=== PATIENT | male | born 1940 | race Caucasian/White ===

== ENCOUNTER 2017-06-16 12:21 | Inpatient (IN) | payer MEDICARE, SELFPAY ==
[2017-06-16] VITALS (16 sets, daily range): BP systolic 84–165; BP diastolic 39–88; PULSE 51–145; RESP 13–22; TEMP 36.4–36.9; O2SAT 93–96; BMI 38.8; BMI 35.1
--- NOTE | 2017-06-16 12:45 | XR_ITS ---
XR chest portable Ordering Physician: Rene Umanzor MD Patient Age: 76 years: Male HISTORY: ITS.REASON: SOAatrial fibrillation TECHNIQUE: AP portable upright chest COMPARISON :05/27/2012 CXR & right shoulder from November 2016 which includes right lung FINDINGS There is accentuation exaggeration of lung markings and interstitial lung markings toward the bases bilaterally. This is in part due to the higher contrast digital technique and I am suspect of a subtle superimposed interstitial infiltrate particularly towards right infrahilar region and right lung base. Clinical correlation required. At the left chest the left heart border is partially obscured due to what appears to be a subtle focal. Including lingula The heart is normal to upper normal size. The upper lobe vessels are mildly pronounced which could reflect element of mild CHF contribute to this picture versus mild interstitial pneumonia... Amanda and mediastinal structures appear stable. No pleural effusion evident. IMPRESSION Mild accentuation lung markings & interstitial markings most evident towards both lung bases. Suspect subtle interstitial infiltrate towards lung bases bilaterally..-Mild CHF changes versus mild interstitial infiltrate Heart upper normal size. No pleural effusions
[2017-06-16 13:14] LABS: Basophils # 0.1 K/mm3 (0-0.2); Basophils % 1.3 % (0.1-2.0); Eosinophils # 0.2 K/mm3 (0.0-0.4); Eosinophils % 2.3 % (0.1-12.0); Hematocrit 42.6 % (42.0-52.0); Hemoglobin 13.9 g/dL (14.1-18.0); Lymphocytes # 1.8 K/mm3 (0.7-4.5); Lymphocytes % 24.4 K/mm3 (10-50); Mean Corpuscular HGB Conc 32.6 g/dL (31.8-35.4); Mean Corpuscular Hemoglobin 30.2 pg (27.0-31.2); Mean Corpuscular Volume 92.5 fl (80-94); Mean Platelet Volume 7.2 fl (7.4-10.4); Monocytes # 0.4 K/mm3 (0.1-1.0); Monocytes % 5.7 % (1.7-9.3); Neutrophils # 4.8 K/mm3 (1.8-7.8); Neutrophils % 66.4 % (37.0-80.0); Platelet Count 262 K/mm3 (142-424); Red Cell Distribution Width 14.1 % (11.5-17.5); White Blood Count 7.3 K/mm3 (4.8-10.8)
[2017-06-16 13:29] LABS: Lactic Acid 1.7 mmol/L (0.4-2.0)
[2017-06-16 13:38] LABS: Alanine Aminotransferase 31 U/L (12-78); Albumin Level 4.1 gm/dL (3.4-5.0); Albumin/Globulin Ratio 1.2 (1.1-1.8); Alkaline Phosphatase 67 U/L (46-116); Anion Gap 14.1 mEq/L (5-15); Aspartate Amino Transferase 14 U/L (15-37); Bilirubin,Total 0.5 mg/dL (0.2-1.0); Blood Urea Nitrogen 21 mg/dL (7-18); CKMB Relative Index 3.7 U/L (0-4.0); Carbon Dioxide 26 mmol/L (21.0-32.0); Chloride 103 mmol/L (98-107); Creatine Kinase 195 U/L (39-308); Creatine Kinase MB 7.2 mg/ml (0.0-3.6); Creatinine Clearance Estimated 81 mL/min (0-300); Creatinine,Serum 1.04 mg/dL (0.70-1.30); Estimated Glomerular Filt Rate 69 ml/min (>60); GFR (African American) 84 ML/MIN (>60); Globulin 3.5 gm/dl (1.3-3.2); Glucose 102 mg/dL (74-106); Potassium 4.1 mmoL/L (3.5-5.1); Sodium 139 mmol/L (136-145); Total Protein,Serum 7.6 gm/dL (6.4-8.2); Troponin I < 0.02 ng/ml (0.00-0.06)
--- NOTE | 2017-06-16 14:13 | HMH.EDSOB ---
ED Disposition Clinical Impression: Atrial flutter with rapid ventricular response Congestive heart failure Qualifiers: Congestive heart failure type: unspecified Congestive heart failure chronicity: unspecified Qualified Code(s): I50.9 - Heart failure, unspecified Disposition: Admitted As Inpatient Condition on Discharge: Good - Critical Care Critical Care Time: Yes Attestation: On 06/16/17, the high probability of a clinically significant, sudden or life threatening deterioration of the following system(s) required my full and direct attention, intervention and personal management. The time I documented below is in addition to time spent performing reported procedures but includes the following listed in this critical care notation. Total Critical Care Time: 60 Vital system(s) involved:: Circulatory Failure My critical care processes included: Assessment & monitoring of V/S, Initial and Re-exams, Coordinating Care, Medication Orders and management, Documentation Medical Decision Making - Medical Records Medical records reviewed: Yes: I reviewed the patient's medical records. Vital Signs: 06/16/17 12:48 06/16/17 14:18 Temperature 98.4 F Temperature Source Oral Pulse Rate [Right Radial] 145 H 141 H Respiratory Rate 18 Blood Pressure [Right Arm] 126/76 111/83 Blood Pressure Mean [Right Arm] 92 92 Blood Pressure Source [Right Arm] Automatic Cuff Automatic Cuff Blood Pressure Position [Right Arm] Sitting 02 Sat by Pulse Oximetry 93 L 95 Oxygen Delivery Method Room Air - Lab Data Lab results reviewed: Yes: I reviewed the patient's lab results. Lab Results 06/16/17 12:55: WBC 7.3, RBC 4.60, Hgb 13.9 L, Hct 42.6, MCV 92.5, MCH 30.2, MCHC 32.6, RDW 14.1, Plt Count 262, MPV 7.2 L, Neut % (Auto) 66.4, Lymph % (Auto) 24.4, [place] % (Auto) 5.7, Eos % (Auto) 2.3, Baso % (Auto) 1.3, Neut # (Auto) 4.8, Lymph # (Auto) 1.8, [place] # (Auto) 0.4, Eos # (Auto) 0.2, Baso # (Auto) 0.1 06/16/17 12:55: Sodium 139, Potassium 4.1, Chloride 103, Carbon Dioxide 26, Anion Gap 14.1, BUN 21 H, Creatinine 1.04, Estimated Creat Clear 81, Estimated GFR 69, Est GFR ( Amer) 84, Glucose 102, Calcium 9.0, Total Bilirubin 0.5, AST 14 L, ALT 31, Alkaline Phosphatase 67, Total Creatine Kinase 195, CK-MB (CK-2) 7.2 H, CK-MB (CK-2) Rel Index 3.7, Troponin I < 0.02, Total Protein 7.6, Albumin 4.1, Globulin 3.5 H, Albumin/Globulin Ratio 1.2 06/16/17 12:55: Lactic Acid 1.7 06/16/17 12:55: B-Natriuretic Peptide 226 H 06/16/17 12:55: TSH 3.51, Free T4 1.03 Result diagrams: 06/16/17 12:55 06/16/17 12:55 Orders (Tests/Meds): ED MEDICATIONS Generic Name Dose Route Start Last Admin Trade Name Freq PRN Reason Stop Dose Admin Diltiazem HCl 100 mg/ Sodium 100 mls @ 10 mls/hr 06/16/17 13:00 06/16/17 12:55 Chloride IV 07/16/17 12:59 10 mls/hr .Q10H ERIC Administration 10 MG/HR Phenylephrine HCl 10 mg/ 500 mls @ 30 mls/hr 06/16/17 14:30 Sodium Chloride IV 07/16/17 14:29 .[id number] ERIC 10 MCG/MIN Discontinued Medications Generic Name Dose Route Start Last Admin Trade Name Freq PRN Reason Stop Dose Admin Diltiazem HCl 20 mg 06/16/17 12:46 06/16/17 12:50 Cardizem 25mg/5ml Vial IV 06/16/17 12:47 20 mg ONCE ONE Administration Metoprolol Tartrate 25 mg 06/16/17 13:15 06/16/17 13:16 Lopressor 50mg Tablet PO 06/16/17 13:16 25 mg ONCE ONE Administration ORDERS Category Date Time Status Chest XR -- portable [XR chest portable] Stat Exams 06/16/17 12:45 Taken Blood Culture Stat Micro 06/16/17 12:55 Received ECG Request by /Madeline Stat Y 06/16/17 12:48 Ordered - Radiology Data #1 Image(s): Chest Image Reviewed: Yes I reviewed the patient's radiology image Preliminary Findings: Abnormal (chf) - ECG Data Tracing #1 I reviewed this ECG and interpreted as documented below: Arrhythmias present: aflutter Ischemic changes: non-specific ST-T wave changes - Phys
--- NOTE | 2017-06-16 14:15 | PC.NURSE ---
DR MAIN TALKING TO DR MURILLO AT THIS TIME
--- NOTE | 2017-06-16 14:26 | ED_ITS ---
ED Disposition Clinical Impression: Atrial flutter with rapid ventricular response Congestive heart failure Qualifiers: Congestive heart failure type: unspecified Congestive heart failure chronicity : unspecified Qualified Code(s): I50.9 - Heart failure, unspecified Disposition: Admitted As Inpatient Condition on Discharge: Good - Critical Care Critical Care Time: Yes Attestation: On 06/16/17, the high probability of a clinically significant, sudden or life threatening deterioration of the following system(s) required my full and direct attention, intervention and personal management. The time I documented below is in addition to time spent performing reported procedures but includes the following listed in this critical care notation. Total Critical Care Time: 60 Vital system(s) involved:: Circulatory Failure My critical care processes included: Assessment & monitoring of V/S, Initial and Re-exams, Coordinating Care, Medication Orders and management, Documentation Medical Decision Making - Medical Records Medical records reviewed: Yes: I reviewed the patient's medical records. Vital Signs: 06/16/17 12:48 06/16/17 14:18 Temperature 98.4 F Temperature Source Oral Pulse Rate [Right Radial] 145 H 141 H Respiratory Rate 18 Blood Pressure [Right Arm] 126/76 111/83 Blood Pressure Mean [Right Arm] 92 92 Blood Pressure Source [Right Arm] Automatic Cuff Automatic Cuff Blood Pressure Position [Right Arm] Sitting 02 Sat by Pulse Oximetry 93 L 95 Oxygen Delivery Method Room Air - Lab Data Lab results reviewed: Yes: I reviewed the patient's lab results. Lab Results 06/16/17 12:55: WBC 7.3, RBC 4.60, Hgb 13.9 L, Hct 42.6, MCV 92.5, MCH 30.2, MCHC 32.6, RDW 14.1, Plt Count 262, MPV 7.2 L, Neut % (Auto) 66.4, Lymph % (Auto ) 24.4, [place] % (Auto) 5.7, Eos % (Auto) 2.3, Baso % (Auto) 1.3, Neut # (Auto) 4.8, Lymph # (Auto) 1.8, [place] # (Auto) 0.4, Eos # (Auto) 0.2, Baso # (Auto) 0.1 06/16/17 12:55: Sodium 139, Potassium 4.1, Chloride 103, Carbon Dioxide 26, Anion Gap 14.1, BUN 21 H, Creatinine 1.04, Estimated Creat Clear 81, Estimated GFR 69, Est GFR ( Amer) 84, Glucose 102, Calcium 9.0, Total Bilirubin 0.5 , AST 14 L, ALT 31, Alkaline Phosphatase 67, Total Creatine Kinase 195, CK-MB ( CK-2) 7.2 H, CK-MB (CK-2) Rel Index 3.7, Troponin I < 0.02, Total Protein 7.6, Albumin 4.1, Globulin 3.5 H, Albumin/Globulin Ratio 1.2 06/16/17 12:55: Lactic Acid 1.7 06/16/17 12:55: B-Natriuretic Peptide 226 H 06/16/17 12:55: TSH 3.51, Free T4 1.03 Result diagrams: 06/16/17 12:55 06/16/17 12:55 Orders (Tests/Meds): ED MEDICATIONS Generic Name Dose Route Start Last Admin Trade Name Freq PRN Reason Stop Dose Admin Diltiazem HCl 100 mg/ Sodium 100 mls @ 10 mls/hr 06/16/17 13:00 06/16/17 12: 55 Chloride IV 07/16/17 12:59 10 mls/hr .Q10H ERIC Administration 10 MG/HR Phenylephrine HCl 10 mg/ 500 mls @ 30 mls/hr 06/16/17 14:30 Sodium Chloride IV 07/16/17 14:29 .[id number] ERIC 10 MCG/MIN Discontinued Medications Generic Name Dose Route Start Last Admin Trade Name Freq PRN Reason Stop Dose Admin Diltiazem HCl 20 mg 06/16/17 12:46 06/16/17 12:50 Cardizem 25mg/5ml Vial IV 06/16/17 12:47 20 mg ONCE ONE Administration Metoprolol Tartrate 25 mg 06/16/17 13:15 06/16/17 13:16 Lopressor 5
[2017-06-16 14:38] LABS: Free T4 (Free Thyroxine) 1.03 ng/dl (0.76-1.46); Thyroid Stimulating Hormone 3.51 uIU/ml (0.358-3.740)
[2017-06-16 17:17] LABS: Troponin I < 0.02 ng/ml (0.00-0.06)
--- NOTE | 2017-06-16 21:13 | PC.NURSE ---
dr cortes returned call at this time. was notified that at approx 1800 pt heart rate decreased from 140 afib/aflutter to 45-75 afib. pt cardizem drip has been weaned down to 5ml/hr. pt remains in afib which was confirmed with ekg at 0. per dr cortes order start cardizem er 120mg po daily and dc cardizem drip [address] cortes stated that ok to leave pt on phenylephrine drip as needed for hypotension. parameters per pharmacy were for systolic bp to be above 100. new orders will be given to night rn S Call RN
[2017-06-16 22:07] LABS: Troponin I < 0.02 ng/ml (0.00-0.06)
[2017-06-17] VITALS (15 sets, daily range): BP systolic 112–153; BP diastolic 61–113; PULSE 68–136; RESP 17–23; TEMP 36.3–36.9; O2SAT 90–95
--- NOTE | 2017-06-17 03:32 | PC.NURSE ---
PT IS A&OX3. 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 HE HAS REMAINED IN CONTROLLED AFIB THIS SHIFT. FAMILY IS AT THE BEDSIDE. HE CONTINUES ON PHENYLEPHRINE GTT. VSS. HE RECEIVED PRN TYLENOL FOR REPORTS OF A HEADACHE. HE IS VOIDING PER THE URINAL. URINE IS YELLOW, CLEAR.
--- NOTE | 2017-06-17 06:24 | HMH.HP ---
*Admission Date: 06/16/17 *Chief complaint: Shortness of breath *History of present illness: 76-year-old male presented to the emergency department yesterday with near 48 hours of shortness of breath with exertion. He endorsed presyncope but no chest pain or palpitations. On presentation to the emergency department he was fairly in atrial flutter. Troponin was negative. Patient was admitted to the stepdown unit on a Cardizem drip along with Levophed to keep blood pressure greater than 100. While in the stepdown unit patient transition to atrial fibrillation. His rate gradually came down until it was ranging between 45 and 75. At that time he was transitioned to oral Cardizem and overnight he has been weaned from the Levophed. This morning patient is in bed and while at rest does not feel short of breath. 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 No: Pacemaker Amputation: No Fractures: Yes - *Social History Educational Level: Completed High School Smoking Status: Former smoker Tobacco Type: cigarettes #Yrs smoked (if former smoker): 21 Smoking End Date: 1996 Alcohol Intake: never Occupational Status: retired - Psychiatric History Expresses thoughts of harming self/others: None Suicide Plan Description: No Plan Review of Systems - Review of Systems Review of systems:: pertinent systems reviewed and negative unless documented below see HPI - *Neurologic Denies seizure-like activity Meds Allergies Allergy/AdvReac Type Severity Reaction Status Date / Time Penicillins Allergy Unknown Verified 06/16/17 13:04 Exam Vital signs and Labs for Last 24 Hours: Temp Pulse Resp BP Pulse Ox 97.9 F 75 19 112/85 93 L 06/17/17 04:00 06/17/17 06:08 06/17/17 06:08 06/17/17 06:08 06/17/17 06:08 Laboratory Results - last 24 hr 06/16/17 16:37: Troponin I < 0.02 06/16/17 21:45: Troponin I < 0.02 Laboratory Results - last 24 hr 06/16/17 12:55: WBC 7.3, RBC 4.60, Hgb 13.9 L, Hct 42.6, MCV 92.5, MCH 30.2, MCHC 32.6, RDW 14.1, Plt Count 262, MPV 7.2 L, Neut % (Auto) 66.4, Lymph % (Auto) 24.4, [place] % (Auto) 5.7, Eos % (Auto) 2.3, Baso % (Auto) 1.3, Neut # (Auto) 4.8, Lymph # (Auto) 1.8, [place] # (Auto) 0.4, Eos # (Auto) 0.2, Baso # (Auto) 0.1 06/16/17 12:55: Sodium 139, Potassium 4.1, Chloride 103, Carbon Dioxide 26, Anion Gap 14.1, BUN 21 H, Creatinine 1.04, Estimated Creat Clear 81, Estimated GFR 69, Est GFR ( Amer) 84, Glucose 102, Calcium 9.0, Total Bilirubin 0.5, AST 14 L, ALT 31, Alkaline Phosphatase 67, Total Creatine Kinase 195, CK-MB (CK-2) 7.2 H, CK-MB (CK-2) Rel Index 3.7, Troponin I < 0.02, Total Protein 7.6, Albumin 4.1, Globulin 3.5 H, Albumin/Globulin Ratio 1.2 06/16/17 12:55: Lactic Acid 1.7 06/16/17 12:55: B-Natriuretic Peptide 226 H 06/16/17 12:55: TSH 3.51, Free T4 1.03 06/16/17 16:37: Troponin I < 0.02 06/16/17 21:45: Troponin I < 0.02 I & O for Last 24 hours: Intake & Output 06/14/17 06/15/17 06/16/17 06/17/17 11:59 11:59 11:59 11:59 Intake Total 951 / 951 Output Total 1180 / 2055 Balance -229 / -1104 Weight 217 lb 1 oz H&P: Result - Labs Labs: Cardiac Enzymes 06/16/17 06/16/17 Range/Units 16:37 21:45 Troponin I < 0.02 < 0.02 (0.00-0.06) ng/ml Assessment and Plan (1) Atrial fibrillation Current visit: Yes Status: Acute Category: Medical Code(s): I48.91 - Unspecified atrial fibrillation (2) Atrial flutter with rapid ventricular response Current visit: Yes Status: Acute Category: Medical Code(s): I48.92 - Unspecified atrial flutter - Assessment and plan all Dx Assessment and Plan for all problems:: Patient remains in A. fib this morning. Transition to oral Cardizem. I will start 180 mg p.o. this morning. Check echocardiogram. Patient has h
[2017-06-17 06:27] LABS: Basophils # 0.1 K/mm3 (0-0.2); Eosinophils # 0.2 K/mm3 (0.0-0.4); Monocytes # 0.4 K/mm3 (0.1-1.0); Red Cell Distribution Width 14.3 % (11.5-17.5)
--- NOTE | 2017-06-17 06:27 | P.HP_ITS ---
*Admission Date: 06/16/17 *Chief complaint: Shortness of breath *History of present illness: 76-year-old male presented to the emergency department yesterday with near 48 hours of shortness of breath with exertion. He endorsed presyncope but no chest pain or palpitations. On presentation to the emergency department he was fairly in atrial flutter. Troponin was negative. Patient was admitted to the stepdown unit on a Cardizem drip along with Levophed to keep blood pressure greater than 100. While in the stepdown unit patient transition to atrial fibrillation. His rate gradually came down until it was ranging between 45 and 75. At that time he was transitioned to oral Cardizem and overnight he has been weaned from the Levophed. This morning patient is in bed and while at rest does not feel short of breath. 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 No: Pacemaker Amputation: No Fractures: Yes - *Social History Educational Level: Completed High School Smoking Status: Former smoker Tobacco Type: cigarettes #Yrs smoked (if former smoker): 21 Smoking End Date: 1996 Alcohol Intake: never Occupational Status: retired - Psychiatric History Expresses thoughts of harming self/others: None Suicide Plan Description: No Plan Review of Systems - Review of Systems Review of systems:: pertinent systems reviewed and negative unless documented below see HPI - *Neurologic Denies seizure-like activity Meds Allergies Allergy/AdvReac Type Severity Reaction Status Date / Time Penicillins Allergy Unknown Verified 06/16/17 13:04 Exam Vital signs and Labs for Last 24 Hours: Temp Pulse Resp BP Pulse Ox 97.9 F 75 19 112/85 93 L 06/17/17 04:00 06/17/17 06:08 06/17/17 06:08 06/17/17 06:08 06/17/17 06:08 Laboratory Results - last 24 hr 06/16/17 16:37: Troponin I < 0.02 06/16/17 21:45: Troponin I < 0.02 Laboratory Results - last 24 hr 06/16/17 12:55: WBC 7.3, RBC 4.60, Hgb 13.9 L, Hct 42.6, MCV 92.5, MCH 30.2, MCHC 32.6, RDW 14.1, Plt Count 262, MPV 7.2 L, Neut % (Auto) 66.4, Lymph % (Auto ) 24.4, [place] % (Auto) 5.7, Eos % (Auto) 2.3, Baso % (Auto) 1.3, Neut # (Auto) 4.8, Lymph # (Auto) 1.8, [place] # (Auto) 0.4, Eos # (Auto) 0.2, Baso # (Auto) 0.1 06/16/17 12:55: Sodium 139, Potassium 4.1, Chloride 103, Carbon Dioxide 26, Anion Gap 14.1, BUN 21 H, Creatinine 1.04, Estimated Creat Clear 81, Estimated GFR 69, Est GFR ( Amer) 84, Glucose 102, Calcium 9.0, Total Bilirubin 0.5 , AST 14 L, ALT 31, Alkaline Phosphatase 67, Total Creatine Kinase 195, CK-MB ( CK-2) 7.2 H, CK-MB (CK-2) Rel Index 3.7, Troponin I < 0.02, Total Protein 7.6, Albumin 4.1, Globulin 3.5 H, Albumin/Globulin Ratio 1.2 06/16/17 12:55: Lactic Acid 1.7 06/16/17 12:55: B-Natriuretic Peptide 226 H 06/16/17 12:55: TSH 3.51, Free T4 1.03 06/16/17 16:37: Troponin I < 0.02 06/16/17 21:45: Troponin I < 0.02 I & O for Last 24 hours: Intake & Output 06/14/17 06/15/17 06/16/17 06/17/17 11:59 11:59 11:59 11:59 Intake Total 951 / 951 Output Total 1180 / 2055 Balance -229 / -1104 Weight 217 lb 1 oz H&P: Result - Labs Labs: Cardiac Enzymes 06/16/17 06/16/17 Range/Units 16:37 21:45 Troponin I < 0.02 < 0.02 (0.00
[2017-06-17 06:30] LABS: Basophils % 0.9 % (0.1-2.0); Eosinophils % 2.6 % (0.1-12.0); Hematocrit 36.8 % (42.0-52.0); Hemoglobin 12.1 g/dL (14.1-18.0); Lymphocytes # 1.9 K/mm3 (0.7-4.5); Lymphocytes % 29.5 K/mm3 (10-50); Mean Corpuscular Hemoglobin 30.3 pg (27.0-31.2); Mean Platelet Volume 7.3 fl (7.4-10.4); Monocytes % 5.5 % (1.7-9.3); Neutrophils # 3.9 K/mm3 (1.8-7.8); Neutrophils % 61.4 % (37.0-80.0); Platelet Count 234 K/mm3 (142-424); White Blood Count 6.4 K/mm3 (4.8-10.8)
[2017-06-17 06:33] LABS: Anion Gap 10.4 mEq/L (5-15); Blood Urea Nitrogen 19 mg/dL (7-18); Carbon Dioxide 26 mmol/L (21.0-32.0); Chloride 108 mmol/L (98-107); Chol/HDL Ratio 4.9 (1-3.5); Cholesterol 175 mg/dL (140-200); Creatinine Clearance Estimated 86 mL/min (0-300); Creatinine,Serum 0.95 mg/dL (0.70-1.30); Estimated Glomerular Filt Rate 77 ml/min (>60); GFR (African American) 93 ML/MIN (>60); Glucose 94 mg/dL (74-106); HDL Cholesterol 36 mg/dL (27-67); LDL Cholesterol 114 mg/dL (0-130); Potassium 3.4 mmoL/L (3.5-5.1); Sodium 141 mmol/L (136-145); Triglycerides 124 mg/dL (30-200); VLDL Cholesterol 25 mg/dL (0-40)
--- NOTE | 2017-06-17 07:16 | CA_ITS ---
PROCEDURE: 2-D M-mode and color Doppler study INDICATIONS FOR THE TEST: Chest pain COPD Heart MurmurX Tobacco Smoking Palpitations Fatigue Syncope Edema Hypertension Diabetes Mellitus Rheumatic Fever SOB SANDS ObesityXHyperlipidemia Family History HD Additional History AF PATIENT INFORMATION HEIGHT: 68 WEIGHT:212 GENDER: Male B/P:112/85 2-D/M-MODE INTERPRETATION: 2-D MEASUREMENTS OBSERVED VALUES IN CMS Right Ventricular Dimension (RVDd) 3.3 Interventricular Septum (Thickness)(IVsd) 1.0 Left Ventricular Internal Dimensions(LVIDd) 5.7 Left Ventricular Posterior Wall (Thickness)(LVPWd) .9 Aortic Root 4.0 Aortic Cusp Separation 2.1 Left Atrial Dimensions (LAD) 3.4 2D 1. Left atrium is mildly enlarged, left ventricle is normal size, visually estimated ejection fraction 55% with no obvious regional wall motion abnormality. There is mild qualitative concentric left ventricular hypertrophy present. 2. The right atrium and right ventricle are mildly enlarged with normal contractility. 3. The aortic valve is minimally thickened and fibrosed. 4. The mitral and tricuspid valvular grossly normal. 5. The pulmonic valve is poorly visualized. 6. No significant pericardial effusion noted. DOPPLER INTERROGATION: Doppler interrogation of the aortic, mitral and tricuspid valvular presence of mild mitral and tricuspid regurgitation, calculated right ventricular systolic pressure is 56 mmHg consistent with moderate pulmonary hypertension, inferior vena cava is dilated without significant inspiratory collapse. CONCLUSION: 1. Mild biatrial enlargement, normal left ventricular size, mild concentric left ventricular hypertrophy, visually estimated ejection fraction 55% with no obvious regional wall motion abnormality 2. Mildly enlarged right atrium and right ventricle, contractility of the right ventricle is normal. 3. Mild mitral and tricuspid regurgitation, calculated right ventricular systolic pressure is 56 mmHg consistent with moderate pulmonary hypertension, inferior vena cava is dilated without significant inspiratory collapse. 4. No significant pericardial effusion noted.
--- NOTE | 2017-06-17 07:35 | HMH.PHAVTE ---
[facility] Pharmacy VTE Monitoring - Patient Demographics Admission date: 06/16/17 Report Date: 06/17/17 Time: 07:36 Allergies/Adverse Reactions: Patient Allergies Penicillins Allergy (Unknown, Verified 06/16/17 13:04) Height: 1.68 m Weight: 96.4 kg Patient Problems: Current Active Problems Atrial flutter with rapid ventricular response (Acute) Congestive heart failure (Acute) Atrial fibrillation (Acute) - VTE Risk Labs: VTE Related Lab Results Hgb 12.1 g/dL (14.1-18.0) L D 06/17/17 06:10 Hct 36.8 % (42.0-52.0) L 06/17/17 06:10 Plt Count 234 K/mm3 (142-424) 06/17/17 06:10 BUN 19 mg/dL (7-18) H 06/17/17 06:10 Creatinine 0.95 mg/dL (0.70-1.30) 06/17/17 06:10 Estimated Creat Clear 86 mL/min (0-300) 06/17/17 06:10 Was VTE Risk Assessment Performed: Yes VTE Score: 2 VTE Risk Level: Very Low Risk - Prophylaxis VTE Prophylaxis Ordered?: Yes Types of VTE Prophylaxis: TEDS Knee High, Pharmacological Location of Applied Device: Bilateral Lower Extremeties Pharmacologic Type: Other (XARLETO) - VTE Diagnosis Confirmed Treatment or plan recommended: Continue Current Treatment
--- NOTE | 2017-06-17 07:50 | PC.NURSE ---
RADIOLOGY NOW AT THE BEDSIDE TO PERFORM PATIENT'S ECHO.
--- NOTE | 2017-06-17 08:07 | CI_ITS ---
Cerebrovascular Exam IMPRESSIONS 1. The bilateral vertebral arteries are patent with normal antegrade flow. 2. Study suggests 20-49% stenosis involving the right internal carotid artery. No change from the study of 22-Jan-2014. 3. Study suggests less than 20% stenosis involving the left internal carotid artery. No change from the study of 22-Jan-2014. History: Risk factors: Former smoker - years since quittinyr. Hypertension. Hyperlipidemia. Carotid duplex study. Complete study and Doppler flow study including spectral analysis, color and padron scale imaging. Height: Height: 167.6cm. Height: 66in. Weight: Weight: 96.2kg. Weight: 211.6lb. Body mass index: BMI: 34.2kg/m^2. Body surface area: BSA: 2.15m^2. Location: Vascular laboratory. Patient status: Outpatient. Tables: Arterial flow: + +--------+--------+ Location V sys V ed + +--------+--------+ Right CCA - proximal 103cm/s 22.1cm/s + +--------+--------+ Right CCA - distal 43.7cm/s 13.1cm/s + +--------+--------+ Right ECA 91.2cm/s -------- + +--------+--------+ Right ICA - proximal 41.9cm/s 9.2cm/s + +--------+--------+ Right ICA - mid 42.8cm/s 14.4cm/s + +--------+--------+ Right ICA - distal 54.1cm/s 20.1cm/s + +--------+--------+ Right vertebral 45cm/s -------- + +--------+--------+ Left CCA - proximal 52.8cm/s 11.8cm/s + +--------+--------+ Left CCA - distal 59.8cm/s 12.2cm/s + +--------+--------+ Left ECA 62.4cm/s -------- + +--------+--------+ Left ICA - proximal 41.5cm/s 14.4cm/s + +--------+--------+ Left ICA - mid 69.8cm/s 29.7cm/s + +--------+--------+ Left ICA - distal 68.5cm/s 27.9cm/s + +--------+--------+ Left vertebral 29.7cm/s -------- + +--------+--------+ Velocity ratios: + + + + + + Right, V sys Right, V ed Left, V sys Left, V ed + + + + + + Max ICA/dist CCA 1.24 1.53 1.17 2.43 + + + + + + (Report amended ) Electronically signed by: King Roche [id number]
--- NOTE | 2017-06-17 08:23 | PC.NURSE ---
RADIOLOGY AT THE BEDSIDE NOW TO DO PATIENT'S CAROTID DOPPLER ON THE PATIENT PER ORDERS.
--- NOTE | 2017-06-17 11:19 | PC.NURSE ---
DR. MURILLO WAS NOTIFIED THAT AROUND 11:10 THE PATIENT'S HEART RATE WENT TO 130'S AND IS SUSTAINING IN 115-119 BPM. HE HAS NOW ORDERED FOR HIM TO GET DILTIAZEM HCL 60MG PO QID/PRN FOR HEART RATE > 110 BPM.
--- NOTE | 2017-06-17 11:30 | PC.NURSE ---
DR. YOUSSEF INTO SPEAK WITH THE PATIENT, HE PLANS TO PERFORM A HEART CATH TOMORROW GOING THROUGH [facility] IF POSSIBLE.
--- NOTE | 2017-06-17 11:34 | PC.NURSE ---
FIRST PRN DOSE OF DILTIAZEM 60MG PO GIVEN AND VERIFIED WITH SANDOVAL GARCIA
--- NOTE | 2017-06-17 12:24 | HMH.CARDCON2 ---
History of Present Illness Consult date: 06/16/17 Requesting physician: Rene Umanzor Consult reason: atrial fibrillation Chief complaint: SOA History of present illness: 76 yo WM with several days history of elevated heart rate and SOA that culminated in seeking help. Pt relates checks his pulse at home and it has been in the 140's recently. He gets so SOA with just walking to the mailbox (less than 50 ft) that he has to stop twice to rest. In ER, he was found to be in A. fib with RVR and was admitted for further treatment. Rapid response called last evening due to low BP on the cardizem gtt with phone consultation with Dr. Grover. Treated successfully with transient Neosynephrine gtt. Currently off both cardizem and tereza gtt's with rates in the 120-140's on PO cardizem. Pt denies any chest pain, pressure or tightness. Denies any history of DM, TIA, CVA or cancer. Remote tobacco and ETOH use. Cardiology consulted for further evaluation and treatment. 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 Other Surgeries: Yes: Other (nasal sx, ankle sx, aaa repair). No: Pacemaker Amputation: No Fractures: Yes - *Social History Educational Level: Completed High School Smoking Status: Former smoker Tobacco Type: cigarettes #Yrs smoked (if former smoker): 21 Smoking End Date: 1996 Alcohol Intake: never Occupational Status: retired - Psychiatric History Expresses thoughts of harming self/others: None Suicide Plan Description: No Plan Meds Home Medications Medication Instructions Recorded Confirmed Type Amlodipine Besylate [Amlodipine 10 mg PO DAILY 06/17/17 06/17/17 History 10mg Tab] Ascorbic Acid [Vitamin C] 1,000 mg PO DAILY 06/17/17 06/17/17 History Aspirin [Aspirin 325mg Tab] 325 mg PO DAILY 06/17/17 06/17/17 History Atropine Sulfate [Atropine 1 drop EYE-BOTH DAILY 06/17/17 06/17/17 History 1mg/10mL Syringe] Cholecalciferol (Vitamin D3) 1,000 unit PO DAILY 06/17/17 06/17/17 History [Vitamin D3 1,000 Unit Cap] Esomeprazole Magnesium 40 mg PO DAILY 06/17/17 06/17/17 History Levothyroxine Sodium 125 mcg PO DAILY 06/17/17 06/17/17 History [Levothyroxine 125mcg (0.125mg) Tab] Linaclotide [Linzess] 145 mcg PO DAILY 06/17/17 06/17/17 History Losartan Potassium 100 mg PO DAILY 06/17/17 06/17/17 History Vit C/E/Zn/Coppr/Lutein/Zeaxan 1 each PO DAILY 06/17/17 06/17/17 History [Preservision Areds 2 Softgel] prednisoLONE acetate [Prednisolone 5 ml OP DAILY 06/17/17 06/17/17 History Acetate] Allergies Allergy/AdvReac Type Severity Reaction Status Date / Time Penicillins Allergy Unknown Verified 06/16/17 13:04 Exam Vital signs and Labs for Last 24 Hours: Temp Pulse Resp BP Pulse Ox 97.5 F L 136 H 23 153/113 94 L 06/17/17 11:55 06/17/17 11:55 06/17/17 11:55 06/17/17 11:55 06/17/17 11:55 Laboratory Results - last 24 hr 06/16/17 16:37: Troponin I < 0.02 06/16/17 21:45: Troponin I < 0.02 06/17/17 06:10: WBC 6.4, RBC 4.00 L, Hgb 12.1 L D, Hct 36.8 L, MCV 92.0, MCH 30.3, MCHC 33.0, RDW 14.3, Plt Count 234, MPV 7.3 L, Neut % (Auto) 61.4, Lymph % (Auto) 29.5, [place] % (Auto) 5.5, Eos % (Auto) 2.6, Baso % (Auto) 0.9, Neut # (Auto) 3.9, Lymph # (Auto) 1.9, [place] # (Auto) 0.4, Eos # (Auto) 0.2, Baso # (Auto) 0.1 06/17/17 06:10: Sodium 141, Potassium 3.4 L, Chloride 108 H, Carbon Dioxide 26, Anion Gap 10.4, BUN 19 H, Creatinine 0.95, Estimated Creat Clear 86, Estimated GFR 77, Est GFR ( Amer) 93, Glucose 94, Triglycerides 124, Cholester
--- NOTE | 2017-06-17 12:27 | P.CONS_ITS ---
History of Present Illness Consult date: 06/16/17 Requesting physician: Rene Umanzor Consult reason: atrial fibrillation Chief complaint: SOA History of present illness: 76 yo WM with several days history of elevated heart rate and SOA that culminated in seeking help. Pt relates checks his pulse at home and it has been in the 140's recently. He gets so SOA with just walking to the mailbox ( less than 50 ft) that he has to stop twice to rest. In ER, he was found to be in A. fib with RVR and was admitted for further treatment. Rapid response called last evening due to low BP on the cardizem gtt with phone consultation with Dr. Grover. Treated successfully with transient Neosynephrine gtt. Currently off both cardizem and tereza gtt's with rates in the 120-140's on PO cardizem. Pt denies any chest pain, pressure or tightness. Denies any history of DM, TIA, CVA or cancer. Remote tobacco and ETOH use. Cardiology consulted for further evaluation and treatment. 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 Other Surgeries: Yes: Other (nasal sx, ankle sx, aaa repair). No: Pacemaker Amputation: No Fractures: Yes - *Social History Educational Level: Completed High School Smoking Status: Former smoker Tobacco Type: cigarettes #Yrs smoked (if former smoker): 21 Smoking End Date: 1996 Alcohol Intake: never Occupational Status: retired - Psychiatric History Expresses thoughts of harming self/others: None Suicide Plan Description: No Plan Meds Home Medications Medication Instructions Recorded Confirmed Type Amlodipine Besylate [Amlodipine 10 mg PO DAILY 06/17/17 06/17/17 History 10mg Tab] Ascorbic Acid [Vitamin C] 1,000 mg PO DAILY 06/17/17 06/17/17 History Aspirin [Aspirin 325mg Tab] 325 mg PO DAILY 06/17/17 06/17/17 History Atropine Sulfate [Atropine 1 drop EYE-BOTH DAILY 06/17/17 06/17/17 History 1mg/10mL Syringe] Cholecalciferol (Vitamin D3) 1,000 unit PO DAILY 06/17/17 06/17/17 History [Vitamin D3 1,000 Unit Cap] Esomeprazole Magnesium 40 mg PO DAILY 06/17/17 06/17/17 History Levothyroxine Sodium 125 mcg PO DAILY 06/17/17 06/17/17 History [Levothyroxine 125mcg (0.125mg) Tab] Linaclotide [Linzess] 145 mcg PO DAILY 06/17/17 06/17/17 History Losartan Potassium 100 mg PO DAILY 06/17/17 06/17/17 History Vit C/E/Zn/Coppr/Lutein/Zeaxan 1 each PO DAILY 06/17/17 06/17/17 History [Preservision Areds 2 Softgel] prednisoLONE acetate [Prednisolone 5 ml OP DAILY 06/17/17 06/17/17 History Acetate] Allergies Allergy/AdvReac Type Severity Reaction Status Date / Time Penicillins Allergy Unknown Verified 06/16/17 13:04 Exam Vital signs and Labs for Last 24 Hours: Temp Pulse Resp BP Pulse Ox 97.5 F L 136 H 23 153/113 94 L 06/17/17 11:55 06/17/17 11:55 06/17/17 11:55 06/17/17 11:55 06/17/17 11:55 Laboratory Results - last 24 hr 06/16/17 16:37: Troponin I < 0.02 06/16/17 21
--- NOTE | 2017-06-17 15:55 | PC.NURSE ---
DR. MURILLO REVIEWING PATIENT'S EKG STRIP AND AT THE BEDSIDE SPEAKING TO THE PATIENT
--- NOTE | 2017-06-17 16:02 | PC.NURSE ---
AFTER REVIEWING PATIENTS EKG STRIP, Heydi MURILLO STATES THAT AFTER HIS TRIP TO THE BATHROOM AND HAVING A BM HE VALSALVA MANEUVER AND CONVERTED BACK INTO NSR.
--- NOTE | 2017-06-17 19:25 | PC.NURSE ---
PATIENT HAND OFF GIVEN TO SANDOVAL MARTIN AT THIS TIME.
--- NOTE | 2017-06-17 22:53 | PC.NURSE ---
litigation counsel for Dr. Noé vargas, Dr. Hastings. Awaiting call back
--- NOTE | 2017-06-17 23:18 | PC.NURSE ---
pts breathing improved with 2L of o2 via nc and nurse guided relaxation. VSS
--- NOTE | 2017-06-17 23:37 | PC.NURSE ---
report given to Violette Fox RN
[2017-06-18] VITALS (16 sets, daily range): BP systolic 102–167; BP diastolic 58–81; PULSE 58–81; RESP 16–22; TEMP 36.3–36.6; O2SAT 86–98
--- NOTE | 2017-06-18 06:58 | HMH.ACPN2 ---
Internal Medicine - PN: Subj *Date: 06/18/17 *Time: 06:58 Interval history: Patient converted to sinus rhythm yesterday afternoon around 4 PM after having a bowel movement. He has continued to complain of dyspnea on exertion. No chest pain. Exam Vital signs and Labs for Last 24 Hours: Temp Pulse Resp BP Pulse Ox 98.4 F 77 18 126/67 98 06/17/17 15:56 06/18/17 04:00 06/18/17 04:00 06/18/17 04:00 06/18/17 04:00 I & O for Last 24 hours: Intake & Output 06/15/17 06/16/17 06/17/17 06/18/17 11:59 11:59 11:59 11:59 Intake Total 1551 / 1551 240 / 240 Output Total 1880 / 2755 600 / 600 Balance -329 / -1204 -360 / -360 Weight 212 lb 8.41 oz 213 lb 8 oz Radiology Reports for the Last 24 Hours: Carotid Dopplers yesterday are unchanged from previous exam in 2013 showed nonobstructive carotid disease. Echocardiogram was significant for normal EF of 55% with biatrial enlargement and evidence of pulmonary hypertension with increased right ventricular pressures Narrative: On examination patient is using oxygen. Nose is very congested. Oropharynx is moist. Lungs are clear with some central airway congested sounds. Heart rate is regular Assessment and Plan (1) Atrial fibrillation Current visit: Yes Status: Acute Category: Medical Code(s): I48.91 - Unspecified atrial fibrillation (2) Atrial flutter with rapid ventricular response Current visit: Yes Status: Acute Category: Medical Code(s): I48.92 - Unspecified atrial flutter (3) Hypertension Current visit: Yes Status: Acute Category: Medical Code(s): I10 - Essential (primary) hypertension (4) Abnormal EKG Current visit: Yes Status: Acute Category: Medical Code(s): R94.31 - Abnormal electrocardiogram [ECG] [EKG] (5) Congestive heart failure Current visit: Yes Status: Acute Qualifiers: Congestive heart failure type: unspecified Congestive heart failure chronicity: unspecified Qualified Code(s): I50.9 - Heart failure, unspecified Category: Medical Code(s): I50.9 - Heart failure, unspecified - Assessment and plan all Dx Assessment and Plan for all problems:: Cardiac catheterization today. Disposition afterwards. Patient will need a sleep study in the near future. Continue Xarelto for atrial fibrillation
--- NOTE | 2017-06-18 07:08 | IR_ITS ---
CARDIAC CATHETERIZATION DATE OF CATHETERIZATION:06/18/2017 10:46 AM PROCEDURES: 1. Left heart catheterization 2. Left ventriculogram 3. Selective coronary angiogram INDICATION FOR TEST: 1. Atrial fibrillation 2. Congestive heart failure 3. Risk factors for coronary artery disease Informed consent was obtained prior to the procedure. COMPLICATIONS: None ESTIMATED BLOOD LOSS: Less than 10 ml. TECHNIQUE: One percent lidocaine used to anesthetize the right anterior aspect of the wrist. The right radial artery was accessed via the Seldinger technique. A 6 [place] sheath was placed in the right radial artery. 2.5 mg of verapamil, 800 mcg of nitroglycerin and 5000 U Heparin were given through the arterial sheath. The trap catheter was also used to perform left heart catheterization and left ventriculography. At the end of the procedure the patient was transferred to the post-op holding area in stable condition for arterial sheath removal. ANGIOGRAPHIC RESULTS: 1. The left main artery normal 2. The left anterior descending artery has proximal tandem 30% stenoses with mid vessel 30% nonflow limiting stenoses 3. The circumflex artery is a large dominant vessel and has proximal 30% stenosis with mid vessel 40% stenoses 4. The right coronary artery is a small nondominant vessel and has proximal 80% followed by 70% stenosis 5. The BRIONES ventriculogram reveals small hyperdynamic ventricle estimated at 75% 6. The left ventricular end-diastolic pressure moderate to severely elevated at 30 to 35 mmHg IMPRESSION: 1. Severe coronary disease involving a small nondominant right coronary artery which does not supply the left ventricle therefore there would be no clinical advantage to revascularizing this vessel 2. Nonflow limiting disease in the LAD and circumflex artery 3. Small hyperdynamic ventricle 4. Elevated LVEDP consistent with diastolic dysfunction PLAN: 1. Anticoagulation for atrial fibrillation 2. Patient would benefit from verapamil extended release 3. Diuretics to decrease LVEDP 4. Aggressive control of hypertension 5. LDL less than 55
--- NOTE | 2017-06-18 08:38 | HMH.CARDPN2 ---
Subjective PN (PG) Date: 06/18/17 Time: 08:00 Principal diagnosis: A. fib Interval history: WM in chair in NAD. Anxious about cardiac cath. Feeling better overall. PN Exam ([facility]) Vital signs: Temp Pulse Resp BP Pulse Ox 98.4 F 77 18 126/67 98 06/17/17 15:56 06/18/17 04:00 06/18/17 04:00 06/18/17 04:00 06/18/17 04:00 A/P Progress Note ([facility]) (1) Atrial fibrillation Status: Acute Assessment and plan: Rate controlled on current meds. CHADS-VASc score at least 4. Xarelto has been started. Current Visit: Yes (2) Atrial flutter with rapid ventricular response Status: Acute Current Visit: Yes (3) Hypertension Status: Acute Current Visit: Yes (4) Abnormal EKG Status: Acute Current Visit: Yes (5) Congestive heart failure Status: Acute Current Visit: Yes
--- NOTE | 2017-06-18 08:41 | P.PN_ITS ---
Subjective PN (PG) Date: 06/18/17 Time: 08:00 Principal diagnosis: A. fib Interval history: WM in chair in NAD. Anxious about cardiac cath. Feeling better overall. PN Exam ([facility]) Vital signs: Temp Pulse Resp BP Pulse Ox 98.4 F 77 18 126/67 98 06/17/17 15:56 06/18/17 04:00 06/18/17 04:00 06/18/17 04:00 06/18/17 04:00 A/P Progress Note ([facility]) (1) Atrial fibrillation Status: Acute Assessment and plan: Rate controlled on current meds. CHADS-VASc score at least 4. Xarelto has been started. Current Visit: Yes (2) Atrial flutter with rapid ventricular response Status: Acute Current Visit: Yes (3) Hypertension Status: Acute Current Visit: Yes (4) Abnormal EKG Status: Acute Current Visit: Yes (5) Congestive heart failure Status: Acute Current Visit: Yes
--- NOTE | 2017-06-18 10:07 | PC.NURSE ---
pt off floor at this time
--- NOTE | 2017-06-18 10:09 | SUR.PREOP ---
pt arrived to slab off mill tender in stable condition w/ nursing staff per wheelchair
[2017-06-19] VITALS: BP 106/66; PULSE 50; PULSE 64; TEMP 36.8; O2SAT 92
[2017-06-19 04:00] VITALS: BP 124/62; PULSE 50; PULSE 67; RESP 20; TEMP 36.8; O2SAT 96
--- NOTE | 2017-06-19 06:27 | PC.NURSE ---
WEANED 3LNC TO 1LNC, TOLERATED WELL. ON RA O2SAT NOTED AT 88%. NSR, SINUS FEDERICO AND FIRST DEGREE HEART BLOCK NOTED PER IMPLANT COORDINATOR. DRESSING NOTED ON R RADIAL AREA, CDI. VSS. WILL CONTINUE TO MONITOR.
--- NOTE | 2017-06-19 06:41 | P.PN_ITS ---
Internal Medicine - PN: Subj *Date: 06/19/17 *Time: 06:38 Interval history: Patient has no complaints this morning. He states he feels like he is breathing a little bit easier. Nursing reports bradycardia overnight with a pulse rate in the 50s and room air sat was 88%. Patient does normally wear oxygen at night at home. He has not been out of bed very much. Exam Vital signs and Labs for Last 24 Hours: Temp Pulse Resp BP Pulse Ox 98.3 F 67 20 124/62 96 06/19/17 04:00 06/19/17 04:00 06/19/17 04:00 06/19/17 04:00 06/19/17 04:00 Vital Signs - 8 hr 06/19/17 00:00 06/19/17 04:00 Temperature 98.3 F 98.3 F Pulse Rate 50 L 50 L Pulse Rate [Right Radial] 64 67 Respiratory Rate 20 Blood Pressure [Left Arm] 106/66 124/62 02 Sat by Pulse Oximetry 92 L 96 I & O for Last 24 hours: Intake & Output 06/16/17 06/17/17 06/18/17 06/19/17 11:59 11:59 11:59 11:59 Intake Total 1551 / 1551 240 / 240 10 / 10 Output Total 1880 / 2755 600 / 600 1500 / 1500 Balance -329 / -1204 -360 / -360 -1490 / -1490 Weight 212 lb 8.41 oz 213 lb 8 oz 202 lb 9.6 oz Narrative: Patient appears comfortable. Lungs remain distant but no focal rales or rhonchi or wheezes. Heart has a regular rate and rhythm. Assessment and Plan (1) Atrial fibrillation Current visit: Yes Status: Acute Category: Medical Code(s): I48.91 - Unspecified atrial fibrillation (2) Atrial flutter with rapid ventricular response Current visit: Yes Status: Acute Category: Medical Code(s): I48.92 - Unspecified atrial flutter (3) Hypertension Current visit: Yes Status: Acute Category: Medical Code(s): I10 - Essential (primary) hypertension (4) Abnormal EKG Current visit: Yes Status: Acute Category: Medical Code(s): R94.31 - Abnormal electrocardiogram [ECG] [EKG] (5) Congestive heart failure Current visit: Yes Status: Acute Qualifiers: Congestive heart failure type: unspecified Congestive heart failure chronicity: unspecified Qualified Code(s): I50.9 - Heart failure, unspecified Category: Medical Code(s): I50.9 - Heart failure, unspecified - Assessment and plan all Dx Assessment and Plan for all problems:: I have encouraged the patient to ambulate today. I am going to order him a one- time Xopenex treatment to see if that aids with any dyspnea. Continue Cardizem , Xarelto, carvedilol, lisinopril. I will discuss with cardiology service need for both Cardizem and carvedilol due to his nocturnal bradycardia. Cardiac catheterization revealed nonobstructive disease with increased left ventricular end-diastolic pressure consistent with diastolic dysfunction. Ejection fraction is 55% on echocardiogram. I will add oral Lasix
--- NOTE | 2017-06-19 07:06 | HMH.DCSUM ---
General - General Admission date: 06/16/17 Discharge date: 06/19/17 HPI HPI: 76-year-old male presented to the emergency department yesterday with near 48 hours of shortness of breath with exertion. He endorsed presyncope but no chest pain or palpitations. On presentation to the emergency department he was fairly in atrial flutter. Troponin was negative. Patient was admitted to the stepdown unit on a Cardizem drip along with Levophed to keep blood pressure greater than 100. While in the stepdown unit patient transition to atrial fibrillation. His rate gradually came down until it was ranging between 45 and 75. At that time he was transitioned to oral Cardizem and overnight he has been weaned from the Levophed. This morning patient is in bed and while at rest does not feel short of breath. Objective Vital signs: Temp Pulse Resp BP Pulse Ox 98.3 F 67 20 124/62 96 06/19/17 04:00 06/19/17 04:00 06/19/17 04:00 06/19/17 04:00 06/19/17 04:00 Hospital Course Hospital Course: Patient was admitted for atrial letter/fibrillation on Cardizem drip for rate control and Levophed for pressure support. Within 12 hours patient converted to sinus rhythm. Patient was transitioned to oral Cardizem at a dose of 180 mg. He was initially given Lovenox as an anticoagulant and was transitioned to Xarelto 20 mg daily. Cardiology was consulted. Patient had an echocardiogram which showed an ejection fraction of 55% but evidence of diastolic dysfunction. Patient was taken to the [facility] where he was found to have nonobstructive disease and increased left ventricular end-diastolic pressures consistent with diastolic dysfunction. He was given intravenous Lasix due to dyspnea at rest and with exertion. On Jun.18 Patient did note some improvement in his level of dyspnea with this treatment. Carvedilol and lisinopril was added to his regimen while hospitalized.. Patient did develop some nocturnal bradycardia so I will discontinue carvedilol at discharge and he will continue oral cardizem. Breath sounds were distant and he had audible central airway wheezes. This was treated with Xopenex. Patient will follow up in my office in 2 days DS: Diagnosis - Discharge Diagnosis (1) Atrial fibrillation Status: Acute (2) Atrial flutter with rapid ventricular response Status: Acute (3) Hypertension Status: Acute (4) Abnormal EKG Status: Acute (5) Congestive heart failure Status: Acute Meds Home Medications Medication Instructions Recorded Confirmed Type Amlodipine Besylate [Amlodipine 10 mg PO DAILY 06/17/17 06/17/17 History 10mg Tab] Ascorbic Acid [Vitamin C] 1,000 mg PO DAILY 06/17/17 06/17/17 History Aspirin [Aspirin 325mg Tab] 325 mg PO DAILY 06/17/17 06/17/17 History Atropine Sulfate [Atropine 1 drop EYE-BOTH DAILY 06/17/17 06/17/17 History 1mg/10mL Syringe] Cholecalciferol (Vitamin D3) 1,000 unit PO DAILY 06/17/17 06/17/17 History [Vitamin D3 1,000 Unit Cap] Esomeprazole Magnesium 40 mg PO DAILY 06/17/17 06/17/17 History Levothyroxine Sodium 125 mcg PO DAILY 06/17/17 06/17/17 History [Levothyroxine 125mcg (0.125mg) Tab] Linaclotide [Linzess] 145 mcg PO DAILY 06/17/17 06/17/17 History Losartan Potassium 100 mg PO DAILY 06/17/17 06/17/17 History Vit C/E/Zn/Coppr/Lutein/Zeaxan 1 each PO DAILY 06/17/17 06/17/17 History [Preservision Areds 2 Softgel] prednisoLONE acetate [Prednisolone 5 ml OP DAILY 06/17/17 06/17/17 History Acetate] Allergies Allergy/AdvReac Type Severity Reaction Status Date / Time Penicillins Allergy Unknown Verified 06/16/17 13:04 Discharge Plan - Patient Discharge Instructions ACTIVITY: Continue current activity DIET: continue same diet - Follow up Plan Follow up with: Neville Grover MD [Staff Physician] - Rene Umanzor MD [Primary Care Provider] - 06/21/17 Disposition: Home, Self-Skilled Nursing Medications: Home Medicati
--- NOTE | 2017-06-19 07:09 | P.DS_ITS ---
General - General Admission date: 06/16/17 Discharge date: 06/19/17 HPI HPI: 76-year-old male presented to the emergency department yesterday with near 48 hours of shortness of breath with exertion. He endorsed presyncope but no chest pain or palpitations. On presentation to the emergency department he was fairly in atrial flutter. Troponin was negative. Patient was admitted to the stepdown unit on a Cardizem drip along with Levophed to keep blood pressure greater than 100. While in the stepdown unit patient transition to atrial fibrillation. His rate gradually came down until it was ranging between 45 and 75. At that time he was transitioned to oral Cardizem and overnight he has been weaned from the Levophed. This morning patient is in bed and while at rest does not feel short of breath. Objective Vital signs: Temp Pulse Resp BP Pulse Ox 98.3 F 67 20 124/62 96 06/19/17 04:00 06/19/17 04:00 06/19/17 04:00 06/19/17 04:00 06/19/17 04:00 Hospital Course Hospital Course: Patient was admitted for atrial letter/fibrillation on Cardizem drip for rate control and Levophed for pressure support. Within 12 hours patient converted to sinus rhythm. Patient was transitioned to oral Cardizem at a dose of 180 mg. He was initially given Lovenox as an anticoagulant and was transitioned to Xarelto 20 mg daily. Cardiology was consulted. Patient had an echocardiogram which showed an ejection fraction of 55% but evidence of diastolic dysfunction. Patient was taken to the [facility] where he was found to have nonobstructive disease and increased left ventricular end-diastolic pressures consistent with diastolic dysfunction. He was given intravenous Lasix due to dyspnea at rest and with exertion. On Jun.18 Patient did note some improvement in his level of dyspnea with this treatment. Carvedilol and lisinopril was added to his regimen while hospitalized.. Patient did develop some nocturnal bradycardia so I will discontinue carvedilol at discharge and he will continue oral cardizem. Breath sounds were distant and he had audible central airway wheezes. This was treated with Xopenex. Patient will follow up in my office in 2 days DS: Diagnosis - Discharge Diagnosis (1) Atrial fibrillation Status: Acute (2) Atrial flutter with rapid ventricular response Status: Acute (3) Hypertension Status: Acute (4) Abnormal EKG Status: Acute (5) Congestive heart failure Status: Acute Meds Home Medications Medication Instructions Recorded Confirmed Type Amlodipine Besylate [Amlodipine 10 mg PO DAILY 06/17/17 06/17/17 History 10mg Tab] Ascorbic Acid [Vitamin C] 1,000 mg PO DAILY 06/17/17 06/17/17 History Aspirin [Aspirin 325mg Tab] 325 mg PO DAILY 06/17/17 06/17/17 History Atropine Sulfate [Atropine 1 drop EYE-BOTH DAILY 06/17/17 06/17/17 History 1mg/10mL Syringe] Cholecalciferol (Vitamin D3) 1,000 unit PO DAILY 06/17/17 06/17/17 History [Vitamin D3 1,000 Unit Cap] Esomeprazole Magnesium 40 mg PO DAILY 06/17/17 06/17/17 History Levothyroxine Sodium 125 mcg PO DAILY 06/17/17 06/17/17 History [Levothyroxine 125mcg (0.125mg) Tab] Linaclotide [Linzess] 145 mcg PO DAILY 06/17/17 06/17/17 History Losartan Potassium 100 mg PO DAILY 06/17/17 06/17/17 History Vit C/E/Zn/Coppr/Lutein/Zeaxan 1 each PO DAILY 06/17/17 06/17/17 History [Preservision Areds 2 Softgel] prednisoLONE acetate [Pr
--- NOTE | 2017-06-19 07:40 | PC.NURSE ---
Received report from S Call RN
[2017-06-19 08:00] VITALS: BP 113/74; PULSE 60; PULSE 75; RESP 18; O2SAT 93
[2017-06-19 10:01] VITALS: PULSE 60; PULSE 63; O2SAT 96
[2017-06-19 11:34] VITALS: BP 132/79; PULSE 62; RESP 18; O2SAT 94
--- NOTE | 2017-06-19 11:43 | PC.NURSE ---
Pt off monitor and ambulating hallway with family. Pt denies any c/o at this time. Gait steady.
[2017-06-19 12:00] VITALS: PULSE 60
== END 2017-06-19 14:13 | disposition home or self-care (01) | DRG 286 ==
LOC: ER 12:27 → ICU 15:12
PROVIDERS: Internal Medicine; Admitting Provider Family Medicine; Emergency Provider Emergency Medicine; Family Provider Family Medicine; PCP Family Medicine; Visit Provider Family Medicine
PROC: 4A023N7 Measurement of Cardiac Sampling and Pressure, Left Heart, Percutaneous Approach (ICD-10-PCS; principal; 2017-06-18 09:30)
DX: I48.92 Unspecified atrial flutter; I50.31 Acute diastolic (congestive) heart failure; I48.91 Unspecified atrial fibrillation; I10 Essential (primary) hypertension
CPT/HCPCS: 36415; 71045; 80048; 80053; 80061; 82550; 82553; 83605; 83880; 84439; 84443; 84484; 85025; 87040; 93005; 93041; 93306; 93458; 93880; 94640; 94761; 96365; 96367; 96375; 99152; 99283; C1725; C1760; C1769; J1644

== ENCOUNTER → 2017-09-03 11:47 | Outpatient (CLI) | payer MEDICARE, SELFPAY ==
[2017-09-03 12:28] LABS: Basophils # 0.1 K/mm3 (0-0.2); Basophils % 1.6 % (0.1-2.0); Eosinophils # 0.3 K/mm3 (0.0-0.4); Hematocrit 45.8 % (42.0-52.0); Hemoglobin 15.1 g/dL (14.1-18.0); Lymphocytes # 1.6 K/mm3 (0.7-4.5); Lymphocytes % 20.1 K/mm3 (10-50); Mean Corpuscular HGB Conc 32.9 g/dL (31.8-35.4); Mean Corpuscular Hemoglobin 30.9 pg (27.0-31.2); Mean Corpuscular Volume 93.8 fl (80-94); Mean Platelet Volume 7.3 fl (7.4-10.4); Monocytes # 0.5 K/mm3 (0.1-1.0); Monocytes % 6.7 % (1.7-9.3); Neutrophils # 5.3 K/mm3 (1.8-7.8); Neutrophils % 67.6 % (37.0-80.0); Platelet Count 252 K/mm3 (142-424); Red Blood Count 4.88 M/mm3 (4.60-6.20); Red Cell Distribution Width 13.6 % (11.5-17.5); White Blood Count 7.8 K/mm3 (4.8-10.8)
[2017-09-03 13:53] LABS: Alanine Aminotransferase 21 U/L (12-78); Albumin Level 4.3 gm/dL (3.4-5.0); Albumin/Globulin Ratio 1.3 (1.1-1.8); Alkaline Phosphatase 79 U/L (46-116); Anion Gap 15.4 mEq/L (5-15); Aspartate Amino Transferase 17 U/L (15-37); Bilirubin,Total 0.3 mg/dL (0.2-1.0); Blood Urea Nitrogen 12 mg/dL (7-18); Calcium 9.7 mg/dL (8.5-10.1); Carbon Dioxide 28 mmol/L (21.0-32.0); Chloride 105 mmol/L (98-107); Creatinine,Serum 0.86 mg/dL (0.70-1.30); Estimated Glomerular Filt Rate 86 ml/min (>60); GFR (African American) 104 ML/MIN (>60); Globulin 3.2 gm/dl (1.3-3.2); Glucose 83 mg/dL (74-106); Potassium 4.4 mmoL/L (3.5-5.1); Sodium 144 mmol/L (136-145); Total Protein,Serum 7.5 gm/dL (6.4-8.2)
== END ==
PROVIDERS: Visit Provider Internal Medicine Cardiovascular Disease
DX: I48.92 Unspecified atrial flutter (principal); I48.91 Unspecified atrial fibrillation; I50.9 Heart failure, unspecified
CPT/HCPCS: 36415; 80053; 83880; 85025

== ENCOUNTER → 2017-10-28 07:31 | Outpatient (CLI) | payer MEDICARE, SELFPAY ==
--- NOTE | 2017-10-28 08:00 | US_ITS ---
US aorta HISTORY: ITS.REASON: AAA COMPARISON 09/26/2016 FINDINGS: Abdominal aortic aneurysm is present measuring up to 4.5 cm in AP dimension with mild amount of intramural thrombus. The aorta tapers to 2.6 cm at the bifurcation. Proximal left common iliac is 2 cm with the proximal right common iliac at 1.6 cm. IMPRESSION: Infrarenal abdominal aortic aneurysm measuring up to 4.5 cm. This previously measured [address] scan of 09/26/2016. While this could be related to ultrasound technique, true enlargement is also considered. Consider CT angiogram for more thorough evaluation.
== END ==
PROVIDERS: Family Provider Family Medicine; PCP Family Medicine; Visit Provider Thoracic Surgery (Cardiothoracic Vascular Surgery)
DX: I71.4 Abdominal aortic aneurysm, without rupture (principal)
CPT/HCPCS: 76770

== ENCOUNTER → 2017-12-26 09:51 | Outpatient (CLI) | payer MEDICARE, SELFPAY ==
--- NOTE | 2017-12-26 09:54 | NM_ITS ---
NM gastric emptying study CLINICAL INDICATION: ITS.REASON: POSTPRANDIAL ABD BLOATING ORDERING PHYSICIAN: Rene Umanzor MD PATIENT AGE: 77 years Comparison: None DOSE: 506 uCi sulfur colloid in radio labeled meal FINDINGS: The one half emptying time is 106 minutes which is slightly prolonged with normal being 60+/-30 minutes. Approximately 23% of the contents had emptied after 86 minutes. There was some initial delay in emptying beginning at 20 minutes. No gastroesophageal reflux evident on the images. IMPRESSION: Delayed gastric emptying
--- NOTE | 2017-12-26 10:37 | HMH.ITSHM ---
CARDIZEM LOSARTAN LINACLOTIDE LEVOTHYROXINE ASA
== END ==
PROVIDERS: Family Provider Family Medicine; PCP Family Medicine; Visit Provider Family Medicine
DX: R14.0 Abdominal distension (gaseous) (principal)
CPT/HCPCS: 78264; A9541

== ENCOUNTER → 2018-03-04 12:48 | Outpatient (CLI) | payer MEDICARE, SELFPAY ==
--- NOTE | 2018-03-04 12:53 | XR_ITS ---
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 There is normal alignment. No fracture or dislocation. Small sclerotic focus is present in the L1 vertebral body a 1 cm consistent with a bone island. There is mild multilevel degenerative disc disease with minimal endplate hypertrophic changes. No fracture or dislocation. No lytic or blastic change. Incidental note is made of atherosclerotic calcification and abdominal aortic aneurysm measuring up to 4.9 cm on the lateral view. Flexion and extension views show no evidence of abnormal subluxation. IMPRESSION: Mild degenerative changes of the lumbar spine with no abnormal subluxation in flexion or extension Abdominal aortic aneurysm
== END ==
PROVIDERS: PCP Family Medicine; Visit Provider Family Medicine
DX: M48.062 Spinal stenosis, lumbar region with neurogenic claudication (principal)
CPT/HCPCS: 72114

== ENCOUNTER → 2018-03-11 12:38 | Outpatient (CLI) | payer MEDICARE, SELFPAY ==
[2018-03-11 16:05] LABS: Prostate Specific Ag Screen 2.4 ng/mL (0.0-4.0)
== END ==
PROVIDERS: PCP Family Medicine; Visit Provider Urology
DX: Z12.5 Encounter for screening for malignant neoplasm of prostate (principal); N40.0 Benign prostatic hyperplasia without lower urinary tract symptoms
CPT/HCPCS: 36415; G0103

== ENCOUNTER → 2018-07-26 07:53 | Outpatient (CLI) | payer MEDICARE, SELFPAY ==
[2018-07-26 08:41] LABS: Blood Urea Nitrogen 16 mg/dL (7-18); Creatinine,Serum 0.95 mg/dL (0.70-1.30); Estimated Glomerular Filt Rate 77 ml/min (>60); GFR (African American) 93 ML/MIN (>60)
== END ==
PROVIDERS: Visit Provider Thoracic Surgery (Cardiothoracic Vascular Surgery)
DX: I74.4 Embolism and thrombosis of arteries of extremities, unspecified (principal)
CPT/HCPCS: 36415; 82565; 84520

== ENCOUNTER → 2018-07-28 08:51 | Outpatient (CLI) | payer MEDICARE, SELFPAY ==
--- NOTE | 2018-07-28 09:05 | CT_ITS ---
CT abdomen pelvis wo con INDICATION: Vascular disease follow-up and evaluation. ITS.REASON: AAA, stent ORDERING PHYSICIAN: Jose A Monroe MD PATIENT AGE: 77 years COMPARISON: CTA chest abdomen from September 2016 and subsequent performed today. . TECHNIQUE: No oral or IV contrast utilized for this initial study Axial images obtained with sagittal and coronal reformats. All CT scans at the facility use one or more dose reduction, viz: automated exposure control, ma/kV adjustment per patient size (including targeted exams where dose is matched to indication, i.e. head), or iterative reconstruction technique. FINDINGS: Lower thorax. Lung bases with no active disease. Borderline cardiomegaly. Dilatation of the lower thoracic aorta measuring up to 4 cm transverse diameter. Liver. There are scattered low-density areas in the left lobe again seen is been previously noted. No significant change. Most evident measuring up to 7 mm at the superior left lobe. Gallbladder. No calcified gallstones no biliary ductal dilatation. Noncontrast images of the pancreas, spleen, adrenals, and kidneys unremarkable . Ureters appear satisfactory. Minimal vascular calcification central left kidney doubt this calcification within collecting system. Ureters unremarkable. Pelvis. Upper normal wall thickness at the urinary bladder. Warrants correlation with urinalysis particularly of dysuria. The prostate appears upper normal size. Up to 5 cm transverse... GI tract. Moderate to generous solid stool throughout the colon. Moderate gas. No bowel dilatation or obstruction. Stomach, duodenum, small bowel unremarkable. Appendix visualized and normal. No wall thickening or lesions evident . Infrarenal abdominal aortic aneurysm is discussed in detail on the CTA report the aneurysm begins at end just below the level the renal arteries. It it measures up to 4.8 cm x 3.5 cm on axial image 39 which which I believe is 1 mm incrementally larger diameter overall than on previous study 2017. Measures 3.7 cm diameter on the sagittal images.. Minimal calcification origin of both renal arteries which appears to yield only only mild stenosis at origin of renal arteries. The intravascular stent at the distal abdominal aorta extends approximately 5 cm in length and appears similar to previous studies. diffuse atherosclerotic calcification becomes most pronounced throughout the iliac arteries [employer]IST The aneurysm dilatation of the left common iliac artery again noted up to 2.5 cm diameter. Osseous. No focal lesions of significance. Benign bone island at appearance at L1, stable Bulging disc and facet hypertrophy at the lower L-spine mild spinal stenosis L4/5, IMPRESSION 1. The CT abdomen/pelvis without contrast shows no acute intra-abdominal findings. ... Question minimal bladder wall thickening. With mildly prominent prostate ... Moderately/generous stool seen throughout colon on today's study. ... Appendix normal. ...... No adenopathy nor additional mass lesion abdomen/pelvis 2. Infrarenal abdominal aortic aneurysm is again noted. ... Similar outer diameter vs 2017..-Only Perhaps 1 mm larger diameter. Please see subsequent CTA report for other details regarding the infrarenal abdominal aneurysm, and other vascular observations.
--- NOTE | 2018-07-28 10:21 | CT_ITS ---
CT angio abdomen pelvis CLINICAL INDICATION: Follow-up aneurysm and vascular disease ITS.REASON: AAA ORDERING PHYSICIAN: Jose A Monroe MD PATIENT AGE: 77 years COMPARISON: . CTA September 26, [address]. Also CT without contrast from prior to this study TECHNIQUE: Bolus administration of 100 cc Isovue, Optiray 354 x 40 mL normal saline. CTA images obtained Axial images obtained with sagittal and coronal reformats. All CT scans at the facility use one or more dose reduction, viz: automated exposure control, ma/kV adjustment per patient size (including targeted exams where dose is matched to indication, i.e. head), or iterative reconstruction technique. FINDINGS------ . AORTA: There is a nearly 5 cm stent evident at the inferior most abdominal aorta leading towards the bifurcation... This is nicely seen on the precontrast CT abdomen. Aorta is tortuous Just superior to this stent, there is an infrarenal aortic aneurysm, which measures up to 4.4 cm transverse on the coronal images, and 5 cm length. 3.7. Cm AP (On axial image of the aneurysm, at measures up to nearly 4.8 cm maximum width of reflecting slight oblique transverse measurement due to tortuosity, x . The outer diameter may be 1 mm larger than 2017 but there is little change in the outer diameter. I would note contrast-filled lumen is larger with less crescentic thrombus at the left anterior margin of this aneurysm. Calcifications are seen at the origin of both renal arteries which yields mild stenosis here similar to previous study... Good enhancement both kidneys Continuing distally, again see diffuse atherosclerotic calcification of the common iliac arteries. Again note Aneurysmal dilatation Left Common Iliac Artery-. It measures up to 2.4 cm transverse on coronal image 43 x 2.2 cm AP (. Versus 2017 study on which it measured 23 mm transverse diameter) . The right common iliac artery measures 16 mm diameter maximally. On also note the distal thoracic aorta is generous in caliber. Fairly Stable measuring up to 3.8 cm diameter maximally.. It may be 1 mm larger than on 2017 study. . Diffuse atherosclerotic calcification is seen throughout the external iliac arteries as well as TECHN[employer] SUPPORT ANALYST and proximalmost SFA. These yield areas of mild stenosis most evident at the TECHNOLOGY SUPPORT ANALYST bilaterally.. No critical nor high-grade stenosis identified. . Celiac artery with minimal plaque at its origin moderate stenosis less than 20%. Only minimal plaque at origin of SMA. Both these vessels appear to be widely patent. Branch vessels satisfactory. Tiny TERE visualized unremarkable. . The early arterial phase postcontrast images pancreas unremarkable. Limited early enhancing images spleen, unremarkable. Liver appears stable. 2 Small stable less than 6 mm likely cyst at the inferior left lobe. Also stable 7.5 mm likely cystic area at the superior left lobe. These other areas with no significant change since 2017. Gallbladder unremarkable. Generous stool volume throughout colon. Adrenals gallbladder satisfactory. . At the pelvis upper normal bladder wall thickening. Moderate size prostate minimal central calcification. IMPRESSION 1. Infrarenal abdominal aortic aneurysm is again noted. Similar outer diameter 2017..-Only Perhaps 1 mm larger diameter. It measures up to 3.7 cm AP x 4.8 cm transverse measured on axial images. .*I would note that there is clearly decreased crescentic thrombus is anterior aspect of the aneurysm, with now larger contrast-filled patent lumen measuring up to to 3.6 cm.. This is noted as it additionally could change hemodynamic's at the aneurysm (. Mary Grace law). And thus may require closer follow-up. 2. Other vascular observations: ... Approximately 5 cm stent at distal most aorta, distal to the aneurysm & leading t
== END ==
PROVIDERS: PCP Family Medicine; Visit Provider Thoracic Surgery (Cardiothoracic Vascular Surgery)
DX: I71.4 Abdominal aortic aneurysm, without rupture (principal)
CPT/HCPCS: 74174; 74176; Q9967

== ENCOUNTER → 2018-09-02 14:47 | Outpatient (POV) | payer MEDICARE, SELFPAY | PROVIDERS: Visit Provider Dermatology | DX: Z00.00 Encounter for general adult medical examination without abnormal findings (principal) ==

== ENCOUNTER 2019-07-10 10:19 | Observation (INO) ==
--- NOTE | 2019-07-10 11:31 | Pharmacy Consult Notes ---
[facility] Pharmacy VTE Monitoring - Patient Demographics Admission date: 07/10/19 Report Date: 07/10/19 Time: 11:30 Allergies/Adverse Reactions: Patient Allergies Penicillins Allergy (Unknown, Verified 04/08/18 12:33) Height: 1.7 m Weight: 87.317 kg - Prophylaxis VTE Prophylaxis Ordered?: Yes Types of VTE Prophylaxis: TEDS Knee High Location of Applied Device: Bilateral Lower Extremeties
[2019-07-10 11:36] LABS: INR 1.92 (0.9-1.1); Prothrombin Time 19.4 seconds (9.4-11.8)
[2019-07-10 11:37] LABS: Albumin Level 4.1 g/dl (3.5-5.0); Albumin/Globulin Ratio 1.5 (1.1-1.8); Anion Gap 15.3 mEq/L (5-15); Bilirubin,Total 0.9 mg/dl (0.2-1.3); Calcium 9.6 mg/dl (8.4-10.2); Globulin 2.8 g/dL (1.3-3.2); Total Protein,Serum 6.9 g/dl (6.3-8.2)
--- NOTE | 2019-07-10 18:33 | History & Physical Report ---
*Admission Date: 07/10/19 *Chief complaint: Palpitations *History of present illness: 78-year-old male with known history of atrial fibrillation was initially seen in my office yesterday after his detected an elevated heart rate during a home blood pressure assessment. Pulse rate was in the 130s to 150s. She contacted the office and the patient was advised to come in. He was seen in the office and denied chest pain but admitted to some dyspnea when he exerted himself only. He had not had any problems sleeping or he had he had orthopnea or paroxysmal nocturnal dyspnea and had no pedal edema. In the office an EKG revealed atrial fibrillation with rapid ventricular response. Patient takes metoprolol extended release 50 mg daily. During hospitalization in 2018 for initial diagnosis of atrial fibrillation he had also been placed on Cardizem. However patient had significant GI side effects and pedal edema from Cardizem and that it was discontinued later in 2018. In the office patient was treated with metoprolol tartrate 50 mg every 6 hours and followed up in the office this morning. When patient returned to the office this morning he had persistent dyspnea on exertion and his pulse rate remained in the 130s and was irregular. Decision was made to admit the patient to the hospital on IV Cardizem drip to get his heart rate under control. Patient continued to deny chest pain today as well as palpitations Since admission to the floor and being placed on the Cardizem drip patient's rate has slowed but remains irregular EKG on admission has shown atrial flutter [facility] [place] History I have reviewed the patient's past medical history: Yes Medical History: Reports:: Aneurysm, Arrhythmia, Congestive Heart Failure, Coronary Artery Disease, Hyperlipidemia, Hypertension Denies:: Cancer, Diabetes Mellitus Type 1, Diabetes Mellitus Type 2, Internal Pacemaker, MRSA *Have you ever received a pneumonia vaccine?: Yes *Have you received a flu vaccine this season?: Yes Other Medical History: Reports: Arthritis, Thyroid Disease Laterality Cases: Right: Other Other Surgeries: Yes: Cardiac Catheterization, Colonoscopy, Other ([facility]- no stents). No: Pacemaker Amputation: No Fractures: Yes - *Social History Smoking Status: Unknown if ever smoked Tobacco Type: cigarettes #Yrs smoked (if former smoker): 21 Alcohol Intake: never Alcohol Intake Frequency:: other *Occupational Status:: retired Household Members: spouse *Travel in the last 8 weeks: None Family Hx:: Cancer, Coronary Artery Disease, Diabetes, Heart Attack, Hyperlipidemia, Hypertension, Stroke Review of Systems - Review of Systems Review of systems:: pertinent systems reviewed and negative unless documented below - Constitutional Denies body ache(s), Denies chills, Denies headache(s), Denies weakness, Denies weight gain - *Cardiovascular Reports shortness of breath with activity, Denies chest pain, Denies chest pain at rest, Denies chest pain with activity, Denies shortness of breath - *Gastrointestinal Denies abdominal pain, Denies belching Meds Home Medications Medication Instructions Recorded Confirmed Type Aspirin [Aspirin 325mg Tab] 325 mg PO DAILY 06/17/17 07/10/19 History Atropine Sulfate [Atropine 1 drp OP DAILY 06/17/17 07/10/19 History 1mg/10mL Syringe] Esomeprazole Magnesium 40 mg PO DAILY 06/17/17 07/10/19 History Levothyroxine Sodium 125 mcg PO DAILY 06/17/17 07/10/19 History [Levothyroxine 125mcg (0.125mg) Tab] ezetimibe 10 mg tablet 10 mg PO DAILY 03/11/18 07/10/19 History Doxycycline Hyclate [Doxycycline 20 mg PO BID 07/10/19 07/10/19 History 20mg Tablet] Ergocalciferol (Vitamin D2) 2,000 unit PO DAILY 07/10/19 07/10/19 History [Vitamin D2] Hydralazine HCl [Hydralazine HCl 25 mg PO TID 07/10/19 07/10/19 History 25mg Tablet] Losartan Potassium 100 mg PO DAILY 07/10/19 07/10/19 History Metoprolol Succinate 50 mg PO DAILY 07/10/19 07/10/19 History Vit C/E/Zn/Coppr/Lutein/Zeaxan 1 each PO DAILY 07/10/19 07/10/19 History [Preservision Areds 2 Softgel] Warfarin Sodium 5 mg PO DAILY 07/10/19 07/10/19 History hydroCHLOROthiazide [HCTZ 25mg 25 mg PO DAILY 07/10/19 07/10/19 History tab] prednisoLONE acetate [Prednisolone 1 drp OP BID 07/10/19 07/10/19 History Acetate] Allergies Allergy/AdvReac Type Severity Reaction Status Date / Time Penicillins Allergy Unknown Verified 04/08/18 12:33 Exam Vital signs and Labs for Last 24 Hours: Temp Pulse Resp BP Pulse Ox 97.7 F 85 19 99/62 L 93 L 07/10/19 16:00 07/10/19 18:00 07/10/19 18:00 07/10/19 18:00 07/10/19 18:00 Laboratory Results - last 24 hr 07/10/19 11:16: Sodium 140, Potassium 4.3, Chloride 105, Carbon Dioxide 24, Anion Gap 15.3 H, BUN 16, Creatinine 1.00, Estimated Creat Clear 74, Estimated GFR 72, Est GFR ( Amer) 87, Glucose 114 H, Calcium 9.6, Total Bilirubin 0.9, AST 27, ALT 23, Alkaline Phosphatase 61, Total Protein 6.9, Albumin 4.1, Globulin 2.8, Albumin/Globulin Ratio 1.5 07/10/19 11:16: Troponin I < 0.01 07/10/19 11:16: PT 19.4 H, INR 1.92 H I & O for Last 24 hours: Intake & Output 07/08/19 07/09/19 07/10/19 07/11/19 11:59 11:59 11:59 11:59 Intake Total 504 / 504 Output Total Balance 494 / 494 Weight 192 lb 8 oz Narrative: Patient appears comfortable. Oropharynx is moist. Neck has no jugular venous distention. Lungs are clear to auscultation with good aeration. Heart has an irregularly irregular rapid rate and rhythm. Abdomen is soft and nontender. Extremities have no edema. Neurologically there is no deficits. Assessment and Plan (1) Atrial flutter with rapid ventricular response Current visit: No Status: Acute Category: Medical Code(s): I48.92 - Unspecified atrial flutter - Assessment and plan all Dx Assessment and Plan for all problems:: 1. Continue Cardizem drip for this evening. Patient will be given IV digoxin as well as increasing dose of beta-emily with metoprolol succinate ER 50 mg twice daily. Because of patient's intolerance of Cardizem I will try to avoid this long-term as an oral medication. Patient has recently transitioned from Eliquis to warfarin due to cost. INR will be checked daily
[2019-07-11 06:02] LABS: INR 2.1 (0.9-1.1); Prothrombin Time 21.1 seconds (9.4-11.8)
[2019-07-11 06:06] LABS: Anion Gap 9.9 mEq/L (5-15); Calcium 8.9 mg/dl (8.4-10.2)
[2019-07-11 06:37] LABS: Thyroid Stimulating Hormone 1.87 uIU/mL (0.465-4.68)
--- NOTE | 2019-07-11 07:22 | Progress Note ---
Internal Medicine - PN: Subj *Date: 07/11/19 *Time: 07:20 Interval history: Patient reports feeling well this morning. Nursing staff reports his heart rate has ranged from 70s to 110 but there has been no sustained tachycardia. Patient's ex- reports he is "still wheezing". Patient reports some improvement in his dyspnea. Exam Vital signs and Labs for Last 24 Hours: Temp Pulse Resp BP Pulse Ox 97.9 F 72 18 128/56 L 90 L 07/10/19 20:00 07/11/19 06:15 07/10/19 20:00 07/11/19 06:14 07/11/19 06:14 Laboratory Results - last 24 hr 07/10/19 11:16: Sodium 140, Potassium 4.3, Chloride 105, Carbon Dioxide 24, Anion Gap 15.3 H, BUN 16, Creatinine 1.00, Estimated Creat Clear 74, Estimated GFR 72, Est GFR ( Amer) 87, Glucose 114 H, Calcium 9.6, Total Bilirubin 0.9, AST 27, ALT 23, Alkaline Phosphatase 61, Total Protein 6.9, Albumin 4.1, Globulin 2.8, Albumin/Globulin Ratio 1.5 07/10/19 11:16: Troponin I < 0.01 07/10/19 11:16: PT 19.4 H, INR 1.92 H 07/11/19 05:35: PT 21.1 H, INR 2.10 H 07/11/19 05:35: Sodium 140, Potassium 3.9, Chloride 107, Carbon Dioxide 27, Anion Gap 9.9, BUN 16, Creatinine 1.00, Estimated Creat Clear 70, Estimated GFR 72, Est GFR ( Amer) 87, Glucose 89 D, Calcium 8.9, TSH 1.87 I & O for Last 24 hours: Intake & Output 07/08/19 07/09/19 07/10/19 07/11/19 11:59 11:59 11:59 11:59 Intake Total 551 / 551 Output Total Balance 541 / 541 Weight 192 lb 8 oz 181 lb 7.647 oz Narrative: Patient appears comfortable this morning. He does not appear to be in any distress. Lungs are clear. While the patient is breathing a audible wheeze can be heard coming from his throat. With cough and pursed lip breathing this sound disappears. Heart has an irregular rate and rhythm. Assessment and Plan (1) Atrial flutter with rapid ventricular response Current visit: No Status: Acute Category: Medical Code(s): I48.92 - Unspecified atrial flutter - Assessment and plan all Dx Assessment and Plan for all problems:: Continue metoprolol extended release 100 mg twice daily along with digoxin 0.125 mg daily. Patient will be taken out of stepdown unit but maintained on telemetry. He has been encouraged to ambulate this morning to assess his response to physical activity. If patient is able to ambulate safely without sustained elevation in his heart rate he will be discharged home this afternoon and follow-up as an outpatient early in the week.
--- NOTE | 2019-07-11 07:25 | Discharge Summary ---
General - General Admission date:: 07/10/19 Discharge date: 07/12/19 HPI HPI: 78-year-old male with known history of atrial fibrillation was initially seen in my office yesterday after his detected an elevated heart rate during a home blood pressure assessment. Pulse rate was in the 130s to 150s. She contacted the office and the patient was advised to come in. He was seen in the office and denied chest pain but admitted to some dyspnea when he exerted himself only. He had not had any problems sleeping or he had he had orthopnea or paroxysmal nocturnal dyspnea and had no pedal edema. In the office an EKG revealed atrial fibrillation with rapid ventricular response. Patient takes metoprolol extended release 50 mg daily. During hospitalization in 2018 for initial diagnosis of atrial fibrillation he had also been placed on Cardizem. However patient had significant GI side effects and pedal edema from Cardizem and that it was discontinued later in 2018. In the office patient was treated with metoprolol tartrate 50 mg every 6 hours and followed up in the office this morning. When patient returned to the office this morning he had persistent dyspnea on exertion and his pulse rate remained in the 130s and was irregular. Decision was made to admit the patient to the hospital on IV Cardizem drip to get his heart rate under control. Patient continued to deny chest pain today as well as palpitations Since admission to the floor and being placed on the Cardizem drip patient's rate has slowed but remains irregular EKG on admission has shown atrial flutter Hospital Course Hospital Course: Patient was admitted and placed on Cardizem drip which brought his rate down into the 90's. Repeat EKG showed atrial flutter. Patient was transitioned to increased dose of his metoprolol er at 100mg bid. Patient previously took oral cardizem but experienced severe constipation and edema. When transitioning to an oral regimen digoxin was added as well. During the day of patient's pulse gradually kyle. Patient was started on oral Verapamil which he tolerated. On 07/11 his heart rate decreased and remained below 100 including with ambulation. He was discharged to home and will follow up with me in 2 days. Objective Vital signs: Temp Pulse Resp BP Pulse Ox 97.9 F 72 18 128/56 L 90 L 07/10/19 20:00 07/11/19 06:15 07/10/19 20:00 07/11/19 06:14 07/11/19 06:14 Results Labs on day of discharge: Labs from last 24 hours 07/11/19 07/11/19 07/10/19 05:35 05:35 11:16 PT 21.1 H 19.4 H INR 2.10 H 1.92 H Sodium 140 Potassium 3.9 Chloride 107 Carbon Dioxide 27 Anion Gap 9.9 BUN 16 Creatinine 1.00 Estimated Creat Clear 70 Estimated GFR 72 Est GFR ( Amer) 87 Glucose 89 D Calcium 8.9 Total Bilirubin AST ALT Alkaline Phosphatase Troponin I Total Protein Albumin Globulin Albumin/Globulin Ratio TSH 1.87 07/10/19 07/10/19 11:16 11:16 PT INR Sodium 140 Potassium 4.3 Chloride 105 Carbon Dioxide 24 Anion Gap 15.3 H BUN 16 Creatinine 1.00 Estimated Creat Clear 74 Estimated GFR 72 Est GFR ( Amer) 87 Glucose 114 H Calcium 9.6 Total Bilirubin 0.9 AST 27 ALT 23 Alkaline Phosphatase 61 Troponin I < 0.01 Total Protein 6.9 Albumin 4.1 Globulin 2.8 Albumin/Globulin Ratio 1.5 TSH DS: Diagnosis - Discharge Diagnosis (1) Atrial flutter with rapid ventricular response Status: Acute Discharge Plan - Patient Discharge Instructions ACTIVITY: Continue current activity DIET: continue same diet Patient Instructions: Heart Failure, Essential Hypertension, Atrial Flutter, DI for Heart Failure, DI for Atrial Flutter - Follow up Plan Follow up with: Rene Umanzor MD [Primary Care Provider] - 2 days Disposition: Home, Self-Residential Medications: Home Medications Medication Instructions Recorded Confirmed Type Aspirin [Aspirin 325mg Tab] 325 mg PO DAILY 06/17/17 07/10/19 History Atropine Sulfate [Atropine 1 drp OP DAILY 06/17/17 07/10/19 History 1mg/10mL Syringe] Esomeprazole Magnesium 40 mg PO DAILY 06/17/17 07/10/19 History Levothyroxine Sodium 125 mcg PO DAILY 06/17/17 07/10/19 History [Levothyroxine 125mcg (0.125mg) Tab] ezetimibe 10 mg tablet 10 mg PO DAILY 03/11/18 07/10/19 History Doxycycline Hyclate [Doxycycline 20 mg PO BID 02/28/20 02/28/20 History 20mg Tablet] Ergocalciferol (Vitamin D2) 2,000 unit PO DAILY 07/10/19 07/10/19 History [Vitamin D2] Hydralazine HCl [Hydralazine HCl 25 mg PO TID 07/10/19 07/10/19 History 25mg Tablet] Losartan Potassium 100 mg PO DAILY 07/10/19 07/10/19 History Vit C/E/Zn/Coppr/Lutein/Zeaxan 1 each PO DAILY 07/10/19 07/10/19 History [Preservision Areds 2 Softgel] Warfarin Sodium 5 mg PO DAILY 07/10/19 07/10/19 History hydroCHLOROthiazide [HCTZ 25mg 25 mg PO DAILY 07/10/19 07/10/19 History tab] prednisoLONE acetate [Prednisolone 1 drp OP BID 07/10/19 07/10/19 History Acetate] Metoprolol Succinate [Toprol XL 100 mg PO BID #60 tab.er.24h 07/11/19 Rx 100mg tablet] Verapamil HCl [Calan IR 80mg 80 mg PO TID #90 tab 07/12/19 Rx tablet] Prescriptions/Medication Reconciliation: New Metoprolol Succinate [Toprol XL 100mg tablet] 100 mg PO BID #60 tab.er.24h Verapamil HCl [Calan IR 80mg tablet] 80 mg PO TID #90 tab Continued ezetimibe 10 mg tablet 10 mg PO DAILY Atropine Sulfate [Atropine 1mg/10mL Syringe] 1 drp OP DAILY Esomeprazole Magnesium 40 mg PO DAILY Levothyroxine Sodium [Levothyroxine 125mcg (0.125mg) Tab] 125 mcg PO DAILY Aspirin [Aspirin 325mg Tab] 325 mg PO DAILY Doxycycline Hyclate [Doxycycline 20mg Tablet] 20 mg PO BID Vit C/E/Zn/Coppr/Lutein/Zeaxan [Preservision Areds 2 Softgel] 1 each PO DAILY Ergocalciferol (Vitamin D2) [Vitamin D2] 2,000 unit PO DAILY Losartan Potassium 100 mg PO DAILY prednisoLONE acetate [Prednisolone Acetate] 1 drp OP BID hydroCHLOROthiazide [HCTZ 25mg tab] 25 mg PO DAILY Warfarin Sodium 5 mg PO DAILY Hydralazine HCl [Hydralazine HCl 25mg Tablet] 25 mg PO TID Discontinued Metoprolol Succinate 50 mg PO DAILY - Problem Reconciliation Problems Reviewed?: Yes
[2019-07-12 06:07] LABS: INR 1.87 (0.9-1.1); Prothrombin Time 18.9 seconds (9.4-11.8)
[2019-07-12 06:11] LABS: Anion Gap 9.7 mEq/L (5-15); Calcium 9.1 mg/dl (8.4-10.2)
--- NOTE | 2019-07-12 08:33 | Progress Note ---
Internal Medicine - PN: Subj *Date: 07/12/19 *Time: 08:31 Interval history: Patient's heart rate kyle through the midday and evening yesterday. He was started on oral verapamil 40 mg every 8 hours. Overnight patient did well and this morning his heart rate ranges from 70-110 when I am in the room. He remains in atrial flutter on the campus monitor. He denies chest pain. His shortness of breath seemingly improved with diuresis yesterday. He has not been out of bed this morning. Exam Vital signs and Labs for Last 24 Hours: Temp Pulse Resp BP Pulse Ox 98.3 F 73 16 123/72 90 L 07/12/19 04:00 07/12/19 05:15 07/12/19 04:00 07/12/19 04:00 07/12/19 04:27 Laboratory Results - last 24 hr 07/12/19 04:55: Sodium 141, Potassium 4.7 D, Chloride 106, Carbon Dioxide 30, A nion Gap 9.7, BUN 17, Creatinine 1.00, Estimated Creat Clear 75, Estimated GFR 72, Est GFR ( Amer) 87, Glucose 86, Calcium 9.1, Magnesium 2.2 07/12/19 04:55: PT 18.9 H, INR 1.87 H I & O for Last 24 hours: Intake & Output 07/09/19 07/10/19 07/11/19 07/12/19 11:59 11:59 11:59 11:59 Intake Total 791 / 791 610 / 610 Output Total Balance 781 / 781 610 / 610 Weight 192 lb 8 oz 181 lb 7.647 oz 195 lb 1 oz Narrative: Patient is awake and alert. Lungs remain clear. Heart rate is irregularly irregular. Lower extremities have no edema Assessment and Plan (1) Atrial flutter with rapid ventricular response Current visit: No Status: Acute Category: Medical Code(s): I48.92 - Unspecified atrial flutter DC digoxin and increase verapamil to 80 mg 3 times daily. Continue metoprolol ER 100 mg twice daily. If patient is able to maintain his current heart rate over the morning and afternoon he will be discharged home later this afternoon
--- NOTE | 2019-07-13 08:03 | Electrocardiograph Report ---
APPROVED REPORT Exam: Resting ECG HR:135 bpm ECG Measurements Heart Rate 135 AXES MI P 254 QRSd 72 QRS -19 QT 266 T-3 QTc 399 <Conclusion> Atrial flutter with variable AV block RSR' or QR pattern in V1 suggests right ventricular conduction delay Marked ST abnormality, possible inferior subendocardial injury Abnormal ECG Electronically signed by : Rene Soares, 07/13/2019 08:02:27
== END 2019-07-12 13:23 | disposition home or self-care (01) ==
LOC: 2ND
PROVIDERS: ADMIT Family Medicine; ATTEND Family Medicine
CPT/HCPCS: 36415; 80048; 80053; 83735; 84443; 84484; 85610; 93005; G0378

== ENCOUNTER → 2019-11-24 08:12 | Outpatient (CLI) | payer MEDICARE, SELFPAY ==
--- NOTE | 2019-11-24 08:19 | CT_ITS ---
PROCEDURE: CT CHEST WO/W CON CLINCAL INDICATION: THORACIC AORTA ANEURYSM COMPARISON: CTAAP CTA ABD/PELVIS from 09/08/[address] angio abdomen pelvis from 07/28/2018 TECHNIQUE: IV Contrast: 75ml Optiray 350 Axial images obtained with sagittal and coronal reformats. All CT scans at the facility use one or more dose reduction, viz: automated exposure control, ma/kV adjustment per patient size (including targeted exams where dose is matched to indication, i.e. head), or iterative reconstruction technique. FINDINGS: HEART AND MEDIASTINAL STRUCTURES: There are significant coronary artery calcifications noted. Heart size is normal. The ascending thoracic aorta has an unremarkable appearance measuring up to 3.6 cm in maximum transverse dimension and 3.8 cm in AP dimension. No evidence of dissection. Atheromatous changes involve the descending thoracic aorta with soft and calcific plaque which is eccentric. Ulcerating plaque is present along the posterior left lateral aspect of the descending thoracic aorta. There is mild fusiform dilatation the descending thoracic aorta measuring up to 4.2 cm in the proximal to mid descending thoracic aorta. There is no evidence of aortic dissection. Images of the upper abdomen demonstrates fusiform dilatation of the infrarenal abdominal aorta measuring up to 4.3 cm transverse. This aneurysm is not completely imaged. There is mural thrombus anteriorly. Calcific plaque is present at the ostium of the renal arteries. The SMA has an unremarkable appearance proximally. There is mild narrowing of the proximal aspect of the celiac artery of approximately 40 percent. No mediastinal or hilar mass or adenopathy. LUNGS AND PLEURAL SPACES: The the the COPD changes with centrilobular emphysema. There is scattered areas of scarring.. In the left apex there is a 5 and a 8 mm noncalcified nodule medially along with an 8 mm irregular opacity with some surrounding fibrosis. BONY STRUCTURES: There are degenerative changes in the thoracic spine. A sclerotic focus is present in the L1 vertebral body not significantly changed and may be due to a bone island. UPPER ABDOMEN: Fusiform infrarenal abdominal aortic aneurysm could incompletely image measuring at least 4.3 cm transverse. Central hypodensity is present in the left hepatic lobe at 9 mm and may represent a hepatic cyst with at least 2 other smaller hypodensities in the left hepatic lobe. ADDITIONAL FINDINGS: No other significant abnormalities. IMPRESSION: The 1. Aneurysmal dilatation of the descending thoracic aorta as described above measuring up to 4.2 cm with mild amount of mural thrombus and some mild ulcerating plaque. No evidence of dissection. 2. Incompletely imaged abdominal aortic aneurysm 3. COPD with 3 left upper lobe nodules at 8 mm or less. Recommend 3 month follow-up to confirm short term stability. Dictated by: King Roche MD 11/24/2019 09:58 Electronically signed by King Roche MD in [facility] 11/24/2019 09:58
--- NOTE | 2019-11-24 08:20 | US_ITS ---
PROCEDURE: US ABD. AORTA SCREENING CLINICAL INDICATION: THORACIC AORTA ANEURYSM Abdominal aortic aneurysm COMPARISON: AGABDPEL CT angio abdomen pelvis from 07/28/2018 FINDINGS: There is fusiform aneurysmal dilatation the mid abdominal aorta which measures up to 4 cm AP and 4 cm transverse. The aorta measures 2.4 cm at the bifurcation. Proximal common iliacs measure approximately 1.4 cm on the left and 1 cm on the right. IMPRESSION: 4 cm fusiform abdominal aortic aneurysm Dictated by: King Roche MD 11/24/2019 09:43 Electronically signed by King Roche MD in [facility] 11/24/2019 09:43
[2019-11-24 08:45] LABS: Blood Urea Nitrogen 13 mg/dl (9-20); Estimated Glomerular Filt Rate 81 ml/min (>60); GFR (African American) 98 ML/MIN (>60)
== END ==
PROVIDERS: PCP Family Medicine; Visit Provider Thoracic Surgery (Cardiothoracic Vascular Surgery)
DX: I71.2 Thoracic aortic aneurysm, without rupture (principal)
CPT/HCPCS: 36415; 71270; 76705; 82565; 84520; Q9967

== ENCOUNTER → 2020-07-01 09:40 | Outpatient (CLI) | payer MEDICARE, SELFPAY ==
--- NOTE | 2020-07-01 09:50 | CT_ITS ---
PROCEDURE: CT CHEST WO/W CON CLINCAL INDICATION: LUNG NODULE Lung nodule COMPARISON: CT CT CHEST WO/W CON from 11/24/2019 TECHNIQUE: IV Contrast: 75ml Isovue 370 Axial images obtained with sagittal and coronal reformats. All CT scans at the facility use one or more dose reduction, viz: automated exposure control, ma/kV adjustment per patient size (including targeted exams where dose is matched to indication, i.e. head), or iterative reconstruction technique. FINDINGS: An interval increase in size medial left upper lobe nodule. It now has the appearance of a single nodule which measures 1 centimeter in craniocaudad diameter and 1.5 centimeters in AP diameter it has increased in prominence on the sagittal sequence, image 60 where it has a spiculated appearance. Further workup with a PET-CT is recommended. There is no change in the area of architectural distortion in the left lung apex given slight differences in respiratory positioning. A tiny noncalcified nodule on image 25 unlikely to be clinically significant. There are no pleural effusions. There is no infiltrate. There are extensive atherosclerotic calcifications in the coronary arteries. There is fusiform dilatation of the descending aorta measuring up to 4.2 centimeters in diameter, unchanged in size or appearance compared with the prior CT. There is partial visualization of an abdominal aortic aneurysm. There is extensive atherosclerotic calcification at the origin of the left renal artery and less prominent calcifications origin of the right renal artery. There is a benign sclerotic L1 vertebral body lesion unchanged. There are scattered degenerative findings throughout remaining visualized areas of the skeleton. IMPRESSION: 1. Increasing size of medial left upper lobe nodule now demonstrating spiculation. Pet CT is recommended for further workup. 2. No change in descending aortic 4.2 centimeter fusiform aneurysm. 3. Atherosclerosis of its and skeletal findings as described above. Dictated by: Eden Bundy MD 07/01/2020 18:11 Eden Bundy MD in [facility] 07/01/2020 18:11
[2020-07-01 10:12] LABS: Blood Urea Nitrogen 17 mg/dl (9-20); Estimated Glomerular Filt Rate 81 ml/min (>60); GFR (African American) 98 ML/MIN (>60)
== END ==
PROVIDERS: PCP Family Medicine; Visit Provider Thoracic Surgery (Cardiothoracic Vascular Surgery)
DX: R91.1 Solitary pulmonary nodule (principal)
CPT/HCPCS: 36415; 71270; 82565; 84520; Q9967

== ENCOUNTER → 2020-10-17 07:47 | Outpatient (CLI) | payer MEDICARE, SELFPAY ==
--- NOTE | 2020-10-17 07:52 | US_ITS ---
PROCEDURE: US ABD. AORTA SCREENING CLINICAL INDICATION: AAA Follow-up abdominal aortic aneurysm COMPARISON: CT ABDPELWO CT abdomen pelvis wo con from 07/28/2018 US US ABD. AORTA SCREENING from 11/24/2019 FINDINGS: There has been prior aortic surgery. The mid abdominal aorta measures 3.7 cm in AP dimension similar to previous CT scan of 07/28/2018. Lower abdominal aorta measures 2 cm in AP dimension. Left common iliac is approximately 1.8 cm and right common iliac 1.3 cm. IMPRESSION: Abdominal aortic aneurysm measuring 3.7 cm in AP dimension Dilated left common iliac at 1.8 cm. Dictated by: King Roche MD 10/17/2020 13:31 King Roche MD in [facility] 10/17/2020 13:31
== END ==
PROVIDERS: PCP Family Medicine; Visit Provider Thoracic Surgery (Cardiothoracic Vascular Surgery)
DX: I71.4 Abdominal aortic aneurysm, without rupture (principal)
CPT/HCPCS: 76705

== ENCOUNTER 2021-10-10 09:41 | Outpatient (CLI) | payer MEDICARE, SELFPAY ==
[2021-10-10 11:56] LABS: PHA INR Fingerstick 1.8 (0.9-1.1)
== END 2021-10-10 12:03 | disposition home or self-care (01) ==
LOC: ACC 09:43
PROVIDERS: Visit Provider Family Medicine
DX: Z51.81 Encounter for therapeutic drug level monitoring (principal); Z79.01 Long term (current) use of anticoagulants
CPT/HCPCS: 85610; 99211; G0463

== ENCOUNTER 2021-10-31 09:17 | Outpatient (CLI) | payer MEDICARE, SELFPAY ==
[2021-10-31 12:15] LABS: PHA INR Fingerstick 2.2 (0.9-1.1)
== END 2021-10-31 14:50 | disposition home or self-care (01) ==
LOC: ACC 09:19
PROVIDERS: PCP Family Medicine; Visit Provider Family Medicine
DX: Z51.81 Encounter for therapeutic drug level monitoring (principal); Z79.01 Long term (current) use of anticoagulants
CPT/HCPCS: 85610; 99211; G0463

== ENCOUNTER 2021-11-14 11:12 | Emergency (ER) | payer MEDICARE, SELFPAY ==
[2021-11-14 11:50] VITALS: BP 151/90; PULSE 91; RESP 17; TEMP 36.6; O2SAT 98; BMI 26.7
[2021-11-14 12:08] LABS: Microscopic, Urine URINE MICROSCOPIC (MICROSCOPIC)
--- NOTE | 2021-11-14 12:10 | PC.NURSE ---
PATIENT SENT TO ER PER Brian PAYNE APRN FOR FURTHER EVALUATION. REPORT GIVEN TO Fito BECKFORD RN BY Brian PAYNE APRN
[2021-11-14 12:12] LABS: Appearance,Urine CLEAR (Clear); Bilirubin,Urine Negative (Negative); Blood, Urine Negative (Negative); Color,Urine YELLOW (Yellow); Glucose,Urine (UA) Negative (Negative); Ketones,Urine Negative (Negative); Leukocyte Esterase,Urine Negative (Negative); Nitrate,Urine Negative (Negative); Protein,Urine Negative (Negative); Specific Gravity, Urine 1.015 (1.005-1.030)
[2021-11-14 12:20] VITALS: BP 161/116; PULSE 100; RESP 18; TEMP 36.7; O2SAT 97; BMI 27.4
--- NOTE | 2021-11-14 12:24 | HMH.EDFALL ---
ED Disposition Clinical Impression: Falling episodes Atrial fibrillation Qualifiers: Atrial fibrillation type: longstanding persistent Qualified Code(s): I48.11 - Longstanding persistent atrial fibrillation Disposition: Home, Self-Care Condition on Discharge: Fair Instructions: Dizziness, Nonvertigo Additional Instructions: Please use your walker every time you try to walk. Follow-up with your primary care doctor in approximately 3 to 5 days if you do not improve. Return to the emergency department immediately if you feel any worse. Your work-up today in the emergency department did not show any life-threatening or dangerous conditions. Referrals: Rene Umanzor MD [Primary Care Provider] - - Critical Care Critical Care Time: No (Yes) Attestation: On 11/14/21, the high probability of a clinically significant, sudden or life threatening deterioration of the following system(s) required my full and direct attention, intervention and personal management. The time I documented below is in addition to time spent performing reported procedures but includes the following listed in this critical care notation. Medical Decision Making - [place] Inquiry Pt receiving controlled substance: No Vital Signs: 11/14/21 11:50 11/14/21 12:20 11/14/21 12:30 Temperature 97.8 F 98.0 F Temperature Source Oral Oral Pulse Rate 90 Pulse Rate [Right Brachial] 91 H 100 H Respiratory Rate 17 18 18 Blood Pressure 149/105 H Blood Pressure [Right Arm] 151/90 H 161/116 H Blood Pressure Mean 119 Blood Pressure Mean [Right Arm] 110 131 Blood Pressure Source [Right Arm] Automatic Cuff Automatic Cuff Blood Pressure Position [Right Arm] Sitting Sitting 02 Sat by Pulse Oximetry 98 97 96 Oxygen Delivery Method Room Air Room Air 11/14/21 13:00 Temperature Temperature Source Pulse Rate 92 H Pulse Rate [Right Brachial] Respiratory Rate 16 Blood Pressure 152/107 H Blood Pressure [Right Arm] Blood Pressure Mean 118 Blood Pressure Mean [Right Arm] Blood Pressure Source [Right Arm] Blood Pressure Position [Right Arm] 02 Sat by Pulse Oximetry 96 Oxygen Delivery Method - Lab Data Lab results reviewed: Yes: I reviewed the patient's lab results. Lab Results 11/14/21 12:05: Urine Color Yellow, Urine Appearance Clear, Urine pH 7.0, Ur Specific [place] 1.015, Urine Protein Negative, Urine Glucose (UA) Negative, Urine Ketones Negative, Urine Blood Negative, Urine Nitrate Negative, Urine Bilirubin Negative, Urine Urobilinogen 2.0, Ur Leukocyte Esterase Negative, Urine RBC Occasional, Urine WBC None, Ur Squamous Epith Cells Occasional, Urine Bacteria None 11/14/21 13:00: WBC 6.9, RBC 4.89, Hgb 15.7, Hct 45.0, MCV 92.0, MCH 32.2 H, MCHC 35.0, RDW 13.6, Plt Count 232, MPV 6.9 L, Neut % (Auto) 70.5, Lymph % (Auto) 16.2, [place] % (Auto) 8.4, Eos % (Auto) 3.7, Baso % (Auto) 1.3, Neut # (Auto) 4.9, Lymph # (Auto) 1.1, [place] # (Auto) 0.6, Eos # (Auto) 0.3, Baso # (Auto) 0.1 11/14/21 13:00: Sodium 138, Potassium 3.6, Chloride 100, Carbon Dioxide 32 H, Anion Gap 9.6, BUN 18, Creatinine 0.80, Estimated Creat Clear 63, Estimated GFR 93, Est GFR ( Amer) 112, Glucose 105 H, Calcium 9.9, Total Bilirubin 1.3, AST 35, ALT 24, Alkaline Phosphatase 88, Total Protein 7.6, Albumin 4.5, Globulin 3.1, Albumin/Globulin Ratio 1.5 Result diagrams: 11/14/21 13:00 11/14/21 13:00 - CT Data CT Scan: Head Time Received: 14:[address] Reviewed: Yes: I have reviewed the patient's CT results Preliminary Findings: Normal/NAD - ECG Data Tracing #1 I reviewed this ECG and interpreted as documented below: Patient is EKG was done at 12:42 PM. It shows atrial fibrillation with a ventricular rate of 97 bpm there is an incomplete right bundle branch block otherwise the EKG is unremarkable. Normal Sinus Rhythm: No Arrhythmias present: afib Medical Decision Narrative: The patient's work-up in the emergency department did not reveal any acutely
[2021-11-14 12:30] VITALS: BP 149/105; PULSE 90; RESP 18; O2SAT 96
--- NOTE | 2021-11-14 12:42 | ECG_ITS ---
APPROVED REPORT Exam: Resting ECG HR:97 bpm ECG Measurements Heart Rate 97 AXES QRSd 93 QRS -23 QT 345 T 17 QTc 399 Conclusion ATRIAL FIBRILLATION WITH ABERRANT CONDUCTION OR VENTRICULAR PREMATURE COMPLEXES INCOMPLETE RIGHT BUNDLE BRANCH BLOCK Old septal changes ABNORMAL ECG UNCONFIRMED REPORT Electronically signed by : Rene Soares MD 11/16/2021 17:47:27
--- NOTE | 2021-11-14 12:46 | CT_ITS ---
FINAL REPORT CLINICAL HISTORY: Ataxia, dizziness and falls FINDINGS: Axial images of the head were obtained without contrast. Coronal reformatted images were also obtained. This study was performed with techniques to keep radiation doses as low as reasonably achievable (ALARA). Individualized dose reduction techniques using automated exposure control or adjustment of mA and/or kV according to the patient''s size were employed. There is generalized age-appropriate atrophy. Periventricular low-attenuation areas are seen consistent with moderate chronic ischemic changes. There is no evidence of intracranial hemorrhage or mass. There is no evidence of acute infarct. There is no evidence of shift of the midline structures. No skull abnormality is seen on the bone window images. There are postoperative changes of the right globe. IMPRESSION: Atrophy and moderate periventricular chronic ischemic changes. No acute intracranial abnormality identified. Reviewed, Interpreted and Dictated by Oc Ambrocio III, MD Transcribed by Faith Ty Authenticated and [facility]
[2021-11-14 12:52] LABS: RBC,Urine Occasional #/hpf (0-3); Squamous Epithelial Cell,Urine Occasional #/hpf (0-5)
[2021-11-14 13:00] VITALS: BP 152/107; PULSE 92; RESP 16; O2SAT 96
--- NOTE | 2021-11-14 13:06 | PC.NURSE ---
LABS DRAWN WITHOUT DIFFICULTY, PT TOLERATED WELL. NO NEEDS AT THIS TIME. FAMILY AT BEDSIDE
[2021-11-14 13:20] LABS: Basophils # 0.1 K/mm3 (0-0.2); Basophils % 1.3 % (0.1-2.0); Eosinophils # 0.3 K/mm3 (0.0-0.4); Eosinophils % 3.7 % (0.1-12.0); Hemoglobin 15.7 g/dL (14.1-18.0); Lymphocytes # 1.1 K/mm3 (0.7-4.5); Lymphocytes % 16.2 % (10-50); Mean Corpuscular Hemoglobin 32.2 pg (27.0-31.2); Mean Platelet Volume 6.9 fl (7.4-10.4); Monocytes # 0.6 K/mm3 (0.1-1.0); Monocytes % 8.4 % (1.7-9.3); Neutrophils # 4.9 K/mm3 (1.8-7.8); Neutrophils % 70.5 % (37.0-80.0); Platelet Count 232 K/mm3 (142-424); Red Blood Count 4.89 M/mm3 (4.60-6.20); Red Cell Distribution Width 13.6 % (11.5-17.5); White Blood Count 6.9 K/mm3 (4.8-10.8)
[2021-11-14 13:25] LABS: Chloride 100 mmol/L (98-107); Sodium 138 mmol/L (136-145)
[2021-11-14 13:26] LABS: Potassium 3.6 mmoL/L (3.5-5.1)
--- NOTE | 2021-11-14 13:27 | PC.NURSE ---
PT RETURNED FROM CT, FAMILY AT BEDSIDE, NO NEEDS VOICED
[2021-11-14 13:28] LABS: Alanine Aminotransferase 24 U/L (12-78); Albumin Level 4.5 g/dl (3.5-5.0); Albumin/Globulin Ratio 1.5 (1.1-1.8); Alkaline Phosphatase 88 U/L (38-126); Anion Gap 9.6 mEq/L (5-15); Aspartate Amino Transferase 35 U/L (17-59); Bilirubin,Total 1.3 mg/dl (0.2-1.3); Blood Urea Nitrogen 18 mg/dl (9-20); Calcium 9.9 mg/dl (8.4-10.2); Carbon Dioxide 32 mmol/L (22.0-30.0); Creatinine Clearance Estimated 63 mL/min (50-200); Estimated Glomerular Filt Rate 93 ml/min (>60); GFR (African American) 112 ML/MIN (>60); Globulin 3.1 g/dL (1.3-3.2); Glucose 105 mg/dl (74-100); Total Protein,Serum 7.6 g/dl (6.3-8.2)
[2021-11-14 14:45] VITALS: BP 128/100; PULSE 77; RESP 18; TEMP 36.6
== END 2021-11-14 14:50 | disposition home or self-care (01) ==
LOC: UTC 11:17 → ER 12:17
PROVIDERS: Nurse Practitioner; Emergency Provider Emergency Medicine; PCP Family Medicine
DX: R53.1 Weakness (principal); R42 Dizziness and giddiness; I48.11 Longstanding persistent atrial fibrillation; Z91.81 History of falling; Z86.79 Personal history of other diseases of the circulatory system; Z88.0 Allergy status to penicillin; I49.9 Cardiac arrhythmia, unspecified; I11.0 Hypertensive heart disease with heart failure; I50.9 Heart failure, unspecified; I25.10 Atherosclerotic heart disease of native coronary artery without angina pectoris; E78.5 Hyperlipidemia, unspecified; E07.9 Disorder of thyroid, unspecified
CPT/HCPCS: 70450; 80053; 81001; 85025; 93005; 99284

== ENCOUNTER 2021-11-28 09:25 | Outpatient (CLI) | payer MEDICARE, SELFPAY ==
[2021-11-28 12:02] LABS: PHA INR Fingerstick 2.2 (0.9-1.1)
== END 2021-11-28 12:09 | disposition home or self-care (01) ==
LOC: ACC 09:27
PROVIDERS: PCP Family Medicine; Visit Provider Family Medicine
DX: Z51.81 Encounter for therapeutic drug level monitoring (principal); Z79.01 Long term (current) use of anticoagulants
CPT/HCPCS: 85610; 99211; G0463

== ENCOUNTER → 2021-12-06 09:05 | Outpatient (CLI) | payer MEDICARE, SELFPAY ==
--- NOTE | 2021-12-06 09:23 | US_ITS ---
FINAL REPORT CLINICAL HISTORY: AAA FINDINGS: Sonographic images were obtained of the abdominal aorta. The abdominal aorta measures up to 4.3 cm in greatest dimensions. The common iliac arteries are unremarkable. IMPRESSION: 4.3 cm abdominal aortic aneurysm. Reviewed, Interpreted and Dictated by Qing Arshad MD Transcribed by Garcia Renteria Authenticated and [facility]
--- NOTE | 2021-12-06 09:23 | CT_ITS ---
PROCEDURE INFORMATION: Exam: CT Chest Without and With Contrast; Diagnostic Exam date and time: 12/06/2021 10:04 AM Age: 80 years old Clinical indication: Cardiovascular condition or disease; Other: Aaa; Prior surgery; Additional info: Malignant neoplasm of upper lobe, aaa TECHNIQUE: Imaging protocol: Diagnostic computed tomography of the chest without and with contrast. Radiation optimization: All CT scans at this facility use at least one of these dose optimization techniques: automated exposure control; mA and/or kV adjustment per patient size (includes targeted exams where dose is matched to clinical indication); or iterative reconstruction. Contrast material: ISOVUE; Contrast volume: 75 ml; Contrast route: IV; COMPARISON: CT CHEST WO/W CON 07/01/2020 10:38 AM FINDINGS: Lungs: 9 mm spiculated mass left upper lobe is suspicious for developing malignancy. More caudally within the left upper lobe, a 2nd soft tissue mass along the medial apex measures 2.1 x 1.6 cm. 7 mm nodule within the right middle lobe. All of these are slightly increased in size and are worrisome for malignancy. Dependent atelectasis and scarring. Mild diffuse interstitial disease. Pleural spaces: Unremarkable. No pneumothorax. No pleural effusion. Heart: Heart is enlarged. No evidence of pericardial fluid. Lymph nodes: Prominent pretracheal and prevascular lymph nodes slightly increased compared to the prior exam. Vasculature: No evidence for filling defect within the pulmonary arterial tree. No evidence of aortic dissection. Calcifications within thoracic aorta, carotid and coronary arteries. 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 Further workup is recommended. Fusiform aneurysm dilation of the descending thoracic aorta is once again seen. Diaphragm: Sliding hiatal hernia. Liver: Multiple nodules in the left lobe of the liver are unchanged. Bones/joints: Stable sclerotic lesion vertebral body L1. Diffuse degenerative spondylosis, mild rotoscoliosis and facet arthropathy within the spine. Soft tissues: Unremarkable. IMPRESSION: 1. 9 mm spiculated mass left upper lobe is suspicious for developing malignancy. More caudally within the left upper lobe, a 2nd soft tissue mass along the medial apex measures 2.1 x 1.6 cm. 7 mm nodule within the right middle lobe. All of these are slightly increased in size and are worrisome for malignancy. 2. Mild diffuse interstitial disease. 3. Increasing mediastinal adenopathy compared to the prior exam. 4. No evidence for pulmonary embolism or aortic dissection. 5. Cardiomegaly. 6. No evidence of pericardial fluid. 7. Sliding hiatal hernia. 8. Multiple nodules in the left lobe of the liver are unchanged. 9. 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 Further workup is recommended. 10. Fusiform aneurysm dilation of the descending thoracic aorta is once again seen. 11. Stable sclerotic lesion vertebral body L1.
== END ==
PROVIDERS: PCP Family Medicine; Visit Provider Thoracic Surgery (Cardiothoracic Vascular Surgery)
DX: C34.12 Malignant neoplasm of upper lobe, left bronchus or lung (principal); I71.4 Abdominal aortic aneurysm, without rupture
CPT/HCPCS: 71270; 76770; 97110; 97112; Q9967

== ENCOUNTER 2022-01-09 09:19 | Outpatient (CLI) | payer MEDICARE, SELFPAY ==
[2022-01-09 11:14] LABS: PHA INR Fingerstick 2.4 (0.9-1.1)
== END 2022-01-09 11:16 ==
LOC: ACC 09:21
PROVIDERS: PCP Family Medicine; Visit Provider Family Medicine
DX: Z51.81 Encounter for therapeutic drug level monitoring (principal); Z79.01 Long term (current) use of anticoagulants
CPT/HCPCS: 85610; 99211; G0463

== ENCOUNTER 2022-02-20 09:45 | Outpatient (CLI) | payer MEDICARE, SELFPAY ==
[2022-02-20 12:03] LABS: INR 5.04 (0.9-1.1); Prothrombin Time 49.7 seconds (10.1-12.5)
[2022-02-20 14:07] LABS: PHA INR Fingerstick 4.2 (0.9-1.1)
== END 2022-02-20 14:49 ==
PROVIDERS: PCP Family Medicine; Visit Provider Family Medicine
DX: Z51.81 Encounter for therapeutic drug level monitoring (principal); Z79.01 Long term (current) use of anticoagulants
CPT/HCPCS: 36415; 85610; 99211; G0463

== ENCOUNTER 2022-02-23 16:00 | Outpatient (RCR) | payer MEDICARE, SELFPAY | END 2022-02-23 16:05 | disposition home or self-care (01) | LOC: PT 16:00 | PROVIDERS: PCP Family Medicine; Visit Provider Family Medicine | DX: R29.6 Repeated falls (principal); G20 Parkinson's disease; R20.0 Anesthesia of skin; R20.2 Paresthesia of skin | CPT/HCPCS: 97110; 97112; 97116; 97163; 97164 ==

== ENCOUNTER 2022-03-01 09:54 | Outpatient (CLI) | payer MEDICARE, SELFPAY ==
[2022-03-01 15:55] LABS: PHA INR Fingerstick 2.5 (0.9-1.1)
== END 2022-03-01 15:59 ==
LOC: ACC 09:56
PROVIDERS: PCP Family Medicine; Visit Provider Family Medicine
DX: Z51.81 Encounter for therapeutic drug level monitoring (principal); Z79.01 Long term (current) use of anticoagulants
CPT/HCPCS: 85610; 99211; G0463

== ENCOUNTER 2022-03-23 09:55 | Outpatient (CLI) | payer MEDICARE, SELFPAY ==
[2022-03-23 15:13] LABS: PHA INR Fingerstick 2.1 (0.9-1.1)
== END 2022-03-23 15:35 ==
PROVIDERS: PCP Family Medicine; Visit Provider Family Medicine
DX: Z51.81 Encounter for therapeutic drug level monitoring (principal); Z79.01 Long term (current) use of anticoagulants
CPT/HCPCS: 85610; 99211; G0463

== ENCOUNTER 2022-04-26 08:56 | Emergency (ER) | payer MEDICARE, SELFPAY ==
[2022-04-26] VITALS (13 sets, daily range): BP systolic 116–161; BP diastolic 80–110; PULSE 76–104; RESP 15–20; TEMP 36.6; O2SAT 94–96; BMI 29.0; BMI 28.5
--- NOTE | 2022-04-26 09:23 | CT_ITS ---
FINAL REPORT TECHNIQUE: After the administration of intravenous contrast, axial images were obtained through the abdomen and pelvis by computed tomography. This study was performed with technique to keep radiation doses as low as reasonably achievable, (ALARA). Individualized dose reduction techniques using automated exposure control or adjustment of the MA and/or KV according to the patient's size were employed. CLINICAL HISTORY: LWR ABD PAIN X 3-4 DAYS COMPARISON: 07/28/2018 FINDINGS: Abdomen: The lung bases demonstrate mild right base atelectasis. There are several small left hepatic lobe cysts again seen. The spleen is unremarkable. The adrenals are normal. The pancreas is unremarkable. The kidneys enhance appropriately. There is an abdominal aortic aneurysm at and inferior to the level of the renal arteries measuring up to 5.3 cm in diameter. Previously this measured 4.1 cm. There is moderate mural thrombus. There is no free fluid or adenopathy. There is a small umbilical hernia containing fat. Pelvis: The appendix is not identified. There is a right common iliac artery aneurysm measuring 1.6 cm. Left common iliac artery aneurysm is also seen measuring 2.2 cm. The urinary bladder is significantly distended and extends superior to the umbilicus. There is stranding in the left abdomen and pelvis retroperitoneum of uncertain etiology. There is rectal wall thickening which may represent proctitis. IMPRESSION: Abdominal aortic aneurysm at and inferior to the level of the renal arteries measuring up to 5.3 cm. Bilateral common iliac artery aneurysms. Significant urinary bladder distension. Stranding in the left abdomen and pelvis retroperitoneum of uncertain etiology. Rectal wall thickening which may represent proctitis. Reviewed, Interpreted and Dictated by Oc Ambrocio III, MD Transcribed by Mackenzie Geiger Authenticated and [facility]
--- NOTE | 2022-04-26 09:42 | HMH.EDGENADL ---
Discharge Plan Disposition Patient Disposition: Home, Self-Care Condition: Fair Prescriptions Prescriptions: New potassium chloride 20 mEq tablet,ER particles/crystals 20 meq PO DAILY Qty: 7 0RF No Action ezetimibe 10 mg tablet 10 mg PO DAILY aspirin 325 MG tablet 325 mg PO DAILY esomeprazole magnesium 40 MG capsule,delayed release(DR/EC) 40 mg PO DAILY levothyroxine 125 MCG tablet 125 mcg PO DAILY atropine 0.1 MG/ML syringe 1 drp OP DAILY Rx Instructions: RIGHT EYE ONLY hydralazine 25 MG tablet 25 mg PO TID warfarin 5 MG tablet 5 mg PO DAILY hydrochlorothiazide 25 MG tablet 25 mg PO DAILY doxycycline hyclate 20 MG tablet 20 mg PO BID vit C,U-Na-xqypr-lutein-zeaxan 1 EACH capsule 1 each PO DAILY ergocalciferol (vitamin D2) 2,000 UNIT tablet 2,000 unit PO DAILY losartan 100 MG tablet 100 mg PO DAILY prednisolone acetate 10 ML drops,suspension 1 drp OP BID Label Comments: INSTILL 1 DROP INTO RIGHT EYE TWICE DAILY Rx Instructions: RIGHT EYE metoprolol succinate 100 MG tablet extended release 24 hr 100 mg PO BID Qty: 60 0RF verapamil 80 MG tablet 80 mg PO TID Qty: 90 0RF Referrals Follow up/Referrals: Rene Umanzor MD [Primary Care Provider] - See instructions Activity Restrictions/Add. Instructions Additional Instructions/Restrictions: Keep Cheney catheter in. Follow-up with Dr. Umanzor in the office Saturday or Saturday. His office will call you tomorrow to make an appointment. Take Coumadin as instructed by Jacky. Potassium as prescribed. Call Dr. Umanzor's if worse rectal bleeding or if you develop a fever. Collect a diarrhea sample using the provided supplies and return it along with the order form to ER registration at [facility] for testing. Obtain the results of this test from your primary care provider the next day. Clinical Impressions Clinical Impression: Bright red rectal bleeding, Diarrhea, Abdominal pain, Acute urinary retention, Acute hypokalemia, Supratherapeutic INR Instructions Patient Instructions: DI for Gastrointestinal Bleeding, DI for Diarrhea and Traveler's Diarrhea -- Adult, DI for Hypokalemia, DI for Urinary Retention in Men, How to Care for Your Cheney Catheter -- Male, DI for Abdominal Pain-Adult, DI for Rectal Bleeding Discharge ED Provider: Yovani Loo General Adult HPI General Chief complaint: GI Bleed Stated complaint: Diarreah, blood in stool Time Seen by Provider: 04/26/22 09:38 Mode of Arrival: Wheelchair Source of Information: Patient Limitations: No Limitations Description of Symptoms (Recalled from ER Triage Doc. by RN): pt to ed c/o blood in stool. pt reports active hemorrhoids. pt denies n/v. pt denies abd pain. History of Present Illness HPI narrative: Patient states that he feels bad for the past 2 days. He has diarrhea which has small amounts of blood in it. He has some abdominal pain across his lower abdomen. Family member reports difficulty urinating as well. Denies fever or vomiting. No hematemesis. Denies prior history of rectal bleeding. Patient reports that he has hemorrhoids which Dr. Lares has checked in the past. Related Data Home Medications Medication Instructions Recorded Confirmed aspirin 325 mg tablet 325 mg PO DAILY HEART HEALTH/BLOOD 06/17/17 07/10/19 THINNE atropine 0.1 mg/mL injection 1 drp OP DAILY EYE 06/17/17 07/10/19 syringe esomeprazole magnesium 40 mg 40 mg PO DAILY GERD 06/17/17 07/10/19 capsule,delayed release levothyroxine 125 mcg tablet 125 mcg PO DAILY HYPOTHYROID 06/17/17 07/10/19 ezetimibe 10 mg tablet 10 mg PO DAILY Cholesterol 03/11/18 07/10/19 doxycycline hyclate 20 mg tablet 20 mg PO BID Infection 07/10/19 07/10/19 ergocalciferol (vitamin D2) 50 mcg 2,000 unit PO DAILY Supplement 07/10/19 07/10/19 (2,000 unit) tablet hydralazine 25 mg tablet 25 mg PO TID bp 07/10/19 07/10/19 h
[2022-04-26 10:06] LABS: Occult Blood,Stool Positive (Negative)
[2022-04-26 10:10] LABS: Chloride 100 mmol/L (98-107); Potassium 3.1 mmoL/L (3.5-5.1); Sodium 137 mmol/L (136-145)
[2022-04-26 10:12] LABS: Blood Urea Nitrogen 24 mg/dl (9-20); Creatinine Clearance Estimated 65 mL/min (50-200); Estimated Glomerular Filt Rate 93 ml/min (>60); GFR (African American) 112 ML/MIN (>60)
[2022-04-26 10:13] LABS: Alanine Aminotransferase 28 U/L (12-78); Albumin Level 4.5 g/dl (3.5-5.0); Albumin/Globulin Ratio 1.6 (1.1-1.8); Alkaline Phosphatase 79 U/L (38-126); Anion Gap 15.1 mEq/L (5-15); Aspartate Amino Transferase 54 U/L (17-59); Bilirubin,Total 1.2 mg/dl (0.2-1.3); Calcium 10.1 mg/dl (8.4-10.2); Carbon Dioxide 25 mmol/L (22.0-30.0); Globulin 2.8 g/dL (1.3-3.2); Glucose 98 mg/dl (74-100); Total Protein,Serum 7.3 g/dl (6.3-8.2)
[2022-04-26 10:41] LABS: Basophils # 0.1 K/mm3 (0-0.2); Basophils % 0.8 % (0.1-2.0); Eosinophils # 0.1 K/mm3 (0.0-0.4); Eosinophils % 0.7 % (0.1-12.0); Hematocrit 43.9 % (42.0-52.0); Hemoglobin 14.9 g/dL (14.1-18.0); Lymphocytes # 1.1 K/mm3 (0.7-4.5); Lymphocytes % 10.5 % (10-50); Mean Corpuscular HGB Conc 33.9 g/dL (31.8-35.4); Mean Corpuscular Hemoglobin 32.3 pg (27.0-31.2); Mean Corpuscular Volume 95.2 fl (80-94); Monocytes # 0.7 K/mm3 (0.1-1.0); Monocytes % 6.1 % (1.7-9.3); Neutrophils # 8.8 K/mm3 (1.8-7.8); Neutrophils % 81.8 % (37.0-80.0); Platelet Count 260 K/mm3 (142-424); Red Blood Count 4.61 M/mm3 (4.60-6.20); Red Cell Distribution Width 14.1 % (11.5-17.5); White Blood Count 10.7 K/mm3 (4.8-10.8)
[2022-04-26 10:48] LABS: INR 3.76 (0.9-1.1); Prothrombin Time 37.7 seconds (10.1-12.5)
--- NOTE | 2022-04-26 10:54 | PC.NURSE ---
pt states that he is allergic to contrast and pt was pre medicated with meds on jul. PT is to wait one hour before ct scan per radiology. MD infante
--- NOTE | 2022-04-26 11:20 | PC.NURSE ---
new IV started on pt due to other on infiltrated when flushed, 20 L inner AC, pt tolerated well
--- NOTE | 2022-04-26 13:45 | PC.NURSE ---
On the phone with 's office.
--- NOTE | 2022-04-26 13:49 | PC.NURSE ---
on the phone with
[2022-04-26 13:52] LABS: Microscopic, Urine URINE MICROSCOPIC (MICROSCOPIC)
[2022-04-26 13:56] LABS: Appearance,Urine CLEAR (Clear); Bilirubin,Urine Negative (Negative); Blood, Urine 3+ (Negative); Color,Urine YELLOW (Yellow); Glucose,Urine (UA) Negative (Negative); Ketones,Urine TRACE (Negative); Leukocyte Esterase,Urine Negative (Negative); Nitrate,Urine Negative (Negative); Protein,Urine Negative (Negative); Urobilinogen,Urine 0.2 EU/dl (0.2)
--- NOTE | 2022-04-26 14:20 | PC.NURSE ---
2000ml of urine emptied from bladder via coleman. notified
--- NOTE | 2022-04-26 14:45 | PC.NURSE ---
gave pt and family supplies for at home stool sample
== END 2022-04-26 14:50 | disposition home or self-care (01) ==
PROVIDERS: Emergency Provider Emergency Medicine; PCP Family Medicine
DX: R33.8 Other retention of urine (principal); K62.5 Hemorrhage of anus and rectum; R19.7 Diarrhea, unspecified; E87.6 Hypokalemia; R79.1 Abnormal coagulation profile
CPT/HCPCS: 51702; 74177; 80053; 81001; 82272; 85025; 85610; 87506; 96374; 96375; 99284; G0328; Q9967

== ENCOUNTER → 2022-04-26 18:50 | Outpatient (CLI) | payer MEDICARE, SELFPAY ==
[2022-04-26 19:10] LABS: Adenovirus F 40/41, stool Not Detected (NotDetected); Astrovirus Not Detected (NotDetected); Campylobacter Not Detected (NotDetected); Clostridium Difficile A/B, PCR Not Detected (NotDetected); Cryptosporidium Not Detected (NotDetected); Cyclospora Cayetanesis Not Detected (NotDetected); Entamoeba histolytica Not Detected (NotDetected); Enteroaggregative E coli Not Detected (NotDetected); Enterotoxigenic E coli Not Detected (NotDetected); Giardia lamblia Not Detected (NotDetected); Norovirus Not Detected (NotDetected); Plesimonas Shigalloides, PCR Not Detected (NotDetected); Rotavirus A Not Detected (NotDetected); Salmonella, PCR Not Detected (NotDetected); Sapovirus Not Detected (NotDetected); Shiga-like toxin E coli Not Detected (NotDetected); Shigella Enterovasive E coli Not Detected (NotDetected); Vibrio Cholerae Not Detected (NotDetected); Vibrio, PCR Not Detected (NotDetected); Yersinia Entercolitica, PCR Not Detected (NotDetected)
[2022-04-27 14:25] LABS: Enteropathogenic E coli Detected (NotDetected)
== END ==
PROVIDERS: PCP Family Medicine; Visit Provider Emergency Medicine
DX: R19.7 Diarrhea, unspecified (principal)
CPT/HCPCS: 87506

== ENCOUNTER 2022-05-01 13:30 | Emergency (ER) | payer MEDICARE, SELFPAY ==
[2022-05-01 13:30] VITALS: BP 134/96; PULSE 96; RESP 18; TEMP 36.4; O2SAT 99; BMI 28.3
--- NOTE | 2022-05-01 13:54 | HMH.EDGENADL ---
Discharge Plan Disposition Patient Disposition: Home, Self-Care Condition: Good Prescriptions Prescriptions: New nystatin 100,000 unit/gram cream 1 applic topical BID Qty: 30 0RF No Action ezetimibe 10 mg tablet 10 mg PO DAILY potassium chloride 20 mEq tablet,ER particles/crystals 20 meq PO DAILY Qty: 7 0RF aspirin 325 MG tablet 325 mg PO DAILY esomeprazole magnesium 40 MG capsule,delayed release(DR/EC) 40 mg PO DAILY levothyroxine 125 MCG tablet 125 mcg PO DAILY atropine 0.1 MG/ML syringe 1 drp OP DAILY Rx Instructions: RIGHT EYE ONLY hydralazine 25 MG tablet 25 mg PO TID warfarin 5 MG tablet 5 mg PO DAILY hydrochlorothiazide 25 MG tablet 25 mg PO DAILY doxycycline hyclate 20 MG tablet 20 mg PO BID vit C,K-Yo-culne-lutein-zeaxan 1 EACH capsule 1 each PO DAILY ergocalciferol (vitamin D2) 2,000 UNIT tablet 2,000 unit PO DAILY losartan 100 MG tablet 100 mg PO DAILY prednisolone acetate 10 ML drops,suspension 1 drp OP BID Label Comments: INSTILL 1 DROP INTO RIGHT EYE TWICE DAILY Rx Instructions: RIGHT EYE metoprolol succinate 100 MG tablet extended release 24 hr 100 mg PO BID Qty: 60 0RF verapamil 80 MG tablet 80 mg PO TID Qty: 90 0RF Referrals Follow up/Referrals: Rene Umanzor MD [Primary Care Provider] - See instructions Activity Restrictions/Add. Instructions Additional Instructions/Restrictions: You were evaluated in the emergency department today. Please picker/puller your prescription for ointment at the pharmacy and apply to the affected areas twice a day. Keep your groin is clean and dry as possible. Follow-up outpatient with urology as previously instructed regarding your Cheney catheter. Return to the emergency department for any new or worsening symptoms. Clinical Impressions Clinical Impression: Candidiasis of genitalia Instructions Patient Instructions: Yeast Infection-Skin Discharge ED Provider: Barb Silveira General Adult HPI General Chief complaint: Skin/Abscess/Foreign Body Stated complaint: Diarreah, Possible catheter infection Time Seen by Provider: 05/01/22 13:39 Source of Information: Patient and Relative History of Present Illness HPI narrative: This patient is an 81-year-old male with history of A. fib with RVR, CHF, hypertension, and chronic diarrhea presenting to the emergency department for evaluation with concern for redness and irritation in his groin. According to the patient's relative, he has continued to have his chronic diarrhea at home and has subsequently developed irritation in his skin folds in his groin as well as to the dorsal aspect of his penis. She is concerned that he may be developing an infection related to his Cheney catheter, which was placed around 04/26/2022 for urinary retention. He has not yet been able to follow-up outpatient with urology. He denies any pain associated with this. He is still been urinating well when his Cheney catheter bag in his Cheney with very small amounts of blood occasionally. No fevers, nausea, vomiting, or other concerns noted. They note that they have been trying to clean his Cheney catheter well at home. Related Data Home Medications Medication Instructions Recorded Confirmed aspirin 325 mg tablet 325 mg PO DAILY HEART HEALTH/BLOOD 06/17/17 07/10/19 THINNE atropine 0.1 mg/mL injection 1 drp OP DAILY EYE 06/17/17 07/10/19 syringe esomeprazole magnesium 40 mg 40 mg PO DAILY GERD 06/17/17 07/10/19 capsule,delayed release levothyroxine 125 mcg tablet 125 mcg PO DAILY HYPOTHYROID 06/17/17 07/10/19 ezetimibe 10 mg tablet 10 mg PO DAILY Cholesterol 03/11/18 07/10/19 doxycycline hyclate 20 mg tablet 20 mg PO BID Infection 07/10/19 07/10/19 ergocalciferol (vitamin D2) 50 mcg 2,000 unit PO DAILY Supplement 07/10/19 07/10/19 (2,000 unit) tablet hydralazine 25 mg tablet 25 mg PO TID bp 06/14
[2022-05-01 14:00] VITALS: BP 117/77; PULSE 88; O2SAT 95
--- NOTE | 2022-05-01 14:13 | PC.NURSE ---
pt and family educated on bathing with coleman and cleaning to prevent infection
[2022-05-01 14:24] LABS: Microscopic, Urine URINE MICROSCOPIC (MICROSCOPIC)
[2022-05-01 14:30] VITALS: BP 121/88; PULSE 90; RESP 18; O2SAT 96
[2022-05-01 14:31] LABS: Appearance,Urine SL CLOUDY (Clear); Bilirubin,Urine Negative (Negative); Blood, Urine 3+ (Negative); Color,Urine YELLOW (Yellow); Glucose,Urine (UA) Negative (Negative); Ketones,Urine Negative (Negative); Leukocyte Esterase,Urine Negative (Negative); Nitrate,Urine Negative (Negative); Protein,Urine 1+ (Negative)
[2022-05-01 14:46] LABS: RBC,Urine 20-50 #/hpf (0-3)
[2022-05-01 15:00] VITALS: BP 125/89; PULSE 82; RESP 18; O2SAT 95
[2022-05-01 15:28] VITALS: BP 125/89; PULSE 68; RESP 17; TEMP 36.4; O2SAT 95
== END 2022-05-01 15:30 | disposition home or self-care (01) ==
PROVIDERS: Emergency Provider Emergency Medicine; PCP Family Medicine
DX: R21 Rash and other nonspecific skin eruption (principal); B37.42 Candidal balanitis; R19.7 Diarrhea, unspecified; I11.0 Hypertensive heart disease with heart failure; I50.9 Heart failure, unspecified; I48.91 Unspecified atrial fibrillation; E78.00 Pure hypercholesterolemia, unspecified; K21.9 Gastro-esophageal reflux disease without esophagitis; E03.9 Hypothyroidism, unspecified; R33.9 Retention of urine, unspecified; G20 Parkinson's disease; Z79.01 Long term (current) use of anticoagulants; Z79.51 Long term (current) use of inhaled steroids; Z79.82 Long term (current) use of aspirin; Z79.899 Other long term (current) drug therapy; Z88.0 Allergy status to penicillin; Z91.041 Radiographic dye allergy status; Z87.891 Personal history of nicotine dependence; Z82.49 Family history of ischemic heart disease and other diseases of the circulatory system; Z83.438 Family history of other disorder of lipoprotein metabolism and other lipidemia
CPT/HCPCS: 81001; 87086; 87088; 99283

== ENCOUNTER 2022-05-02 10:50 | Outpatient (CLI) | payer MEDICARE, SELFPAY ==
[2022-05-02 15:26] LABS: PHA INR Fingerstick 2.4 (0.9-1.1)
== END 2022-05-02 16:24 ==
LOC: ACC 10:51
PROVIDERS: PCP Family Medicine; Visit Provider Family Medicine
DX: Z51.81 Encounter for therapeutic drug level monitoring (principal); Z79.01 Long term (current) use of anticoagulants
CPT/HCPCS: 85610; 99211; G0463

== ENCOUNTER 2022-05-09 17:19 | Observation (INO) | payer MEDICARE, SELFPAY ==
[2022-05-09 17:19] VITALS: BP 143/94; PULSE 106; RESP 20; TEMP 36.9; O2SAT 95; BMI 27.3
--- NOTE | 2022-05-09 17:22 | ECG_ITS ---
APPROVED REPORT Exam: Resting ECG HR:109 bpm ECG Measurements Heart Rate 109 AXES QRSd 90 QRS -60 QT 334 T 52 QTc 398 Conclusion ATRIAL FIBRILLATION WITH RAPID VENTRICULAR RESPONSE LEFT AXIS DEVIATION [QRS AXIS < -30] POSSIBLE RIGHT VENTRICULAR CONDUCTION DELAY [RSR (QR) IN V1/V2] ABNORMAL ECG UNCONFIRMED REPORT Electronically signed by : Reen Soares MD 05/11/2022 08:54:27
[2022-05-09 17:30] VITALS: BP 131/91; PULSE 95; RESP 26; O2SAT 93
--- NOTE | 2022-05-09 17:39 | PC.NURSE ---
DR MASCORRO AT BEDSIDE
[2022-05-09 17:50] LABS: Coronavirus 19, PCR Not Detected (NotDetected); Influenza A, PCR Not Detected (NotDetected); Influenza B, PCR Not Detected (NotDetected)
--- NOTE | 2022-05-09 17:52 | CT_ITS ---
PROCEDURE INFORMATION: Exam: CT Head Without Contrast Exam date and time: 05/09/2022 6:25 PM Age: 81 years old Clinical indication: Injury or trauma; Fall; Blunt trauma (contusions or hematomas); Consciousness not specified; Patient HX: Patient became dizzy and fell over arm of his chair hitting head on floor. ; Additional info: Fall, head trauma TECHNIQUE: Imaging protocol: Computed tomography of the head without contrast. Radiation optimization: All CT scans at this facility use at least one of these dose optimization techniques: automated exposure control; mA and/or kV adjustment per patient size (includes targeted exams where dose is matched to clinical indication); or iterative reconstruction. COMPARISON: CT HEAD/BRAIN WO CON 11/14/2021 1:12 PM FINDINGS: Brain: There is no acute intracranial hemorrhage, cerebral edema, or midline shift. Chronic microvascular ischemic changes are seen in the periventricular white matter. Age-related cerebral and cerebellar volume loss is present. Cerebral ventricles: No hydrocephalus. Paranasal sinuses: There is no acute sinusitis. Mastoid air cells: The mastoid air cells are clear. Orbital cavities: A right scleral banding is noted. Increased density within the globe likely represents injected silicone. Bones/joints: No acute fracture. Soft tissues: Unremarkable. Vasculature: Atherosclerotic calcifications are seen involving the cavernous carotid arteries. IMPRESSION: 1. No acute intracranial abnormality. 2. Atrophy and chronic deep white matter ischemic changes.
--- NOTE | 2022-05-09 17:52 | XR_ITS ---
PROCEDURE INFORMATION: Exam: XR Chest Exam date and time: 05/09/2022 6:28 PM Age: 81 years old Clinical indication: Injury or trauma; Fall; Shortness of breath; Blunt trauma (contusions or hematomas); Additional info: Falls SOA TECHNIQUE: Imaging protocol: Radiologic exam of the chest. Views: 1 view. Portable AP upright exam 6:30 p.m. COMPARISON: CT CHEST WO/W CON 12/06/2021 10:04 AM FINDINGS: Tubes, catheters and devices: Overlying personnel monitor electrodes. Lungs: Left upper lobe spiculated nodules described on prior chest CT of 12/06/2021 are not well visualized on this portable chest x-ray. Mild upper lobe emphysematous changes. No focal consolidation. Pulmonary vessels do not appear congested. Pleural spaces: Unremarkable. No significant pleural effusion. No pneumothorax. Heart/Mediastinum: Chronic enlarged cardiac silhouette. Vasculature: Calcified plaque in the aortic arch. Bones/joints: Bones appear diffusely demineralized.There is no evidence of acute fracture. There are spinal degenerative changes, with multilevel disc narrrowing and spondylosis. IMPRESSION: 1. No definite acute fracture on this limited portable exam; osteopenia, limiting sensitivity for nondisplaced fractures. 2. No acute cardiopulmonary findings. No consolidation, pleural effusion or pneumothorax. 3. Cardiomegaly. 4. Additional nonemergency and chronic findings as above.
--- NOTE | 2022-05-09 17:55 | HMH.EDGENADL ---
Discharge Plan Disposition Patient Disposition: Admitted As Inpatient Condition: Fair Discharge ED Provider: Brett Goode General Adult HPI General Chief complaint: Weakness Stated complaint: Weakness Time Seen by Provider: 05/09/22 17:30 Mode of Arrival: EMS Limitations: No Limitations Description of Symptoms (Recalled from ER Triage Doc. by RN): PT BROUGHT IN VIA EMS FOR PT SLIDING OUT OF HIS CHAIR. FAMILY REPORTS GRADUAL DECLINE, PT LEGALLY BLIND AND HAS DIFFICULTY MANEUVERING WALKER. PT STATES HES WEAK History of Present Illness HPI narrative: This is an 81-year-old male with history of atrial flutter currently on Coumadin, CHF, hypertension, hyperlipidemia, parkinsonianism, AAA status postrepair with residual/returning aneurysm chronic decline presenting with fall. Family at bedside provides history. Patient was walking with his walker when he had acute fall from standing secondary to tripping. He fell forward and landed on the couch, did not hit his head or lose consciousness. Was unable to help himself up, so EMS was called. Per EMS, on arrival, patient minimally responsive and weak, but they were able to put him on the stretcher and he perked up. Alert and oriented shortly thereafter. Patient complaining of shortness of breath on arrival to [facility], but denies chest pain, nausea, vomiting, fevers, chills, headache, vision changes, neurologic deficits, confusion, recent illness, abdominal pain, or any other concerns. Related Data Home Medications Medication Instructions Recorded Confirmed aspirin 325 mg tablet 325 mg PO DAILY HEART HEALTH/BLOOD 06/17/17 07/10/19 THINNE atropine 0.1 mg/mL injection 1 drp OP DAILY EYE 06/17/17 07/10/19 syringe esomeprazole magnesium 40 mg 40 mg PO DAILY GERD 06/17/17 07/10/19 capsule,delayed release levothyroxine 125 mcg tablet 125 mcg PO DAILY HYPOTHYROID 06/17/17 07/10/19 ezetimibe 10 mg tablet 10 mg PO DAILY Cholesterol 03/11/18 07/10/19 doxycycline hyclate 20 mg tablet 20 mg PO BID Infection 07/10/19 07/10/19 ergocalciferol (vitamin D2) 50 mcg 2,000 unit PO DAILY Supplement 07/10/19 07/10/19 (2,000 unit) tablet hydralazine 25 mg tablet 25 mg PO TID bp 07/10/19 07/10/19 hydrochlorothiazide 25 mg tablet 25 mg PO DAILY bp 07/10/19 07/10/19 losartan 100 mg tablet 100 mg PO DAILY BLOOD PRESSURE 07/10/19 07/10/19 prednisolone acetate 1 % eye 1 drp OP BID EYES 07/10/19 07/10/19 drops,suspension vit C 250 mg-vit E 90 mg-zinc 40 1 each PO DAILY VISION 07/10/19 07/10/19 mg-copper 1 uu-zfcbdf-kxpile capsule warfarin 5 mg tablet 5 mg PO DAILY Blood thinner 07/10/19 07/10/19 Previous Rx's Medication Instructions Recorded metoprolol succinate 100 mg 100 mg PO BID ##60 07/11/19 tablet,extended release 24 hr verapamil 80 mg tablet 80 mg PO TID #90 tabs 07/12/19 potassium chloride 20 mEq 20 meq PO DAILY #7 tabs 04/26/22 tablet,extended release(part/cryst) nystatin 100,000 unit/gram topical 1 applic topical BID #30 grams 05/01/22 cream Allergies Allergy/AdvReac Type Severity Reaction Status Date / Time Penicillins Allergy Unknown Verified 04/08/18 12:33 [facility] Disclaimer: The information contained in this section may have been updated after the patient was seen, as this information can be updated by other users. Social History Smoking Status: Former smoker pack-years: 21 alcohol intake: never current occupational status: retired Travel in the last 8 weeks: None household members: spouse caffeine: Yes ROS Obtained: Yes All systems reviewed & no additional complaints except as documented Physical Exam General General appearance: alert and in no apparent distress Head Head exam: atraumatic, normocephalic and normal inspection Eye Eye exam: Present normal appearance, PERRL and EOMI ENT ENT exam: Present normal exam, normal oropharynx, mucous membranes moist, TM's no
[2022-05-09 18:00] VITALS: BP 138/92; PULSE 95; RESP 24; O2SAT 94
[2022-05-09 18:04] LABS: Chloride 97 mmol/L (98-107); Potassium 3.6 mmoL/L (3.5-5.1); Sodium 132 mmol/L (136-145)
[2022-05-09 18:06] LABS: Alanine Aminotransferase 25 U/L (12-78); Aspartate Amino Transferase 29 U/L (17-59); Blood Urea Nitrogen 15 mg/dl (9-20); Creatinine Clearance Estimated 64 mL/min (50-200); Estimated Glomerular Filt Rate 108 ml/min (>60); GFR (African American) 131 ML/MIN (>60)
[2022-05-09 18:07] LABS: Albumin/Globulin Ratio 1.5 (1.1-1.8); Alkaline Phosphatase 66 U/L (38-126); Anion Gap 10.6 mEq/L (5-15); Calcium 8.8 mg/dl (8.4-10.2); Carbon Dioxide 28 mmol/L (22.0-30.0); Globulin 2.7 g/dL (1.3-3.2); Glucose 116 mg/dl (74-100); Total Protein,Serum 6.7 g/dl (6.3-8.2)
[2022-05-09 18:08] LABS: Basophils # 0.1 K/mm3 (0-0.2); Basophils % 0.4 % (0.1-2.0); Eosinophils # 0.1 K/mm3 (0.0-0.4); Eosinophils % 0.3 % (0.1-12.0); Hemoglobin 13.8 g/dL (14.1-18.0); Lymphocytes # 0.7 K/mm3 (0.7-4.5); Lymphocytes % 4.3 % (10-50); Mean Corpuscular HGB Conc 33.5 g/dL (31.8-35.4); Mean Corpuscular Hemoglobin 32.4 pg (27.0-31.2); Mean Corpuscular Volume 96.6 fl (80-94); Mean Platelet Volume 8.4 fl (7.4-10.4); Monocytes # 0.8 K/mm3 (0.1-1.0); Monocytes % 4.9 % (1.7-9.3); Neutrophils # 15.3 K/mm3 (1.8-7.8); Platelet Count 277 K/mm3 (142-424); Red Blood Count 4.25 M/mm3 (4.60-6.20)
[2022-05-09 18:13] LABS: MANUAL DIFFERENTIAL MANUAL DIFFERENTIAL (MANUAL DIFF)
--- NOTE | 2022-05-09 18:23 | CT_ITS ---
PROCEDURE INFORMATION: Exam: CT Cervical Spine Without Contrast Exam date and time: 05/09/2022 6:27 PM Age: 81 years old Clinical indication: Injury or trauma; Fall; Blunt trauma; Patient HX: Patient became dizzy and fell across arm of his chair. Neck pain. TECHNIQUE: Imaging protocol: Computed tomography of the cervical spine without contrast. Radiation optimization: All CT scans at this facility use at least one of these dose optimization techniques: automated exposure control; mA and/or kV adjustment per patient size (includes targeted exams where dose is matched to clinical indication); or iterative reconstruction. COMPARISON: CT HEAD/BRAIN WO CON 05/09/2022 6:25 PM FINDINGS: Bones/joints: Bone mineralization is decreased, suggestive of osteopenia. No acute cervical spine fracture is identified. There is straightening of the normal cervical lordosis. Severe degenerative changes of the cervical spine are present. There is no severe spinal canal stenosis. Multilevel neural foraminal narrowing from uncinate spurring and facet arthropathy is noted. Lungs: There is a 2.5 cm lobulated mass within the anteromedial left upper lobe. An additional 2 cm spiculated lesion is noted in the left lung apex. Neoplasm or metastatic disease is possible. Further evaluation is recommended. Vasculature: Atherosclerotic calcifications are present at the carotid bifurcations. Soft tissues: Unremarkable. IMPRESSION: 1. No acute abnormality. 2. There is a 2.5 cm lobulated mass within the anteromedial left upper lobe. An additional 2 cm spiculated lesion is noted in the left lung apex. Neoplasm or metastatic disease is possible. Further evaluation is recommended.
--- NOTE | 2022-05-09 18:25 | PC.NURSE ---
PT TO CT
[2022-05-09 18:35] LABS: Lymphocytes % 11 % (10-50); NT Pro Brain Natriuretic Pep. 2790 pg/mL (0-450); Neutrophils % 89 % (42-76); Platelet Estimate Normal; RBC Morphology Normal; Total Cells Counted 100
[2022-05-09 18:41] LABS: Troponin I < 0.01 ng/ml (0.00-0.034)
--- NOTE | 2022-05-09 19:34 | PC.NURSE ---
DR. MASCORRO SPEAKING WITH HOSPITALIST FOR ADMISSION PROJECT ASSOCIATE NOTIFIED
[2022-05-09 21:01] VITALS: O2SAT 95
--- NOTE | 2022-05-09 21:04 | EXP.HP ---
History of Present Illness *Admission Date: 05/09/22 *Reason for visit:: Fall, Weakness *History of present illness: Mr. Walker is a 81-year-old male with a past medical history of Atrial Fibrillation on chronic anticoagulation, Parkison's, recent history of Urinary retention with indwelling coleman with follow-up with Urology scheduled, Hypertension, Hypothyroidism and history of AAA repair. He presented to [facility] due to weakness that family members at bedside states has been present for the last two weeks after an acute bout of diarrhea with urinary retention necessitating a chronic indwelling coleman with follow-up with Urology scheduled in 05/2022. The patient was seen on admission in the ER, the information was obtained from the patient and his daughter that was at bedside. Both report the acute event approximately 2 weeks ago when he was diagnosed with urinary retention they report that since that time he has been progressively weak and today he fell and landed in a chair and was too weak to get up. The son-in-law had to come and physically lift him out of the chair per family, they deny a LOC or hitting his head. In the ER the patient had imaging of the C-spine, Head and Cxray that showed no acute fracture but did show a spiculated lobulated mass in the left upper lobe that family and patient reports is being followed by [facility]. CBC showed a WBC of 17.0. EKG showed Atrial Fibrillation with rate in the 90's. Troponin was within normal limtis at <0.01. BNP was elevated at 2790 and on exam the patient had 2 plus BLE edema. In the ER the patient had urine culture sent for analysis and was given Rocephin empirically. He was also given a dose of Lasix for volume overload and echo ordered for am for analysis. The patient was admitted with initial impression: Volume Overload, Leukocytosis and Functional Decline. The plan of care was discussed with the patient and daugter at bedside. Both verbalized understanding and agreement with the plan of care. [facility] Disclaimer: The information contained in this section may have been updated after the patient was seen, as this information can be updated by other users. Medical History (Updated 05/10/22 @ 11:41 by Darrius Waddell MD) Aneurysm Atrial fibrillation Hypertension Hypothyroidism Parkinson disease Urinary retention Surgical History S/P AAA repair Family History (Updated 05/09/22 @ 22:27 by Ann Henley RN) Family history of hypertension Mother Family history of hyperlipidemia Mother Social History (Updated 05/09/22 @ 22:29 by Ann Henley RN) Smoking Status: Former smoker pack-years: 21 alcohol intake: never current occupational status: retired Travel in the last 8 weeks: None household members: spouse caffeine: Yes Review of Systems Review of Systems Review of systems:: pertinent systems reviewed and negative unless documented below Constitutional Constitutional: Reports lethargy, Reports malaise and Reports weakness Eyes Eyes: Reports system reviewed and no additional complaints, except as documented ENT Ears, Nose, Mouth, and Throat: Reports system reviewed and no additional complaints, except as documented *Cardiovascular Cardiovascular: Reports pedal edema *Respiratory Respiratory: Reports system reviewed and no additional complaints, except as documented *Gastrointestinal Comments: Recent history of diarrhea *Genitourinary Genitourinary: Reports oliguria and Reports urinary hesitancy *Musculoskeletal Musculoskeletal: Reports muscle weakness Integumentary/Breasts Skin/Breast: Reports system reviewed and no additional complaints, except as documented *Neurologic Neurologic: Reports weakness Psychiatric Psychiatric: Reports system reviewed and no additional complaints, except as documented Endocrine Endocrine: Reports system reviewed and no additional compla
[2022-05-09 21:14] VITALS: BP 139/97; PULSE 88; RESP 22; TEMP 36.9; O2SAT 94
--- NOTE | 2022-05-09 21:20 | PC.NURSE ---
pt concerned about Parkinson medication and eye vitamins. pt gave night time meds so that he did not go off schedule.
[2022-05-09 21:49] VITALS: BP 127/89; PULSE 97; RESP 18; TEMP 36.9; O2SAT 95; BMI 26.5
--- NOTE | 2022-05-09 21:49 | PC.NURSE ---
arrived to the floor via stretcher. aditted to room 206. blind due to macular degeneration. is a/o x 4. at bedside. coleman cath x 2 weeks due to urinary retention. urology appt may 24.
[2022-05-09 22:06] LABS: Troponin I < 0.01 ng/ml (0.00-0.034)
[2022-05-09 22:11] LABS: Microscopic, Urine URINE MICROSCOPIC (MICROSCOPIC)
[2022-05-09 22:13] LABS: Appearance,Urine CLEAR (Clear); Bilirubin,Urine Negative (Negative); Blood, Urine 3+ (Negative); Color,Urine YELLOW (Yellow); Glucose,Urine (UA) Negative (Negative); Ketones,Urine TRACE (Negative); Leukocyte Esterase,Urine 1+ (Negative); Nitrate,Urine Negative (Negative); PH,Urine 6.5 (5.0-8.5); Protein,Urine Negative (Negative); Specific Gravity, Urine <= 1.005 (1.005-1.030); Urobilinogen,Urine 0.2 EU/dl (0.2)
[2022-05-09 22:20] LABS: Bacteria,Urine Trace /lpf; WBC,Urine Occasional #/hpf (0-3)
[2022-05-10] VITALS (10 sets, daily range): BP systolic 106–150; BP diastolic 73–98; PULSE 57–103; RESP 18–24; TEMP 36.5–37.1; O2SAT 94–97; BMI 26.1
[2022-05-10 00:50] LABS: Troponin I < 0.01 ng/ml (0.00-0.034)
--- NOTE | 2022-05-10 06:17 | PC.NURSE ---
patient is blind from macular degeneration. a/o x 3. no c/o pain or discomfort. f/c to bsd, uop adequate clear yellow
--- NOTE | 2022-05-10 06:27 | PC.NURSE ---
AFIB ON TELEMETRY
--- NOTE | 2022-05-10 06:43 | PC.NURSE ---
PATIENT SAYS HIS LOWER BACK HURTS. BED UNCOMFORTABLE. HOSPITALIST TO ORDER TYLENOL.
--- NOTE | 2022-05-10 07:48 | HMH.PHAINT1 ---
Pharmacy Intervention Comments: MEDICATION RECONCILIATION COMPLETED ON PATIENT USING EXTERNAL FILL HISTORY FROM PHARMACY AND DOCUMENTATION FROM ACC. -SARAH CANTORD
[2022-05-10 07:53] LABS: Prothrombin Time 21.7 seconds (10.1-12.5)
--- NOTE | 2022-05-10 09:59 | HMH.PTEV ---
Physical Therapy Evaluation Rehab PT IP Evaluation Start: 05/09/22 21:01 Freq: ONCE Status: Active Protocol: Document 05/10/22 09:52 PHOSUSAN (Rec: 05/10/22 09:59 PHORNE [id number]) Subjective/History History History 81 yowm adm to [facility] with CHF exac. He reports he lives with spouse, 2-3 steps to enter the home, he is generally independent with all mobility using RW. Subjective Subjective Pt with no c/o this am. Rehab PT IP Eval Objective Appearance Patient Behavior Appropriate Patient Orientation Person,Place,Time Difficulty following instructions none Speech Pattern Clear Ambulation Patient Able to Ambulate Yes Ambulation Observation IP General Gait Pattern Observation Shuffling Step Ambulation Distance (feet) 20 Ambulation Assistive Device None Ambulation Ability Contact Guard/Hand Hold Balance Ability to Arise Able, uses arms to help Sitting Balance Steady, safe Standing Balance Steady, wide stance Dynamic Sitting Balance Ability Good Dynamic Standing Balance Ability Fair Transfers Bed Transfer Ability Contact Guard/Hand Hold Chair Transfer Ability Contact Guard/Hand Hold Sit to Stand Bed Transfer Ability Contact Guard/Hand Hold Sit to Stand Chair Transfer Ability Contact Guard/Hand Hold ROM All Extremities PT ROM Status WFL MMT All Extremities PT MMT WFL Rehab PT IP prob,goals,plan Problems Date of Evaluation: 05/10/22 PT IP Problems Bed Mobility,Transfers,Gait Rehab Potential Rehab Potential Good Plan PT Intervention Plan Bed Mobility,Transfers,Gait PT Plan Frequency BID Duration LOS Discharge Goals Bed Transfer Ability Supervision/Stand by Sit to Stand Chair Transfer Ability Supervision/Stand by Ambulation Assistive Device None Ambulation Distance (feet) 30 Discharge Plan PT Discharge Plan Pt is appropriate to return home once medically stable. Recommend Home Health therapy upon D/C. G -code Required No Eval Complexity Eval Charge Codes 26846 - Moderate Complexity PHYSICIAN CERTIFICATION: I certify the specified therapy services for Sreekanth Walker SR are required, authorized, and reviewed every 30 days.
--- NOTE | 2022-05-10 11:41 | EXP.ACUTE.PN ---
Subjective *Date: 05/10/22 *Time: 18:12 Interval history: Slight improvement mentation by the time of rounds. Family at bedside. Patient is alert and oriented to self and place. Denies nausea, chest pain, shortness of breath. Family feels he is too weak for them to care for at home. Case management to assist with disposition. Patient tolerating p.o. intake. Medical Exam Vital signs and Labs for Last 24 Hours: Vital Signs Temp Pulse Pulse Resp BP BP Pulse Ox 05/10/22 11:29 97.8 F 91 H 18 125/78 95 05/10/22 07:55 98.0 F 80 18 150/73 H 97 05/10/22 04:00 80 05/10/22 03:53 98.8 F 85 18 147/98 H 95 05/10/22 00:00 100 H 05/10/22 00:00 98.3 F 101 H 18 143/92 H 95 05/09/22 21:01 95 05/09/22 21:49 98.5 F 97 H 18 127/89 95 05/09/22 21:14 98.5 F 88 22 139/97 H 05/09/22 18:00 95 H 24 138/92 H 94 L 05/09/22 17:30 95 H 26 H 131/91 H 93 L 05/09/22 17:19 98.5 F 106 H 20 143/94 H 95 Intake and Output 05/09/22 05/10/22 05/10/22 23:59 07:59 15:59 Intake Total 240 / 240 Output Total 500 / 500 550 / 550 0 / 550 Balance -500 / -500 -310 / -310 0 / -310 Intake: Intake, Oral Amount 240 / 240 Output: Output, Urine Amount 500 / 500 550 / 550 0 / 550 Other: Number of Unmeasured Voids 0 0 0 Weight 76.657 kg 75.495 kg Patient Weight 05/10/22 23:59 Weight 75.495 kg Laboratory Results - last 24 hr 05/09/22 17:30: WBC 17.0 H, RBC 4.25 L, Hgb 13.8 L, Hct 41.0 L, MCV 96.6 H, MCH 32.4 H, MCHC 33.5, RDW 14.0, Plt Count 277, MPV 8.4, Neut % (Auto) 90.0 H, Lymph % (Auto) 4.3 L, [place] % (Auto) 4.9, Eos % (Auto) 0.3, Baso % (Auto) 0.4, Neut # (Auto) 15.3 H, Lymph # (Auto) 0.7, [place] # (Auto) 0.8, Eos # (Auto) 0.1, Baso # (Auto) 0.1, Total Counted 100, Neutrophils % (Manual) 89 H, Lymphocytes % (Manual) 11, Platelet Estimate Normal, RBC Morphology Normal 05/09/22 17:30: Sodium 132 L, Potassium 3.6, Chloride 97 L, Carbon Dioxide 28, Anion Gap 10.6, BUN 15, Creatinine 0.70, Estimated Creat Clear 64, Estimated GFR 108, Est GFR ( Amer) 131, Glucose 116 H, Calcium 8.8, Total Bilirubin 1.0, AST 29, ALT 25, Alkaline Phosphatase 66, Total Protein 6.7, Albumin 4.0, Globulin 2.7, Albumin/Globulin Ratio 1.5 05/09/22 17:30: Troponin I < 0.01, NT-Pro-B Natriuret Pep 2790 H 05/09/22 17:40: SARS-CoV-2 (PCR) Not detected, Influenza A Untype (PCR) Not detected, Influenza Type B (PCR) Not detected 05/09/22 21:10: Troponin I < 0.01 05/09/22 22:03: Urine Color Yellow, Urine Appearance Clear, Urine pH 6.5, Ur Specific Sylvester <= 1.005, Urine Protein Negative, Urine Glucose (UA) Negative, Urine Ketones Trace, Urine Blood 3+, Urine Nitrate Negative, Urine Bilirubin Negative, Urine Urobilinogen 0.2, Ur Leukocyte Esterase 1+ A, Urine RBC None, Urine WBC Occasional, Ur Squamous Epith Cells None, Urine Bacteria Trace 05/10/22 00:23: Troponin I < 0.01 05/10/22 07:25: PT 21.7 H, INR 2.10 H I & O for Labs for Last 24 Hours: Intake & Output 05/07/22 05/08/22 05/09/22 05/10/22 23:59 23:59 23:59 23:59 Intake Total 240 / 240 Output Total 500 / 500 550 / 550 Balance -500 / -500 -310 / -310 Weight 76.657 kg 75.495 kg Constitutional: Present no acute distress and chronically ill appearing Head: Present atraumatic and normocephalic ENT: Present normal exam Neck: Present normal inspection Respiratory: Present crackles (Bibasilar crackles) and normal respiratory effort; Absent accessory muscle use, rhonchi or wheezes Cardiac: Present Reg Rate and Rhythm GI: Present soft and normal bowel sounds; Absent distention or tenderness Extremities: Present normal inspection and full ROM Skin: Present intact; Absent erythema Neuro: Present Grossly Intact, alert, awake and moves all extremities Comment:: Strength 4/5 bilaterally in lower extremity Assessment and Plan *Assessment and plan (1) Volume overload: Status: Acute Qualifiers: Hypervolem
--- NOTE | 2022-05-10 14:01 | CARE MANAGER ---
Addendum entered by Juliana Davila RN 05/11/22 08:31: Patient has been accepted to [facility] upon discharge. Original Note: Spoke with patient who requests placement for rehab at [facility]. Information sent there. SANDOVAL Zuniga
--- NOTE | 2022-05-10 14:05 | HMH.PTEV ---
Physical Therapy Evaluation Rehab PT IP Evaluation Start: 05/09/22 21:01 Freq: ONCE Status: Active Protocol: Document 05/10/22 09:52 PHORSAMEER (Rec: 05/10/22 09:59 PHORNE [id number]) Subjective/History History History 81 yowm adm to [facility] with CHF exac. He reports he lives with spouse, 2-3 steps to enter the home, he is generally independent with all mobility using RW. Subjective Subjective Pt with no c/o this am. Rehab PT IP Eval Objective Appearance Patient Behavior Appropriate Patient Orientation Person,Place,Time Difficulty following instructions none Speech Pattern Clear Ambulation Patient Able to Ambulate Yes Ambulation Observation IP General Gait Pattern Observation Shuffling Step Ambulation Distance (feet) 20 Ambulation Assistive Device None Ambulation Ability Contact Guard/Hand Hold Balance Ability to Arise Able, uses arms to help Sitting Balance Steady, safe Standing Balance Steady, wide stance Dynamic Sitting Balance Ability Good Dynamic Standing Balance Ability Fair Transfers Bed Transfer Ability Contact Guard/Hand Hold Chair Transfer Ability Contact Guard/Hand Hold Sit to Stand Bed Transfer Ability Contact Guard/Hand Hold Sit to Stand Chair Transfer Ability Contact Guard/Hand Hold ROM All Extremities PT ROM Status WFL MMT All Extremities PT MMT WFL Rehab PT IP prob,goals,plan Problems Date of Evaluation: 05/10/22 PT IP Problems Bed Mobility,Transfers,Gait Rehab Potential Rehab Potential Good Plan PT Intervention Plan Bed Mobility,Transfers,Gait PT Plan Frequency BID Duration LOS Discharge Goals Bed Transfer Ability Supervision/Stand by Sit to Stand Chair Transfer Ability Supervision/Stand by Ambulation Assistive Device None Ambulation Distance (feet) 30 Discharge Plan PT Discharge Plan Pt is most appropriate for rehab placement at this time, but could return home with assist if gait ability improves.once medically stable . Recommend Home Health therapy upon D/C if he returns home. G -code Required No Eval Complexity Eval Charge Codes 19500 - Moderate Complexity PHYSICIAN CERTIFICATION:
--- NOTE | 2022-05-10 21:01 | CA_ITS ---
APPROVED REPORT EXAM: Comprehensive 2D, Doppler, and color-flow Echocardiogram Business Analyst Consultant: Beulah Busby CRT Ht: 5 ft 7 in Wt: 174lbs BSA: 1.91 BP: 138/92 mmHg Indications: Congestive Heart Failure, Murmur, Shortness of Breath, Atrial Fibrillation, Fatigue, Peripheral Edema, Hyperlipidemia, Hypertension/HDD, parkinson , AAA repair years ago 2D Dimensions LVOT 2.02 cm (M/F) 1.5-2.5 LA Volume 36.70 mL LA Volume Index 18.80 mL/m2 (M/F) 16-34 M-Mode Dimensions RVDd 3.37 cm (0.9-2.6) LA Diam 3.19 cm (1.9-4.0) LVDd 4.29 cm (3.5-5.7) Ao Diam 4.91 cm (2.0-3.7) LVDs 2.93 cm (3.5-5.7) IVSd 1.56 cm (0.6-1.1) PWd 0.64 cm (0.6-1.1) EF (Teich) 60.00% FS 31.70% EDV (Teich) 82.60 mL TAPSE 1.75 (<1.7) ESV (Teich) 33.00 mL LV Diastology E Decel Time 143.00 (160-240 msec) E/A Ratio 3.22 MED E' 13.50 (< 7 cm/sec) MED A' 3.30 cm/s E'/MED E' Ratio 9.10 (>14) LAT E' 10.00 (<10 cm/sec) LAT A' 3.90 cm/s E/LAT E' Ratio 12.29 (>14) Aortic Valve AO Peak GR. 5.00 mmHg Mitral Valve MV E Max Omar. 123.00 (40-130 cm/s) MV A Velocity 38.00 (40-130 cm/s) E/A Ratio 3.22 MV Decel. Time 143.00 (160-240 ms) MV PHT 42.00 ms Pulmonary Valve PV Peak Velocity 203.00 (50-150 cm/s) Tricuspid Valve TR P. Velocity 360.00 cm/s RAP Estimate 10.00 mmHg RVSP 61.80 mmHg Left Ventricle Left atrium is mildly enlarged, left ventricle is normal size, mild concentric left ventricular hypertrophy, estimated ejection fraction 55% with no regional wall motion abnormality. Diastolic parameters are inconclusive. Right Ventricle Right atrium and right ventricle are mildly enlarged with normal contractility. Aortic Valve Aortic valve is minimally thickened and fibrosed there is no aortic stenosis or aortic insufficiency. Mitral Valve Mitral valve has mild mitral annular calcification there is no mitral stenosis, there is mild mitral regurgitation. Tricuspid Valve Tricuspid valve is grossly normal, there is mild tricuspid regurgitation, calculated right ventricular systolic pressure is 56 mmHg. Pulmonic Valve Pulmonic valve is poorly visualized. Great Vessels Aortic root is normal size. Inferior vena cava is normal size with normal inspiratory collapse. Pericardium No significant pericardial effusion noted. Conclusion 1. Biatrial enlargement, normal left ventricular size, mild concentric left ventricular hypertrophy, estimated ejection fraction 55% with no regional wall motion abnormality, diastolic parameters are inconclusive. 2. Enlarged right ventricle with normal contractility. 3. Mild mitral and tricuspid regurgitation, calculated right ventricular systolic pressure is 56 mmHg. 4. No significant pericardial effusion noted. 5. Inferior vena cava is normal size with normal inspiratory collapse. Electronically signed by : Duane Hamilton MD 05/11/2022 16:03:17
[2022-05-11] VITALS: BP 120/71; PULSE 102; PULSE 90; RESP 20; TEMP 36.5; O2SAT 92
[2022-05-11 04:00] VITALS: BP 112/72; PULSE 80; PULSE 94; RESP 18; TEMP 36.7; O2SAT 91; BMI 26.9
--- NOTE | 2022-05-11 04:55 | PC.NURSE ---
NO ACUTE CHANGES SINCE PREVIOUS ASSESSMENT. LUNG SOUNDS ARE CLEAR. REMAINS ON ROOM AIR. PT HAS C/O BACK PAIN X1 THIS SHIFT. MEDICATED PER MAR WITH ADEQUATE RELIEF. HAS RESTED WELL. RAI REMAIN IN PLACE. VSS. CALL TRAN WITHIN REACH.
--- NOTE | 2022-05-11 05:43 | P.PN_ITS ---
Subjective *Date: 05/11/22 *Time: 11:40 Interval history: The patient awakes to voice, answers questioning appropriately, denies any complaints, denies chest pain, shortness of air, abdominal pain, nausea, vomiting, diarrhea. Case management following for disposition. Coleman removed, urinating well, started on Flomax and Proscar. Exam Data for Last 24 hours Vital signs and Labs for Last 24 Hours: Temp Pulse Resp BP Pulse Ox 98.0 F 94 H 18 112/72 91 L 05/11/22 04:00 05/11/22 04:00 05/11/22 04:00 05/11/22 04:00 05/11/22 04:00 Laboratory Results - last 24 hr 05/10/22 07:25: PT 21.7 H, INR 2.10 H I & O for Last 24 hours: Intake & Output 05/08/22 05/09/22 05/10/22 05/11/22 23:59 23:59 23:59 23:59 Intake Total 1060 / 1060 Output Total 500 / 500 1625 / 2125 1000 / 1000 Balance -500 / -500 -565 / -1065 -1000 / -1000 Weight 76.657 kg 75.495 kg 77.819 kg Microbiology Reports for the Last 24 Hours: Microbiology 05/09/22 22:03 Urine,Catheterized Urine Culture - Preliminary NO GROWTH AFTER 24 HOURS *Routine HEENT Exam Head: Present normocephalic Eye: Present EOMI ENT: Present mucous membranes moist *Routine Neck Exam Neck: Present full ROM *Routine Respiratory Exam Respiratory: Present CTA bilaterally *Routine Cardiovascular Exam Cardiovascular: Present RRR, Normal S1 and Normal S2 *Routine Abdominal Exam Abdominal: Present soft and normoactive bowel sounds Assessment and Plan *Assessment and plan (1) Volume overload: Status: Acute Category: Medical Code(s): E87.70 - Fluid overload, unspecified (2) Declining functional status: Status: Acute Category: Medical Code(s): R53.81 - Other malaise (3) Hypothyroidism: Status: Acute Category: Medical Code(s): E03.9 - Hypothyroidism, unspecified (4) UTI (urinary tract infection): Status: Acute Category: Medical Code(s): N39.0 - Urinary tract infection, site not specified Plan - Volume Overload - Atrial Fibrillation On presentation with edema, elevated BNP Responding well to diuretics Echo preliminary with preserved EF Continue Metoprolol Inr goal 2-3, continue Warfarin Current balance -1015 ml - Declining Functional Status Parkinson's disease Family denies a history of prior falls to this presentation PT evaluated Family does not feel that they can care for him in the home Case management following for disposition - Hypothyroidism Continue Levothyroxine - UTI Presented with Leukocytosis, urinary retention Denies history of fevers, body aches or chlls Concern for UTI from indwelling coleman Patient has follow-up with Urology scheduled on 05/24/2022 Coleman removed on 05/11, urinating well Started on Flomax and Finasteride DVT ppx Coumadin Rounded on patient after nurse practitioner. Personally examined and interviewed patient. Agree with exam findings and care plan as documented. Patient stable on rounds. Has been accepted by his halfway. Coleman removed. Voiding independently. Transfer to nursing facility for further rehab today.
[2022-05-11 07:46] LABS: Basophils # 0.1 K/mm3 (0-0.2); Basophils % 0.8 % (0.1-2.0); Eosinophils # 0.1 K/mm3 (0.0-0.4); Eosinophils % 1.3 % (0.1-12.0); Hematocrit 43.3 % (42.0-52.0); Hemoglobin 13.7 g/dL (14.1-18.0); Lymphocytes # 1.1 K/mm3 (0.7-4.5); Lymphocytes % 10.9 % (10-50); Mean Corpuscular HGB Conc 31.7 g/dL (31.8-35.4); Mean Corpuscular Hemoglobin 30.9 pg (27.0-31.2); Mean Corpuscular Volume 97.7 fl (80-94); Mean Platelet Volume 7.8 fl (7.4-10.4); Monocytes # 0.7 K/mm3 (0.1-1.0); Monocytes % 6.9 % (1.7-9.3); Neutrophils # 7.9 K/mm3 (1.8-7.8); Neutrophils % 80.3 % (37.0-80.0); Platelet Count 245 K/mm3 (142-424); Red Blood Count 4.43 M/mm3 (4.60-6.20); White Blood Count 9.8 K/mm3 (4.8-10.8)
[2022-05-11 07:48] LABS: Chloride 103 mmol/L (98-107); Sodium 136 mmol/L (136-145)
[2022-05-11 07:49] LABS: Potassium 3.4 mmoL/L (3.5-5.1)
[2022-05-11 07:51] LABS: Anion Gap 9.4 mEq/L (5-15); Blood Urea Nitrogen 13 mg/dl (9-20); Carbon Dioxide 27 mmol/L (22.0-30.0); Creatinine Clearance Estimated 63 mL/min (50-200); Estimated Glomerular Filt Rate 129 ml/min (>60); GFR (African American) 156 ML/MIN (>60); INR 2.13 (0.9-1.1)
[2022-05-11 07:52] LABS: Calcium 8.7 mg/dl (8.4-10.2); Glucose 91 mg/dl (74-100); Magnesium 2.1 mg/dl (1.6-2.3)
[2022-05-11 08:00] VITALS: BP 118/88; PULSE 90; PULSE 99; RESP 19; TEMP 36.4; O2SAT 96
[2022-05-11 08:22] LABS: Thyroid Stimulating Hormone 2.21 uIU/mL (0.465-4.68)
--- NOTE | 2022-05-11 09:59 | HMH.OTEV ---
OT Inpatient Evaluation Rehab OT IP Evaluation Start: 05/11/22 07:21 Freq: ONCE Status: Active Protocol: Document 05/11/22 09:46 ERIKALUCY (Rec: 05/11/22 09:59 ANNELISE [id number]) Rehab OT IP Assessment Subjective History Mr. Walker is a 81-year-old male with a past medical history of Atrial Fibrillation on chronic anticoagulation, Parkison's, recent history of Urinary retention with indwelling coleman with follow- up with Urology scheduled, Hypertension, Hypothyroidism and history of AAA repair. He presented to [facility] due to weakness that family members at bedside states has been present for the last two weeks after an acute bout of diarrhea with urinary retention necessitating a chronic indwelling coleman with follow-up with Urology scheduled in 05/2022. The patient was seen on admission in the ER, the information was obtained from the patient and his daughter that was at bedside. Both report the acute event approximately 2 weeks ago when he was diagnosed with urinary retention they report that since that time he has been progressively weak and today he fell and landed in a chair and was too weak to get up. The son-in-law had to come and physically lift him out of the chair per family, they deny a LOC or hitting his head . In the ER the patient had imaging of the C-spine, Head and Cxray that showed no acute fracture but did show a spiculated lobulated mass in the left upper lobe that family and patient reports is being followed
[2022-05-11 10:03] LABS: Coronavirus 19, PCR Not Detected (NotDetected); Influenza A, PCR Not Detected (NotDetected); Influenza B, PCR Not Detected (NotDetected)
[2022-05-11 11:17] VITALS: BP 111/79; PULSE 78; RESP 18; TEMP 37; O2SAT 97
--- NOTE | 2022-05-11 11:26 | EXP.DC.SUM ---
General Admission date:: 05/09/22 Discharge date: 05/11/22 HPI HPI HPI: Mr. Walker is a 81-year-old male with a past medical history of Atrial Fibrillation on chronic anticoagulation, Parkison's, recent history of Urinary retention with indwelling coleman with follow-up with Urology scheduled, Hypertension, Hypothyroidism and history of AAA repair. He presented to [facility] due to weakness that family members at bedside states has been present for the last two weeks after an acute bout of diarrhea with urinary retention necessitating a chronic indwelling coleman with follow-up with Urology scheduled in 05/2022. The patient was seen on admission in the ER, the information was obtained from the patient and his daughter that was at bedside. Both report the acute event approximately 2 weeks ago when he was diagnosed with urinary retention they report that since that time he has been progressively weak and today he fell and landed in a chair and was too weak to get up. The son-in-law had to come and physically lift him out of the chair per family, they deny a LOC or hitting his head. In the ER the patient had imaging of the C-spine, Head and Cxray that showed no acute fracture but did show a spiculated lobulated mass in the left upper lobe that family and patient reports is being followed by [facility]. CBC showed a WBC of 17.0. EKG showed Atrial Fibrillation with rate in the 90's. Troponin was within normal limtis at <0.01. BNP was elevated at 2790 and on exam the patient had 2 plus BLE edema. In the ER the patient had urine culture sent for analysis and was given Rocephin empirically. He was also given a dose of Lasix for volume overload and echo ordered for am for analysis. The patient was admitted with initial impression: Volume Overload, Leukocytosis and Functional Decline. The plan of care was discussed with the patient and daugter at bedside. Both verbalized understanding and agreement with the plan of care. Hospital Course Hospital Course Hospital Course: 81-year-old male with past medical history of Atrial Fibrillation on chronic anticoagulation, Parkinson's, Urinary Retention with follow-up with Urology and Indwelling coleman in place, who presents with progressive weakness over the past few weeks and falls at home.? Improved mentation and energy but still weak. Meets criteria for placement. Family cannot take him home at this time. Removed Coleman, voiding independently. Problems addressed as follows: - Volume Overload -Atrial fibrillation Initially presented with edema on exam and elevated BNP. Started on diuretic, with good response. Echo obtained witpreserved ejection fraction. Continue his metoprolol twice daily for rate control. INR at goal, continue warfarin. Recommend continuing diuresis daily at discharge. See med rec for dosage. Stable on room air. - Declining Functional Status -Parkinson's disease Family denies a history of falls, states symptoms (weakness, fall today) over the last two weeks. PT/OT evaluated, recommend placement given weakness and need for assistance. Would benefit from short-term rehab to improve mobility and function and success of getting home with help from family. Continued home consents meds, progression could account for declining function - Hypothyroidism TSH 2.1 during admission, appears well controlled. Continue levothyroxine -UTI - Leukocytosis -Urinary retention Denies history of fevers, body aches or chills. Presented with symptoms consistent with catheter associated UTI on admission however. Culture obtained, still pending at time of discharge. We will treat empirically with antibiotics. Catheter removed, able to void. Initiated on Flomax and finasteride. Continue these medications. Has scheduled follow-up with urology on 05/24/2022. - Lung Nodule Family and patient reports known, has follow-up CT with [facility] at [facility]
[2022-05-11 12:00] VITALS: PULSE 110
--- NOTE | 2022-05-14 16:59 | EXP.EVENT.NO ---
Patient's urine culture returned with stenotrophomonas. Resistant to cephalosporin. haven contacted, instructed to administer 500 mg levofloxacin daily for 5 days. Stop cefdinir.
== END 2022-05-11 13:57 ==
LOC: ER 17:22 → 2ND 20:23
PROVIDERS: Nurse Practitioner Family; Admitting Provider Internal Medicine Adolescent Medicine; Emergency Provider Emergency Medicine; PCP Family Medicine; Visit Provider Internal Medicine Adolescent Medicine
DX: I48.11 Longstanding persistent atrial fibrillation (principal); T83.511A Infection and inflammatory reaction due to indwelling urethral catheter, initial encounter; I50.9 Heart failure, unspecified; R91.1 Solitary pulmonary nodule; R33.9 Retention of urine, unspecified; G20 Parkinson's disease; H54.8 Legal blindness, as defined in USA; E03.9 Hypothyroidism, unspecified; Z79.01 Long term (current) use of anticoagulants; Z79.899 Other long term (current) drug therapy; Z20.822 Contact with and (suspected) exposure to COVID-19; R29.6 Repeated falls
CPT/HCPCS: G0378; 36415; 70450; 71045; 72125; 80048; 80053; 81001; 83735; 83880; 84443; 84484; 85007; 85025; 85610; 87040; 87086; 87088; 87186; 93005; 93306; 97116; 97162; 97165; 99285; C9803; J0696; U0003; U0005

== ENCOUNTER → 2022-05-17 16:48 | Outpatient (CLI) | payer MEDICARE, SELFPAY ==
[2022-05-17 19:14] LABS: Strep Scrn Group A (Rapid) Negative (Negative)
== END ==
PROVIDERS: PCP Nurse Practitioner Family; Visit Provider Internal Medicine Adolescent Medicine
DX: J02.9 Acute pharyngitis, unspecified (principal)
CPT/HCPCS: 87430

== ENCOUNTER 2022-06-15 11:28 | Outpatient (CLI) | payer MEDICARE, SELFPAY | END 2022-06-15 13:37 | PROVIDERS: PCP Family Medicine; Visit Provider Family Medicine | DX: Z51.81 Encounter for therapeutic drug level monitoring (principal); Z79.01 Long term (current) use of anticoagulants | CPT/HCPCS: 85610; 99211; G0463 ==

== ENCOUNTER 2022-06-29 10:52 | Outpatient (CLI) | payer MEDICARE, SELFPAY ==
[2022-06-29 11:11] LABS: PHA INR Fingerstick 2.6 (0.9-1.1)
== END 2022-06-29 11:13 ==
LOC: ACC 10:53
PROVIDERS: PCP Family Medicine; Visit Provider Family Medicine
DX: Z51.81 Encounter for therapeutic drug level monitoring (principal); Z79.01 Long term (current) use of anticoagulants
CPT/HCPCS: 85610; 99211; G0463

== ENCOUNTER 2022-07-27 10:24 | Outpatient (CLI) | payer MEDICARE, SELFPAY ==
[2022-07-27 10:42] LABS: PHA INR Fingerstick 2.9 (0.9-1.1)
== END 2022-07-27 10:44 ==
LOC: ACC 10:24
PROVIDERS: PCP Family Medicine; Visit Provider Family Medicine
DX: Z79.01 Long term (current) use of anticoagulants (principal); R79.1 Abnormal coagulation profile
CPT/HCPCS: 85610; 99211; G0463

== ENCOUNTER 2022-08-24 13:20 | Outpatient (CLI) | payer MEDICARE, SELFPAY ==
[2022-08-24 14:09] LABS: PHA INR Fingerstick 2.8 (0.9-1.1)
== END 2022-08-24 14:28 ==
LOC: ACC 13:21
PROVIDERS: PCP Family Medicine; Visit Provider Family Medicine
DX: Z51.81 Encounter for therapeutic drug level monitoring (principal); Z79.01 Long term (current) use of anticoagulants
CPT/HCPCS: 85610; 99211; G0463

== ENCOUNTER 2022-10-05 13:09 | Outpatient (CLI) | payer MEDICARE, SELFPAY | END 2022-10-05 13:42 | LOC: ACC 13:10 | PROVIDERS: PCP Family Medicine; Visit Provider Family Medicine | DX: Z51.81 Encounter for therapeutic drug level monitoring (principal); Z79.01 Long term (current) use of anticoagulants | CPT/HCPCS: 85610; 99211; G0463 ==

== ENCOUNTER 2022-11-02 13:25 | Outpatient (CLI) | payer MEDICARE, SELFPAY ==
[2022-11-02 14:47] LABS: PHA INR Fingerstick 2.7 (0.9-1.1)
== END 2022-11-02 15:07 ==
LOC: ACC 13:26
PROVIDERS: PCP Family Medicine; Visit Provider Family Medicine
DX: Z51.81 Encounter for therapeutic drug level monitoring (principal); Z79.01 Long term (current) use of anticoagulants
CPT/HCPCS: 85610; 99211; G0463

== ENCOUNTER 2022-12-07 08:45 | Outpatient (CLI) | payer MEDICARE, SELFPAY ==
--- NOTE | 2022-12-07 08:50 | CT_ITS ---
FINAL REPORT TECHNIQUE: This study was performed using automated techniques to achieve radiation exposure as low as reasonably achievable CLINICAL HISTORY: LUNG CANCER COMPARISON: 12/06/2021 FINDINGS: CT CHEST without contrast COMPARISON: 12/06/2021. TECHNIQUE: Axial CT without IV contrast administration. FINDINGS: There is a spiculated mass in the left upper lobe abutting the mediastinum measuring 27 x 13 mm, larger than previously noted in 2021 when it measured 16 x 13 mm. There is a another mass in the lingula peripheral aspect measuring 6 mm that was not present on the prior CT. There is a spiculated mass in the left apex measuring 11 mm, that was 8 mm on the prior CT. No pleural or pericardial effusion is seen . No adenopathy or mass lesion is present . 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 IMPRESSION: Progressing left upper lobe nodules, since prior CT of 2021, with a new lesion evident, suggestive of metastatic disease. Reviewed, Interpreted and Dictated by Ace Cardenas MD Transcribed by Linda Preciado Authenticated and [facility]
--- NOTE | 2022-12-07 08:58 | US_ITS ---
FINAL REPORT CLINICAL HISTORY: LUNG CANCER-- HX OF AAA COMPARISON: 12/06/2021 FINDINGS: ULTRASOUND ABDOMINAL AORTA Findings: Sagittal and transverse images with Doppler exam was performed of the aorta. Despite extensive efforts, aorta is obscured by bowel gas. IMPRESSION: Nondiagnostic exam. Noncontrast CT may be considered. Reviewed, Interpreted and Dictated by Ace Cardenas MD Transcribed by Harriet Moran Authenticated and [facility]
--- NOTE | 2022-12-07 10:59 | CT_ITS ---
FINAL REPORT TECHNIQUE: Noncontrast CT exam of the abdomen and pelvis. This study was performed with techniques to keep radiation doses as low as reasonably achievable (ALARA). Individualized dose reduction techniques using automated exposure control or adjustment of mA and/or kV according to the patient''s size were employed. CLINICAL HISTORY: H/O AAA COMPARISON: 04/26/2022 FINDINGS: Abdomen: Lung bases are clear. Spleen, pancreas and adrenal glands have a normal CT appearance in their limited unenhanced state. Small hepatic cysts are present. The kidneys show no stone disease or obstruction. No obvious renal mass is present. No ureteral stones are present. There is a juxtarenal abdominal aortic aneurysm once again identified measuring up to 5.4 cm in diameter, unchanged since the prior CT of 2021. This aneurysm terminates distally in the aorta. Pelvis: No distal ureteral stones are seen. Bladder is not distended on today's exam. 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 The right common iliac artery is ectatic but no definite aneurysm seen. The appendix is normal in appearance. No fluid collection or adenopathy is seen. 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 Reviewed, Interpreted and Dictated by Ace Cardenas MD Transcribed by Linda Preciado Authenticated and [facility]
[2022-12-07 15:59] LABS: PHA INR Fingerstick 3.5 (0.9-1.1)
== END 2022-12-07 16:07 ==
PROVIDERS: PCP Family Medicine; Visit Provider Thoracic Surgery (Cardiothoracic Vascular Surgery)
DX: C34.12 Malignant neoplasm of upper lobe, left bronchus or lung (principal); I71.40 Abdominal aortic aneurysm, without rupture, unspecified; Z51.81 Encounter for therapeutic drug level monitoring; Z79.01 Long term (current) use of anticoagulants
CPT/HCPCS: 71250; 74176; 76770; 85610

== ENCOUNTER 2022-12-28 10:18 | Outpatient (CLI) | payer MEDICARE, SELFPAY | END 2022-12-28 12:25 | LOC: ACC 10:19 | PROVIDERS: PCP Family Medicine; Visit Provider Family Medicine | DX: Z79.01 Long term (current) use of anticoagulants (principal); Z51.81 Encounter for therapeutic drug level monitoring; I48.91 Unspecified atrial fibrillation | CPT/HCPCS: 85610; 99211; G0463 ==

== ENCOUNTER 2023-01-18 10:06 | Outpatient (CLI) | payer MEDICARE, SELFPAY ==
[2023-01-18 12:40] LABS: Prostate Specific Ag Screen 1.8 ng/ml (0.0-4.0)
[2023-01-18 12:55] LABS: PHA INR Fingerstick 3.4 (0.9-1.1)
== END 2023-01-18 13:17 ==
LOC: LAB 10:09
PROVIDERS: Nurse Practitioner Family; PCP Family Medicine; Visit Provider Family Medicine
DX: Z79.01 Long term (current) use of anticoagulants; R97.20 Elevated prostate specific antigen [PSA]; Z51.81 Encounter for therapeutic drug level monitoring; Z12.5 Encounter for screening for malignant neoplasm of prostate
CPT/HCPCS: 36415; 85610; 99211; G0103; G0463

== ENCOUNTER 2023-02-08 10:43 | Outpatient (CLI) | payer MEDICARE, SELFPAY ==
[2023-02-08 15:15] LABS: PHA INR Fingerstick 3.2 (0.9-1.1)
== END 2023-02-08 15:21 ==
LOC: ACC 10:44
PROVIDERS: PCP Family Medicine; Visit Provider Family Medicine
DX: Z79.01 Long term (current) use of anticoagulants (principal); Z51.81 Encounter for therapeutic drug level monitoring; I48.91 Unspecified atrial fibrillation
CPT/HCPCS: 85610; 99211; G0463

== ENCOUNTER 2023-03-15 12:42 | Outpatient (CLI) | payer MEDICARE, SELFPAY ==
[2023-03-15 14:45] LABS: PHA INR Fingerstick 2.4 (0.9-1.1)
== END 2023-03-15 14:57 ==
LOC: ACC 12:43
PROVIDERS: PCP Family Medicine; Visit Provider Family Medicine
DX: Z79.01 Long term (current) use of anticoagulants (principal); Z51.81 Encounter for therapeutic drug level monitoring
CPT/HCPCS: 85610; 99211; G0463

== ENCOUNTER 2023-04-26 13:03 | Outpatient (CLI) | payer MEDICARE, SELFPAY ==
[2023-04-26 13:26] LABS: PHA INR Fingerstick 2.1 (0.9-1.1)
== END 2023-04-26 13:30 ==
LOC: ACC 13:04
PROVIDERS: PCP Family Medicine; Visit Provider Family Medicine
DX: Z79.01 Long term (current) use of anticoagulants (principal); Z51.81 Encounter for therapeutic drug level monitoring
CPT/HCPCS: 85610; 99211; G0463

== ENCOUNTER 2023-06-07 13:03 | Outpatient (CLI) | payer MEDICARE, SELFPAY ==
[2023-06-07 14:01] LABS: PHA INR Fingerstick 1.9 (0.9-1.1)
== END 2023-06-07 14:42 ==
LOC: ACC 13:04
PROVIDERS: PCP Family Medicine; Visit Provider Family Medicine
DX: Z79.01 Long term (current) use of anticoagulants (principal); Z51.81 Encounter for therapeutic drug level monitoring
CPT/HCPCS: 85610; 99211; G0463

== ENCOUNTER 2023-07-19 12:46 | Outpatient (CLI) | payer MEDICARE, SELFPAY | END 2023-07-19 16:13 | LOC: ACC 12:47 | PROVIDERS: PCP Family Medicine; Visit Provider Family Medicine | DX: Z79.01 Long term (current) use of anticoagulants (principal); Z51.81 Encounter for therapeutic drug level monitoring | CPT/HCPCS: 85610; 99211; G0463 ==

== ENCOUNTER 2023-08-30 13:26 | Outpatient (CLI) | payer MEDICARE, SELFPAY ==
[2023-08-30 13:44] LABS: PHA INR Fingerstick 1.7 (0.9-1.1)
== END 2023-08-30 13:47 ==
LOC: ACC 13:27
PROVIDERS: PCP Family Medicine; Visit Provider Family Medicine
DX: I48.91 Unspecified atrial fibrillation (principal); Z51.81 Encounter for therapeutic drug level monitoring; Z79.01 Long term (current) use of anticoagulants
CPT/HCPCS: 85610; 99211; G0463

== ENCOUNTER 2023-09-12 16:02 | Observation (INO) | payer MEDICARE, SELFPAY ==
[2023-09-12] VITALS (9 sets, daily range): BP systolic 117–144; BP diastolic 77–99; PULSE 82–103; RESP 16–18; TEMP 36.6–36.7; O2SAT 92–97; BMI 24.2; BMI 24.3
--- NOTE | 2023-09-12 16:09 | HMH.EDGENADL ---
Discharge Plan Disposition Patient Disposition: Admitted Condition: Fair Clinical Impressions Clinical Impression: Asthenia, Adult failure to thrive, Hypomagnesemia CHF exacerbation Qualifiers: Heart failure type: unspecified Qualified Code(s): I50.9 - Heart failure, unspecified Discharge ED Provider: Brett Goode General Adult HPI <JEREMIAS Rod - Last Filed: 09/12/23 19:26> General Chief complaint: Nausea/Vomiting/Diarrhea Stated complaint: Diarrhea,weak,bad eyesite Time Seen by Provider: 09/12/23 16:06 History of Present Illness HPI narrative: Patient presents for evaluation of incontinence of stool x 2 today and weakness. Patient has a past medical history of legal blindness, lung cancer currently undergoing external beam radiation, hypothyroidism, hypertension, Parkinson's, legal blindness, history of atrial fibrillation, history of CHF. Cording to patient and patient's daughter he has had several weeks of loose stool but only once or twice a day however the last 24 hours patient has had 3 episodes of incontinence of stool. Patient is aware that he needs to go but has been unable to hold his bowels till he got to the bathroom. It is of note that the patient's had had a stroke on 89 and patient has had a significant functional decline since then. He was fairly independent to the limits of his blindness however he is unable to care for himself currently. Patient himself denies chest pain shortness of breath fever chills hemoptysis hematochezia melena nausea vomiting. Related Data Home Medications Medication Instructions Recorded Confirmed atropine 1 % eye drops 1 drp Eye-Right DAILY 09/12/23 09/12/23 ezetimibe 10 mg tablet 10 mg PO DAILY 09/12/23 09/12/23 furosemide 20 mg tablet 20 mg PO DAILY 09/12/23 09/12/23 hydrochlorothiazide 25 mg tablet 25 mg PO DAILY 09/12/23 09/12/23 levothyroxine 137 mcg tablet 137 mcg PO AM 09/12/23 09/12/23 metoprolol succinate 100 mg 100 mg PO BID 09/12/23 09/12/23 tablet,extended release 24 hr omeprazole 40 mg capsule,delayed 40 mg PO BID 09/12/23 09/12/23 release prednisolone acetate 1 % eye 1 drp Eye-Right DAILY 09/12/23 09/12/23 drops,suspension ropinirole 0.25 mg tablet 0.5 mg PO HS 09/12/23 09/12/23 tamsulosin 0.4 mg capsule 0.4 mg PO HS 09/12/23 09/12/23 valsartan 160 mg tablet 160 mg PO DAILY 09/12/23 09/12/23 warfarin 4 mg tablet See Rx Instructions .Route .COMPLEX 09/12/23 09/12/23 warfarin 4 mg tablet See Rx Instructions .Route .COMPLEX 09/12/23 09/12/23 Allergies Allergy/AdvReac Type Severity Reaction Status Date / Time Iodinated Contrast Media Allergy Mild Verified 05/09/22 23:15 Penicillins Allergy Unknown Verified 05/09/22 22:47 PFS <JEREMIAS Rod - Last Filed: 09/12/23 19:26> [facility] Disclaimer: The information contained in this section may have been updated after the patient was seen, as this information can be updated by other users. Medical History (Updated 09/12/23 @ 19:26 by JEREMIAS Rod) Aneurysm Urinary retention Hypertension Hypothyroidism Parkinson disease Atrial fibrillation Surgical History S/P AAA repair Family History Mother Family history of hyperlipidemia Family history of hypertension Social History Smoking Status: Former smoker tobacco type: cigarettes alcohol intake: never current occupational status: retired Travel in the last 8 weeks: None household members: spouse caffeine: Yes <JEREMIAS Rod - Last Filed: 09/12/23 19:26> ROS Obtained: Yes Systems reviewed as appropriate & no additional complaints except as documented Physical Exam <JEREMIAS Rod - Last Filed: 09/12/23 19:26> General General appearance: alert and in no apparent distress Head Head exam: atraumatic and normal inspection Eye Eye exam: Present normal appearance and EOMI ENT ENT exam: Present normal exam, normal oropharynx and mucous membranes dry Neck Neck exam: Present normal inspection and full ROM Chest Chest inspection: Present normal inspection and symmetric chest wall rise Respiratory Respiratory exam: Present normal lung sounds bilaterally; Absent respiratory distress or wheezes Cardiovascular Cardiovascular exam: Present irregular rhythm Abdominal Exam Abdominal exam: Present soft and normal bowel sounds; Absent tenderness, guarding, rebound or rigidity Extremities Exam Extremities exam: Present normal inspection, full ROM and edema (3+ bilateral dependent pitting edema); Absent tenderness Back Exam Back exam: Present normal inspection and full ROM; Absent tenderness Neurological Exam Neurological exam: Present alert, oriented X3 and normal gait Psychiatric Psychiatric exam: Present normal affect and normal mood Skin Skin exam: Present warm, dry and normal color Medical Decision Making <JEREMIAS Rod - Last Filed: 09/12/23 19:26> Medical Records Medical records reviewed: Yes I reviewed the patient's medical records. Nikunj Inquiry Pt receiving controlled substance: No Vital Signs: 09/12/23 16:05 09/12/23 16:31 09/12/23 17:00 Temperature 97.8 F Temperature Source Oral Pulse Rate 95 H 86 Pulse Rate [Left Radial] 95 H Respiratory Rate 16 Blood Pressure 117/77 131/98 H Blood Pressure [Right Arm] 144/84 H Blood Pressure Mean [Right Arm] 104 Blood Pressure Source Blood Pressure Source [Right Arm] Automatic Cuff Blood Pressure Position Blood Pressure Position [Right Arm] Sitting 02 Sat by Pulse Oximetry 97 92 L 94 L Oxygen Delivery Method Room Air Room Air Room Air 09/12/23 17:31 09/12/23 18:00 09/12/23 18:30 Temperature Temperature Source Pulse Rate 103 H 91 H 82 Pulse Rate [Left Radial] Respiratory Rate Blood Pressure 140/96 H 127/87 135/86 Blood Pressure [Right Arm] Blood Pressure Mean [Right Arm] Blood Pressure Source Blood Pressure Source [Right Arm] Blood Pressure Position Blood Pressure Position [Right Arm] 02 Sat by Pulse Oximetry 93 L 93 L 94 L Oxygen Delivery Method Room Air Room Air Room Air 09/12/23 19:00 09/12/23 19:26 Temperature 98.0 F Temperature Source Oral Pulse Rate 88 87 Pulse Rate [Left Radial] Respiratory Rate 18 16 Blood Pressure 140/84 139/84 Blood Pressure [Right Arm] Blood Pressure Mean [Right Arm] Blood Pressure Source Automatic Cuff Blood Pressure Source [Right Arm] Blood Pressure Position Supine Blood Pressure Position [Right Arm] 02 Sat by Pulse Oximetry 92 L Oxygen Delivery Method Room Air Room Air Lab Data Lab results reviewed: Yes I reviewed the patient's lab results. Lab Results 05/02/24 16:25: WBC 6.5, RBC 4.42 L, Hgb 14.3, Hct 43.6, MCV 98.5 H, MCH 32.3 H, MCHC 32.8, RDW 14.5, Plt Count 212, MPV 7.5, Neut % (Auto) 80.9 H, Lymph % (Auto) 10.8, [place] % (Auto) 6.2, Eos % (Auto) 1.0, Baso % (Auto) 1.0, Neut # (Auto) 5.2, Lymph # (Auto) 0.7, [place] # (Auto) 0.4, Eos # (Auto) 0.1, Baso # (Auto) 0.1, PT 16.9 H, INR 1.61 H, Sodium 141, Potassium 3.7, Chloride 103, Carbon Dioxide 32 H, Anion Gap 9.7, BUN 25 H, Creatinine 0.80, Estimated Creat Clear 54, Estimated GFR 92, Est GFR ( Amer) 112, Glucose 113 H, Lactate 1.8, Calcium 10.0, Magnesium 1.5 L, Total Bilirubin 1.0, AST 33, ALT 28, Alkaline Phosphatase 72, NT-Pro-B Natriuret Pep 3180 H, Total Protein 7.1, Albumin 4.2, Globulin 2.9, Albumin/Globulin Ratio 1.4 09/12/23 16:25 09/12/23 16:25 Orders (Tests/Meds): ED MEDICATIONS Generic Name Dose Route Start Last Admin Trade Name Freq PRN Reason Stop Dose Admin Acetaminophen 650 mg 09/12/23 19:42 Acetaminophen 325mg Tab PO 10/12/23 19:41 Q4HP PRN Fever or Mild Pain (1-3) Al Hydrox/Mg Hydrox/Simethicone 30 ml 09/12/23 19:42 Aluminum/Magnesium/Simethicone 30ml Udc PO 10/12/23 19:41 QIDP PRN Dyspepsia Nicotine 21 mg 09/12/23 19:42 Nicotine 21mg/24hr Patch TD 10/12/23 19:41 DAILYP PRN Nicotine Cravings Ondansetron HCl 4 mg 09/12/23 19:42 Ondansetron 4mg/2ml Vial IV 10/12/23 19:41 Q8HP PRN Nausea Pantoprazole Sodium 40 mg 09/12/23 19:45 Pantoprazole 40mg Tablet PO 10/12/23 19:44 DAILY ERIC Discontinued Medications Generic Name Dose Route Start Last Admin Trade Name Gretchen PRN Reason Stop Dose Admin Acetaminophen 1,000 mg 09/12/23 16:27 09/12/23 16:57 Acetaminophen 1,000mg/100ml Vial IV 09/12/23 16:28 1,000 mg ONCE ONE Administration Lactated Ringer's 1,000 mls @ 999 mls/hr 09/12/23 16:27 09/12/23 16:57 Lactated Ringer's 1000 Ml Bag IV 09/12/23 17:27 999 mls/hr .Q1H1M ONE Administration Magnesium Sulfate 2 gm in 50 mls @ 50 mls/hr 09/12/23 16:55 09/12/23 17:31 Magnesium Sulfate 2gm/50ml Premix IV 09/12/23 17:54 50 mls/hr ONCE ONE Administration ORDERS Category Date Time Status Chest XR -- portable [XR chest portable] Stat Exams 09/12/23 16:54 Completed BNP [NT Pro Brain Natriuretic Pep.] Stat Lab 09/12/23 16:25 Completed CBC w/Auto Diff [Complete Blood Count Auto Diff] Stat Lab 09/12/23 16:25 Completed CMP [Comprehensive Metabolic Panel] Stat Lab 09/12/23 16:25 Completed Diarrhea 23 Panel, PCR Stat Lab 09/12/23 16:27 Ordered INR [Prothrombin Time INR] Stat Lab 09/12/23 16:25 Completed Lactic Acid Stat Lab 09/12/23 16:25 Completed Magnesium Stat Lab 09/12/23 16:25 Completed UA [Urinalysis and Microscopic] Stat Lab 09/12/23 16:28 Ordered Medical Decision Narrative: In summary patient is a 82-year-old male who presents to the emergency department for evaluation of diarrhea and weakness. Patient is dynamically stable upon arrival, febrile. Physical exam is remarkable for a patient who has generalized weakness and cannot arise from a seated position without assistance which is a new problem for him. The remainder of his exam is unremarkable and nonfocal including no abdominal pain and normal bowel sounds.. Differential diagnosis includes radiation enteritis, gastroenteritis, mesenteric ischemia, functional decline, CHF exacerbation. Initial workup will be conducted with hematologic labs urinalysis, diarrhea panel. Initial interventions include fluid bolus antiemetics as needed. Initial workup reviewed by me shows an elevated NT proBNP, a low magnesium which has been repleted, and INR of 1.61 which is subtherapeutic the remainder of his hematologic labs nonactionable. My informal interpretation of his plain film chest x-ray shows no acute processes. Upon repeat evaluation patient is still unable to stand unassisted but is without any other complaints. Given this I had an interactive discussion of patient management with hospital medicine who agreed for admission for evaluation and further care <Brett Goode MD - Last Filed: 09/12/23 20:00> Vital Signs: 09/12/23 16:05 09/12/23 16:31 09/12/23 17:00 Temperature 97.8 F Temperature Source Oral Pulse Rate 95 H 86 Pulse Rate [Left Radial] 95 H Respiratory Rate 16 Blood Pressure 117/77 131/98 H Blood Pressure [Right Arm] 144/84 H Blood Pressure Mean [Right Arm] 104 Blood Pressure Source Blood Pressure Source [Right Arm] Automatic Cuff Blood Pressure Position Blood Pressure Position [Right Arm] Sitting 02 Sat by Pulse Oximetry 97 92 L 94 L Oxygen Delivery Method Room Air Room Air Room Air 09/12/23 17:31 09/12/23 18:00 09/12/23 18:30 Temperature Temperature Source Pulse Rate 103 H 91 H 82 Pulse Rate [Left Radial] Respiratory Rate Blood Pressure 140/96 H 127/87 135/86 Blood Pressure [Right Arm] Blood Pressure Mean [Right Arm] Blood Pressure Source Blood Pressure Source [Right Arm] Blood Pressure Position Blood Pressure Position [Right Arm] 02 Sat by Pulse Oximetry 93 L 93 L 94 L Oxygen Delivery Method Room Air Room Air Room Air 09/12/23 19:00 09/12/23 19:26 Temperature 98.0 F Temperature Source Oral Pulse Rate 88 87 Pulse Rate [Left Radial] Respiratory Rate 18 16 Blood Pressure 140/84 139/84 Blood Pressure [Right Arm] Blood Pressure Mean [Right Arm] Blood Pressure Source Automatic Cuff Blood Pressure Source [Right Arm] Blood Pressure Position Supine Blood Pressure Position [Right Arm] 02 Sat by Pulse Oximetry 92 L Oxygen Delivery Method Room Air Room Air Lab Data Lab Results 09/12/23 16:25: WBC 6.5, RBC 4.42 L, Hgb 14.3, Hct 43.6, MCV 98.5 H, MCH 32.3 H, MCHC 32.8, RDW 14.5, Plt Count 212, MPV 7.5, Neut % (Auto) 80.9 H, Lymph % (Auto) 10.8, [place] % (Auto) 6.2, Eos % (Auto) 1.0, Baso % (Auto) 1.0, Neut # (Auto) 5.2, Lymph # (Auto) 0.7, [place] # (Auto) 0.4, Eos # (Auto) 0.1, Baso # (Auto) 0.1, PT 16.9 H, INR 1.61 H, Sodium 141, Potassium 3.7, Chloride 103, Carbon Dioxide 32 H, Anion Gap 9.7, BUN 25 H, Creatinine 0.80, Estimated Creat Clear 54, Estimated GFR 92, Est GFR ( Amer) 112, Glucose 113 H, Lactate 1.8, Calcium 10.0, Magnesium 1.5 L, Total Bilirubin 1.0, AST 33, ALT 28, Alkaline Phosphatase 72, NT-Pro-B Natriuret Pep 3180 H, Total Protein 7.1, Albumin 4.2, Globulin 2.9, Albumin/Globulin Ratio 1.4 Orders (Tests/Meds): ED MEDICATIONS Generic Name Dose Route Start Last Admin Trade Name Freq PRN Reason Stop Dose Admin Acetaminophen 650 mg 09/12/23 19:42 Acetaminophen 325mg Tab PO 10/12/23 19:41 Q4HP PRN Fever or Mild Pain (1-3) Al Hydrox/Mg Hydrox/Simethicone 30 ml 09/12/23 19:42 Aluminum/Magnesium/Simethicone 30ml Udc PO 10/12/23 19:41 QIDP PRN Dyspepsia Nicotine 21 mg 09/12/23 19:42 Nicotine 21mg/24hr Patch TD 10/12/23 19:41 DAILYP PRN Nicotine Cravings Ondansetron HCl 4 mg 09/12/23 19:42 Ondansetron 4mg/2ml Vial IV 10/12/23 19:41 Q8HP PRN Nausea Pantoprazole Sodium 40 mg 09/12/23 19:45 Pantoprazole 40mg Tablet PO 10/12/23 19:44 DAILY ERIC Discontinued Medications Generic Name Dose Route Start Last Admin Trade Name Freq PRN Reason Stop Dose Admin Acetaminophen 1,000 mg 09/12/23 16:27 09/12/23 16:57 Acetaminophen 1,000mg/100ml Vial IV 09/12/23 16:28 1,000 mg ONCE ONE Administration Lactated Ringer's 1,000 mls @ 999 mls/hr 09/12/23 16:27 09/12/23 16:57 Lactated Ringer's 1000 Ml Bag IV 09/12/23 17:27 999 mls/hr .Q1H1M ONE Administration Magnesium Sulfate 2 gm in 50 mls @ 50 mls/hr 09/12/23 16:55 09/12/23 17:31 Magnesium Sulfate 2gm/50ml Premix IV 09/12/23 17:54 50 mls/hr ONCE ONE Administration ORDERS Category Date Time Status Chest XR -- portable [XR chest portable] Stat Exams 09/12/23 16:54 Completed BNP [NT Pro Brain Natriuretic Pep.] Stat Lab 09/12/23 16:25 Completed CBC w/Auto Diff [Complete Blood Count Auto Diff] Stat Lab 09/12/23 16:25 Completed CMP [Comprehensive Metabolic Panel] Stat Lab 09/12/23 16:25 Completed Diarrhea 23 Panel, PCR Stat Lab 09/12/23 16:27 Ordered INR [Prothrombin Time INR] Stat Lab 09/12/23 16:25 Completed Lactic Acid Stat Lab 09/12/23 16:25 Completed Magnesium Stat Lab 09/12/23 16:25 Completed UA [Urinalysis and Microscopic] Stat Lab 09/12/23 16:28 Ordered Medical Decision Narrative: In summary patient is a 82-year-old male who presents to the emergency department for evaluation of diarrhea and weakness. Patient is dynamically stable upon arrival, febrile. Physical exam is remarkable for a patient who has generalized weakness and cannot arise from a seated position without assistance which is a new problem for him. The remainder of his exam is unremarkable and nonfocal including no abdominal pain and normal bowel sounds.. Differential diagnosis includes radiation enteritis, gastroenteritis, mesenteric ischemia, functional decline, CHF exacerbation. Initial workup will be conducted with hematologic labs urinalysis, diarrhea panel. Initial interventions include fluid bolus antiemetics as needed. Initial workup reviewed by me shows an elevated NT proBNP, a low magnesium which has been repleted, and INR of 1.61 which is subtherapeutic the remainder of his hematologic labs nonactionable. My informal interpretation of his plain film chest x-ray shows no acute processes. Upon repeat evaluation patient is still unable to stand unassisted but is without any other complaints. Given this I had an interactive discussion of patient management with hospital medicine who agreed for admission for evaluation and further care I was consulted by the JORDI, and we discussed the complexity of the problems being addressed. I approved the treatment and management plan for this patient?s care in the Emergency Department, thus performing a substantive portion of the medical decision making. Brett Goode MD Critical Care <JEREMIAS Rod - Last Filed: 09/12/23 19:26> Critical Care Time Critical Care Time: No
--- NOTE | 2023-09-12 16:38 | ECG_ITS ---
APPROVED REPORT Exam: Resting ECG HR:94 bpm ECG Measurements Heart Rate 94 AXES QRSd 98 QRS -14 QT 347 T 47 QTc 399 Conclusion ATRIAL FIBRILLATION Largely nondiagnostic EKG secondary to baseline artifact Electronically signed by : NADINE MASCORRO, 09/12/2023 19:58:17
[2023-09-12 16:40] LABS: Basophils # 0.1 K/mm3 (0-0.2); Eosinophils # 0.1 K/mm3 (0.0-0.4); Hematocrit 43.6 % (42.0-52.0); Hemoglobin 14.3 g/dL (14.1-18.0); Lymphocytes # 0.7 K/mm3 (0.7-4.5); Lymphocytes % 10.8 % (10-50); Mean Corpuscular HGB Conc 32.8 g/dL (31.8-35.4); Mean Corpuscular Hemoglobin 32.3 pg (27.0-31.2); Mean Corpuscular Volume 98.5 fl (80-94); Mean Platelet Volume 7.5 fl (7.4-10.4); Monocytes # 0.4 K/mm3 (0.1-1.0); Monocytes % 6.2 % (1.7-9.3); Neutrophils # 5.2 K/mm3 (1.8-7.8); Neutrophils % 80.9 % (37.0-80.0); Platelet Count 212 K/mm3 (142-424); Red Blood Count 4.42 M/mm3 (4.60-6.20); Red Cell Distribution Width 14.5 % (11.5-17.5); White Blood Count 6.5 K/mm3 (4.8-10.8)
[2023-09-12 16:41] LABS: Chloride 103 mmol/L (98-107); Potassium 3.7 mmoL/L (3.5-5.1); Sodium 141 mmol/L (136-145)
[2023-09-12 16:44] LABS: Alanine Aminotransferase 28 U/L (12-78); Albumin Level 4.2 g/dl (3.5-5.0); Albumin/Globulin Ratio 1.4 (1.1-1.8); Alkaline Phosphatase 72 U/L (38-126); Anion Gap 9.7 mEq/L (5-15); Aspartate Amino Transferase 33 U/L (17-59); Blood Urea Nitrogen 25 mg/dl (9-20); Carbon Dioxide 32 mmol/L (22.0-30.0); Creatinine Clearance Estimated 54 mL/min (50-200); Estimated Glomerular Filt Rate 92 ml/min (>60); GFR (African American) 112 ML/MIN (>60); Globulin 2.9 g/dL (1.3-3.2); Glucose 113 mg/dl (74-100); Total Protein,Serum 7.1 g/dl (6.3-8.2)
[2023-09-12 16:45] LABS: Lactic Acid 1.8 mmol/L (0.7-2.1)
[2023-09-12 16:46] LABS: INR 1.61 (0.9-1.1); Prothrombin Time 16.9 seconds (10.1-12.5)
[2023-09-12 16:48] LABS: Magnesium 1.5 mg/dl (1.6-2.3)
--- NOTE | 2023-09-12 16:54 | XR_ITS ---
PROCEDURE INFORMATION: Exam: XR Chest Exam date and time: 09/12/2023 4:52 PM Age: 82 years old Clinical indication: Other: Edema; Additional info: Asthenia, dependent edema TECHNIQUE: Imaging protocol: Radiologic exam of the chest. Views: 1 view. COMPARISON: CT CHEST WO CON 12/07/2022 8:53 AM FINDINGS: Lungs: No evidence of acute pulmonary disease or infiltrates Pleural spaces: No large effusion or pneumothorax. Heart/Mediastinum: Stable cardiac and mediastinal contours. Stable prominence of the left main pulmonary artery. Bones/joints: No evidence of acute osseous abnormalities within the visualized portions of the thoracic spine and ribs. Osseous structures appear appropriate for patient age. IMPRESSION: No dense parenchymal consolidation, pleural effusion, or pneumothorax.
[2023-09-12] MEDS: ACETAMINOPHEN 1,000MG/100ML VIAL 1000 MG IV (16:57)
[2023-09-12] MEDS: LACTATED RINGERS 1000ML 1,000 ML 999 ML IV (16:57)
[2023-09-12 17:12] LABS: NT Pro Brain Natriuretic Pep. 3180 pg/mL (0-450)
[2023-09-12] MEDS: MAGNESIUM SULFATE IN WATER 2 GM/50 ML PIGGYBACK IV (17:31)
--- NOTE | 2023-09-12 18:15 | PC.NURSE ---
pt given bottle of water, pt states that he is unable to provide urine sample until he is able to drink some water.
--- NOTE | 2023-09-12 19:28 | PC.NURSE ---
OBSERVATION ADMISSION TO 213 WITH DX OF CHF WITH EXACERBATION TO SERVICE OF THE HOSPITALIST.
--- NOTE | 2023-09-12 19:31 | PC.NURSE ---
notified warehouse lead of admission
--- NOTE | 2023-09-12 19:35 | PC.NURSE ---
Report to SANDOVAL Hicks. Transport notified
--- NOTE | 2023-09-12 19:37 | PC.NURSE ---
Floor nurse notified patient still needs UA and Stool specimen
--- NOTE | 2023-09-12 19:44 | EXP.HP ---
History of Present Illness *Admission Date: 09/12/23 *Reason for visit:: diarrhea and increased weakness *History of present illness: This is a 82-year-old male with PMHx of Afib on warfarin, lung cancer on radiation treatment, Parkison's, legally blind, CHF, Hypertension, Hypothyroidism and history of AAA repair, recent stroke with increased functional declining presented to ED for evaluation of several episode of diarrhea, dehydration and increased weakness. History also obtained from ED and daughter. Report stated that patient is been having loose stool started about two weeks ago, that intensified on the last 24 hrs prior to admission, provoking incontinences episodes due to unable to hold it. patient also has been increasing weakness and dehydration, limiting his mobility and necessitating extra help for his daily activity. Admitted for further treatment and stabilization. [facility] Disclaimer: The information contained in this section may have been updated after the patient was seen, as this information can be updated by other users. Medical History (Updated 09/13/23 @ 12:41 by Faustina Garsia APRN) Aneurysm Urinary retention Hypertension Hypothyroidism Parkinson disease Atrial fibrillation Surgical History S/P AAA repair Family History Mother Family history of hyperlipidemia Family history of hypertension Social History (Updated 09/12/23 @ 20:55 by Didi David RN) Smoking Status: Former smoker tobacco type: cigarettes alcohol intake: never current occupational status: retired Travel in the last 8 weeks: None household members: spouse caffeine: Yes Review of Systems Review of Systems Review of systems:: pertinent systems reviewed and negative unless documented below Meds Home Medications and Allergies Home Medications Medication Instructions Recorded Confirmed Type atropine 1 % eye drops 1 drp Eye-Right DAILY 09/12/23 09/12/23 History ezetimibe 10 mg tablet 10 mg PO DAILY 09/12/23 09/12/23 History furosemide 20 mg tablet 20 mg PO DAILY 09/12/23 09/12/23 History hydrochlorothiazide 25 mg tablet 25 mg PO DAILY 09/12/23 09/12/23 History levothyroxine 137 mcg tablet 137 mcg PO AM 09/12/23 09/12/23 History metoprolol succinate 100 mg 100 mg PO BID 09/12/23 09/12/23 History tablet,extended release 24 hr omeprazole 40 mg capsule,delayed 40 mg PO DAILY 09/12/23 09/13/23 History release prednisolone acetate 1 % eye 1 drp Eye-Right DAILY 09/12/23 09/12/23 History drops,suspension ropinirole 0.25 mg tablet 0.5 mg PO HS 09/12/23 09/12/23 History tamsulosin 0.4 mg capsule 0.4 mg PO HS 09/12/23 09/12/23 History valsartan 160 mg tablet 160 mg PO DAILY 09/12/23 09/12/23 History warfarin 4 mg tablet 2 mg PO MOFR 09/12/23 09/13/23 History warfarin 4 mg tablet 4 mg PO SUTUWETHSA 09/12/23 09/13/23 History New Prescriptions to Start Prescriptions: Allergies Allergy/AdvReac Type Severity Reaction Status Date / Time Iodinated Contrast Media Allergy Mild Verified 05/09/22 23:15 Penicillins Allergy Unknown Verified 05/09/22 22:47 Exam Data for Last 24 hours Vital signs and Labs for Last 24 Hours: Temp Pulse Resp BP Pulse Ox O2 Del Method 98.0 F 87 16 139/84 92 L Room Air 09/12/23 19:26 09/12/23 19:26 09/12/23 19:26 09/12/23 19:26 09/12/23 19:00 09/12/23 19:26 Laboratory Results - last 24 hr 09/12/23 16:25: WBC 6.5, RBC 4.42 L, Hgb 14.3, Hct 43.6, MCV 98.5 H, MCH 32.3 H, MCHC 32.8, RDW 14.5, Plt Count 212, MPV 7.5, Neut % (Auto) 80.9 H, Lymph % (Auto) 10.8, [place] % (Auto) 6.2, Eos % (Auto) 1.0, Baso % (Auto) 1.0, Neut # (Auto) 5.2, Lymph # (Auto) 0.7, [place] # (Auto) 0.4, Eos # (Auto) 0.1, Baso # (Auto) 0.1, PT 16.9 H, INR 1.61 H, Sodium 141, Potassium 3.7, Chloride 103, Carbon Dioxide 32 H, Anion Gap 9.7, BUN 25 H, Creatinine 0.80, Estimated Creat Clear 54, Estimated GFR 92, Est GFR ( Amer) 112, Glucose 113 H, Lactate 1.8, Calcium 10.0, Magnesium 1.5 L, Total Bilirubin 1.0, AST 33, ALT 28, Alkaline Phosphatase 72, NT-Pro-B Natriuret Pep 3180 H, Total Protein 7.1, Albumin 4.2, Globulin 2.9, Albumin/Globulin Ratio 1.4 Temp Pulse Resp BP Pulse Ox 98.5 F 95 H 24 138/92 H 94 L 05/09/22 17:19 05/09/22 18:00 05/09/22 18:00 05/09/22 18:00 05/09/22 18:00 Laboratory Results - last 24 hr 05/09/22 17:30: WBC 17.0 H, RBC 4.25 L, Hgb 13.8 L, Hct 41.0 L, MCV 96.6 H, MCH 32.4 H, MCHC 33.5, RDW 14.0, Plt Count 277, MPV 8.4, Neut % (Auto) 90.0 H, Lymph % (Auto) 4.3 L, [place] % (Auto) 4.9, Eos % (Auto) 0.3, Baso % (Auto) 0.4, Neut # (Auto) 15.3 H, Lymph # (Auto) 0.7, [place] # (Auto) 0.8, Eos # (Auto) 0.1, Baso # (Auto) 0.1, Total Counted 100, Neutrophils % (Manual) 89 H, Lymphocytes % (Manual) 11, Platelet Estimate Normal, RBC Morphology Normal 05/09/22 17:30: Sodium 132 L, Potassium 3.6, Chloride 97 L, Carbon Dioxide 28, Anion Gap 10.6, BUN 15, Creatinine 0.70, Estimated Creat Clear 64, Estimated GFR 108, Est GFR ( Amer) 131, Glucose 116 H, Calcium 8.8, Total Bilirubin 1.0, AST 29, ALT 25, Alkaline Phosphatase 66, Total Protein 6.7, Albumin 4.0, Globulin 2.7, Albumin/Globulin Ratio 1.5 05/09/22 17:30: Troponin I < 0.01, NT-Pro-B Natriuret Pep 2790 H 05/09/22 17:40: SARS-CoV-2 (PCR) Not detected, Influenza A Untype (PCR) Not detected, Influenza Type B (PCR) Not detected I & O for Last 24 hours: Intake & Output 09/09/23 09/10/23 09/11/23 09/12/23 23:59 23:59 23:59 23:59 Weight 68.039 kg Intake & Output 05/06/22 05/07/22 05/08/22 05/09/22 23:59 23:59 23:59 23:59 Weight 79.379 kg *Routine HEENT Exam Head: Present normocephalic Eye: Present other ENT: Present mucous membranes moist *Routine Respiratory Exam Respiratory: Present CTA bilaterally and able to speak in complete sentences *Routine Cardiovascular Exam Cardiovascular: Present irregular rhythm *Routine Abdominal Exam Abdominal: Present soft and normoactive bowel sounds *Routine Rectal Exam Rectal:: deferred *Routine Genitalia Exam Genitalia:: deferred Assessment and Plan *Assessment and plan (1) Diarrhea in adult patient: Status: Acute Category: Medical Code(s): R19.7 - Diarrhea, unspecified (2) Hypomagnesemia: Status: Acute Category: Medical Code(s): E83.42 - Hypomagnesemia (3) Adult failure to thrive: Status: Acute Category: Medical Code(s): R62.7 - Adult failure to thrive (4) Declining functional status: Status: Acute Category: Medical Code(s): R53.81 - Other malaise (5) CHF (congestive heart failure): Status: Acute Qualifiers: Heart failure chronicity: chronic Heart failure type: unspecified Qualified Code(s): I50.9 - Heart failure, unspecified Category: Medical Code(s): I50.9 - Heart failure, unspecified (6) Atrial fibrillation: Status: Acute Qualifiers: Atrial fibrillation type: longstanding persistent Qualified Code(s): I48.11 - Longstanding persistent atrial fibrillation Category: Medical Code(s): I48.91 - Unspecified atrial fibrillation (7) Abnormal blood coagulation profile: Status: Acute Category: Medical Code(s): R79.1 - Abnormal coagulation profile (8) Hypertension: Status: Acute Qualifiers: Hypertension type: essential hypertension Qualified Code(s): I10 - Essential (primary) hypertension Category: Medical Code(s): I10 - Essential (primary) hypertension (9) Hypothyroidism: Status: Acute Qualifiers: Hypothyroidism type: unspecified Qualified Code(s): E03.9 - Hypothyroidism, unspecified Category: Medical Code(s): E03.9 - Hypothyroidism, unspecified (10) Legally blind: Status: Acute Category: Medical Code(s): H54.8 - Legal blindness, as defined in [place] Plan 82-year-old male with PMHx of Afib on warfarin, lung cancer on radiation treatment, Parkison's, legally blind, CHF, Hypertension, Hypothyroidism and history of AAA repair, recent stroke with increased functional declining presented to ED for evaluation of several episode of diarrhea, dehydration and increased weakness. Diarrhea: to rule out infective origin HYpomagnesemia Obtain diarrhea panel supportive care encourage to increase oral intake will deferred the needs on IV resuscitation due to concern of volume overload replace electrolytes as needed per protocols monitor daily CMP in the setting of lung cancer and changes in the bowels regimen, malignancy need to be considered ordered FIT and gFOBT. CT of abdomen and pelvis from last year reviewed. patient might need colonoscopy, as well as follow up with GI Volume Overload - Atrial Fibrillation On presentation with edema, elevated BNP Resume oral diuretics last ECHO showed preserved EF Continue Metoprolol INR currently under therapeutic level. continue Warfarin. Pharmacy to dose it - Declining Functional Status legally blind adult FTT Parkinson's disease Family denies a history of prior falls to this presentation PT/OT consult Case management following for disposition - Hypothyroidism Continue Levothyroxine - DVT ppx . On protonix Coumadin
[2023-09-12 20:05] LABS: Microscopic, Urine URINE MICROSCOPIC (MICROSCOPIC)
[2023-09-12 20:06] LABS: Appearance,Urine CLEAR (Clear); Bilirubin,Urine Negative (Negative); Blood, Urine Negative (Negative); Color,Urine YELLOW (Yellow); Glucose,Urine (UA) Negative (Negative); Ketones,Urine TRACE (Negative); Leukocyte Esterase,Urine Negative (Negative); Nitrate,Urine Negative (Negative); PH,Urine 5.5 (5.0-8.5); Protein,Urine Negative (Negative); Specific Gravity, Urine 1.015 (1.005-1.030)
[2023-09-12 20:16] LABS: WBC,Urine Occasional #/hpf (0-3)
[2023-09-12 20:17] LABS: Bacteria,Urine Trace /lpf; Mucus,Urine Trace /lpf; Squamous Epithelial Cell,Urine Occasional #/hpf (0-5)
[2023-09-12] MEDS: ROPINIROLE HCL 0.25 MG TABLET 0.5 MG PO (21:52)
[2023-09-12] MEDS: PANTOPRAZOLE 40MG TABLET 40 MG PO (21:52)
[2023-09-12] MEDS: TAMSULOSIN 0.4MG CAPSULE 0.400000000000000022 MG PO (21:52)
[2023-09-12] MEDS: METOPROLOL SUCCINATE XL 100MG TABLET 100 MG PO (21:52)
--- NOTE | 2023-09-13 03:15 | PC.NURSE ---
pt a&ox4. room air. urine sent down. pt has had multiple episodes of diarrhea before coming onto the floor, so far this shift pt hasnt had any loose bowel movements. no complaints of pain. bed alarm on.
[2023-09-13 03:59] VITALS: BP 133/95; PULSE 72; RESP 17; TEMP 36.6; O2SAT 95; BMI 24.3
[2023-09-13 06:04] LABS: Basophils # 0.1 K/mm3 (0-0.2); Basophils % 1.1 % (0.1-2.0); Eosinophils # 0.1 K/mm3 (0.0-0.4); Eosinophils % 1.8 % (0.1-12.0); Hematocrit 41.3 % (42.0-52.0); Hemoglobin 13.3 g/dL (14.1-18.0); Lymphocytes # 0.8 K/mm3 (0.7-4.5); Lymphocytes % 16.2 % (10-50); Mean Corpuscular HGB Conc 32.3 g/dL (31.8-35.4); Mean Corpuscular Hemoglobin 32.2 pg (27.0-31.2); Mean Corpuscular Volume 99.7 fl (80-94); Mean Platelet Volume 8.1 fl (7.4-10.4); Monocytes # 0.4 K/mm3 (0.1-1.0); Monocytes % 7.2 % (1.7-9.3); Neutrophils # 3.8 K/mm3 (1.8-7.8); Neutrophils % 73.8 % (37.0-80.0); Platelet Count 179 K/mm3 (142-424); Red Blood Count 4.14 M/mm3 (4.60-6.20); Red Cell Distribution Width 14.5 % (11.5-17.5); White Blood Count 5.1 K/mm3 (4.8-10.8)
[2023-09-13 06:12] LABS: Alanine Aminotransferase 20 U/L (12-78); Albumin Level 3.7 g/dl (3.5-5.0); Albumin/Globulin Ratio 1.4 (1.1-1.8); Alkaline Phosphatase 68 U/L (38-126); Anion Gap 7.9 mEq/L (5-15); Aspartate Amino Transferase 26 U/L (17-59); Bilirubin,Total 1.2 mg/dl (0.2-1.3); Blood Urea Nitrogen 21 mg/dl (9-20); Calcium 9.3 mg/dl (8.4-10.2); Carbon Dioxide 32 mmol/L (22.0-30.0); Chloride 103 mmol/L (98-107); Creatinine Clearance Estimated 54 mL/min (50-200); Estimated Glomerular Filt Rate 108 ml/min (>60); GFR (African American) 130 ML/MIN (>60); Globulin 2.6 g/dL (1.3-3.2); Glucose 85 mg/dl (74-100); Sodium 140 mmol/L (136-145); Total Protein,Serum 6.3 g/dl (6.3-8.2)
[2023-09-13 06:13] LABS: Potassium 2.9 mmoL/L (3.5-5.1)
--- NOTE | 2023-09-13 06:20 | PC.NURSE ---
reported 2.9K to Juanito, received order for po 40meq
[2023-09-13] MEDS: POTASSIUM CHLORIDE 20MEQ TAB 40 MEQ PO ×2 (06:43→10:46)
[2023-09-13 07:58] VITALS: BP 129/81; PULSE 90; RESP 18; TEMP 36.6; O2SAT 95
--- NOTE | 2023-09-13 08:13 | HMH.PHAINT1 ---
Pharmacy Intervention Comments: HOME MEDICATION LIST VERIFIED USING LIST FROM OUTPATIENT PHARMACY
[2023-09-13] MEDS: FUROSEMIDE 20MG TABLET 20 MG PO (09:09)
[2023-09-13] MEDS: EZETIMIBE 10MG TABLET 10 MG PO (09:09)
[2023-09-13] MEDS: hydroCHLOROthiazide 25MG TABLET 25 MG PO (09:09)
[2023-09-13] MEDS: IRBESARTAN 150MG TAB 150 MG PO (09:09)
[2023-09-13] MEDS: METOPROLOL SUCCINATE XL 100MG TABLET 100 MG PO (09:09)
[2023-09-13] MEDS: prednisoLONE 1% OPTH SOL 5ML OP (09:09)
--- NOTE | 2023-09-13 09:41 | HMH.PTEV ---
Physical Therapy Evaluation Rehab PT IP Evaluation Start: 09/12/23 19:42 Freq: ONCE Status: Active Protocol: Document 09/13/23 09:26 [facility] (Rec: 09/13/23 09:41 PHOS[facility]AN [id number]) Subjective/History History History This is is the initial evaluation for Sreekanth Walker, 82 yowm, who presents to [facility] with CHF, diarrhea and progressive functional decline. PMHx of Afib on warfarin, lung cancer on radiation treatment, Parkison's, legally blind, CHF , Hypertension, Hypothyroidism and history of AAA repair, recent stroke with increased functional declining Subjective Subjective Patient is in bed upon arrival with son-in-law present. Patient is agreeable to PT. Son-in-law helps to provide patient's history. Reported that the patient is legally blind in both eyes. The patient lives at home with his ex- who recently had a stroke and just returned home from [facility], yesterday. He uses a walker for ambulation and is typically able to care for himself. Son- in-law reports that he has been requring much more help than usual and he and his have been making sure that someone is with him 03/12. However, they will not be able to offer as much assistance as is returns to work. New diagnosis of cancer in past 12 No months? Rehab PT IP Eval Objective Appearance Patient Behavior Appropriate Patient Orientation Person,Place,Time,Birthday Difficulty following instructions none Speech Pattern Clear Ambulation Patient Able to Ambulate Yes Ambulation Observation IP General Gait Pattern Observation Shuffling Step Ambulation Distance (feet) 25 Ambulation Assistive Device Rolling Walker Ambulation Ability Minimal x 2 (25% assist) Balance Ability to Arise Able, uses arms to help Sitting Balance Steady, safe Standing Balance Steady, wide stance Dynamic Sitting Balance Ability Good Dynamic Standing Balance Ability Good Transfers Bed Transfer Ability Supervision/Stand by Sit to Stand Bed Transfer Ability Minimal x 2 (25% assist) Rehab PT IP prob,goals,plan Problems Date of Evaluation: 09/13/23 PT IP Problems Bed Mobility,Transfers,Gait, Balance,Self care,Safety Rehab Potential Rehab Potential Good Equipment Needs Assistive Devices Rolling / Wheeled Walker Plan PT Intervention Plan Bed Mobility,Transfers,Gait, Balance,Self care,Safety, Therapeutic Exercise PT Plan Frequency Daily Duration LOS Discharge Goals Bed Transfer Ability Supervision/Stand by Sit to Stand Chair Transfer Ability Supervision/Stand by Ambulation Assistive Device Rolling Walker Ambulation Distance (feet) 40 Discharge Plan PT Discharge Plan Patient presents for initial evaluation. During ambulation, the patient needed verbal and tactile cueing for walker placement. He presents below baseline from his prior level of function. Skilled PT is indicated for this patient during his acute stay. The patient is unsafe for discharge to home without 24 hour assistance, to which his family is unable to provide. The patient may be most appropriate for placement for further rehab, upon discharge from the hospital. Eval Complexity Eval Charge Codes 79850 - High Complexity PHYSICIAN CERTIFICATION: I certify the specified therapy services for Sreekanth Walker are required, authorized, and reviewed every 30 days.
--- NOTE | 2023-09-13 09:55 | HMH.OTEV ---
OT Inpatient Evaluation Rehab OT IP Evaluation Start: 09/12/23 19:42 Freq: ONCE Status: Active Protocol: Document 09/13/23 09:49 [facility] (Rec: 09/13/23 09:55 [facility] [id number]) Rehab OT IP Assessment Subjective History This is is the initial evaluation for Sreekanth Walker, 82 yowm, who presents to [facility] with CHF, diarrhea and progressive functional decline. PMHx of Afib on warfarin, lung cancer on radiation treatment, Parkison's, legally blind, CHF , Hypertension, Hypothyroidism and history of AAA repair, recent stroke with increased functional declining Subjective Patient is in bed upon arrival with son-in-law present. Patient is agreeable to OT. Son-in-law helps to provide patient's history. Reported that the patient is legally blind in both eyes. The patient lives at home with his ex- who recently had a stroke and just returned home from [facility], yesterday. He uses a walker for ambulation. Pt normally requires some assistance with ADLs and is dependent on family for completion of all IADLs. Son-in-law reports that he has been requring much more help than usual and he and his have been making sure that someone is with him 03/12. However, they will not be able to offer as much assistance as is returns to work. Objective Patient Orientation Person,Place,Birthday Right Upper Extremity Gross ROM Min Limitation <25% Left Upper Extremity Gross ROM Min Limitation <25% Shoulder ROM Limitations Muscle Weakness Elbow ROM Limitations Muscle Weakness Wrist Limitations of Range of Motion Muscle Weakness Bed Mobility bed mobility-scooting,bed mobility - supine/sit Assist Level Minimal x 2 (25% assist) Transfer Training Sit/Stand Transfer Assist Level Minimal x 1 (25% assist) Rehab OT IP prob,goals,plan Problems Date of Evaluation: 09/13/23 OT IP Problems Bed Mobility,Transfers,Balance Rehab Potential Rehab Potential Good Equipment Needs Assistive Devices Rolling / Wheeled Walker Plan OT intervention Plan Bed Mobility,Transfers,Balance ,Self care,Safety,Therapeutic Exercise OT Plan Frequency Daily Duration LOS Discharge Goals Bed Mobility Ability Assistance x1 Sit to Stand Chair Transfer Ability Contact Guard/Hand Hold Chair Transfer Ability Contact Guard/Hand Hold Chair Transfer Technique Sit to/from Ambulatory Chair Transfer Assistive Devices Rolling Walker Feeding Ability Assist with Tray Set Up Lower Body Dressing Ability Moderate Assistance Upper Body Dressing Ability Minimal Assistance Bathing Ability Moderate Assistance Performing Toilet Hygiene Ability Moderate Assistance Overall Commode/Toilet Transfer Ability Contact Guard Commode/Toilet Transfer Technique Sit to/from Ambulatory Commode/Toilet Transfer Assistive Grab Bars Devices Oral Care Assist Standby Assistance Decrease in Endurance Yes Discharge Plan OT Discharge Plan Patient presents for initial evaluation. During functional transfers, the patient needed verbal and tactile cueing for walker placement. He presents below baseline from his prior level of function. Skilled OT is indicated for this patient during his acute stay. The patient is unsafe for discharge to home without 24 hour assistance, to which his family is unable to provide. The patient may be most appropriate for short term rehab at SNF following discharge for continued skilled therapy. Eval Complexity Eval Charge Codes 48312 - Moderate Complexity PHYSICIAN CERTIFICATION: I certify the specified therapy services for Sreekanth Walker SR are required, authorized, and reviewed every 30 days.
[2023-09-13] MEDS: WARFARIN 2MG TABLET 2 MG PO (10:22)
--- NOTE | 2023-09-13 11:38 | CA_ITS ---
APPROVED REPORT EXAM: Comprehensive 2D, Doppler, and color-flow Echocardiogram Wheelabrator Operator: Gladys Delaney, RCS, RVS Ht: 5 ft 6 in Wt: 151lbs BSA: 1.77 BP: 129/81 mmHg Indications: Congestive Heart Failure, Atrial Fibrillation, Hypertension/HDD, aaa repair 2D Dimensions Left Atrium 5.06 cm M: 3.0 - 4.0 EF AP4 76.90 % RVID Base (AP4) 4.48 cm (M/F) 2.5-4.1 GL Strain 0.0 % M-Mode Dimensions RVDd 3.87 cm (0.9-2.6) LVDd 4.26 cm (3.5-5.7) Ao Diam 3.43 cm (2.0-3.7) LVDs 2.74 cm (3.5-5.7) IVSd 0.98 cm (0.6-1.1) PWd 1.37 cm (0.6-1.1) EF (Teich) 65.60% EPSs 0.57 cm FS 35.70% EDV (Teich) 81.30 mL TAPSE 2.46 (<1.7) ESV (Teich) 28.00 mL LV Diastology E Decel Time 181 (160-240 msec) E/A Ratio 7.6 MED E' 13.2 (>= 7 cm/sec) MED A' 4.40 cm/s E'/MED E' Ratio 9.80 (<= 14) LAT E' 14.0 (>= 10 cm/sec) LAT A' 3.40 cm/s E/LAT E' Ratio 9.24 (<= 14) Aortic Valve LVOT Max 87.0 (70-110 cm/s) LVOT VTI 14.15 cm AoV Peak Omar. 137.0 (50-130 cm/s) AO Mean GR. 3.70 (<5 mmHg) AO VTI 23.1 (18-25 cm) Mitral Valve MV E Max Omar. 129.0 (40-130 cm/s) MV A Velocity 17.0 (40-130 cm/s) E/A Ratio 7.84 MV Decel. Time 181 (160-240 ms) Pulmonary Valve TX End VMAX 275.0 cm/s Tricuspid Valve TR P. Velocity 361.00 cm/s RAP Estimate 10.00 mmHg RVSP 62.30 mmHg Left Ventricle The left ventricle is normal size. The left ventricular systolic function is normal. The left ventricular ejection fraction is within the normal range. There is increased LV wall thickness. There is normal LV segmental wall motion. Diastolic function is indeterminate. LVEF is 60%. Right Ventricle The right ventricle is moderately to severely dilated. Right ventricle is mildly hypokinetic. Atria The left atrium is mildly dilated. Right atrium is severely dilated. Aortic Valve The aortic valve is mildly thickened. There is no aortic valvular stenosis. Trace aortic regurgitation. Mitral Valve The mitral valve leaflets are mildly thickened. No evidence of mitral valve stenosis. Trace mitral regurgitation. Tricuspid Valve The tricuspid valve leaflets are thin and pliable. Severe tricuspid regurgitation. RVSP is 50 mmHg + RA pressure. Pulmonic Valve The pulmonary valve is normal in structure. Mild pulmonic regurgitation. Great Vessels The aortic root is normal in size. The ascending aorta is normal in size. The IVC is not well-visualized. Pericardium There is no pericardial effusion. Other Information Study Quality: Fair Conclusion Normal LV systolic function. Moderate to severe RV dilation with mild reduction in RV function. Mild LA dilation. Severe RA dilation. Severe TR. RVSP 50 mmHg + RA pressure. Electronically signed by : Mary Alaniz MD 09/16/2023 13:37:11
--- NOTE | 2023-09-13 11:48 | SW/DCPLANNER ---
Addendum entered by Juliana Davila RN 09/13/23 16:05: Spoke with Kimberly regarding patient needing LTC due to not having a qualifying stay. They are agreeable. Radha, financial counselor, is going to speak with daughter and patient regarding Medicaid eligibility. Lina at [facility] does have an available bed if patient is Medicaid candidate. Will follow up with daughter on Saturday regarding next steps. Addendum entered by Abigail Montiel 09/13/23 15:02: Amita w/ [facility] stated that services will start first of next week for this patient. Addendum entered by Abigail Montiel 09/13/23 12:08: Patient/family prefer to return home w/ home health services thru [facility]. Original Note: I spoke w/ this patient and his daughter (Kimberly) regarding plans once medically stable for discharge. PT/OT recommended SNF level of care at this time. Kimberly stated that patient's just returned home from [facility] and is unable to care for patient at this time. I did discuss w/ patient and Kimberly regarding SNF level of care. Due to patient not having a qualifying hospital stay private pay would be required. Patient and Kimberly both stated that they are not interested in private pay at this time. I did discuss the options of home w/ home health and 03/12 supervision. Kimberly requested that she speak w/ patient's prior to making a discharge plan. Kimberly will follow up w/ me once she speaks w/ family. Kimberly does understand that patient is medically stable for discharge today. I did provide patient/family w/ a private sitters list as well. I will continue to follow up w/patient and family.
--- NOTE | 2023-09-13 12:35 | EXP.CARD.CON ---
History of Present Illness History of Present Illness Consult date: 09/13/23 Requesting physician: Danny Cuevas Consult reason: congestive heart failure Chief complaint: diarrhea History of present illness: This is an 82-year-old gentleman who presented to the emergency department complaints of diarrhea and weakness. He has a past medical history of A-fib on Coumadin, lung cancer with radiation treatment, CHF, hypertension and a AAA repair. The patient's daughter reports that his recently had a stroke and the daughter has been caring for him at home. She states for the last week he has been having very loose stools. She states that the loose stools started and and then stopped for a day or 2, then came back and it significantly intensified over the last 24 hours prior to admission. He was having so much diarrhea that he became incontinent. He was very weak and unable to walk on his own or complete any activities of daily living. So his daughter brought him here to the emergency department. He denies any chest pain or pressure. He denies any shortness of breath or edema but on exam he does have some swelling in his bilateral lower extremities. However, he states that his legs are much better than they typically are and he was recently started on low-dose Lasix by his primary care provider. He denies any fever, chills, nausea, vomiting, diarrhea, PND or orthopnea. [facility] Disclaimer: The information contained in this section may have been updated after the patient was seen, as this information can be updated by other users. Medical History (Updated 09/13/23 @ 12:41 by Faustina Garsia APRN) Aneurysm Urinary retention Hypertension Hypothyroidism Parkinson disease Atrial fibrillation Surgical History S/P AAA repair Family History Mother Family history of hyperlipidemia Family history of hypertension Social History (Updated 09/12/23 @ 20:55 by Didi David RN) Smoking Status: Former smoker tobacco type: cigarettes alcohol intake: never current occupational status: retired Travel in the last 8 weeks: None household members: spouse caffeine: Yes Review of Systems Review of Systems Review of systems:: pertinent systems reviewed and negative unless documented below Constitutional Constitutional: Reports system reviewed and no additional complaints, except as documented, Reports fatigue, Reports lethargy and Reports weakness Eyes Eyes: Reports system reviewed and no additional complaints, except as documented ENT Ears, Nose, Mouth, and Throat: Reports system reviewed and no additional complaints, except as documented *Cardiovascular Cardiovascular: Reports system reviewed and no additional complaints, except as documented, Denies chest pain, Denies dyspnea and Reports leg edema *Respiratory Respiratory: Reports system reviewed and no additional complaints, except as documented and Denies dyspnea *Gastrointestinal Gastrointestinal: Reports system reviewed and no additional complaints, except as documented and Reports loose stools *Genitourinary Genitourinary: Reports system reviewed and no additional complaints, except as documented *Musculoskeletal Musculoskeletal: Reports system reviewed and no additional complaints, except as documented Integumentary/Breasts Skin/Breast: Reports system reviewed and no additional complaints, except as documented *Neurologic Neurologic: Reports system reviewed and no additional complaints, except as documented and Reports weakness Psychiatric Psychiatric: Reports system reviewed and no additional complaints, except as documented Endocrine Endocrine: Reports system reviewed and no additional complaints, except as documented and Reports fatigue Hematologic/Lymphatic Hematologic/Lymphatic: Reports system reviewed and no additional complaints, except as documented Allergic/Immunologic Allergic/Immunologic: Reports system reviewed and no additional complaints, except as documented Exam Data for Last 24 hours Vital signs and Labs for Last 24 Hours: Temp Pulse Resp BP Pulse Ox O2 Del Method 97.8 F 90 18 129/81 95 Room Air 09/13/23 07:58 09/13/23 07:58 09/13/23 07:58 09/13/23 07:58 09/13/23 07:58 09/13/23 11:55 Laboratory Results - last 24 hr 09/12/23 16:25: WBC 6.5, RBC 4.42 L, Hgb 14.3, Hct 43.6, MCV 98.5 H, MCH 32.3 H, MCHC 32.8, RDW 14.5, Plt Count 212, MPV 7.5, Neut % (Auto) 80.9 H, Lymph % (Auto) 10.8, [place] % (Auto) 6.2, Eos % (Auto) 1.0, Baso % (Auto) 1.0, Neut # (Auto) 5.2, Lymph # (Auto) 0.7, [place] # (Auto) 0.4, Eos # (Auto) 0.1, Baso # (Auto) 0.1, PT 16.9 H, INR 1.61 H, Sodium 141, Potassium 3.7, Chloride 103, Carbon Dioxide 32 H, Anion Gap 9.7, BUN 25 H, Creatinine 0.80, Estimated Creat Clear 54, Estimated GFR 92, Est GFR ( Amer) 112, Glucose 113 H, Lactate 1.8, Calcium 10.0, Magnesium 1.5 L, Total Bilirubin 1.0, AST 33, ALT 28, Alkaline Phosphatase 72, NT-Pro-B Natriuret Pep 3180 H, Total Protein 7.1, Albumin 4.2, Globulin 2.9, Albumin/Globulin Ratio 1.4 09/12/23 20:00: Urine Color Yellow, Urine Appearance Clear, Urine pH 5.5, Ur Specific [place] 1.015, Urine Protein Negative, Urine Glucose (UA) Negative, Urine Ketones Trace, Urine Blood Negative, Urine Nitrate Negative, Urine Bilirubin Negative, Urine Urobilinogen 1.0, Ur Leukocyte Esterase Negative, Urine RBC None, Urine WBC Occasional, Ur Squamous Epith Cells Occasional, Urine Bacteria Trace, Urine Mucus Trace 09/13/23 05:26: WBC 5.1, RBC 4.14 L, Hgb 13.3 L, Hct 41.3 L, MCV 99.7 H, MCH 32.2 H, MCHC 32.3, RDW 14.5, Plt Count 179, MPV 8.1, Neut % (Auto) 73.8, Lymph % (Auto) 16.2, [place] % (Auto) 7.2, Eos % (Auto) 1.8, Baso % (Auto) 1.1, Neut # (Auto) 3.8, Lymph # (Auto) 0.8, [place] # (Auto) 0.4, Eos # (Auto) 0.1, Baso # (Auto) 0.1, Sodium 140, Potassium 2.9 L* D, Chloride 103, Carbon Dioxide 32 H, Anion Gap 7.9, BUN 21 H, Creatinine 0.70, Estimated Creat Clear 54, Estimated GFR 108, Est GFR ( Amer) 130, Glucose 85 D, Calcium 9.3, Magnesium 2.0 D, Total Bilirubin 1.2, AST 26, ALT 20 D, Alkaline Phosphatase 68, Total Protein 6.3, Albumin 3.7 D, Globulin 2.6, Albumin/Globulin Ratio 1.4 I & O for Last 24 hours: Intake & Output 09/10/23 09/11/23 09/12/23 09/13/23 23:59 23:59 23:59 23:59 Intake Total 510 / 510 Output Total 0 / 0 250 / 250 Balance 0 / 100 260 / 260 Weight 151 lb 8 oz 151 lb 9.6 oz Narrative: EKG is atrial fibrillation with rate controlled. Constitutional Constitutional: no acute distress and average body habitus *Routine HEENT Exam Head: Present normocephalic and atraumatic ENT: Present mucous membranes moist *Routine Neck Exam Neck: Present supple, full ROM and normal carotid upstroke; Absent JVD, carotid bruit or lymphadenopathy *Routine Respiratory Exam Respiratory: Present CTA bilaterally, normal respiratory effort, able to speak in complete sentences and symmetric chest movement *Routine Cardiovascular Exam Cardiovascular: Present Normal S1, Normal S2 and irregularly irregular; Absent murmur or gallop *Routine Abdominal Exam Abdominal: Present soft and normoactive bowel sounds; Absent tenderness, distended or organomegaly *Routine Extremities Exam Extremities: Present edema (trace to 1+ BLE edema), full ROM, pulses intact and normal capillary refill; Absent cyanosis or clubbing *Routine Skin Exam Skin: Present intact and warm; Absent erythema *Routine Neurological Exam Neurological: Present alert, oriented X3 and CN II-XII intact; Absent sensory deficit or motor deficit Routine Psychiatric Exam Psychiatric: Present normal affect Meds Home Medications and Allergies Home Medications Medication Instructions Recorded Confirmed Type atropine 1 % eye drops 1 drp Eye-Right DAILY 09/12/23 09/12/23 History ezetimibe 10 mg tablet 10 mg PO DAILY 09/12/23 09/12/23 History furosemide 20 mg tablet 20 mg PO DAILY 09/12/23 09/12/23 History hydrochlorothiazide 25 mg tablet 25 mg PO DAILY 09/12/23 09/12/23 History levothyroxine 137 mcg tablet 137 mcg PO AM 09/12/23 09/12/23 History metoprolol succinate 100 mg 100 mg PO BID 09/12/23 09/12/23 History tablet,extended release 24 hr omeprazole 40 mg capsule,delayed 40 mg PO DAILY 09/12/23 09/13/23 History release prednisolone acetate 1 % eye 1 drp Eye-Right DAILY 09/12/23 09/12/23 History drops,suspension ropinirole 0.25 mg tablet 0.5 mg PO HS 09/12/23 09/12/23 History tamsulosin 0.4 mg capsule 0.4 mg PO HS 09/12/23 09/12/23 History valsartan 160 mg tablet 160 mg PO DAILY 09/12/23 09/12/23 History warfarin 4 mg tablet 2 mg PO MOFR 09/12/23 09/13/23 History warfarin 4 mg tablet 4 mg PO SUTUWETHSA 09/12/23 09/13/23 History New Prescriptions to Start Prescriptions: Allergies Allergy/AdvReac Type Severity Reaction Status Date / Time Iodinated Contrast Media Allergy Mild Verified 05/09/22 23:15 Penicillins Allergy Unknown Verified 05/09/22 22:47 Assessment and Plan *Assessment and plan (1) CHF (congestive heart failure): Status: Acute Qualifiers: Heart failure chronicity: chronic Heart failure type: unspecified Qualified Code(s): I50.9 - Heart failure, unspecified Category: Medical Code(s): I50.9 - Heart failure, unspecified (2) Atrial fibrillation: Status: Acute Qualifiers: Atrial fibrillation type: longstanding persistent Qualified Code(s): I48.11 - Longstanding persistent atrial fibrillation Category: Medical Code(s): I48.91 - Unspecified atrial fibrillation (3) Parkinson disease: Status: Acute Qualifiers: Dyskinesia presence: unspecified whether dyskinesia Fluctuating manifestations: unspecified whether manifestations fluctuate Qualified Code(s): G20.A1 - Parkinson's disease without dyskinesia, without mention of fluctuations Category: Medical Code(s): G20 - Parkinson's disease (4) Hypertension: Status: Acute Qualifiers: Hypertension type: essential hypertension Qualified Code(s): I10 - Essential (primary) hypertension Category: Medical Code(s): I10 - Essential (primary) hypertension (5) Declining functional status: Status: Acute Category: Medical Code(s): R53.81 - Other malaise (6) UTI (urinary tract infection): Status: Acute Category: Medical Code(s): N39.0 - Urinary tract infection, site not specified (7) Adult failure to thrive: Status: Acute Category: Medical Code(s): R62.7 - Adult failure to thrive (8) Diarrhea in adult patient: Status: Acute Category: Medical Code(s): R19.7 - Diarrhea, unspecified Plan Plan: 1. The patient was admitted to the hospital with diarrhea and generalized weakness as well as adult failure to thrive. Will defer management of this to the hospitalist and case management. 2. Cardiology was consulted due to an elevated BNP. He denies any shortness of breath or edema. But, on exam he does have some edema in his lower extremities. His his daughter reports that his lower extremity edema was significantly worse prior to him being admitted to the hospital but he was started on low-dose Lasix by his primary care provider and this has helped significantly with the lower extremity edema. Continue low-dose Lasix at this time. 3. We will obtain an echocardiogram to evaluate his LV function. 4. His blood pressure is well-controlled. 5. His LDL goal is less than 100. 6. The patient does have chronic atrial fibrillation. He is currently rate controlled. 7. He is on Coumadin for long-term anticoagulation. He denies any bleeding. 8. The patient is hypokalemic. This is likely secondary to his diarrhea. He is getting his potassium replaced today. 9. Once the patient has recovered from his acute illness/diarrhea then we can consider more aggressively diuresing the patient on an outpatient basis for his elevated BNP and lower extremity edema. He does see a crime laboratory analyst, Dr. Cervantes in [facility] who he wishes to continue follow-up care with. 10. As long as his LV function is normal on echocardiogram then the patient can proceed with more aggressive diuresis on an outpatient basis once he has recovered from his acute illness. No further recommendations while the patient is hospitalized from a cardiac standpoint. He will need to see his crime laboratory analyst in 1 to 2 weeks once he is discharged from the hospital. Thank you for the opportunity to help participate in the care of this patient. All recommendations and orders are per Dr. Alaniz. Addendum: Echocardiogram shows normal ejection fraction. His RV and RA are dilated which is likely chronic. No changes to the current plan listed above. The patient did have an episode of tachycardia following his echocardiogram. It appears to be a wide-complex tachycardia versus A-fib with aberrancy. No medication changes per Dr. Alcala. Place a 2-week event monitor at the time of discharge and follow-up in cardiology clinic in 2 weeks.
[2023-09-13 13:37] VITALS: PULSE 80
--- NOTE | 2023-09-13 14:12 | PC.NURSE ---
Faustina Garsia calld about pt's reported heart rate of 200 during an echo. Pt' placed on telemetry with heart rate between 80- 130 irregular. History of Afrib, no new orders at this time.
[2023-09-13 15:13] VITALS: BP 120/84; PULSE 72; RESP 22; TEMP 36.7; O2SAT 94
[2023-09-13 16:00] VITALS: PULSE 80
--- NOTE | 2023-09-13 16:46 | P.DS_ITS ---
General Admission date:: 09/12/23 Discharge date: 09/13/23 HPI HPI HPI: This is a 82-year-old male with PMHx of Afib on warfarin, lung cancer on radiation treatment, Parkison's, legally blind, CHF, Hypertension, Hypothyroidism and history of AAA repair, recent stroke with increased functional declining presented to ED for evaluation of several episode of diarrhea, dehydration and increased weakness. History also obtained from ED and daughter. Report stated that patient is been having loose stool started about two weeks ago, that intensified on the last 24 hrs prior to admission, provoking incontinences episodes due to unable to hold it. patient also has been increasing weakness and dehydration, limiting his mobility and necessitating extra help for his daily activity. Admitted for further treatment and stabilization. Hospital Course Hospital Course Hospital Course: 82-year-old male with PMHx of Afib on warfarin, lung cancer on radiation treatment, Parkison's, legally blind, CHF, Hypertension, Hypothyroidism and history of AAA repair, recent stroke with increased functional declining presented to ED for evaluation of several episode of diarrhea, dehydration and increased weakness. Diarrhea: - improved - Declining Functional Status legally blind adult FTT Parkinson's disease patient family declined Rehab placement, cardiology cleared patient for dc, patient is stable for discharge, patient did not have any complains at discharge Exam Data for Last 24 hours Vital signs and Labs for Last 24 Hours: Temp Pulse Resp BP Pulse Ox O2 Del Method 98.1 F 72 22 120/84 94 L Room Air 09/13/23 15:13 09/13/23 15:13 09/13/23 15:13 09/13/23 15:13 09/13/23 15:13 09/13/23 15:58 Laboratory Results - last 24 hr 09/12/23 16:25: PT 16.9 H, INR 1.61 H, Sodium 141, Potassium 3.7, Chloride 103, Carbon Dioxide 32 H, Anion Gap 9.7, BUN 25 H, Creatinine 0.80, Estimated Creat Clear 54, Estimated GFR 92, Est GFR ( Amer) 112, Glucose 113 H, Lactate 1.8, Calcium 10.0, Magnesium 1.5 L, Total Bilirubin 1.0, AST 33, ALT 28, Alkaline Phosphatase 72, NT-Pro-B Natriuret Pep 3180 H, Total Protein 7.1, Albumin 4.2, Globulin 2.9, Albumin/Globulin Ratio 1.4 09/12/23 20:00: Urine Color Yellow, Urine Appearance Clear, Urine pH 5.5, Ur Specific [place] 1.015, Urine Protein Negative, Urine Glucose (UA) Negative, Urine Ketones Trace, Urine Blood Negative, Urine Nitrate Negative, Urine Bilirubin Negative, Urine Urobilinogen 1.0, Ur Leukocyte Esterase Negative, Urine RBC None, Urine WBC Occasional, Ur Squamous Epith Cells Occasional, Urine Bacteria Trace, Urine Mucus Trace 09/13/23 05:26: WBC 5.1, RBC 4.14 L, Hgb 13.3 L, Hct 41.3 L, MCV 99.7 H, MCH 32.2 H, MCHC 32.3, RDW 14.5, Plt Count 179, MPV 8.1, Neut % (Auto) 73.8, Lymph % (Auto) 16.2, [place] % (Auto) 7.2, Eos % (Auto) 1.8, Baso % (Auto) 1.1, Neut # (Auto) 3.8, Lymph # (Auto) 0.8, [place] # (Auto) 0.4, Eos # (Auto) 0.1, Baso # (Auto) 0.1, Sodium 140, Potassium 2.9 L* D, Chloride 103, Carbon Dioxide 32 H, Anion Gap 7.9, BUN 21 H, Creatinine 0.70, Estimated Creat Clear 54, Estimated GFR 108, Est GFR ( Amer) 130, Glucose 85 D, Calcium 9.3, Magnesium 2.0 D, Total Bilirubin 1.2, AST 26, ALT 20 D, Alkaline Phosphatase 68, Total Protein 6.3, Albumin 3.7 D, Globulin 2.6, Albumin/Globulin Ratio 1.4 I & O for Last 24 hours: Intake & Output 09/10/23 09/11/23 09/12/23 09/13/23 23:59 23:59 23:59 23:59 Intake Total 990 / 990 Output Total 0 / 0 250 / 250 Balance 0 / 100 740 / 740 Weight 68.719 kg 68.765 kg Constitutional Constitutional: no acute distress *Routine HEENT Exam Head: Present normocephalic Eye: Present EOMI and PERRL ENT: Present mucous membranes moist *Routine Neck Exam Neck: Present supple; Absent lymphadenopathy *Routine Respiratory Exam Respiratory: Present CTA bilaterally *Routine Cardiovascular Exam Cardiovascular: Present RRR *Routine Abdominal Exam Abdominal: Present soft and normoactive bowel sounds; Absent tenderness *Routine Extremities Exam Extremities: Absent cyanosis, clubbing or edema *Routine Skin Exam Skin: Present warm; Absent rash *Routine Neurological Exam Neurological: Present alert and oriented X3 Results Data Completed and Pending Labs on day of discharge: Labs from last 24 hours 09/13/23 09/12/23 09/12/23 05:26 20:00 16:25 WBC 5.1 RBC 4.14 L Hgb 13.3 L Hct 41.3 L MCV 99.7 H MCH 32.2 H MCHC 32.3 RDW 14.5 Plt Count 179 MPV 8.1 Neut % (Auto) 73.8 Lymph % (Auto) 16.2 [place] % (Auto) 7.2 Eos % (Auto) 1.8 Baso % (Auto) 1.1 Neut # (Auto) 3.8 Lymph # (Auto) 0.8 [place] # (Auto) 0.4 Eos # (Auto) 0.1 Baso # (Auto) 0.1 PT 16.9 H INR 1.61 H Sodium 140 141 Potassium 2.9 L* D 3.7 Chloride 103 103 Carbon Dioxide 32 H 32 H Anion Gap 7.9 9.7 BUN 21 H 25 H Creatinine 0.70 0.80 Estimated Creat Clear 54 54 Estimated GFR 108 92 Est GFR ( Amer) 130 112 Glucose 85 D 113 H Lactate 1.8 Calcium 9.3 10.0 Magnesium 2.0 D 1.5 L Total Bilirubin 1.2 1.0 AST 26 33 ALT 20 D 28 Alkaline Phosphatase 68 72 NT-Pro-B Natriuret Pep 3180 H Total Protein 6.3 7.1 Albumin 3.7 D 4.2 Globulin 2.6 2.9 Albumin/Globulin Ratio 1.4 1.4 Urine Color Yellow Urine Appearance Clear Urine pH 5.5 Ur Specific [place] 1.015 Urine Protein Negative Urine Glucose (UA) Negative Urine Ketones Trace Urine Blood Negative Urine Nitrate Negative Urine Bilirubin Negative Urine Urobilinogen 1.0 Ur Leukocyte Esterase Negative Urine RBC None Urine WBC Occasional Ur Squamous Epith Cells Occasional Urine Bacteria Trace Urine Mucus Trace DS: Diagnosis Discharge Diagnosis (1) Diarrhea in adult patient: Status: Acute Code(s): R19.7 - Diarrhea, unspecified (2) Hypomagnesemia: Status: Acute Code(s): E83.42 - Hypomagnesemia (3) Adult failure to thrive: Status: Acute Code(s): R62.7 - Adult failure to thrive (4) Declining functional status: Status: Acute Code(s): R53.81 - Other malaise (5) CHF (congestive heart failure): Status: Acute Code(s): I50.9 - Heart failure, unspecified Qualifiers: Heart failure type: unspecified Heart failure chronicity: chronic Qualified Code(s): I50.9 - Heart failure, unspecified (6) Atrial fibrillation: Status: Acute Code(s): I48.91 - Unspecified atrial fibrillation Qualifiers: Atrial fibrillation type: longstanding persistent Qualified Code(s): I48.11 - Longstanding persistent atrial fibrillation (7) Abnormal blood coagulation profile: Status: Acute Code(s): R79.1 - Abnormal coagulation profile (8) Hypertension: Status: Acute Code(s): I10 - Essential (primary) hypertension Qualifiers: Hypertension type: essential hypertension Qualified Code(s): I10 - Essential (primary) hypertension (9) Hypothyroidism: Status: Acute Code(s): E03.9 - Hypothyroidism, unspecified Qualifiers: Hypothyroidism type: unspecified Qualified Code(s): E03.9 - Hypothyroidism, unspecified (10) Legally blind: Status: Acute Code(s): H54.8 - Legal blindness, as defined in [place] Meds Home Medications and Allergies Home Medications Medication Instructions Recorded Confirmed Type atropine 1 % eye drops 1 drp Eye-Right DAILY 09/12/23 09/12/23 History ezetimibe 10 mg tablet 10 mg PO DAILY 09/12/23 09/12/23 History furosemide 20 mg tablet 20 mg PO DAILY 09/12/23 09/12/23 History hydrochlorothiazide 25 mg tablet 25 mg PO DAILY 09/12/23 09/12/23 History levothyroxine 137 mcg tablet 137 mcg PO AM 09/12/23 09/12/23 History metoprolol succinate 100 mg 100 mg PO BID 09/12/23 09/12/23 History tablet,extended release 24 hr omeprazole 40 mg capsule,delayed 40 mg PO DAILY 09/12/23 09/13/23 History release prednisolone acetate 1 % eye 1 drp Eye-Right DAILY 09/12/23 09/12/23 History drops,suspension ropinirole 0.25 mg tablet 0.5 mg PO HS 09/12/23 09/12/23 History tamsulosin 0.4 mg capsule 0.4 mg PO HS 09/12/23 09/12/23 History valsartan 160 mg tablet 160 mg PO DAILY 09/12/23 09/12/23 History warfarin 4 mg tablet 2 mg PO MOFR 09/12/23 09/13/23 History warfarin 4 mg tablet 4 mg PO SUTUWETHSA 09/12/23 09/13/23 History New Prescriptions to Start Prescriptions: Allergies Allergy/AdvReac Type Severity Reaction Status Date / Time Iodinated Contrast Media Allergy Mild Verified 05/09/22 23:15 Penicillins Allergy Unknown Verified 05/09/22 22:47 Discharge Plan Disposition Patient Disposition: Home, Self-Care Condition: Fair Follow up Plan Follow up with: Faustina Garsia APRN [Nurse Practitioner] - 09/25/23 10:15 am Rene Umanzor MD [Primary Care Provider] - 09/20/23 11:15 am Prescriptions/Medication Reconciliation: Continued levothyroxine 137 mcg tablet 137 mcg PO AM Patient Comments: TAKE 1 TABLET BY MOUTH ONCE DAILY metoprolol succinate 100 mg tablet extended release 24 hr 100 mg PO BID Patient Comments: TAKE 1 TABLET BY MOUTH TWICE DAILY omeprazole 40 mg capsule,delayed release(DR/EC) 40 mg PO DAILY Patient Comments: TAKE 1 CAPSULE BY MOUTH ONCE DAILY warfarin 4 mg tablet 4 mg PO SUTUWETHSA Patient Comments: TAKE 1/2 (ONE-HALF) TABLET BY MOUTH ON SAT,SAT,SATURDAY (2MG) AND 1 TABLET ON SUN,TUES,THURS AND SAT (4MG) Rx Instructions: TAKE 1/2 (ONE-HALF) TABLET BY MOUTH ON SAT,SAT,SATURDAY (2MG) AND 1 TABLET ON SUN,TUES,THURS AND SAT (4MG) warfarin 4 mg tablet 2 mg PO MOFR Patient Comments: TAKE 1/2 (ONE-HALF) TABLET BY MOUTH ON SAT,SAT,SATURDAY (2MG) AND 1 TABLET ON SUN,TUES,THURS AND SAT (4MG) Rx Instructions: TAKE 1/2 (ONE-HALF) TABLET BY MOUTH ON SAT,SAT,[place] (2MG) AND 1 TABLET ON SUN,TUES,THURS AND SAT (4MG) prednisolone acetate 1 % drops,suspension 1 drp Eye-Right DAILY Patient Comments: INSTILL 1 DROP INTO RIGHT EYE ONCE DAILY tamsulosin 0.4 mg capsule 0.4 mg PO HS Patient Comments: TAKE 1 CAPSULE BY MOUTH ONCE DAILY AT BEDTIME ropinirole 0.25 mg tablet 0.5 mg PO HS hydrochlorothiazide 25 mg tablet 25 mg PO DAILY Patient Comments: TAKE 1 TABLET BY MOUTH ONCE DAILY IN THE MORNING furosemide 20 mg tablet 20 mg PO DAILY atropine 1 % drops 1 drp Eye-Right DAILY Patient Comments: INSTILL 1 DROP INTO RIGHT EYE ONCE DAILY valsartan 160 mg tablet 160 mg PO DAILY Patient Comments: TAKE 1 TABLET BY MOUTH ONCE DAILY ezetimibe 10 mg tablet 10 mg PO DAILY Patient Comments: TAKE 1 TABLET BY MOUTH ONCE DAILY Problem Reconciliation Problems Reviewed?: Yes Patient Discharge Instructions ACTIVITY: Ambulate as tolerated DIET: continue same diet Patient Instructions: DI for Heart Failure, Coumadin Vitamin K/ Diet Providers Primary Care Provider: Rene Umanzor Admit Provider: Danny Cuevas Attending Provider: Danny Cuevas
--- NOTE | 2023-09-16 12:40 | CARE MANAGER ---
Spoke with patient's daughter related to hospital discharge. She states that she doesn't understand how the hospital could discharge him over the weekend when he could take care of himself. We reviewed the reasons to remain in the hospital again and that the patient was medically stable. Discussed if they had to decided to apply for Medicaid. She states that it was her understanding that Medicaid could take their burial plots and she would not be applying for Medicaid. We discussed how the best option may possibly be private pay or Medicaid pending at a facility. She reports she is taking him to see Dr. Umanzor and will go from there.
== END 2023-09-13 16:51 | disposition home or self-care (01) ==
LOC: ER 18:18 → 2ND 19:43
PROVIDERS: Nurse Practitioner Family; Physician Assistant; Admitting Provider Internal Medicine; Emergency Provider Emergency Medicine; PCP Family Medicine; Visit Provider Internal Medicine
DX: I50.9 Heart failure, unspecified (principal); I48.11 Longstanding persistent atrial fibrillation; G20.A1 Parkinson's disease without dyskinesia, without mention of fluctuations; I11.0 Hypertensive heart disease with heart failure; R53.81 Other malaise; N39.0 Urinary tract infection, site not specified; R62.7 Adult failure to thrive; R19.7 Diarrhea, unspecified; E83.42 Hypomagnesemia; R79.1 Abnormal coagulation profile; E03.9 Hypothyroidism, unspecified; H54.8 Legal blindness, as defined in USA; Z68.24 Body mass index [BMI] 24.0-24.9, adult; Z79.01 Long term (current) use of anticoagulants; Z79.899 Other long term (current) drug therapy; E86.0 Dehydration; I69.898 Other sequelae of other cerebrovascular disease; C34.90 Malignant neoplasm of unspecified part of unspecified bronchus or lung
CPT/HCPCS: 36415; 71045; 80053; 81001; 83605; 83735; 83880; 85025; 85610; 93005; 93270; 93306; 97163; 97166; 99285; G0378; J0131; J3475

== ENCOUNTER 2023-09-24 14:57 | Observation (INO) | payer MEDICARE, SELFPAY ==
[2023-09-24] VITALS (12 sets, daily range): BP systolic 85–129; BP diastolic 62–95; PULSE 67–107; RESP 15–24; TEMP 36.2–36.3; O2SAT 92–96; BMI 25.7; BMI 25.0
--- NOTE | 2023-09-24 15:15 | XR_ITS ---
PROCEDURE INFORMATION: Exam: XR Chest Exam date and time: 09/24/2023 4:15 PM Age: 82 years old Clinical indication: Wheezing; Additional info: L sided isolated wheezes, hypotension TECHNIQUE: Imaging protocol: Radiologic exam of the chest. Views: 1 view. COMPARISON: CR XR CHEST PORTABLE 09/12/2023 4:52 PM FINDINGS: Lungs: No evidence of pneumonia or interstitial edema. Pleural spaces: Unremarkable. No pleural effusion. No pneumothorax. Heart/Mediastinum: Contours of the cardiac and mediastinal silhouette are unchanged. Bones/joints: Unremarkable. IMPRESSION: No evidence of pneumonia or interstitial edema.
--- NOTE | 2023-09-24 15:20 | HMH.EDGENADL ---
Discharge Plan Disposition Patient Disposition: Admitted Clinical Impressions Clinical Impression: Right upper lobe pneumonia, CHF exacerbation Discharge ED Provider: Brett Goode General Adult HPI General Chief complaint: Weakness Stated complaint: low BP Time Seen by Provider: 09/24/23 15:03 Mode of Arrival: Family Vehicle Source of Information: Relative Limitations: No Limitations Description of Symptoms (Recalled from ER Triage Doc. by RN): Patient was brought in via POV with c/o low blood pressure and weakness. Patients home health nurse came out for a visit and recorded a BP of 52/30 and suggested pt come to the ED for further evaluation. Home health nurse reported pt was asymptomatic and belives he is over medicated. PTs hydralazine and HCTZ has been discontinued. Pt is currently doing radiation for lunch cancer. History of Present Illness HPI narrative: This is an 82-year-old male with history of hypertension, hyperlipidemia, CHF on nightly 2L oxygen, A-fib on warfarin, AAA status postrepair, Parkinson is on ropinirole, chronic blindness, lung cancer currently on targeted radiotherapy presenting with low blood pressure. Family at bedside to provide most history with patient. Patient states he feels well overall. On full review of systems, states only pertinent positives are cough productive of more sputum than he is used to. Does not know if it has been bloody, dark, or different in character. Denies chest pain, shortness of breath, fevers or chills, nausea or vomiting, diarrhea, constipation, abdominal pain, hematuria, dysuria, or any other concerns. Family states that he was just seen by home health today, hydralazine and hydrochlorothiazide discontinued. Given continued hypotension, recommended he come to the emergency department for further evaluation Please note that above description of symptoms, in this electronic medical record under categorization of recalled from ER triage doctor by RN are reflective of an initial nursing assessment, however, is not reflective of my full history and physical exam that was personally taken and clarified. Consequentially, this preceding description of symptoms, which may include the patient's categorized chief complaint in the EMR, do not reflect my personal clinical impression, and the ultimate description of history of present illness and patient stated complaints should be deferred to this section of the note. Unless stated otherwise or congruent with this section of the note, additional signs, symptoms, or incongruence should be interpreted as inaccurate with my clinical impression. Related Data Home Medications Medication Instructions Recorded Confirmed atropine 1 % eye drops 1 drp Eye-Right DAILY 09/12/23 09/12/23 ezetimibe 10 mg tablet 10 mg PO DAILY 09/12/23 09/12/23 furosemide 20 mg tablet 20 mg PO DAILY 09/12/23 09/12/23 hydrochlorothiazide 25 mg tablet 25 mg PO DAILY 09/12/23 09/12/23 levothyroxine 137 mcg tablet 137 mcg PO AM 09/12/23 09/12/23 metoprolol succinate 100 mg 100 mg PO BID 09/12/23 09/12/23 tablet,extended release 24 hr omeprazole 40 mg capsule,delayed 40 mg PO DAILY 09/12/23 09/13/23 release prednisolone acetate 1 % eye 1 drp Eye-Right DAILY 09/12/23 09/12/23 drops,suspension ropinirole 0.25 mg tablet 0.5 mg PO HS 09/12/23 09/12/23 tamsulosin 0.4 mg capsule 0.4 mg PO HS 09/12/23 09/12/23 valsartan 160 mg tablet 160 mg PO DAILY 09/12/23 09/12/23 warfarin 4 mg tablet 2 mg PO MOFR 09/12/23 09/13/23 warfarin 4 mg tablet 4 mg PO SUTUWETHSA 09/12/23 09/13/23 Allergies Allergy/AdvReac Type Severity Reaction Status Date / Time Iodinated Contrast Media Allergy Mild Verified 05/09/22 23:15 Penicillins Allergy Unknown Verified 05/09/22 22:47 [facility] Disclaimer: The information contained in this section may have been updated after the patient was seen, as this information can be updated by other users. Medical History (Updated 09/24/23 @ 19:21 by Brett Goode MD) Aneurysm Urinary retention Hypertension Hypothyroidism Parkinson disease Atrial fibrillation Surgical History S/P AAA repair Family History Mother Family history of hyperlipidemia Family history of hypertension Social History (Updated 09/12/23 @ 20:55 by Didi David RN) Smoking Status: Never smoker alcohol intake: never current occupational status: retired Travel in the last 8 weeks: None household members: spouse caffeine: Yes ROS Obtained: Yes All systems reviewed & no additional complaints except as documented Physical Exam General General appearance: alert and in no apparent distress Head Head exam: atraumatic and normocephalic Eye Eye exam: Absent normal appearance ENT ENT exam: Present mucous membranes moist Neck Neck exam: Present normal inspection, full ROM and trachea midline Respiratory Respiratory exam: Present wheezes (Isolated to the left side); Absent normal lung sounds bilaterally, respiratory distress, stridor, accessory muscle use or prolonged expiratory phase Cardiovascular Cardiovascular exam: Present regular rate and irregular rhythm Abdominal Exam Abdominal exam: Present soft and scar; Absent distention, tenderness, guarding, rebound, rigidity or pulsatile mass Extremities Exam Extremities exam: Present edema (Bilateral 1+ nonpitting) Neurological Exam Neurological exam: Present alert and oriented X3 Skin Skin exam: Present warm and dry; Absent diaphoresis or erythema Medical Decision Making Medical Records Medical records reviewed: Yes I reviewed the patient's medical records. Nikunj Inquiry Pt receiving controlled substance: No Nikunj was queried for this patient: No Vital Signs: 09/24/23 15:12 09/24/23 15:30 09/24/23 16:00 Temperature Temperature Source Pulse Rate 78 67 Pulse Rate [Right Brachial] 92 H Respiratory Rate 20 24 23 Blood Pressure 98/62 L 94/66 L Blood Pressure [Right Arm] 85/65 L Blood Pressure Mean [Right Arm] 71 Blood Pressure Source [Right Arm] Manual Cuff/ Auscultation Blood Pressure Position Blood Pressure Position [Right Arm] Sitting 02 Sat by Pulse Oximetry 93 L 95 94 L Oxygen Delivery Method Room Air 09/24/23 16:30 09/24/23 17:01 09/24/23 17:30 Temperature Temperature Source Pulse Rate 87 82 Pulse Rate [Right Brachial] Respiratory Rate 22 21 22 Blood Pressure 110/71 126/85 122/87 Blood Pressure [Right Arm] Blood Pressure Mean [Right Arm] Blood Pressure Source [Right Arm] Blood Pressure Position Blood Pressure Position [Right Arm] 02 Sat by Pulse Oximetry 94 L 94 L Oxygen Delivery Method 09/24/23 17:54 09/24/23 17:55 09/24/23 18:00 Temperature 97.4 F L Temperature Source Rectal Pulse Rate 103 H 96 H 80 Pulse Rate [Right Brachial] Respiratory Rate 15 17 23 Blood Pressure 129/91 H 129/91 H 118/95 H Blood Pressure [Right Arm] Blood Pressure Mean [Right Arm] Blood Pressure Source [Right Arm] Blood Pressure Position Sitting Blood Pressure Position [Right Arm] 02 Sat by Pulse Oximetry 93 L 95 93 L Oxygen Delivery Method Room Air 09/24/23 18:17 Temperature 97.4 F L Temperature Source Rectal Pulse Rate 107 H Pulse Rate [Right Brachial] Respiratory Rate 20 Blood Pressure 118/95 H Blood Pressure [Right Arm] Blood Pressure Mean [Right Arm] Blood Pressure Source [Right Arm] Blood Pressure Position Blood Pressure Position [Right Arm] 02 Sat by Pulse Oximetry Oxygen Delivery Method Room Air Lab Data Lab Results 09/24/23 15:15: WBC 12.2 H, RBC 4.20 L, Hgb 13.4 L, Hct 41.7 L, MCV 99.2 H, MCH 31.8 H, MCHC 32.1, RDW 14.4, Plt Count 227, MPV 8.1, Neut % (Auto) 88.0 H, Lymph % (Auto) 6.3 L, [place] % (Auto) 4.7, Eos % (Auto) 0.3, Baso % (Auto) 0.6, Neut # (Auto) 10.7 H, Lymph # (Auto) 0.8, [place] # (Auto) 0.6, Eos # (Auto) 0.0, Baso # (Auto) 0.1, Total Counted 100, Neutrophils % (Manual) 88 H, Lymphocytes % (Manual) 8 L, Monocytes % (Manual) 3, Eosinophils % (Manual) 1, Platelet Estimate Normal, RBC Morphology Normal, PT 24.2 H, INR 2.37 H, APTT 38.6 H, VBG pH 7.31, VBG pCO2 50.3, VBG pO2 37.9, VBG HCO3 24.9, VBG Total CO2 26.4, VBG O2 Saturation 50.5, VBG Base Excess -1.4, VBG Lactic Acid 3.8 H, Sodium 138, Potassium 3.5, Chloride 99, Carbon Dioxide 27, Anion Gap 15.5 H, BUN 28 H, Creatinine 1.30 H, Estimated Creat Clear 41, Estimated GFR 53 L, Est GFR ( Amer) 64, Glucose 99, Lactate 4.1 H, Calcium 9.7, Total Bilirubin 1.4 H, AST 29, ALT 27, Alkaline Phosphatase 67, Troponin I < 0.01, NT-Pro-B Natriuret Pep 4650 H, Total Protein 7.4, Albumin 4.3, Globulin 3.1, Albumin/Globulin Ratio 1.4 09/24/23 17:52: Urine Color Yellow, Urine Appearance Clear, Urine pH 6.0, Ur Specific [place] 1.010, Urine Protein Negative, Urine Glucose (UA) Negative, Urine Ketones Negative, Urine Blood Negative, Urine Nitrate Negative, Urine Bilirubin Negative, Urine Urobilinogen 2.0, Ur Leukocyte Esterase Negative, Urine RBC None, Urine WBC None, Ur Squamous Epith Cells None, Urine Bacteria None 09/24/23 18:15: Troponin I < 0.01 09/24/23 15:15 09/24/23 15:15 Orders (Tests/Meds): ED MEDICATIONS Generic Name Dose Route Start Last Admin Trade Name Freq PRN Reason Stop Dose Admin Acetaminophen 650 mg 09/24/23 18:08 Acetaminophen 325mg Tab PO 10/24/23 18:07 Q4HP PRN Fever or Mild Pain (1-3) Ezetimibe 10 mg 09/25/23 09:00 Ezetimibe 10mg Tablet PO 10/25/23 08:59 DAILY ERIC Sodium Chloride 1,000 mls @ 75 mls/hr 09/24/23 18:15 Sod Chlor 0.9% 1000ml Bag IV 10/24/23 18:14 .[id number] ERIC Levofloxacin/Dextrose 500 mg in 100 mls @ 100 mls/hr 09/24/23 18:45 Levaquin 500mg/100ml Premix IV 10/04/23 18:44 Q24H ERIC Levothyroxine Sodium 137 mcg 09/25/23 07:00 Levothyroxine 137mcg (0.137mg) Tab PO 10/25/23 06:59 AM ERIC Metoprolol Succinate 100 mg 09/24/23 21:00 Metoprolol Succinate Xl 100mg Tablet PO 10/24/23 20:59 BID ERIC Miscellaneous 1 each 09/24/23 18:30 Pharmacy Consult Request NOTAPPLIC 09/24/23 18:31 CONSULT PHARMACY ONE Miscellaneous 1 each 09/24/23 18:45 Vancomycin Consult Request NOTAPPLIC 10/24/23 18:44 CONSULT PHARMACY ERIC Ondansetron HCl 4 mg 09/24/23 18:08 Ondansetron 4mg/2ml Vial IV 10/24/23 18:07 Q8HP PRN Nausea Pantoprazole Sodium 40 mg 09/24/23 21:00 Pantoprazole 40mg Tablet PO 10/24/23 20:59 [facility] Sodium Chloride 10 ml 09/24/23 18:08 Sodium Chloride 0.9% 10ml Flush Syringe IV 10/24/23 18:07 NEEDED PRN Maintain IV Site Discontinued Medications Generic Name Dose Route Start Last Admin Trade Name Freq PRN Reason Stop Dose Admin Lactated Ringer's 500 mls @ 999 mls/hr 09/24/23 15:16 09/24/23 15:25 Lactated Ringer's 500ml IV 09/24/23 15:46 999 mls/hr .Q31M ONE Administration Ceftriaxone Sodium 2 gm/ 100 mls @ 200 mls/hr 09/24/23 15:17 09/24/23 15:30 Sodium Chloride IV 09/24/23 15:46 200 mls/hr ONCE ONE Administration Azithromycin 500 mg/ Sodium 250 mls @ 250 mls/hr 09/24/23 15:18 09/24/23 15:36 Chloride IV 09/24/23 15:19 Not Given ONCE ONE Vancomycin/PEG/NADA/Lysine/Water 1.25 gm in 250 mls @ 125 mls/hr 09/24/23 15:45 09/24/23 17:40 Vancomycin 1.25gm/250ml (Peg) Premix IV 09/24/23 17:44 125 mls/hr ONCE ONE Administration Methylprednisolone Sodium Succinate 125 mg 09/24/23 15:17 09/24/23 15:25 Methylprednisolone Sod Succ 125mg Vial IV 09/24/23 15:18 125 mg ONCE ONE Administration Miscellaneous 1 each 09/24/23 15:45 09/24/23 17:35 Vancomycin Consult Request NOTAPPLIC 10/24/23 15:44 1 each [facility] PH[facility]ACY [facility] Administration ORDERS Category Date Time Status CXR --portable [XR chest portable] Stat Exams 09/24/23 15:15 Completed Basic Metabolic Panel [facility] Lab 09/25/23 06:00 Ordered Basic Metabolic Panel [facility] Lab 09/26/23 06:00 Ordered Basic Metabolic Panel [facility] Lab 09/27/23 06:00 Ordered CBC w/Auto Diff [Complete Blood Count Auto Diff] Stat Lab 09/24/23 15:15 Completed CMP [Comprehensive Metabolic Panel] Stat Lab 09/24/23 15:15 Completed Complete Blood Count Auto Diff AML[facility] Lab 09/25/23 06:00 Ordered Complete Blood Count Auto Diff AMLAB Lab 09/26/23 06:00 Ordered Complete Blood Count Auto Diff AML[facility] Lab 09/27/23 06:00 Ordered Lactic Acid Stat Lab 09/24/23 15:15 Completed NT Pro Brain Natriuretic Pep. Stat Lab 09/24/23 15:15 Completed PT INR [Prothrombin Time INR] Stat Lab 09/24/23 15:15 Completed PTT [Activated Partial Thrombo Time] Stat Lab 09/24/23 15:15 Completed Trop I [Troponin I] Stat Lab 09/24/23 15:15 Completed Troponin I Q3H Lab 09/24/23 18:15 Completed Troponin I Q3H Lab 09/24/23 21:15 Ordered UA [Urinalysis and Microscopic] Stat Lab 09/24/23 17:52 Completed Blood Culture Stat Micro 09/24/23 15:25 Received VBG [Venous Blood Gas] Stat RT 09/24/23 15:15 Completed Medical Decision Narrative: This is an 82-year-old male with history of hypertension, hyperlipidemia, CHF on nightly 2L oxygen, A-fib on warfarin, AAA status postrepair, Parkinson is on ropinirole, chronic blindness, lung cancer currently on targeted radiotherapy presenting with low blood pressure. Family at bedside to provide most history with patient. Patient states he feels well overall. On full review of systems, states only pertinent positives are cough productive of more sputum than he is used to. Does not know if it has been bloody, dark, or different in character. Denies chest pain, shortness of breath, fevers or chills, nausea or vomiting, diarrhea, constipation, abdominal pain, hematuria, dysuria, or any other concerns. Family states that he was just seen by home health today, hydralazine and hydrochlorothiazide discontinued. Given continued hypotension, recommended he come to the emergency department for further evaluation. History was obtained via conversation with patient and family. On arrival, patient hemodynamically stable, alert, oriented x4, appropriate, GCS 15, moving all extremities spontaneously. Full physical exam performed and significant for chronically ill-appearing male who is in no acute distress. Intermittently coughing, not producing any sputum. Lungs are clear on the right, isolated wheezes diffusely on the left without focal decrease sounds. Cardiac exam within normal limits other than 1+ lower extremity pitting edema. Pulses are equal and symmetric in upper and lower extremities without delay, no obvious murmur. Abdomen is soft, nontender, nondistended, no pulsatile mass. Patient is at neurologic baseline. Differential includes pneumonia, UTI, sepsis, CHF exacerbation, ACS, IN, subtherapeutic anticoagulation and PE, ruptured AAA, dissection, among others. Patient was given 500 cc fluid bolus for symptomatic management and correction of underlying abnormalities. Due to patient's lower extremity edema, 30 cc/kg bolus was initially withheld. Because patient nearly tachycardic, hypotensive 80s over 50s, ceftriaxone and azithromycin were started given physical exam findings concerning for left-sided pneumonia. Workup independently interpreted and significant for leukocytosis with neutrophilia. Patient's coagulation panel with INR 2.4, PTT 39. Lactate elevated at 3.8, VBG otherwise nonactionable. Creatinine elevated at 1.3, mild BUNNY. Initial and delta troponins negative, BNP elevated at 5000, this is the highest it has ever been for patient in our system. Chest x-ray with new right upper lobe opacity concerning for developing pneumonia given clinical history. See radiology read for full review of final results. On reevaluation, patient remains at baseline. Given patient presentation, workup, history, this most likely represents right upper lobe pneumonia and CHF exacerbation. Because patient high risk for clinical decompensation, deemed appropriate for inpatient admission. Results were relayed to patient who voiced understanding and patient was agreeable to inpatient admission and management. Patient was admitted to the hospital for further definitive management. Critical Care Critical Care Time Critical Care Time: No
[2023-09-24 15:25] LABS: Basophils # 0.1 K/mm3 (0-0.2); Basophils % 0.6 % (0.1-2.0); Eosinophils % 0.3 % (0.1-12.0); Hematocrit 41.7 % (42.0-52.0); Hemoglobin 13.4 g/dL (14.1-18.0); Lymphocytes # 0.8 K/mm3 (0.7-4.5); Lymphocytes % 6.3 % (10-50); Mean Corpuscular HGB Conc 32.1 g/dL (31.8-35.4); Mean Corpuscular Hemoglobin 31.8 pg (27.0-31.2); Mean Corpuscular Volume 99.2 fl (80-94); Mean Platelet Volume 8.1 fl (7.4-10.4); Monocytes # 0.6 K/mm3 (0.1-1.0); Monocytes % 4.7 % (1.7-9.3); Neutrophils # 10.7 K/mm3 (1.8-7.8); Platelet Count 227 K/mm3 (142-424); Red Cell Distribution Width 14.4 % (11.5-17.5); White Blood Count 12.2 K/mm3 (4.8-10.8)
[2023-09-24] MEDS: RINGERS SOLUTION,LACTATED 500 ML 999 ML IV (15:25)
[2023-09-24] MEDS: METHYLPREDNISOLONE SOD SUCC 125MG VIAL 125 MG IV (15:25)
[2023-09-24 15:27] LABS: MANUAL DIFFERENTIAL MANUAL DIFFERENTIAL (MANUAL DIFF)
[2023-09-24 15:28] LABS: VBG Base Excess -1.4 mmol/L (-2.4-2.3); VBG HCO3 24.9 mmol/L (23-30); VBG Oxygen Saturation 50.5 % (50-70); VBG PCO2 50.3 mmol/L (35-51); VBG PH 7.31 mmol/L (7.31-7.41); VBG PO2 37.9 mmol/L (28-40); VBG Total CO2 26.4 mmol/L (23-27)
[2023-09-24 15:30] LABS: Lactate Venous 3.8 mmol/L (0.4-2.0)
[2023-09-24] MEDS: CEFTRIAXONE SODIUM 2 GM in 0.9 % SODIUM CHLORIDE 100 ML IV (15:30)
[2023-09-24 15:33] LABS: Chloride 99 mmol/L (98-107); Potassium 3.5 mmoL/L (3.5-5.1); Sodium 138 mmol/L (136-145)
[2023-09-24 15:36] LABS: Alanine Aminotransferase 27 U/L (12-78); Albumin Level 4.3 g/dl (3.5-5.0); Albumin/Globulin Ratio 1.4 (1.1-1.8); Alkaline Phosphatase 67 U/L (38-126); Anion Gap 15.5 mEq/L (5-15); Aspartate Amino Transferase 29 U/L (17-59); Bilirubin,Total 1.4 mg/dl (0.2-1.3); Blood Urea Nitrogen 28 mg/dl (9-20); Calcium 9.7 mg/dl (8.4-10.2); Carbon Dioxide 27 mmol/L (22.0-30.0); Creatinine Clearance Estimated 41 mL/min (50-200); Estimated Glomerular Filt Rate 53 ml/min (>60); GFR (African American) 64 ML/MIN (>60); Globulin 3.1 g/dL (1.3-3.2); Glucose 99 mg/dl (74-100); Total Protein,Serum 7.4 g/dl (6.3-8.2)
[2023-09-24 15:39] LABS: Activated Partial Thrombo Time 38.6 seconds (22.8-30.6); INR 2.37 (0.9-1.1); Prothrombin Time 24.2 seconds (10.1-12.5)
[2023-09-24 15:45] LABS: Lactic Acid 4.1 mmol/L (0.7-2.1)
--- NOTE | 2023-09-24 15:45 | PC.NURSE ---
lactic 4.[address] Goode.
[2023-09-24 15:46] LABS: NT Pro Brain Natriuretic Pep. 4650 pg/mL (0-450)
--- NOTE | 2023-09-24 15:51 | ECG_ITS ---
APPROVED REPORT Exam: Resting ECG HR:77 bpm ECG Measurements Heart Rate 77 AXES QRSd 103 QRS 2 QT 372 T 29 QTc 404 Conclusion ATRIAL FIBRILLATION INCOMPLETE RIGHT BUNDLE BRANCH BLOCK Electronically signed by : NADINE MASCORRO, 09/24/2023 22:42:50
[2023-09-24 16:03] LABS: Troponin I < 0.01 ng/ml (0.00-0.034)
[2023-09-24 16:50] LABS: Eosinophils % 1 % (0-3); Lymphocytes % 8 % (10-50); Monocytes % 3 % (2-9); Neutrophils % 88 % (42-76); Platelet Estimate Normal; RBC Morphology Normal; Total Cells Counted 100
--- NOTE | 2023-09-24 17:28 | PC.NURSE ---
INFORMED PATIENT THAT WE NEEDED A URINE SAMPLE. PATIENT REQUESTED WATER; DR. MASCORRO STATED OK TO GIVE WATER. PATIENT SITTING UP IN BED DRINKING WATER AND CALL TRAN GIVEN TO PATIENT AND HE WAS INSTRUCTED TO CALL OUT WHEN HE IS READY TO VOID. PATIENT VERBALIZED UNDERSTANDING.
[2023-09-24] MEDS: VANCOMYCIN CONSULT REQUEST 1 EACH NOTAPPLIC (17:35)
--- NOTE | 2023-09-24 17:36 | PC.NURSE ---
SPOKE WITH DANITA, AFTER HOURS PHARMACIST TO VERIFY VANCOMYCIN. DOSE ORDERED VERIFIED AT THIS TIME.
[2023-09-24] MEDS: VANCOMYCIN/WATER FOR INJ (PEG) 1.25 GM/250 ML PIGGYBACK IV (17:40)
--- NOTE | 2023-09-24 17:45 | PC.NURSE ---
DR. MASCORRO AT [facility] TO DISCUSS PLAN OF CARE AND PROBABLE ADMISSION.
--- NOTE | 2023-09-24 17:54 | PC.NURSE ---
PATIENT VOIDED 450ML DARK YELLOW URINE. URINE SAMPLE SENT. PATIENT PLACED IN A GOWN, RECTAL TEMP: 97.4. DAUGHTER UPDATED ON PLAN OF CARE.
[2023-09-24 17:59] LABS: Microscopic, Urine URINE MICROSCOPIC (MICROSCOPIC)
--- NOTE | 2023-09-24 18:01 | PC.NURSE ---
report called to SANDOVAL [email or web address]
[2023-09-24 18:06] LABS: Appearance,Urine CLEAR (Clear); Bilirubin,Urine Negative (Negative); Blood, Urine Negative (Negative); Color,Urine YELLOW (Yellow); Glucose,Urine (UA) Negative (Negative); Ketones,Urine Negative (Negative); Leukocyte Esterase,Urine Negative (Negative); Nitrate,Urine Negative (Negative); Protein,Urine Negative (Negative)
--- NOTE | 2023-09-24 18:31 | EXP.HP ---
History of Present Illness *Reason for visit:: hypotanesion *History of present illness: Patient is a 82-year-old male with past medical history of hypertension hyperlipidemia CHF atrial fibrillation on Coumadin AAA repair, who presents to the hospital due to low blood pressure. Patient otherwise denied chest pain shortness of breath nausea vomiting diarrhea constipation dysuria fevers and chills. [facility] Disclaimer: The information contained in this section may have been updated after the patient was seen, as this information can be updated by other users. Medical History (Updated 09/17/23 @ 00:00 by Pedro Pradhan) Aneurysm Urinary retention Hypertension Hypothyroidism Parkinson disease Atrial fibrillation Surgical History S/P AAA repair Family History Mother Family history of hyperlipidemia Family history of hypertension Social History (Updated 09/12/23 @ 20:55 by Didi David RN) Smoking Status: Never smoker alcohol intake: never current occupational status: retired Travel in the last 8 weeks: None household members: spouse caffeine: Yes Review of Systems Review of Systems Review of systems:: pertinent systems reviewed and negative unless documented below Meds Home Medications and Allergies Home Medications Medication Instructions Recorded Confirmed Type atropine 1 % eye drops 1 drp Eye-Right DAILY 09/12/23 09/12/23 History ezetimibe 10 mg tablet 10 mg PO DAILY 09/12/23 09/12/23 History furosemide 20 mg tablet 20 mg PO DAILY 09/12/23 09/12/23 History hydrochlorothiazide 25 mg tablet 25 mg PO DAILY 09/12/23 09/12/23 History levothyroxine 137 mcg tablet 137 mcg PO AM 09/12/23 09/12/23 History metoprolol succinate 100 mg 100 mg PO BID 09/12/23 09/12/23 History tablet,extended release 24 hr omeprazole 40 mg capsule,delayed 40 mg PO DAILY 09/12/23 09/13/23 History release prednisolone acetate 1 % eye 1 drp Eye-Right DAILY 09/12/23 09/12/23 History drops,suspension ropinirole 0.25 mg tablet 0.5 mg PO HS 09/12/23 09/12/23 History tamsulosin 0.4 mg capsule 0.4 mg PO HS 09/12/23 09/12/23 History valsartan 160 mg tablet 160 mg PO DAILY 09/12/23 09/12/23 History warfarin 4 mg tablet 2 mg PO MOFR 09/12/23 09/13/23 History warfarin 4 mg tablet 4 mg PO SUTUWETHSA 09/12/23 09/13/23 History New Prescriptions to Start Prescriptions: Allergies Allergy/AdvReac Type Severity Reaction Status Date / Time Iodinated Contrast Media Allergy Mild Verified 05/09/22 23:15 Penicillins Allergy Unknown Verified 05/09/22 22:47 Exam Data for Last 24 hours Vital signs and Labs for Last 24 Hours: Temp Pulse Resp BP Pulse Ox O2 Del Method 97.4 F L 107 H 20 118/95 H 93 L Room Air 09/24/23 18:17 09/24/23 18:17 09/24/23 18:17 09/24/23 18:17 09/24/23 18:00 09/24/23 18:17 Laboratory Results - last 24 hr 09/24/23 15:15: WBC 12.2 H, RBC 4.20 L, Hgb 13.4 L, Hct 41.7 L, MCV 99.2 H, MCH 31.8 H, MCHC 32.1, RDW 14.4, Plt Count 227, MPV 8.1, Neut % (Auto) 88.0 H, Lymph % (Auto) 6.3 L, [place] % (Auto) 4.7, Eos % (Auto) 0.3, Baso % (Auto) 0.6, Neut # (Auto) 10.7 H, Lymph # (Auto) 0.8, [place] # (Auto) 0.6, Eos # (Auto) 0.0, Baso # (Auto) 0.1, Total Counted 100, Neutrophils % (Manual) 88 H, Lymphocytes % (Manual) 8 L, Monocytes % (Manual) 3, Eosinophils % (Manual) 1, Platelet Estimate Normal, RBC Morphology Normal, PT 24.2 H, INR 2.37 H, APTT 38.6 H, VBG pH 7.31, VBG pCO2 50.3, VBG pO2 37.9, VBG HCO3 24.9, VBG Total CO2 26.4, VBG O2 Saturation 50.5, VBG Base Excess -1.4, VBG Lactic Acid 3.8 H, Sodium 138, Potassium 3.5, Chloride 99, Carbon Dioxide 27, Anion Gap 15.5 H, BUN 28 H, Creatinine 1.30 H, Estimated Creat Clear 41, Estimated GFR 53 L, Est GFR ( Amer) 64, Glucose 99, Lactate 4.1 H, Calcium 9.7, Total Bilirubin 1.4 H, AST 29, ALT 27, Alkaline Phosphatase 67, Troponin I < 0.01, NT-Pro-B Natriuret Pep 4650 H, Total Protein 7.4, Albumin 4.3, Globulin 3.1, Albumin/Globulin Ratio 1.4 09/24/23 17:52: Urine Color Yellow, Urine Appearance Clear, Urine pH 6.0, Ur Specific [place] 1.010, Urine Protein Negative, Urine Glucose (UA) Negative, Urine Ketones Negative, Urine Blood Negative, Urine Nitrate Negative, Urine Bilirubin Negative, Urine Urobilinogen 2.0, Ur Leukocyte Esterase Negative, Urine RBC None, Urine WBC None, Ur Squamous Epith Cells None, Urine Bacteria None I & O for Last 24 hours: Intake & Output 09/21/23 09/22/23 09/23/23 09/24/23 23:59 23:59 23:59 23:59 Weight 68.039 kg Constitutional Constitutional: no acute distress *Routine HEENT Exam Head: Present normocephalic Eye: Present EOMI and PERRL ENT: Present mucous membranes moist *Routine Neck Exam Neck: Present supple; Absent lymphadenopathy *Routine Respiratory Exam Respiratory: Present CTA bilaterally *Routine Cardiovascular Exam Cardiovascular: Present irregularly irregular *Routine Abdominal Exam Abdominal: Present soft and normoactive bowel sounds; Absent tenderness *Routine Rectal Exam Rectal:: deferred *Routine Genitalia Exam Genitalia:: deferred *Routine Extremities Exam Extremities: Absent cyanosis, clubbing or edema *Routine Skin Exam Skin: Present warm; Absent rash *Routine Neurological Exam Neurological: Present alert and oriented X3 Assessment and Plan *Assessment and plan (1) Hypomagnesemia: Status: Acute Category: Medical Code(s): E83.42 - Hypomagnesemia (2) Adult failure to thrive: Status: Acute Category: Medical Code(s): R62.7 - Adult failure to thrive (3) Hypothyroidism: Status: Acute Qualifiers: Hypothyroidism type: unspecified Qualified Code(s): E03.9 - Hypothyroidism, unspecified Category: Medical Code(s): E03.9 - Hypothyroidism, unspecified (4) Hypertension: Status: Acute Qualifiers: Hypertension type: essential hypertension Qualified Code(s): I10 - Essential (primary) hypertension Category: Medical Code(s): I10 - Essential (primary) hypertension (5) Parkinson disease: Status: Acute Qualifiers: Dyskinesia presence: unspecified whether dyskinesia Fluctuating manifestations: unspecified whether manifestations fluctuate Qualified Code(s): G20.A1 - Parkinson's disease without dyskinesia, without mention of fluctuations Category: Medical Code(s): G20 - Parkinson's disease Plan Patient is a 82-year-old male with past medical history of hypertension hyperlipidemia CHF atrial fibrillation on Coumadin AAA repair, who presents to the hospital due to low blood pressure. Patient otherwise denied chest pain shortness of breath nausea vomiting diarrhea constipation dysuria fevers and chills. Assessment and plan Hypotension, lactic acidosis, leukocytosis-concern for severe sepsis Start IV fluids Monitor on cardiac telemetry Start vancomycin, levofloxacin Chest x-ray performed-negative for consolidation UA not suggestive of UTI Check blood cultures Acute kidney injury likely prerenal Continue IV fluids Close monitor creatinine Hold off of nephrotoxic medications History of atrial fibrillation on Coumadin -Continue home Coumadin dosing by pharmacy Check INR
[2023-09-24 18:45] LABS: Troponin I < 0.01 ng/ml (0.00-0.034)
[2023-09-24 19:31] LABS: Reflex Lactic Add Lactic Reflex
--- NOTE | 2023-09-24 19:39 | PC.NURSE ---
Wen/Kimmy pharmacist contacted re coumadin. Patient took Coumadin this AM and labs are ok. No new orders for now.
[2023-09-24] MEDS: 0.9 % SODIUM CHLORIDE 1000ML 1,000 ML 75 ML IV (20:04)
[2023-09-24] MEDS: LEVOFLOXACIN/D5W 500 MG/100 ML PIGGYBACK 100 MG IV (20:07)
[2023-09-24] MEDS: METOPROLOL SUCCINATE XL 100MG TABLET 100 MG PO (20:09)
[2023-09-24] MEDS: PANTOPRAZOLE 40MG TABLET 40 MG PO (20:10)
[2023-09-24 20:13] LABS: Lactic Acid Follow Up (RFLX 1) 1.1 mmol/L (0.7-2.1)
[2023-09-24 22:00] LABS: Troponin I < 0.01 ng/ml (0.00-0.034)
[2023-09-25] VITALS (7 sets, daily range): BP systolic 91–126; BP diastolic 61–82; PULSE 81–125; RESP 16–21; TEMP 35.7–36.9; O2SAT 90–93; BMI 25.4
--- NOTE | 2023-09-25 05:16 | PC.NURSE ---
PATIENT IS BLIND. ORIENTED TO PERSON/PLACE. PLEASANT AND COOPERATIVE. VOIDS PER URINAL. AFIB NOTED ON TELE. DENIES PAIN OR DISCOMFORT. 90-93% 02 SAT ON ROOM AIR. NO RESP DISTRESS NOTED.
[2023-09-25 06:49] LABS: Anion Gap 14.6 mEq/L (5-15); Blood Urea Nitrogen 24 mg/dl (9-20); Calcium 9.4 mg/dl (8.4-10.2); Carbon Dioxide 28 mmol/L (22.0-30.0); Chloride 100 mmol/L (98-107); Creatinine Clearance Estimated 53 mL/min (50-200); Estimated Glomerular Filt Rate 108 ml/min (>60); GFR (African American) 130 ML/MIN (>60); Glucose 129 mg/dl (74-100); Potassium 3.6 mmoL/L (3.5-5.1); Sodium 139 mmol/L (136-145)
[2023-09-25 06:57] LABS: Basophils % 0.1 % (0.1-2.0); Eosinophils % 0.1 % (0.1-12.0); Hematocrit 41.5 % (42.0-52.0); Hemoglobin 13.3 g/dL (14.1-18.0); Lymphocytes # 0.4 K/mm3 (0.7-4.5); Mean Corpuscular HGB Conc 32.1 g/dL (31.8-35.4); Mean Corpuscular Hemoglobin 32.3 pg (27.0-31.2); Mean Corpuscular Volume 100.6 fl (80-94); Mean Platelet Volume 8.3 fl (7.4-10.4); Monocytes # 0.2 K/mm3 (0.1-1.0); Monocytes % 2.4 % (1.7-9.3); Neutrophils # 6.4 K/mm3 (1.8-7.8); Neutrophils % 91.4 % (37.0-80.0); Platelet Count 191 K/mm3 (142-424); Red Blood Count 4.12 M/mm3 (4.60-6.20); Red Cell Distribution Width 14.2 % (11.5-17.5)
[2023-09-25 07:00] LABS: MANUAL DIFFERENTIAL MANUAL DIFFERENTIAL (MANUAL DIFF)
--- NOTE | 2023-09-25 08:10 | EXP.PHA.CONS ---
Pharmacy Consult Date: 09/25/23 Time: 08:12 Referring provider: DR CM Reason for Consult:: VANCOMYCIN DOSING CONSULT Allergies Allergy/AdvReac Type Severity Reaction Status Date / Time Iodinated Contrast Media Allergy Mild Verified 05/09/22 23:15 Penicillins Allergy Unknown Verified 05/09/22 22:47 Home Medications Medication Instructions Recorded Confirmed Type atropine 1 % eye drops 1 drp Eye-Right DAILY 09/12/23 09/24/23 History ezetimibe 10 mg tablet 10 mg PO DAILY 09/12/23 09/24/23 History furosemide 20 mg tablet 20 mg PO DAILY 09/12/23 09/24/23 History levothyroxine 137 mcg tablet 137 mcg PO AM 09/12/23 09/24/23 History metoprolol succinate 100 mg 100 mg PO BID 09/12/23 09/24/23 History tablet,extended release 24 hr omeprazole 40 mg capsule,delayed 40 mg PO DAILY 09/12/23 09/24/23 History release prednisolone acetate 1 % eye 1 drp Eye-Right DAILY 09/12/23 09/24/23 History drops,suspension ropinirole 0.25 mg tablet 0.5 mg PO HS 09/12/23 09/24/23 History tamsulosin 0.4 mg capsule 0.4 mg PO HS 09/12/23 09/24/23 History valsartan 160 mg tablet 160 mg PO DAILY 09/12/23 09/24/23 History warfarin 4 mg tablet 2 mg PO MOFR 09/12/23 09/24/23 History warfarin 4 mg tablet 4 mg PO SUTUWETHSA 09/12/23 09/24/23 History nystatin 100,000 unit/mL oral 5 ml PO Q6 09/24/23 09/24/23 History suspension potassium chloride 20 mEq 20 meq PO BID 09/24/23 09/24/23 History tablet,extended release(part/cryst) New Prescriptions to Start Prescriptions: Height: 1.63 m Weight: 67.449 kg Laboratory Results:: Laboratory Results - last 24 hr 09/24/23 15:15: WBC 12.2 H, RBC 4.20 L, Hgb 13.4 L, Hct 41.7 L, MCV 99.2 H, MCH 31.8 H, MCHC 32.1, RDW 14.4, Plt Count 227, MPV 8.1, Neut % (Auto) 88.0 H, Lymph % (Auto) 6.3 L, [place] % (Auto) 4.7, Eos % (Auto) 0.3, Baso % (Auto) 0.6, Neut # (Auto) 10.7 H, Lymph # (Auto) 0.8, [place] # (Auto) 0.6, Eos # (Auto) 0.0, Baso # (Auto) 0.1, Total Counted 100, Neutrophils % (Manual) 88 H, Lymphocytes % (Manual) 8 L, Monocytes % (Manual) 3, Eosinophils % (Manual) 1, Platelet Estimate Normal, RBC Morphology Normal, PT 24.2 H, INR 2.37 H, APTT 38.6 H, VBG pH 7.31, VBG pCO2 50.3, VBG pO2 37.9, VBG HCO3 24.9, VBG Total CO2 26.4, VBG O2 Saturation 50.5, VBG Base Excess -1.4, VBG Lactic Acid 3.8 H, Sodium 138, Potassium 3.5, Chloride 99, Carbon Dioxide 27, Anion Gap 15.5 H, BUN 28 H, Creatinine 1.30 H, Estimated Creat Clear 41, Estimated GFR 53 L, Est GFR ( Amer) 64, Glucose 99, Lactate 4.1 H, Calcium 9.7, Total Bilirubin 1.4 H, AST 29, ALT 27, Alkaline Phosphatase 67, Troponin I < 0.01, NT-Pro-B Natriuret Pep 4650 H, Total Protein 7.4, Albumin 4.3, Globulin 3.1, Albumin/Globulin Ratio 1.4 09/24/23 17:52: Urine Color Yellow, Urine Appearance Clear, Urine pH 6.0, Ur Specific [place] 1.010, Urine Protein Negative, Urine Glucose (UA) Negative, Urine Ketones Negative, Urine Blood Negative, Urine Nitrate Negative, Urine Bilirubin Negative, Urine Urobilinogen 2.0, Ur Leukocyte Esterase Negative, Urine RBC None, Urine WBC None, Ur Squamous Epith Cells None, Urine Bacteria None 09/24/23 18:15: Troponin I < 0.01 09/24/23 19:40: Lactate 1.1 09/24/23 21:16: Troponin I < 0.01 09/25/23 05:39: WBC 7.0 D, RBC 4.12 L, Hgb 13.3 L, Hct 41.5 L, MCV 100.6 H, MCH 32.3 H, MCHC 32.1, RDW 14.2, Plt Count 191, MPV 8.3, Neut % (Auto) 91.4 H, Lymph % (Auto) 6.0 L, [place] % (Auto) 2.4, Eos % (Auto) 0.1, Baso % (Auto) 0.1, Neut # (Auto) 6.4, Lymph # (Auto) 0.4 L, [place] # (Auto) 0.2, Eos # (Auto) 0.0, Baso # (Auto) 0.0, Sodium 139, Potassium 3.6, Chloride 100, Carbon Dioxide 28, Anion Gap 14.6, BUN 24 H, Creatinine 0.70 D, Estimated Creat Clear 53, Estimated GFR 108, Est GFR ( Amer) 130 D, Glucose 129 H D, Calcium 9.4 Medical History: Medical History (Updated 09/24/23 @ 19:21 by Brett Goode MD) Aneurysm Urinary retention Hypertension Hypothyroidism Parkinson disease Atrial fibrillation Assessment and Plan Assessment and plan all Dx Assessment and Plan for all problems:: Pharmacokinetic dosing service Objective: Age: 82 yo Serum creatinine: 1 mg/dL Height: 64.2 Inches Weight (kg): 67.449 Diagnosis: sepsis, pneumonia Assessment: IBW (kg): 59.66 Dosing wt(kg): 67.449 Estimated Creatinine clearance (ml/min): 47.2 CRCL method: Cockcroft and Gault using ibw(default). Drug selected: Vancomycin Vd (liters): 50.6 (factor used: 0.75 L/kg) Phong (hr-1): 0.044 Half life (hrs): 15.75 CLvanco=?? 2.226 L/hr Recommended dose: 1250 mg Interval: 24 hrs Infusion time (hrs): 2.0 Predicted peak (mcg/mL): 36.3 Predicted trough (mcg/mL): 13.79 Total body weight is being used for vancomycin dosing. Recommendations: Give Vancomycin 1250 mg q 24 hrs with an expected Cpeak of 36.3 mcg/ml and an expected Ctrough of 13.79 mcg/ml AUC 0-24 /MELVA Data: MELVA 0.5 mcg/mL:?? AUC/MELVA:? 1123.1 MELVA 1.0 mcg/mL:?? AUC/MELVA:? 561.5 --------- MELVA 1.5 mcg/mL:?? AUC/MELVA:? 374.4 MELVA 2.0 mcg/mL:?? AUC/MELVA:? 280.8 Thank you for the consult
[2023-09-25 08:28] LABS: Lymphocytes % 8 % (10-50); Macrocytosis 1+; Monocytes % 3 % (2-9); Neutrophils % 89 % (42-76); Platelet Estimate Normal; Total Cells Counted 100
[2023-09-25] MEDS: METOPROLOL SUCCINATE XL 100MG TABLET 100 MG PO ×2 (08:31→20:55)
[2023-09-25] MEDS: LEVOTHYROXINE 137MCG (0.137MG) TAB 137 MCG PO (08:32)
[2023-09-25] MEDS: EZETIMIBE 10MG TABLET 10 MG PO (08:32)
--- NOTE | 2023-09-25 09:03 | HMH.OTEV ---
OT Inpatient Evaluation Rehab OT IP Evaluation Start: 09/25/23 07:39 Freq: ONCE Status: Active Protocol: Document 09/25/23 08:52 RMARSHALL (Rec: 09/25/23 09:03 RMARSHALL Laptop) Rehab OT IP Assessment Subjective History Pt oriented x 3 on arrival. Pt agreeable to engage in therapy evaluation. Pt admitted on 09/24/23 due to PNA and sepsis. History and Physical report: Patient is a 82-year-old male with past medical history of hypertension hyperlipidemia CHF atrial fibrillation on Coumadin AAA repair, who presents to the hospital due to low blood pressure. Patient otherwise denied chest pain shortness of breath nausea vomiting diarrhea constipation dysuria fevers and chills. Subjective I live with my , but my daughter helps. Pt resting in chair on arrival . Pt agreeable to engage in therapy evaluation. Prior to being in the hospital, pt was living at home with his , but his daughter has been staying with them. His had a stroke and requires assistance as well. Family reports that pt requires assistance with all ADLS and he is dependent upon family for IADLs. He is able to transfer short distances with assistance and rolling walker. Objective Patient Orientation Person,Place,Birthday Right Upper Extremity Gross ROM Min Limitation <25% Left Upper Extremity Gross ROM Min Limitation <25% Shoulder ROM Limitations Muscle Weakness Elbow ROM Limitations Muscle Weakness Wrist Limitations of Range of Motion Muscle Weakness Transfer Training Sit/Stand Transfer Assist Level Moderate x 1 (50% assist) Chair Transfer Ability Moderate x 1 (50% assist) Chair Transfer Technique Stand Pivot Rehab OT IP prob,goals,plan Problems Date of Evaluation: 09/25/23 OT IP Problems Bed Mobility,Transfers,Balance ,Self care,Safety Rehab Potential Rehab Potential Good Equipment Needs Assistive Devices Rolling / Wheeled Walker Plan OT intervention Plan Bed Mobility,Transfers,Balance ,Self care,Safety,Therapeutic Exercise OT Plan Frequency Daily Duration LOS Discharge Goals Bed Mobility Ability Assistance x1 Sit to Stand Chair Transfer Ability Minimal x 1 (25% assist) Chair Transfer Ability Minimal x 1 (25% assist) Chair Transfer Technique Stand Step Pivot Chair Transfer Assistive Devices Rolling Walker Lower Body Dressing Ability Minimal Assistance Upper Body Dressing Ability Contact Guard Bathing Ability Moderate Assistance Performing Toilet Hygiene Ability Moderate Assistance Overall Commode/Toilet Transfer Ability Minimal Assistance Commode/Toilet Transfer Technique Stand Step Pivot Commode/Toilet Transfer Assistive Grab Bars Devices Oral Care Assist Contact Guard Decrease in Endurance Yes Discharge Plan OT Discharge Plan Pt will continue to be seen for OT services while at [facility]. Pt would benefit most from short term rehab at SNF following hospital stay. Continued skilled therapy is important in order for patient to improve strength, safety, endurance, ADL independence, and functional transfers to reach PLOF. Eval Complexity Eval Charge Codes 76931 - Moderate Complexity PHYSICIAN CERTIFICATION: I certify the specified therapy services for Sreekanth Walker SR are required, authorized, and reviewed every 30 days.
[2023-09-25] MEDS: 0.9 % SODIUM CHLORIDE 1000ML 1,000 ML 75 ML IV (09:45)
--- NOTE | 2023-09-25 09:50 | HMH.PHAINT1 ---
Pharmacy Intervention Comments: MEDICATION RECONCILIATION COMPLETED ON PATIENT USING EXTERNAL FILL HISTORY FROM PHARMACY. -FABIO BAXTER, SARAHD
--- NOTE | 2023-09-25 09:57 | HMH.PTEV ---
Physical Therapy Evaluation Rehab PT IP Evaluation Start: 09/25/23 07:39 Freq: ONCE Status: Active Protocol: Document 09/25/23 09:50 OMEGA (Rec: 09/25/23 09:57 OMEGA [id number]) Subjective/History History History Per H&P: Patient is a 82-year-old male with past medical history of hypertension hyperlipidemia CHF atrial fibrillation on Coumadin AAA repair, who presents to the hospital due to low blood pressure. Patient otherwise denied chest pain shortness of breath nausea vomiting diarrhea constipation dysuria fevers and chills. Subjective Subjective Pt living at home with his , but his daughter has been staying with them. His had a stroke and requires assistance as well. Pt requires assistance with all ADLS and he is dependent upon family for IADLs. He is able to transfer short distances with assistance and rolling walker. New diagnosis of cancer in past 12 No months? Rehab PT IP Eval Objective Appearance Patient Behavior Appropriate Patient Orientation Person Difficulty following instructions none Speech Pattern Clear Ambulation Patient Able to Ambulate No Balance Ability to Arise Able, uses arms to help Sitting Balance Steady, safe Standing Balance Unsteady Transfers Chair Transfer Ability Moderate x 1 (50% assist) Sit to Stand Chair Transfer Ability Moderate x 1 (50% assist) Rehab PT IP prob,goals,plan Problems Date of Evaluation: 09/25/23 PT IP Problems Bed Mobility,Transfers,Gait, Balance,Self care,Safety Rehab Potential Rehab Potential Good Equipment Needs Assistive Devices Rolling / Wheeled Walker, Wheelchair Plan PT Intervention Plan Bed Mobility,Transfers,Gait, Balance,Self care,Safety, Therapeutic Exercise Other Intervention Plan 1-2 times PT Plan Frequency Daily Duration LOS Discharge Goals Bed Transfer Ability Minimal x 1 (25% assist) Sit to Stand Chair Transfer Ability Minimal x 1 (25% assist) Discharge Plan PT Discharge Plan Initial physical therapy evaluation performed. Patient presents below baseline at this time in functional mobility, transfers, and strength. Pt not safe to return home at this time d/t current level of functional mobility and increased need for assistance. PT recommending short-term rehabilitation stay upon d/c from [facility]. Pt would benefit from skilled PT while at [facility] to prevent further functional decline and maximize safety with mobility. Eval Complexity Eval Charge Codes 49340 - Moderate Complexity PHYSICIAN CERTIFICATION: I certify the specified therapy services for Sreekanth Rick Lively SR are required, authorized, and reviewed every 30 days.
[2023-09-25] MEDS: WARFARIN 2MG TABLET 4 MG PO (12:20)
--- NOTE | 2023-09-25 13:30 | SW/DCPLANNER ---
Addendum entered by Abigail Montiel 09/26/23 11:35: The plan for this patient is to discharge home w/ home health services. Patient information/order will be faxed to [facility]. Patient is not interested in Hospice at this time due to patient is wanting to continue w/ radiation for cancer. Patient is not interested in private pay at a rehab facility at this time. Addendum entered by Abigail Montiel 09/25/23 15:31: Cassy GOEL is at bedside to evaluate patient and speak w/ family. Original Note: I spoke w/ patient and his family regarding plans once medically stable for discharge. PT/OT evaluated patient and recommended SNF level of care. I did discuss w/ patient and family that due to OBS status patient would require private pay. Patient/family are not interested in private pay at this time. Patient is currently established w/ [facility]. Patient's daughter expressed an interest in Hospice services. has ordered a Hospice Consult. Patient information has been faxed to [facility]. I will follow up myriam Madera once information is reviewed. Patient is planned to be ready for discharge tomorrow pending no setbacks.
[2023-09-25] MEDS: SODIUM CHLORIDE 3% 15ML NEB 3 ML IH (14:17)
--- NOTE | 2023-09-25 15:51 | EXP.PN ---
Subjective *Date: 09/25/23 *Time: 15:51 Interval history: patient is seen at bedside, del KNIGHT, SOB, N/V, he is feeling better than yesterday Exam Data for Last 24 hours Vital signs and Labs for Last 24 Hours: Temp Pulse Resp BP Pulse Ox O2 Del Method 98.4 F 82 18 117/69 91 L Room Air 09/25/23 11:42 09/25/23 14:21 09/25/23 14:21 09/25/23 11:42 09/25/23 11:42 09/25/23 13:00 Laboratory Results - last 24 hr 09/24/23 15:15: Total Counted 100, Neutrophils % (Manual) 88 H, Lymphocytes % (Manual) 8 L, Monocytes % (Manual) 3, Eosinophils % (Manual) 1, Platelet Estimate Normal, RBC Morphology Normal, Troponin I < 0.01, NT-Pro-B Natriuret Pep 4650 H 09/24/23 17:52: Urine Color Yellow, Urine Appearance Clear, Urine pH 6.0, Ur Specific [place] 1.010, Urine Protein Negative, Urine Glucose (UA) Negative, Urine Ketones Negative, Urine Blood Negative, Urine Nitrate Negative, Urine Bilirubin Negative, Urine Urobilinogen 2.0, Ur Leukocyte Esterase Negative, Urine RBC None, Urine WBC None, Ur Squamous Epith Cells None, Urine Bacteria None 09/24/23 18:15: Troponin I < 0.01 09/24/23 19:40: Lactate 1.1 09/24/23 21:16: Troponin I < 0.01 09/25/23 05:39: WBC 7.0 D, RBC 4.12 L, Hgb 13.3 L, Hct 41.5 L, MCV 100.6 H, MCH 32.3 H, MCHC 32.1, RDW 14.2, Plt Count 191, MPV 8.3, Neut % (Auto) 91.4 H, Lymph % (Auto) 6.0 L, [place] % (Auto) 2.4, Eos % (Auto) 0.1, Baso % (Auto) 0.1, Neut # (Auto) 6.4, Lymph # (Auto) 0.4 L, [place] # (Auto) 0.2, Eos # (Auto) 0.0, Baso # (Auto) 0.0, Total Counted 100, Neutrophils % (Manual) 89 H, Lymphocytes % (Manual) 8 L, Monocytes % (Manual) 3, Platelet Estimate Normal, Macrocytosis 1+, Sodium 139, Potassium 3.6, Chloride 100, Carbon Dioxide 28, Anion Gap 14.6, BUN 24 H, Creatinine 0.70 D, Estimated Creat Clear 53, Estimated GFR 108, Est GFR ( Amer) 130 D, Glucose 129 H D, Calcium 9.4 I & O for Last 24 hours: Intake & Output 09/22/23 09/23/23 09/24/23 09/25/23 23:59 23:59 23:59 23:59 Intake Total 0 / 623 1295 / 1295 Output Total 226 / 826 1450 / 1450 Balance -226 / -203 -155 / -155 Weight 66.31 kg 67.449 kg Constitutional Constitutional: no acute distress *Routine HEENT Exam Head: Present normocephalic Eye: Present EOMI and PERRL ENT: Present mucous membranes moist *Routine Neck Exam Neck: Present supple; Absent lymphadenopathy *Routine Respiratory Exam Respiratory: Present CTA bilaterally *Routine Cardiovascular Exam Cardiovascular: Present RRR *Routine Abdominal Exam Abdominal: Present soft and normoactive bowel sounds; Absent tenderness *Routine Extremities Exam Extremities: Absent cyanosis, clubbing or edema *Routine Skin Exam Skin: Present warm; Absent rash *Routine Neurological Exam Neurological: Present alert and oriented X3 Comments: he has generalized tremors Routine Psychiatric Exam Psychiatric: Present normal thought process Assessment and Plan *Assessment and plan (1) Hypomagnesemia: Status: Acute Category: Medical Code(s): E83.42 - Hypomagnesemia (2) Adult failure to thrive: Status: Acute Category: Medical Code(s): R62.7 - Adult failure to thrive (3) Hypothyroidism: Status: Acute Qualifiers: Hypothyroidism type: unspecified Qualified Code(s): E03.9 - Hypothyroidism, unspecified Category: Medical Code(s): E03.9 - Hypothyroidism, unspecified (4) Hypertension: Status: Acute Qualifiers: Hypertension type: essential hypertension Qualified Code(s): I10 - Essential (primary) hypertension Category: Medical Code(s): I10 - Essential (primary) hypertension (5) Parkinson disease: Status: Acute Qualifiers: Dyskinesia presence: unspecified whether dyskinesia Fluctuating manifestations: unspecified whether manifestations fluctuate Qualified Code(s): G20.A1 - Parkinson's disease without dyskinesia, without mention of fluctuations Category: Medical Code(s): G20 - Parkinson's disease Plan Patient is a 82-year-old male with past medical history of hypertension hyperlipidemia CHF atrial fibrillation on Coumadin AAA repair, who presents to the hospital due to low blood pressure. Patient otherwise denied chest pain shortness of breath nausea vomiting diarrhea constipation dysuria fevers and chills. Assessment and plan Hypotension, lactic acidosis, leukocytosis-concern for severe sepsis continue IV fluids Monitor on cardiac telemetry continue levofloxacin Chest x-ray performed- negative for consolidation UA not suggestive of UTI Check blood cultures, f/u on results Acute kidney injury likely prerenal Continue IV fluids Close monitor creatinine Hold off of nephrotoxic medications History of atrial fibrillation on Coumadin -Continue home Coumadin dosing by pharmacy -Check INR continue IV fluids, continue IV abx
--- NOTE | 2023-09-25 15:53 | HMH.SLDYSPHA ---
Speech & Language Evaluation Speech/Language Dysphagia Evaluation Start: 09/25/23 15:37 Freq: ONCE Status: Active Protocol: Document 09/25/23 15:38 MARIAA (Rec: 09/25/23 15:52 MARIAA Desktop) Dysphagia Assess/Goals/Plan Assessment Date of Evaluation: 09/25/23 Evaluation Type Initial Certification Assessment/Problems dysphagia Does Patient Qualify for Service Yes Qualify/Failure Comment Based on results of clinical bedside swallow evaluation, pt would benefit from instrumental assessment MBSS to further evaluate the oropharyngeal phase of the swallow. Recommendations PHYSICIAN CERTIFICATION: The specified therapy services are required, authorized, and reviewed every 30 days. Diet Recommendations Mechanical Soft Liquid Type Recommendations [place] Consistency SL Swallow Guidelines Alt bite w/sip thru meal,High aspiration risk,Crush meds as allowed*,Eat at slow rate,Oral Care Education Crush Meds Crush all meds,Small pills w/ applesauce,Crush lge pills w/ applesa Dysphagia Swallow Precautions/Strategies Sitting Upright (90 deg), Double Swallow,No Straw,Small Bites and Sips,Alternate Liquids/Solids Plan Pt/Guardian verbally ack understanding Yes of dx/prognosis/goals G -code Required No STG-Other Comment/Non-Specific Complete an instrumental assessment (MBSS) Education Instructions provided Discussed results of CSE, aspiration pna risks and aspiration precautions, safest diet recommendation vs NPO until MBSS, MBSS recommendation, and compensatory strategies with family, nursing, and care management. Pt/Caregiver able to recall information Able to recall/restate,Unable to ind. understand Reinforcement needed No Speech & Language HPI History Present Illness Description of Patient Problem SALES SERVICE COORDINATOR pulled following information from H&P and ER documentation dated 09/25/23, This is an 82-year-old male with history of hypertension, hyperlipidemia, CHF on nightly 2L oxygen, A-fib on warfarin, AAA status postrepair, Parkinson is on ropinirole, chronic blindness, lung cancer currently on targeted radiotherapy presenting with low blood pressure. Family at bedside to provide most history with patient. Patient states he feels well overall. On full review of systems, states only pertinent positives are cough productive of more sputum than he is used to. Does not know if it has been bloody, dark, or different in character. Denies chest pain, shortness of breath, fevers or chills, nausea or vomiting, diarrhea, constipation, abdominal pain, hematuria, dysuria, or any other concerns. Family states that he was just seen by home health today, hydralazine and hydrochlorothiazide discontinued. Given continued hypotension, recommended he come to the emergency department for further evaluation. He is blind and actively receiving radiation on his lungs per family report. CXR reported no concerns for pna. Language Primary Language [place]ian General Information General Current Food Consistancy Regular,Thin Liquids Dentition Good Dentition Patient Orientation Person,Place,Time,Situation Ability to Follow Directions Good Communication Ability No Impairment Dysphagia:Food Presentation Evaluation Food Type Pureed,Mechanical Soft,Liquid, Pudding Normal/Thin Liquid Response Coughing after swallow,Clears throat [place] Consistency Liquid Response Clears throat Dysphagia Evaluation Mechanical Soft Clears throat Food Behavior Response Dysphagia Evaluation Summary Pt was sitting upright in chair with family present at the bedside. He was A&Ox3. reported difficulty with scrambled eggs during breakfast and a choking episode during lunch. SALES SERVICE COORDINATOR began CSE with thin liquids with ice chips and spoonfu of water, no overt s/sxs of aspiration were noted. However , when presented with open cup , pt had an inconsistent throat clear and delayed cough ; with straw he had wet vocal quality and began to cough. SALES SERVICE COORDINATOR then trialed nectar thick liquids and no overt s/sxs of aspiration were observed with open cup sips. Pt c/o globus sensation with straw sip. Pt tolerated pudding and puree trials with no signs of distress or discomfort. Lastly , pt was administered a mechanical soft bolus trial, he was observed to have increased latency time with mastication and began to cough following swallow initiation. SALES SERVICE COORDINATOR then presented a MS ground with pudding bolus and pt did well. No overt s/sxs of aspiration noted. SALES SERVICE COORDINATOR discussed clinical observations made throughout CSE and safest route, as well as safest diet recommendation while not being NPO as MBSS is unable to be completed until tomorrow. Family expressed understanding. MBSS scheduled for 09/26/23 at 1 PM. MS ground with NT liquids are recommended until MBSS is completed. Stroke Dysphagia Assessment PHYSICIAN CERTIFICATION: I certify the specified therapy services for Sreekanth Mariely SR are required, authorized, and reviewed every 30 days.
[2023-09-25] MEDS: VANCOMYCIN/WATER FOR INJ (PEG) 1.25 GM/250 ML PIGGYBACK IV (18:07)
[2023-09-25] MEDS: LEVOFLOXACIN/D5W 750 MG/150 ML 750 MG/150 ML PIGGYBACK 100 MG IV (20:55)
[2023-09-25] MEDS: PANTOPRAZOLE 40MG TABLET 40 MG PO (20:55)
[2023-09-26] VITALS: BP 129/87; PULSE 86; RESP 18; TEMP 36.6; O2SAT 93
[2023-09-26] MEDS: 0.9 % SODIUM CHLORIDE 1000ML 1,000 ML 75 ML IV (01:54)
[2023-09-26 04:00] VITALS: BP 139/97; PULSE 69; RESP 18; TEMP 36.6; O2SAT 91; BMI 25.8
[2023-09-26 06:06] LABS: Basophils % 0.5 % (0.1-2.0); Eosinophils % 0.2 % (0.1-12.0); Hematocrit 40.9 % (42.0-52.0); Hemoglobin 12.9 g/dL (14.1-18.0); Lymphocytes # 0.9 K/mm3 (0.7-4.5); Lymphocytes % 9.9 % (10-50); Mean Corpuscular HGB Conc 31.5 g/dL (31.8-35.4); Mean Corpuscular Volume 101.5 fl (80-94); Mean Platelet Volume 8.6 fl (7.4-10.4); Monocytes # 0.5 K/mm3 (0.1-1.0); Monocytes % 5.9 % (1.7-9.3); Neutrophils # 7.4 K/mm3 (1.8-7.8); Neutrophils % 83.5 % (37.0-80.0); Platelet Count 200 K/mm3 (142-424); Red Blood Count 4.03 M/mm3 (4.60-6.20); Red Cell Distribution Width 14.4 % (11.5-17.5); White Blood Count 8.8 K/mm3 (4.8-10.8)
--- NOTE | 2023-09-26 06:08 | PC.NURSE ---
Pt is alert to self and place. No complaints from patient throughout the night. Pt rested well through night. Remains on room air. Lung sounds diminished. Pt has used urinal and bathroom. Call light in reach.
[2023-09-26 06:10] LABS: INR 2.96 (0.9-1.1); Prothrombin Time 29.8 seconds (10.1-12.5)
[2023-09-26 06:12] LABS: Anion Gap 10.5 mEq/L (5-15); Blood Urea Nitrogen 23 mg/dl (9-20); Calcium 9.3 mg/dl (8.4-10.2); Carbon Dioxide 28 mmol/L (22.0-30.0); Chloride 104 mmol/L (98-107); Creatinine Clearance Estimated 54 mL/min (50-200); Estimated Glomerular Filt Rate 92 ml/min (>60); GFR (African American) 112 ML/MIN (>60); Glucose 87 mg/dl (74-100); Potassium 3.5 mmoL/L (3.5-5.1); Sodium 139 mmol/L (136-145)
[2023-09-26] MEDS: LEVOTHYROXINE 137MCG (0.137MG) TAB 137 MCG PO (06:29)
[2023-09-26] MEDS: METOPROLOL SUCCINATE XL 100MG TABLET 100 MG PO (07:55)
[2023-09-26] MEDS: EZETIMIBE 10MG TABLET 10 MG PO (07:55)
[2023-09-26 08:00] VITALS: BP 120/94; PULSE 73; RESP 18; TEMP 36.4; O2SAT 100
[2023-09-26 11:44] VITALS: BP 155/94; PULSE 80; RESP 18; TEMP 36.4; O2SAT 93
--- NOTE | 2023-09-26 11:51 | EXP.DC.SUM ---
General Admission date:: 09/24/23 Discharge date: 09/26/23 HPI HPI HPI: Patient is a 82-year-old male with past medical history of hypertension hyperlipidemia CHF atrial fibrillation on Coumadin AAA repair, who presents to the hospital due to low blood pressure. Patient otherwise denied chest pain shortness of breath nausea vomiting diarrhea constipation dysuria fevers and chills. Hospital Course Hospital Course Hospital Course: Patient is a 82-year-old male with past medical history of hypertension hyperlipidemia CHF atrial fibrillation on Coumadin AAA repair, who presents to the hospital due to low blood pressure. Patient otherwise denied chest pain shortness of breath nausea vomiting diarrhea constipation dysuria fevers and chills. Patient was evaluated inpatient, patient appeared to have Dehydration and generalized weakness, patient hydrated with fluids with good improvement, patient was recommended by Rehab per PT/OT but due to insurance patient is private pay, patient is stable for discharge otherwise, patient to be discharged with home health. patient will be discharged on oral empirical abx with levaquin for 3 more days. Total time spent 38 mints, patient is discharged in stable condition and verbalized and agreed with the discharge plan Exam Data for Last 24 hours Vital signs and Labs for Last 24 Hours: Temp Pulse Resp BP Pulse Ox O2 Del Method O2 Flow Rate 97.5 F L 80 18 155/94 H 93 L Room Air 4 09/26/23 11:44 09/26/23 11:44 09/26/23 11:44 09/26/23 11:44 09/26/23 11:44 09/26/23 11:44 09/26/23 08:00 Laboratory Results - last 24 hr 09/26/23 05:48: WBC 8.8 D, RBC 4.03 L, Hgb 12.9 L, Hct 40.9 L, MCV 101.5 H, MCH 32.0 H, MCHC 31.5 L, RDW 14.4, Plt Count 200, MPV 8.6, Neut % (Auto) 83.5 H, Lymph % (Auto) 9.9 L, [place] % (Auto) 5.9, Eos % (Auto) 0.2, Baso % (Auto) 0.5, Neut # (Auto) 7.4, Lymph # (Auto) 0.9, [place] # (Auto) 0.5, Eos # (Auto) 0.0, Baso # (Auto) 0.0, PT 29.8 H, INR 2.96 H, Sodium 139, Potassium 3.5, Chloride 104, Carbon Dioxide 28, Anion Gap 10.5, BUN 23 H, Creatinine 0.80, Estimated Creat Clear 54, Estimated GFR 92, Est GFR ( Amer) 112, Glucose 87, Calcium 9.3 I & O for Last 24 hours: Intake & Output 09/23/23 09/24/23 09/25/23 09/26/23 23:59 23:59 23:59 23:59 Intake Total 0 / 623 1775 / 1775 2070 Output Total 226 / 826 1900 / 1900 200 / 200 Balance -226 / -203 -125 / -125 187 / 187 Weight 66.31 kg 67.449 kg 68.629 kg Microbiology Reports for the Last 24 Hours: Microbiology 09/25/23 15:25 Sputum - Expectorated Sputum Gram Stain - Final Constitutional Constitutional: no acute distress *Routine HEENT Exam Head: Present normocephalic Eye: Present EOMI and PERRL ENT: Present mucous membranes moist *Routine Neck Exam Neck: Present supple; Absent lymphadenopathy *Routine Respiratory Exam Respiratory: Present CTA bilaterally *Routine Cardiovascular Exam Cardiovascular: Present RRR *Routine Abdominal Exam Abdominal: Present soft and normoactive bowel sounds; Absent tenderness *Routine Extremities Exam Extremities: Absent cyanosis, clubbing or edema *Routine Skin Exam Skin: Present warm; Absent rash *Routine Neurological Exam Neurological: Present alert and oriented X3 Comments: he has generalized tremors Routine Psychiatric Exam Psychiatric: Present normal thought process Results Data Completed and Pending Labs on day of discharge: Labs from last 24 hours 09/26/23 05:48 WBC 8.8 D RBC 4.03 L Hgb 12.9 L Hct 40.9 L MCV 101.5 H MCH 32.0 H MCHC 31.5 L RDW 14.4 Plt Count 200 MPV 8.6 Neut % (Auto) 83.5 H Lymph % (Auto) 9.9 L [place] % (Auto) 5.9 Eos % (Auto) 0.2 Baso % (Auto) 0.5 Neut # (Auto) 7.4 Lymph # (Auto) 0.9 [place] # (Auto) 0.5 Eos # (Auto) 0.0 Baso # (Auto) 0.0 PT 29.8 H INR 2.96 H Sodium 139 Potassium 3.5 Chloride 104 Carbon Dioxide 28 Anion Gap 10.5 BUN 23 H Creatinine 0.80 Estimated Creat Clear 54 Estimated GFR 92 Est GFR ( Amer) 112 Glucose 87 Calcium 9.3 DS: Diagnosis Discharge Diagnosis (1) Hypomagnesemia: Status: Acute Code(s): E83.42 - Hypomagnesemia (2) Adult failure to thrive: Status: Acute Code(s): R62.7 - Adult failure to thrive (3) Hypothyroidism: Status: Acute Code(s): E03.9 - Hypothyroidism, unspecified Qualifiers: Hypothyroidism type: unspecified Qualified Code(s): E03.9 - Hypothyroidism, unspecified (4) Hypertension: Status: Acute Code(s): I10 - Essential (primary) hypertension Qualifiers: Hypertension type: essential hypertension Qualified Code(s): I10 - Essential (primary) hypertension (5) Parkinson disease: Status: Acute Code(s): G20 - Parkinson's disease Qualifiers: Dyskinesia presence: unspecified whether dyskinesia Fluctuating manifestations: unspecified whether manifestations fluctuate Qualified Code(s): G20.A1 - Parkinson's disease without dyskinesia, without mention of fluctuations Meds Home Medications and Allergies Home Medications Medication Instructions Recorded Confirmed Type atropine 1 % eye drops 1 drp Eye-Right DAILY 09/12/23 09/25/23 History ezetimibe 10 mg tablet 10 mg PO DAILY 09/12/23 09/25/23 History furosemide 20 mg tablet 20 mg PO DAILY 09/12/23 09/25/23 History levothyroxine 137 mcg tablet 137 mcg PO DAILY 09/12/23 09/25/23 History metoprolol succinate 100 mg 100 mg PO BID 09/12/23 09/25/23 History tablet,extended release 24 hr omeprazole 40 mg capsule,delayed 40 mg PO DAILY 09/12/23 09/25/23 History release prednisolone acetate 1 % eye 1 drp Eye-Right DAILY 09/12/23 09/25/23 History drops,suspension ropinirole 0.25 mg tablet 0.25 mg PO BID 09/12/23 09/25/23 History tamsulosin 0.4 mg capsule 0.4 mg PO HS 09/12/23 09/25/23 History valsartan 160 mg tablet 160 mg PO DAILY 09/12/23 09/25/23 History warfarin 4 mg tablet 2 mg PO MOFR 09/12/23 09/25/23 History warfarin 4 mg tablet 4 mg PO SUTUWETHSA 09/12/23 09/25/23 History nystatin 100,000 unit/mL oral 5 ml PO QID 09/24/23 09/25/23 History suspension potassium chloride 20 mEq 20 meq PO BID 09/24/23 09/25/23 History tablet,extended release(part/cryst) hydrochlorothiazide 25 mg tablet 25 mg PO DAILY 09/25/23 09/25/23 History levofloxacin 750 mg tablet 750 mg PO DAILY 3 days #3 tabs 09/26/23 Rx New Prescriptions to Start Prescriptions: Danny Barron Allergies Allergy/AdvReac Type Severity Reaction Status Date / Time Iodinated Contrast Media Allergy Mild Verified 05/09/22 23:15 Penicillins Allergy Unknown Verified 05/09/22 22:47 Discharge Plan Disposition Patient Disposition: Home Health Service Condition: Good Discharge Order Discharge Orders: Discharge Order (Routine); Ordered 09/26/23 Ordered By: Danny Cuevas Follow up Plan Follow up with: Rene Umanzor MD [Primary Care Provider] - 2 weeks Prescriptions/Medication Reconciliation: New levofloxacin 750 mg tablet 750 mg PO DAILY 3 Days Qty: 3 0RF Continued levothyroxine 137 mcg tablet 137 mcg PO DAILY Patient Comments: TAKE 1 TABLET BY MOUTH ONCE DAILY metoprolol succinate 100 mg tablet extended release 24 hr 100 mg PO BID Patient Comments: TAKE 1 TABLET BY MOUTH TWICE DAILY omeprazole 40 mg capsule,delayed release(DR/EC) 40 mg PO DAILY Patient Comments: TAKE 1 CAPSULE BY MOUTH ONCE DAILY warfarin 4 mg tablet 4 mg PO SUTUWETHSA Patient Comments: TAKE 1/2 (ONE-HALF) TABLET BY MOUTH ON SAT AND SATURDAY (2MG) AND 1 TABLET ON SUN,TU,WED,THURS AND SAT (4MG) Rx Instructions: TAKE 1/2 (ONE-HALF) TABLET BY MOUTH ON MON AND SAT (2MG) AND 1 TABLET ON SUN,TUES,WED,THURS AND SAT (4MG) warfarin 4 mg tablet 2 mg PO MOFR Patient Comments: TAKE 1/2 (ONE-HALF) TABLET BY MOUTH ON SAT,SAT,SATURDAY (2MG) AND 1 TABLET ON SUN,TUES,THURS AND SAT (4MG) Rx Instructions: TAKE 1/2 (ONE-HALF) TABLET BY MOUTH ON SAT AND SATURDAY (2MG) AND 1 TABLET ON SAT,,SAT, AND SAT (4MG) prednisolone acetate 1 % drops,suspension 1 drp Eye-Right DAILY Patient Comments: INSTILL 1 DROP INTO RIGHT EYE ONCE DAILY tamsulosin 0.4 mg capsule 0.4 mg PO HS Patient Comments: TAKE 1 CAPSULE BY MOUTH ONCE DAILY AT BEDTIME ropinirole 0.25 mg tablet 0.25 mg PO BID furosemide 20 mg tablet 20 mg PO DAILY atropine 1 % drops 1 drp Eye-Right DAILY Patient Comments: INSTILL 1 DROP INTO RIGHT EYE ONCE DAILY valsartan 160 mg tablet 160 mg PO DAILY Patient Comments: TAKE 1 TABLET BY MOUTH ONCE DAILY ezetimibe 10 mg tablet 10 mg PO DAILY Patient Comments: TAKE 1 TABLET BY MOUTH ONCE DAILY nystatin 100,000 unit/mL suspension 5 ml PO QID potassium chloride 20 mEq tablet,ER particles/crystals 20 meq PO BID Patient Comments: TAKE 1 BY MOUTH TWICE DAILY hydrochlorothiazide 25 mg tablet 25 mg PO DAILY Patient Comments: TAKE 1 TABLET BY MOUTH ONCE DAILY IN THE MORNING Problem Reconciliation Problems Reviewed?: Yes Patient Discharge Instructions ACTIVITY: Ambulate as tolerated DIET: continue same diet Patient Instructions: DI for Pneumonia -- Adult, DI for Sepsis -- Adult, Coumadin Vitamin K/ Diet Providers Primary Care Provider: Rene Umanzor Admit Provider: Danny Cuevas Attending Provider: Danny Cuevas
[2023-09-26] MEDS: WARFARIN 2MG TABLET 2 MG PO (12:21)
--- NOTE | 2023-09-26 15:37 | HMH.SLMBS2 ---
Speech & Language Evaluation Speech/Language Mod Barium Swallow Start: 09/26/23 13:00 Freq: ONCE Status: Complete Protocol: Document 09/26/23 15:14 [email or web address] (Rec: 09/26/23 15:37 SembraireSUMNER Laptop) General Information General Current Food Consistancy Mechanical Soft,Ground Meats, [place] Liquids Dentition Good Dentition Oxygen Status Room Air Patient Orientation Person,Time Ability to Follow Directions Fair Communication Ability Mild Impairment Voice Voice Quality Breathy Voice Loudness Mildly Soft/Quiet Comment Pt has Parkinson's dx. MBS Recommendations Diet Dietary Recommendations Mechanical Soft,Ground Meats, Pureed,Thin Liquids Comment both pureed & MS ground are recommended. Treatment/Strategies Treatment Recommendation Compens. Strategy Educat. Strategy/Precaution Recommend Sitting Upright (90 deg),Chin Tuck,Double Swallow,No Straw, Small Bites and Sips,Alternate Liquids/Solids Mod Barium Swallow Impressions Summary and Impressions Oral Phase Impression Moderate Impairment Oral Phase Summary Moderate impairment of the oral preparatory and oral transit phase of the swallow. Pt exhibits oral withholding, increased latency time in mastication and manipulation of all bolus textures and consistencies. Pt has decreased lateralization and overall ROM of the tongue resulting in poor transition to pharyngeal phase of the swallow with scattered bolus loss and residual within the oral cavity. Pt also exhibits difficulty with suctioning fluids with a straw. Pharyngeal Phase Impression Severe Impairment Pharyngeal Phase Summary Severe impairment of the pharyngeal phase of the swallow. Delayed swallow initiation with A/P spills and premature spillage across all bolus consistencies. Diffuse residual observed with NT trials, pudding trials, and MS trials. Pt exhibited aspiration in some degree across all consistencies. Trace aspiration was observed within small bolus administration of thin liquids with residuals observed within the vallecular space. Hilary silent aspiration was observed when given NT liquid trial, diffuse residuals observed across pharynx. Pt was administered pudding initially in attempts to clear residual, hilary residual of pudding observed at the valleculae. Pt required max prompting to complete chin tuck with 3 effortful swallows in attempt to clear bolus. Fatigue observed throughout instrumental assessment. Aspiration noted with MS, pt exhibited sensation and attempted to clear with a cough. This was unsuccessful. Given best tolerance with puree, BOLT CUTTER administered puree wash to clear leftover residuals found within the pharynx. Pt exhibits decreased hyolaryngeal excursion and epiglottic coverage, as well as reduced BOT retraction. He requires multiple swallows to clear residual across all consistencies. Speech/Language MBS Assessment/Goals/Plan Assessment Date of Evaluation: 09/26/23 Evaluation Type Initial Certification Assessment/Problems failed CSE per MD order. Does Patient Qualify for Service Yes Qualify/Failure Comment Pt would benefit from further skilled speech therapy service at discharge with services to address diet tolerance and compliance with compensatory strategies in the home environment. Recommendations PHYSICIAN CERTIFICATION: The specified therapy services are required, authorized, and reviewed every 30 days. Diet Recommendations Mechanical Soft Liquid Type Recommendations Normal/Thin SL Swallow Guidelines Assist w/all meals,Alt bite w/ sip thru meal,High aspiration risk,Crush meds as allowed*, Eat at slow rate,Oral Care Education,Oral care pre/post meals Crush Meds Crush all meds Dysphagia Swallow Precautions/Strategies Sitting Upright (90 deg),Chin Tuck,Double Swallow,No Straw, Small Bites and Sips,Alternate Liquids/Solids Plan Pt/Guardian verbally ack understanding Yes of dx/prognosis/goals G -code Required No Mcfp Goals Diet mechanical soft ground & pureed. with Liquids Thin Liquids Education Instructions provided Discussed MBSS results and aspiration observed across all consistencies trialed, as well as aspiration pneumonia risks and aspiration precautions, compensatory strategies, diet recommendations (provided two, safest recommended while remaining PO was pureed/thins; other option included MS ground with puree wash and thins), and oral care education with pt, MD, care management, nursing, and family all of which expressed understanding. Pt is likely being discharged to home health services while considering hospice per MD and care management report. BOLT CUTTER provided with HEP involving diet recommendations, aspiration pna risks and precautions, review of compensatory strategies, and impact of PD on swallowing. It is recommended BOLT CUTTER services follow up with Mr. Walker within the home environment for diet tolerance . Pt/Caregiver able to recall information Able to recall/restate Reinforcement needed No Mod Barium Swallow Setup Exam Setup Radiologist Oc Ambrocio Level of Consciousness Awake,Alert,Appropriate, Follows Commands Mod Barium Swallow-Lat View Textures Lateral View Food Presentation Thin Liquid via Spoon,Thin Liquid via Cup,[place] Liquid via Spoon,Pureed Food- Thin, Mech. Soft Food- Regular, Pudding Comment Straw sips not trialed given difficulty during CSE. Regular solids and barium tablet not trialed given results during MBSS. Oral Phase Labial Closure Mild Impairment Bolus Formation Pooling L/R Mild Impairment Bolus Formation under Tongue Mild Impairment Bolus Formation Scattered Loss Moderate Impairment Mastication Rotary Chew Moderate Impairment Mastication Munching Mild Impairment Mastication Lateralization Severe Impairment Lingual Movement Severe Impairment Residue Clearing Severe Impairment Pharyngeal Phase A/P Lingual Propulsion Spills Severe Impairment Swallow Response Delay Moderate Impairment Base of Tongue Severe Impairment Epiglottic Coverage Moderate Impairment Laryngeal Elevation Moderate Impairment Vallecular Retention Clearing Severe Impairment Pharyn. Wall Residue Clearing Severe Impairment Piriform Sinus Retention Moderate Impairment Aspiration? Yes Consistencies Aspirated all consistencies aspirated during MBSS, large degree of aspiration noted with NT liquids. Silent aspiration? Inconsistent Mod Barium Swallow-AP View Performed Mod Barium Swallow A/P View Test Not Applicable/Performed PHYSICIAN CERTIFICATION: I certify the specified therapy services for Sreekanth Walker SR are required, authorized, and reviewed every 30 days.
--- NOTE | 2023-09-27 14:36 | CARE MANAGER ---
Called and spoke with patient's spouse regarding recent discharge. She stated that patient is doing ok and has started new medication. Aware of f/u appt.
== END 2023-09-26 15:10 | disposition home health service (06) ==
LOC: ER 15:06 → 2ND 17:48
PROVIDERS: Admitting Provider Internal Medicine; Emergency Provider Emergency Medicine; PCP Family Medicine; Visit Provider Internal Medicine
DX: E83.42 Hypomagnesemia (principal); R62.7 Adult failure to thrive; E03.9 Hypothyroidism, unspecified; G20.A1 Parkinson's disease without dyskinesia, without mention of fluctuations; I11.0 Hypertensive heart disease with heart failure; I50.9 Heart failure, unspecified; I48.91 Unspecified atrial fibrillation; Z79.01 Long term (current) use of anticoagulants; E78.5 Hyperlipidemia, unspecified; Z79.899 Other long term (current) drug therapy; E86.0 Dehydration; Z95.828 Presence of other vascular implants and grafts
CPT/HCPCS: 36415; 70371; 71045; 80048; 80053; 81001; 82803; 83605; 83880; 84484; 85007; 85025; 85610; 85730; 87040; 87070; 87205; 92610; 92611; 93005; 97162; 97166; 97530; 99285; G0378; J0696; J1956

== ENCOUNTER 2023-10-09 15:13 | Outpatient (CLI) | payer MEDICARE, SELFPAY ==
[2023-10-09 16:00] LABS: PHA INR Fingerstick 2.2 (0.9-1.1)
== END 2023-10-09 16:05 ==
LOC: LAB 15:14 → ACC 15:16
PROVIDERS: PCP Family Medicine; Visit Provider Family Medicine
DX: Z79.01 Long term (current) use of anticoagulants (principal); Z51.81 Encounter for therapeutic drug level monitoring; I48.91 Unspecified atrial fibrillation
CPT/HCPCS: 85610; 99211; G0463

== ENCOUNTER 2023-10-25 15:27 | Outpatient (CLI) | payer MEDICARE, SELFPAY ==
[2023-10-25 16:06] LABS: PHA INR Fingerstick 1.7 (0.9-1.1)
== END 2023-10-25 16:08 ==
LOC: ACC 15:30
PROVIDERS: PCP Family Medicine; Visit Provider Family Medicine
DX: Z79.01 Long term (current) use of anticoagulants (principal)
CPT/HCPCS: 85610; 99211; G0463

== ENCOUNTER 2023-11-20 08:13 | Inpatient (IN) | payer MEDICARE, SELFPAY ==
[2023-11-20] VITALS (36 sets, daily range): BP systolic 105–169; BP diastolic 50–124; PULSE 80–129; RESP 14–31; TEMP 36.5–37.2; O2SAT 89–100; BMI 23.7; BMI 22.5; BMI 19.8
--- NOTE | 2023-11-20 08:06 | PC.NURSE ---
Pt pre-registered to ER. Norma Lynn EMT-P gave report.
--- NOTE | 2023-11-20 08:09 | XR_ITS ---
FINAL REPORT CLINICAL HISTORY: hypoxic COMPARISON: 09/24/2023 FINDINGS: A single portable view of the chest was obtained. Cardiomegaly is noted with worsening pulmonary vascular congestion. The mediastinum is within normal limits. Worsening bilateral pulmonary opacities are felt to represent edema or pneumonia. The bony thorax is intact. IMPRESSION: Worsening pulmonary opacities felt to represent edema or pneumonia. Cardiomegaly with worsening pulmonary vascular congestion. Reviewed, Interpreted and Dictated by Oc Ambrocio III, MD Transcribed by Harriet Moran Authenticated and [facility]
--- NOTE | 2023-11-20 08:21 | ECG_ITS ---
APPROVED REPORT Exam: Resting ECG HR:101 bpm ECG Measurements Heart Rate 101 AXES QRSd 90 QRS -63 QT 346 T 20 QTc 404 Conclusion Atrial fibrillation with rate of [address] ST elevation or T wave inversions normal axis significant artifact Electronically signed by : Pam Dockery, 11/20/2023 12:03:54
--- NOTE | 2023-11-20 08:28 | ED_ITS ---
Discharge Plan Disposition Patient Disposition: Admitted Prescriptions Prescriptions: No Action levothyroxine 137 mcg tablet 137 mcg PO DAILY Patient Comments: TAKE 1 TABLET BY MOUTH ONCE DAILY metoprolol succinate 100 mg tablet extended release 24 hr 100 mg PO BID Patient Comments: TAKE 1 TABLET BY MOUTH TWICE DAILY omeprazole 40 mg capsule,delayed release(DR/EC) 40 mg PO DAILY Patient Comments: TAKE 1 CAPSULE BY MOUTH ONCE DAILY warfarin 4 mg tablet 4 mg PO SUTUWETHSA Patient Comments: TAKE 1/2 (ONE-HALF) TABLET BY MOUTH ON SAT AND SATURDAY (2MG) AND 1 TABLET ON SAT,,SAT, AND SAT (4MG) warfarin 4 mg tablet 2 mg PO MOFR Patient Comments: TAKE 1/2 (ONE-HALF) TABLET BY MOUTH ON SAT,SAT,SATURDAY (2MG) AND 1 TABLET ON SAT,, AND SAT (4MG) prednisolone acetate 1 % drops,suspension 1 drp Eye-Right DAILY Patient Comments: INSTILL 1 DROP INTO RIGHT EYE ONCE DAILY tamsulosin 0.4 mg capsule 0.4 mg PO HS Patient Comments: TAKE 1 CAPSULE BY MOUTH ONCE DAILY AT BEDTIME ropinirole 0.25 mg tablet 0.25 mg PO BID furosemide 20 mg tablet 20 mg PO DAILY atropine 1 % drops 1 drp Eye-Right DAILY Patient Comments: INSTILL 1 DROP INTO RIGHT EYE ONCE DAILY valsartan 160 mg tablet 160 mg PO DAILY Patient Comments: TAKE 1 TABLET BY MOUTH ONCE DAILY ezetimibe 10 mg tablet 10 mg PO DAILY Patient Comments: TAKE 1 TABLET BY MOUTH ONCE DAILY potassium chloride 20 mEq tablet,ER particles/crystals 20 meq PO BID Patient Comments: TAKE 1 BY MOUTH TWICE DAILY hydrochlorothiazide 25 mg tablet 25 mg PO DAILY Patient Comments: TAKE 1 TABLET BY MOUTH ONCE DAILY IN THE MORNING Referrals Follow up/Referrals: Provider,Referral, [Referring] - See instructions Clinical Impressions Clinical Impression: Heart failure Instructions Patient Instructions: DI for Altered Mental Status Discharge ED Provider: Pam Dockery HPI General Chief Complaint: Altered Mental Status Stated Complaint: AMS, HR 150s, Hypoxic Time Seen by Provider: 11/20/23 08:27 History of Present Illness HPI narrative: Patient is an 82-year-old with past medical history symptom for heart failure reduced ejection fraction takes diuretics at home who presents to the emergency department with altered mental status. This morning patient was found to be altered and unresponsive so EMS was called. Upon EMS arrival patient had a heart rate in the 160s to 220s irregular saturating 66% on room air and was placed on BiPAP. Family notes that on Saturday he lost his balance and hit the front of his head and has been sleepier since. Patient is on warfarin. Has not taken his Lasix in 2 days because of severe fatigue. Related Data Home Medications Medication Instructions Recorded Confirmed atropine 1 % eye drops 1 drp Eye-Right DAILY 09/12/23 11/20/23 ezetimibe 10 mg tablet 10 mg PO DAILY 09/12/23 11/20/23 furosemide 20 mg tablet 20 mg PO DAILY 09/12/23 11/20/23 levothyroxine 137 mcg tablet 137 mcg PO DAILY 09/12/23 11/20/23 metoprolol succinate 100 mg 100 mg PO BID 09/12/23 11/20/23 tablet,extended release 24 hr omeprazole 40 mg capsule,delayed 40 mg PO DAILY 09/12/23 11/20/23 release prednisolone acetate 1 % eye 1 drp Eye-Right DAILY 09/12/23 11/20/23 drops,suspension ropinirole 0.25 mg tablet 0.25 mg PO BID 09/12/23 11/20/23 tamsulosin 0.4 mg capsule 0.4 mg PO HS 09/12/23 11/20/23 valsartan 160 mg tablet 160 mg PO DAILY 09/12/23 11/20/23 warfarin 4 mg tablet 2 mg PO MOFR 09/12/23 11/20/23 warfarin 4 mg tablet 4 mg PO SUTUWETHSA 09/12/23 11/20/23 potassium chloride 20 mEq 20 meq PO BID 09/24/23 11/20/23 tablet,extended release(part/cryst) hydrochlorothiazide 25 mg tablet 25 mg PO DAILY 09/25/23 11/20/23 Allergies Allergy/AdvReac Type Severity Reaction Status Date / Time Iodinated Contrast Media Allergy Mild Verified 11/20/23 08:54 Penicillins Allergy Unknown Verified 11/20/23 08:54 [facility] Disclaimer: The information contained in this section may have been updated after the patient was seen, as this information can be updated by other users. Medical History (Updated 11/20/23 @ 13:38 by Pam Dockery MD) Aneurysm Urinary retention Hypertension Hypothyroidism Parkinson disease Atrial fibrillation Surgical History S/P AAA repair Family History Mother Family history of hyperlipidemia Family history of hypertension Social History (Updated 11/20/23 @ 08:56 by Oksana Gregg RN) Smoking Status: Former smoker tobacco type: cigarettes alcohol intake: never current occupational status: retired Travel in the last 8 weeks: None household members: spouse caffeine: Yes ROS Obtained: Yes All systems reviewed & no additional complaints except as documented Physical Exam General General appearance: alert Head Head exam: atraumatic Eye Eye exam: Present PERRL ENT ENT exam: Present mucous membranes dry Neck Neck exam: Present trachea midline Chest Chest inspection: Present symmetric chest wall rise Respiratory Respiratory exam: Present respiratory distress (Tachypnea) and wheezes Cardiovascular Cardiovascular exam: Present regular rate, tachycardia and other (Bilateral 3+ pitting edema to knees) Abdominal Exam Abdominal exam: Present soft; Absent distention or tenderness Extremities Exam Extremities exam: Absent full ROM or tenderness Neurological Exam Neurological exam: Present alert and oriented X3 Skin Skin exam: Present cyanosis and pallor HEART Score HEART Score HEART Score assessment performed?: Yes History (anamnesis): Slightly suspicious ECG: Non-specific disturbance Age: >65 years Risk factors: Atherosclerosis history Troponin: 1-3x normal limit HEART Score: 6 Procedures Limited Ultrasound Indication:: Shortness of breath Views:: Bilateral lungs, parasternal long cardiac Findings:: Reduced ejection fraction and bilateral B-lines Interpretation:: [id number] cardiac ultrasound significant for reduced estimated ejection fraction with bilateral B-lines concerning for pulmonary edema Miscellaneous Procedure Procedure Performed: Limited Cardiac Ultrasound Limited Cardiac Ultrasound Indication: Chest pain Identified cardiac views: Cardiac parasternal long, bilateral anterior lungs Findings: Cardiac activity present with reduced EF and bilateral B-lines Impression: -Reduced ejection fraction and concern for pulmonary edema Images were saved to permanent archive The study was technically adequate CPT: 99039 This study was performed by me, and I personally interpreted all images/videos. Based on my clinical judgement, these images were adequate and did not necessitate further imaging. Critical Care Critical Care Time Critical Care Time: Yes Attestation: On 11/20/23, the high probability of a clinically significant, sudden or life threatening deterioration of the following system(s) required my full and direct attention, intervention and personal management. The time I documented below is in addition to time spent performing reported procedures but includes the following listed in this critical care notation. Total Time Total Critical Care Time: 30 Medical Decision Making Nikunj Inquiry Pt receiving controlled substance: No Vital Signs Vital Signs: 11/20/23 08:15 11/20/23 08:23 11/20/23 08:30 Temperature 98.9 F Temperature Source Rectal Pulse Rate 109 H 109 H Pulse Rate [Left Radial] 102 H Respiratory Rate 31 H 26 H Blood Pressure 158/95 H 169/113 H Blood Pressure [Right Arm] 157/122 H Blood Pressure Mean 117 122 Blood Pressure Mean [Right Arm] 133 02 Sat by Pulse Oximetry 89 L 99 98 Oxygen Flow Rate (LPM) 11/20/23 08:51 11/20/23 08:51 11/20/23 09:01 Temperature Temperature Source Pulse Rate 127 H 80 Pulse Rate [Left Radial] Respiratory Rate 23 Blood Pressure 137/98 H Blood Pressure [Right Arm] Blood Pressure Mean 117 Blood Pressure Mean [Right Arm] 02 Sat by Pulse Oximetry 95 Oxygen Flow Rate (LPM) 60 11/20/23 09:09 11/20/23 09:12 11/20/23 09:20 Temperature Temperature Source Pulse Rate 123 H 80 122 H Pulse Rate [Left Radial] Respiratory Rate 23 21 Blood Pressure 119/93 H 105/76 L Blood Pressure [Right Arm] Blood Pressure Mean 101 85 Blood Pressure Mean [Right Arm] 02 Sat by Pulse Oximetry 95 95 Oxygen Flow Rate (LPM) 11/20/23 09:30 11/20/23 09:43 11/20/23 09:50 Temperature Temperature Source Pulse Rate 122 H 97 H 124 H Pulse Rate [Left Radial] Respiratory Rate 21 21 22 Blood Pressure 110/79 110/50 L 117/80 Blood Pressure [Right Arm] Blood Pressure Mean 86 94 84 Blood Pressure Mean [Right Arm] 02 Sat by Pulse Oximetry 95 95 96 Oxygen Flow Rate (LPM) 11/20/23 10:01 11/20/23 10:10 11/20/23 10:20 Temperature Temperature Source Pulse Rate 129 H 110 H 111 H Pulse Rate [Left Radial] Respiratory Rate 25 H 20 19 Blood Pressure 134/107 H 129/91 H 138/99 H Blood Pressure [Right Arm] Blood Pressure Mean 115 103 105 Blood Pressure Mean [Right Arm] 02 Sat by Pulse Oximetry 96 94 L 96 Oxygen Flow Rate (LPM) 11/20/23 10:30 11/20/23 10:40 11/20/23 10:50 Temperature Temperature Source Pulse Rate 111 H 102 H 93 H Pulse Rate [Left Radial] Respiratory Rate 19 19 19 Blood Pressure 135/85 140/93 H 141/90 H Blood Pressure [Right Arm] Blood Pressure Mean 95 108 107 Blood Pressure Mean [Right Arm] 02 Sat by Pulse Oximetry 96 96 97 Oxygen Flow Rate (LPM) 11/20/23 11:00 11/20/23 11:10 Temperature Temperature Source Pulse Rate 118 H 110 H Pulse Rate [Left Radial] Respiratory Rate 18 18 Blood Pressure 140/97 H 148/102 H Blood Pressure [Right Arm] Blood Pressure Mean 104 112 Blood Pressure Mean [Right Arm] 02 Sat by Pulse Oximetry 98 97 Oxygen Flow Rate (LPM) Lab Data Labs: Lab Results 11/20/23 08:11: WBC 7.4, RBC 4.19 L, Hgb 13.7 L, Hct 43.2, MCV 103.1 H, MCH 32.7 H, MCHC 31.7 L, RDW 15.6, Plt Count 195, MPV 8.5, Neut % (Auto) 80.9 H, Lymph % (Auto) 12.4, [place] % (Auto) 5.3, Eos % (Auto) 0.6, Baso % (Auto) 0.8, Neut # (Auto) 6.0, Lymph # (Auto) 0.9, [place] # (Auto) 0.4, Eos # (Auto) 0.1, Baso # (Auto) 0.1, PT 25.4 H, INR 2.48 H, Sodium 138, Potassium 4.4, Chloride 104, Carbon Dioxide 24, Anion Gap 14.4, BUN 20, Creatinine 0.80, Estimated Creat Clear 63, Estimated GFR 92, Est GFR ( Amer) 112, Glucose 187 H, Calcium 9.6, Total Bilirubin 1.1, AST 36, ALT 33, Alkaline Phosphatase 63, Troponin I < 0.01, NT-Pro-B Natriuret Pep 6410 H, Total Protein 6.7, Albumin 4.1, Globulin 2.6, Albumin/Globulin Ratio 1.6 11/20/23 08:20: Urine Color Yellow, Urine Appearance Clear, Urine pH 6.5, Ur Specific [place] 1.015, Urine Protein Trace, Urine Glucose (UA) Negative, Urine Ketones Negative, Urine Blood Negative, Urine Nitrate Negative, Urine Bilirubin Negative, Urine Urobilinogen 1.0, Ur Leukocyte Esterase Negative, Urine RBC None, Urine WBC Occasional, Ur Squamous Epith Cells Occasional, Urine Bacteria Trace 11/20/23 08:28: Specimen Source Right brachial, O2 % 80, ABG pH 7.41, ABG pCO2 37.8, ABG pO2 125.8 H, ABG HCO3 23.6, ABG Total CO2 24.8, ABG O2 Saturation 98, ABG Base Excess -0.9, King Test n/a, VBG Lactic Acid 3.1 H 11/20/23 11:50: Troponin I 0.02 11/20/23 08:11 11/20/23 08:11 Response Orders (Tests/Meds): ED MEDICATIONS Generic Name Dose Route Start Last Admin Trade Name Freq PRN Reason Stop Dose Admin Morphine Sulfate 2 mg 11/20/23 10:00 Morphine 2mg/Ml Syringe IV 12/20/23 09:59 [id number] PRN Severe Pain (7-10) Discontinued Medications Generic Name Dose Route Start Last Admin Trade Name Freq PRN Reason Stop Dose Admin Albuterol/Ipratropium 9 ml 11/20/23 08:47 11/20/23 08:50 Ipratropium/Albuterol 3 Ml Neb IH 11/20/23 08:48 9 ml ONCE ONE Administration Furosemide 80 mg 11/20/23 08:41 11/20/23 08:48 Furosemide 40mg/4ml Vial IV 11/20/23 08:42 80 mg ONCE ONE Administration Metoprolol Succinate 100 mg 11/20/23 13:29 Metoprolol Succinate Xl 100mg Tablet PO 11/20/23 13:30 ONCE ONE ORDERS Category Date Time Status CT head/brain wo con Stat Cat Scan 11/20/23 08:51 Completed CXR --portable [XR chest portable] Stat Exams 11/20/23 08:09 Completed POCUS Point of Care (ER Only) Stat Exams 11/20/23 08:09 Completed CMP [Comprehensive Metabolic Panel] Stat Lab 11/20/23 08:11 Completed Complete Blood Count Auto Diff Stat Lab 11/20/23 08:11 Completed Lactate Venous Stat Lab 11/20/23 08:28 Completed NT Pro Brain Natriuretic Pep. Stat Lab 11/20/23 08:11 Completed Prothrombin Time INR Stat Lab 11/20/23 08:11 Completed Troponin I Q3H Lab 11/20/23 08:11 Completed Troponin I Q3H Lab 11/20/23 11:50 Completed Troponin I Q3H Lab 11/20/23 14:30 Ordered Urinalysis and Microscopic Stat Lab 11/20/23 08:20 Completed Arterial Blood Gas Stat RT 11/20/23 08:28 Completed MDM Narrative Medical Decision Narrative: Patient is an 82-year-old with past medical history significant for heart failure, Parkinson's, atrial fibrillation on anticoagulation presents with 3 days of altered mental status after fall. Differential diagnosis includes intracranial hemorrhage, heart failure exacerbation, COPD exacerbation, PE, ACS. Upon presentation patient is saturating appropriately on room air on BiPAP, ANO x 3 with significant respiratory distress. [id number] ultrasound concerning for pulmonary edema.. Workup included CBC ABG BNP INR troponins chest x-ray significant for appropriate glucose BNP of 6410 supratherapeutic INR, hemoglobin 13.7. Chest x-ray independently interpreted with bilateral interstitial opacities. EKG with A-fib rate controlled of [address] depression normal axis. Patient was on BiPAP for 4 hours with improvement of respiratory distress. Given 80 mg of IV Lasix with production of 3 L of urine. Was able to transfer to 4 L nasal cannula. Given home dose of metoprolol secondary to A-fib rates 100-1 20. Hospital medicine consulted with recommendations to admit to their service for heart failure exacerbation.
--- NOTE | 2023-11-20 08:30 | PC.NURSE ---
Notified pt has risk for severe sepsis with organ dysfunction if there is a documented infection. stated no need for antibiotics at this time. No blood cultures needed at this time.
[2023-11-20 08:36] LABS: Microscopic, Urine URINE MICROSCOPIC (MICROSCOPIC)
[2023-11-20 08:39] LABS: ABG Base Excess -0.9 mmol/L (-2.4-2.3); ABG HCO3 23.6 mmhg (22.0-26.0); ABG Oxygen Saturation 98 % (90-100); ABG PCO2 37.8 mmhg (35.0-45.0); ABG PH 7.41 mmol/L (7.35-7.45); ABG PO2 125.8 mmhg (80-100); ABG TCO2 24.8 mmhg (23-27); Oxygen 80 %
[2023-11-20 08:40] LABS: Lactate Venous 3.1 mmol/L (0.4-2.0); Pressure Support CPAP 8 cmH2O; Source Right Brachial
[2023-11-20 08:41] LABS: Appearance,Urine CLEAR (Clear); Bilirubin,Urine Negative (Negative); Blood, Urine Negative (Negative); Color,Urine YELLOW (Yellow); Glucose,Urine (UA) Negative (Negative); Ketones,Urine Negative (Negative); Leukocyte Esterase,Urine Negative (Negative); Nitrate,Urine Negative (Negative); PH,Urine 6.5 (5.0-8.5); Protein,Urine TRACE (Negative); Specific Gravity, Urine 1.015 (1.005-1.030)
--- NOTE | 2023-11-20 08:41 | PC.NURSE ---
Dr. Borges at bedside s/w family
[2023-11-20 08:46] LABS: Basophils # 0.1 K/mm3 (0-0.2); Basophils % 0.8 % (0.1-2.0); Eosinophils # 0.1 K/mm3 (0.0-0.4); Eosinophils % 0.6 % (0.1-12.0); Hematocrit 43.2 % (42.0-52.0); Hemoglobin 13.7 g/dL (14.1-18.0); Lymphocytes # 0.9 K/mm3 (0.7-4.5); Lymphocytes % 12.4 % (10-50); Mean Corpuscular HGB Conc 31.7 g/dL (31.8-35.4); Mean Corpuscular Hemoglobin 32.7 pg (27.0-31.2); Mean Corpuscular Volume 103.1 fl (80-94); Mean Platelet Volume 8.5 fl (7.4-10.4); Monocytes # 0.4 K/mm3 (0.1-1.0); Monocytes % 5.3 % (1.7-9.3); Neutrophils % 80.9 % (37.0-80.0); Platelet Count 195 K/mm3 (142-424); Red Blood Count 4.19 M/mm3 (4.60-6.20); Red Cell Distribution Width 15.6 % (11.5-17.5); White Blood Count 7.4 K/mm3 (4.8-10.8)
[2023-11-20 08:48] LABS: Alanine Aminotransferase 33 U/L (12-78); Albumin Level 4.1 g/dl (3.5-5.0); Albumin/Globulin Ratio 1.6 (1.1-1.8); Alkaline Phosphatase 63 U/L (38-126); Anion Gap 14.4 mEq/L (5-15); Aspartate Amino Transferase 36 U/L (17-59); Bilirubin,Total 1.1 mg/dl (0.2-1.3); Blood Urea Nitrogen 20 mg/dl (9-20); Calcium 9.6 mg/dl (8.4-10.2); Carbon Dioxide 24 mmol/L (22.0-30.0); Chloride 104 mmol/L (98-107); Creatinine Clearance Estimated 63 mL/min (50-200); Estimated Glomerular Filt Rate 92 ml/min (>60); GFR (African American) 112 ML/MIN (>60); Globulin 2.6 g/dL (1.3-3.2); Glucose 187 mg/dl (74-100); Potassium 4.4 mmoL/L (3.5-5.1); Sodium 138 mmol/L (136-145); Total Protein,Serum 6.7 g/dl (6.3-8.2)
[2023-11-20] MEDS: FUROSEMIDE 40MG/4ML VIAL 80 MG IV (08:48)
[2023-11-20] MEDS: IPRATROPIUM/ALBUTEROL 3 ML NEB 9 ML IH (08:50)
--- NOTE | 2023-11-20 08:50 | PC.NURSE ---
Upon talking to the pts she reports he was unresponsive for about 5 minutes but breathing rapidly on 2LNC. pt was noncoherent and A&O x0 per . She reports the pt has been weak and tired for the past few days. Family also reports he fell and hit his face on Saturday no LOC, pt refused to come to the hospital. Pt is on coumadin. The reports he has had some diarrhea and frequent urination over the past few days.
--- NOTE | 2023-11-20 08:51 | CT_ITS ---
FINAL REPORT CLINICAL HISTORY: fall, head injury COMPARISON: 05/09/2022 FINDINGS: Axial images of the head were obtained without contrast. Coronal reformatted images were also obtained. This study was performed with techniques to keep radiation doses as low as reasonably achievable (ALARA). Individualized dose reduction techniques using automated exposure control or adjustment of mA and/or kV according to the patient''s size were employed. There is generalized age-appropriate atrophy. Periventricular low-attenuation areas are seen consistent with mild chronic ischemic changes. There is no evidence of intracranial hemorrhage. There is an extra-axial mass in the right inferior medial frontal lobe just superior to the cribriform plate, that on today's examination measures 17 mm in diameter, was previously 10 mm in size. The overall appearance is most suggestive of a meningioma. Correlation with MRI with and without contrast is suggested. Postoperative changes are present in the right globe. There is no evidence of acute infarct. There is no evidence of shift of the midline structures. No skull abnormality is seen on the bone window images. IMPRESSION: Atrophy and mild periventricular chronic ischemic changes. Increased size of the presumed extra-axial mass in the right mesial frontal region, when compared with the prior CT of 2021. The overall appearance is most compatible with a meningioma, and would recommend MRI of the head with and without contrast for further evaluation. Reviewed, Interpreted and Dictated by Oc Ambrocio III, MD Transcribed by Linda Preciado Authenticated and . [facility]
[2023-11-20 09:00] LABS: NT Pro Brain Natriuretic Pep. 6410 pg/mL (0-450)
[2023-11-20 09:18] LABS: Troponin I < 0.01 ng/ml (0.00-0.034)
[2023-11-20 09:19] LABS: INR 2.48 (0.9-1.1); Prothrombin Time 25.4 seconds (10.1-12.5)
[2023-11-20 09:21] LABS: Bacteria,Urine Trace /lpf; Squamous Epithelial Cell,Urine Occasional #/hpf (0-5); WBC,Urine Occasional #/hpf (0-3)
--- NOTE | 2023-11-20 10:01 | PC.NURSE ---
I rounded on the pt and emptied his coleman. 1200 ml clear and yellow urine. I took the pts and daughter something to eat. I helped reposition the pt. no new needs voiced.
--- NOTE | 2023-11-20 11:28 | PC.NURSE ---
Pt back into room from ct scan, pt tolerated very well. Placed back onto [facility].
[2023-11-20 12:24] LABS: Troponin I 0.02 ng/ml (0.00-0.034)
[2023-11-20 12:40] LABS: Reflex Lactic Add Lactic Reflex
--- NOTE | 2023-11-20 12:48 | PC.NURSE ---
I rounded on the pt and helped reposition him. no new needs voiced. I emptied 720 ml clear and yellow urine from his coleman.
--- NOTE | 2023-11-20 13:06 | PC.NURSE ---
Dr. Dockery s/w Dr. Grider hospitalist for admission
--- NOTE | 2023-11-20 13:09 | PC.NURSE ---
RESP CARE NOTE: Pt placed on [address] Borges, with SPO2 remaining at 94%. Will continue to monitor patient.
--- NOTE | 2023-11-20 13:26 | ECG_ITS ---
APPROVED REPORT Exam: Resting ECG HR:108 bpm ECG Measurements Heart Rate 108 AXES QRSd 95 QRS -60 QT 317 T 22 QTc 380 Conclusion Significant artifact, atrial fibrillation with rapid ventricular response, no ST elevation ST depression or T wave inversions. Electronically signed by : Pam Dockery, 11/20/2023 14:35:09
--- NOTE | 2023-11-20 13:35 | HMH.PHAINT1 ---
Pharmacy Intervention Comments: MEDICATION RECONCILIATION COMPLETED ON PATIENT USING EXTERNAL FILL HISTORY FROM PHARMACY AND WARFARIN DOSE FROM [facility]. -FABIO BAXTER, SARAHD
[2023-11-20] MEDS: METOPROLOL SUCCINATE XL 100MG TABLET 100 MG PO ×2 (13:50→20:28)
--- NOTE | 2023-11-20 14:13 | PC.NURSE ---
I rounded on the pt, no needs voiced. pt visiting with his at this time. call sabine in reach.
--- NOTE | 2023-11-20 15:18 | PC.NURSE ---
I rounded on the pt, he is resting with his eyes open. pt denies needing anything. I asked the MD about ordering a a dinner tray. Jacobo called dietary to request one.
--- NOTE | 2023-11-20 16:39 | PC.NURSE ---
arrived by stretcher from ED
--- NOTE | 2023-11-20 18:08 | EXP.HP ---
History of Present Illness *Reason for visit:: Shortness of breath *History of present illness: Really nice patient who is legally blind presents to hospital with weakness/shortness of breath. Patient reportedly found down at home by family. Patient had O2 saturation high 60s on room air upon initial evaluation. Patient O2 saturation increased above 90% on 4 L nasal cannula. Patient given 80 mg IV Lasix in emergency room. Within 3 hours, patient urine output 3600 mL. Patient states breathing improved dramatically after IV Lasix bolus in emergency room. Admits to worsening SOB, SANDS, orthopnea since this a.m. States he has been sleeping Upright in a chair for several days because it is more comfortable. Denies chest pain. Family states patient has been noncompliant with home Lasix for unknown reasons. Denies current chest pain, palpitations, fevers, chills, known sick contacts, or abdominal pain. States he has been suffering from lower back pain for several months. [facility] Disclaimer: The information contained in this section may have been updated after the patient was seen, as this information can be updated by other users. Medical History Aneurysm Urinary retention Hypertension Hypothyroidism Parkinson disease Atrial fibrillation Surgical History S/P AAA repair Family History Mother Family history of hyperlipidemia Family history of hypertension Social History (Updated 11/20/23 @ 17:29 by Bianca Ramirez RN) Smoking Status: Former smoker tobacco type: cigarettes alcohol intake: never current occupational status: retired Travel in the last 8 weeks: None household members: spouse caffeine: Yes Review of Systems Review of Systems Review of systems:: pertinent systems reviewed and negative unless documented below Meds Home Medications and Allergies Home Medications Medication Instructions Recorded Confirmed Type atropine 1 % eye drops 1 drp Eye-Right DAILY 09/12/23 11/20/23 History ezetimibe 10 mg tablet 10 mg PO DAILY 09/12/23 11/20/23 History furosemide 20 mg tablet 20 mg PO DAILY 09/12/23 11/20/23 History levothyroxine 137 mcg tablet 137 mcg PO DAILY 09/12/23 11/20/23 History metoprolol succinate 100 mg 100 mg PO BID 09/12/23 11/20/23 History tablet,extended release 24 hr omeprazole 40 mg capsule,delayed 40 mg PO DAILY 09/12/23 11/20/23 History release prednisolone acetate 1 % eye 1 drp Eye-Right DAILY 09/12/23 11/20/23 History drops,suspension ropinirole 0.25 mg tablet 0.25 mg PO BID 09/12/23 11/20/23 History tamsulosin 0.4 mg capsule 0.4 mg PO HS 09/12/23 11/20/23 History valsartan 160 mg tablet 160 mg PO DAILY 09/12/23 11/20/23 History warfarin 4 mg tablet 2 mg PO MOFR 09/12/23 11/20/23 History warfarin 4 mg tablet 4 mg PO SUTUWETHSA 09/12/23 11/20/23 History potassium chloride 20 mEq 20 meq PO BID 09/24/23 11/20/23 History tablet,extended release(part/cryst) hydrochlorothiazide 25 mg tablet 25 mg PO DAILY 09/25/23 11/20/23 History New Prescriptions to Start Prescriptions: Allergies Allergy/AdvReac Type Severity Reaction Status Date / Time Iodinated Contrast Media Allergy Mild Verified 11/20/23 08:54 Penicillins Allergy Unknown Verified 11/20/23 08:54 Exam Data for Last 24 hours Vital signs and Labs for Last 24 Hours: Temp Pulse Resp BP Pulse Ox O2 Del Method O2 Flow Rate 98.7 F 106 H 20 133/96 H 94 L Nasal Cannula 3 11/20/23 17:02 11/20/23 17:02 11/20/23 17:02 11/20/23 17:02 11/20/23 16:00 11/20/23 17:00 11/20/23 17:00 Laboratory Results - last 24 hr 11/20/23 08:11: WBC 7.4, RBC 4.19 L, Hgb 13.7 L, Hct 43.2, MCV 103.1 H, MCH 32.7 H, MCHC 31.7 L, RDW 15.6, Plt Count 195, MPV 8.5, Neut % (Auto) 80.9 H, Lymph % (Auto) 12.4, Angelina % (Auto) 5.3, Eos % (Auto) 0.6, Baso % (Auto) 0.8, Neut # (Auto) 6.0, Lymph # (Auto) 0.9, Angelina # (Auto) 0.4, Eos # (Auto) 0.1, Baso # (Auto) 0.1, PT 25.4 H, INR 2.48 H, Sodium 138, Potassium 4.4, Chloride 104, Carbon Dioxide 24, Anion Gap 14.4, BUN 20, Creatinine 0.80, Estimated Creat Clear 63, Estimated GFR 92, Est GFR ( Amer) 112, Glucose 187 H, Calcium 9.6, Total Bilirubin 1.1, AST 36, ALT 33, Alkaline Phosphatase 63, Troponin I < 0.01, NT-Pro-B Natriuret Pep 6410 H, Total Protein 6.7, Albumin 4.1, Globulin 2.6, Albumin/Globulin Ratio 1.6 11/20/23 08:20: Urine Color Yellow, Urine Appearance Clear, Urine pH 6.5, Ur Specific [place] 1.015, Urine Protein Trace, Urine Glucose (UA) Negative, Urine Ketones Negative, Urine Blood Negative, Urine Nitrate Negative, Urine Bilirubin Negative, Urine Urobilinogen 1.0, Ur Leukocyte Esterase Negative, Urine RBC None, Urine WBC Occasional, Ur Squamous Epith Cells Occasional, Urine Bacteria Trace 11/20/23 08:28: Specimen Source Right brachial, O2 % 80, ABG pH 7.41, ABG pCO2 37.8, ABG pO2 125.8 H, ABG HCO3 23.6, ABG Total CO2 24.8, ABG O2 Saturation 98, ABG Base Excess -0.9, King Test n/a, VBG Lactic Acid 3.1 H 11/20/23 11:50: Troponin I 0.02 I & O for Last 24 hours: Intake & Output 11/17/23 11/18/23 11/19/23 11/20/23 23:59 23:59 23:59 23:59 Output Total 3120 / 3120 Balance -3120 / -3120 Weight 66.224 kg Constitutional Constitutional: no acute distress *Routine HEENT Exam Head: Present normocephalic Eye: Present EOMI ENT: Present mucous membranes moist *Routine Neck Exam Neck: Present supple and full ROM *Routine Respiratory Exam Respiratory: Present decreased breath sounds and diminished air movement *Routine Cardiovascular Exam Cardiovascular: Present RRR, Normal S1 and Normal S2 *Routine Abdominal Exam Abdominal: Present soft and normoactive bowel sounds *Routine Rectal Exam Rectal:: deferred *Routine Genitalia Exam Genitalia:: deferred *Routine Extremities Exam Extremities: Present edema Comments: +2 bilateral lower extremity pedal edema *Routine Skin Exam Skin: Present intact and warm *Routine Neurological Exam Neurological: Present alert, oriented X3 and normal reflexes Assessment and Plan *Assessment and plan (1) CHF exacerbation: Status: Acute Category: Medical Code(s): I50.9 - Heart failure, unspecified (2) Heart failure: Status: Acute Category: Medical Code(s): I50.9 - Heart failure, unspecified (3) Legally blind: Status: Acute Category: Medical Code(s): H54.8 - Legal blindness, as defined in [place] (4) Atrial fibrillation: Status: Acute Qualifiers: Atrial fibrillation type: longstanding persistent Qualified Code(s): I48.11 - Longstanding persistent atrial fibrillation Category: Medical Code(s): I48.91 - Unspecified atrial fibrillation Plan CHF exacerbation: ? Fluid restriction 1.5 L/day, scheduled IV Lasix, daily weights, strict I's and O's, consult cardiology, Lasix 40 mg IV every 12, correct electrolytes as needed. Atrial fibrillation: ? Chronic. Continue patient's home medications warfarin. PPx: Heparin FEN 1500 mL/day fluid restriction, cardiac diet CODE STATUS: Full
[2023-11-20 18:34] LABS: Basophils % 0.4 % (0.1-2.0); Eosinophils % 0.6 % (0.1-12.0); Hematocrit 40.1 % (42.0-52.0); Hemoglobin 12.9 g/dL (14.1-18.0); Lymphocytes # 0.7 K/mm3 (0.7-4.5); Lymphocytes % 8.8 % (10-50); Mean Corpuscular HGB Conc 32.2 g/dL (31.8-35.4); Mean Corpuscular Hemoglobin 32.3 pg (27.0-31.2); Mean Corpuscular Volume 100.3 fl (80-94); Mean Platelet Volume 8.3 fl (7.4-10.4); Monocytes # 0.5 K/mm3 (0.1-1.0); Monocytes % 6.9 % (1.7-9.3); Neutrophils # 6.4 K/mm3 (1.8-7.8); Neutrophils % 83.3 % (37.0-80.0); Platelet Count 198 K/mm3 (142-424); Red Cell Distribution Width 15.7 % (11.5-17.5); White Blood Count 7.6 K/mm3 (4.8-10.8)
[2023-11-20 18:58] LABS: Anion Gap 8.1 mEq/L (5-15); Blood Urea Nitrogen 20 mg/dl (9-20); Calcium 9.2 mg/dl (8.4-10.2); Carbon Dioxide 32 mmol/L (22.0-30.0); Chloride 103 mmol/L (98-107); Creatinine Clearance Estimated 52 mL/min (50-200); Estimated Glomerular Filt Rate 92 ml/min (>60); GFR (African American) 112 ML/MIN (>60); Glucose 89 mg/dl (74-100); Magnesium 2.1 mg/dl (1.6-2.3); Potassium 3.1 mmoL/L (3.5-5.1); Sodium 140 mmol/L (136-145)
[2023-11-20] MEDS: FUROSEMIDE 40MG/4ML VIAL 40 MG IV (20:23)
[2023-11-20] MEDS: PANTOPRAZOLE 40MG TABLET 40 MG PO (20:23)
[2023-11-20] MEDS: POTASSIUM CHLORIDE 20MEQ TAB 20 MEQ PO (20:24)
[2023-11-20] MEDS: TAMSULOSIN 0.4MG CAPSULE 0.4 MG PO (20:24)
[2023-11-20] MEDS: ROPINIROLE HCL 0.25 MG TABLET PO (20:29)
[2023-11-20 22:08] LABS: Troponin I 0.03 ng/ml (0.00-0.034)
[2023-11-21] VITALS (13 sets, daily range): BP systolic 86–143; BP diastolic 58–106; PULSE 79–124; RESP 16–22; TEMP 36.3–36.9; O2SAT 94–100; BMI 19.8
[2023-11-21 04:02] LABS: Troponin I 0.02 ng/ml (0.00-0.034)
[2023-11-21] MEDS: ACETAMINOPHEN 325MG TAB 650 MG PO (04:26)
--- NOTE | 2023-11-21 05:19 | PC.NURSE ---
Patient is alert and oriented x4. Patient states he is blind in his right eye. Patient has slept intermittently throughout the night. He has received his scheduled meds per MAR, along with 40 mg of Lasix. Patient is currently on 2 L nasal cannula and tolerates it well with oxygen sats in the upper 90s this shift. Patient has not had any complaints of shortness of breath. Patient's lung sounds were clear but diminished upon auscultation. On telemetry, he has been running a-fib/a-flutter (controlled) this shift. Patient has moderate edema in his bilateral lower extremities. Tremors were noticed earlier this shift; patient is not exhibiting any tremoring at this time. Patient started complaining of neck pain at around 04:30 today; he was given Tylenol per JUL and reported satisfactory relief of his neck pain. Patient was also repositioned for comfort. Patient has not had a bowel movement this shift, but bowel sounds were highly active. His coleman is intact and free of kinks. I emptied out 1,100 mL of urine myself this shift. Patient does not have any further complaints at this time. Bed alarm is on and call light is within reach.
[2023-11-21 06:30] LABS: INR 1.92 (0.9-1.1); Prothrombin Time 20.2 seconds (10.1-12.5)
[2023-11-21 06:31] LABS: Chol/HDL Ratio 3.4 (1-3.5); Cholesterol 134 mg/dl (140-200); HDL Cholesterol 39 mg/dl (40-60); Triglycerides 79 mg/dl (30-150); VLDL Cholesterol 16 mg/dL (0-40)
[2023-11-21 06:42] LABS: Direct LDL Cholesterol 77.66 mg/dL (100-129)
[2023-11-21 08:17] LABS: Chloride 102 mmol/L (98-107); Potassium 3.2 mmoL/L (3.5-5.1); Sodium 139 mmol/L (136-145)
[2023-11-21 08:18] LABS: Basophils # 0.1 K/mm3 (0-0.2); Eosinophils # 0.1 K/mm3 (0.0-0.4); Eosinophils % 0.8 % (0.1-12.0); Hematocrit 41.2 % (42.0-52.0); Hemoglobin 13.1 g/dL (14.1-18.0); Lymphocytes # 0.8 K/mm3 (0.7-4.5); Lymphocytes % 11.7 % (10-50); Mean Corpuscular HGB Conc 31.8 g/dL (31.8-35.4); Mean Corpuscular Hemoglobin 32.3 pg (27.0-31.2); Mean Corpuscular Volume 101.6 fl (80-94); Mean Platelet Volume 8.7 fl (7.4-10.4); Monocytes # 0.5 K/mm3 (0.1-1.0); Monocytes % 7.2 % (1.7-9.3); Neutrophils # 5.5 K/mm3 (1.8-7.8); Neutrophils % 79.3 % (37.0-80.0); Platelet Count 169 K/mm3 (142-424); Red Blood Count 4.05 M/mm3 (4.60-6.20); Red Cell Distribution Width 15.8 % (11.5-17.5); White Blood Count 6.9 K/mm3 (4.8-10.8)
[2023-11-21 08:20] LABS: Anion Gap 9.2 mEq/L (5-15); Blood Urea Nitrogen 21 mg/dl (9-20); Calcium 9.4 mg/dl (8.4-10.2); Carbon Dioxide 31 mmol/L (22.0-30.0); Creatinine Clearance Estimated 53 mL/min (50-200); Estimated Glomerular Filt Rate 108 ml/min (>60); GFR (African American) 130 ML/MIN (>60); Glucose 87 mg/dl (74-100)
[2023-11-21 08:30] LABS: C-Reactive Protein 4.8 mg/L (0-4)
[2023-11-21 08:57] LABS: Procalcitonin 0.047 ng/mL (0.0-2.0)
[2023-11-21] MEDS: IRBESARTAN 150MG TAB 150 MG PO (09:37)
[2023-11-21] MEDS: FUROSEMIDE 40MG/4ML VIAL 40 MG IV ×2 (09:37→17:32)
[2023-11-21] MEDS: POTASSIUM CHLORIDE 20MEQ TAB 40 MEQ PO (09:37)
[2023-11-21] MEDS: PANTOPRAZOLE 40MG TABLET 40 MG PO (09:38)
[2023-11-21] MEDS: METOPROLOL SUCCINATE XL 100MG TABLET 100 MG PO ×2 (09:38→21:17)
[2023-11-21] MEDS: ROPINIROLE HCL 0.25 MG TABLET PO ×2 (09:38→21:17)
[2023-11-21] MEDS: LEVOTHYROXINE 137MCG (0.137MG) TAB 137 MCG PO (09:38)
--- NOTE | 2023-11-21 09:52 | HMH.PTEV ---
Physical Therapy Evaluation Rehab PT IP Evaluation Start: 11/21/23 07:57 Freq: ONCE Status: Active Protocol: Document 11/21/23 09:48 OMEGA (Rec: 11/21/23 09:52 OMEGA [id number]) Subjective/History History History Per H&P: Really nice patient who is legally blind presents to hospital with weakness/ shortness of breath. Patient reportedly found down at home by family. Patient had O2 saturation high 60s on room air upon initial evaluation. Patient O2 saturation increased above 90% on 4 L nasal cannula. Patient given 80 mg IV Lasix in emergency room. Within 3 hours, patient urine output 3600 mL. Patient states breathing improved dramatically after IV Lasix bolus in emergency room . Admits to worsening SOB, SANDS, orthopnea since this a.m. States he has been sleeping Upright in a chair for several days because it is more comfortable. Denies chest pain. Family states patient has been noncompliant with home Lasix for unknown reasons. Denies current chest pain, palpitations, fevers, chills, known sick contacts, or abdominal pain. States he has been suffering from lower back pain for several months. Subjective Subjective Pt lives with ex- and daughter who takes care of him as needed. Reported one fall in past 30 days. Uses a RW and w/c. Has been having increased difficulty ambulating and caring for self requiring increased assistance. New diagnosis of cancer in past 12 No months? Rehab PT IP Eval Objective Appearance Patient Behavior Appropriate,Cooperative Patient Orientation Person Difficulty following instructions none Speech Pattern Clear Ambulation Patient Able to Ambulate No Balance Ability to Arise Able, uses arms to help Sitting Balance Steady, safe Standing Balance Unsteady Transfers Bed Transfer Ability Moderate x 1 (50% assist) Sit to Stand Bed Transfer Ability Minimal x 2 (25% assist) Rehab PT IP prob,goals,plan Problems Date of Evaluation: 11/21/23 PT IP Problems Bed Mobility,Transfers,Gait, Balance,Self care,Safety Rehab Potential Rehab Potential Good Equipment Needs Assistive Devices Rolling / Wheeled Walker Plan PT Intervention Plan Bed Mobility,Transfers,Gait, Balance,Safety,Therapeutic Exercise Other Intervention Plan 1-2 times PT Plan Frequency Daily Duration LOS Discharge Goals Bed Transfer Ability Minimal x 1 (25% assist) Sit to Stand Chair Transfer Ability Minimal x 1 (25% assist) Ambulation Assistive Device Rolling Walker Ambulation Distance (feet) 5 Discharge Plan PT Discharge Plan Initial physical therapy evaluation performed. Patient presents below baseline at this time in functional mobility, transfers, and strength. Pt not safe to return home at this time d/t current level of functional mobility. PT recommending short-term rehabilitation stay upon d/c from [facility]. Pt would benefit from skilled PT while at [facility] to prevent further functional decline and maximize safety with mobility. Eval Complexity Eval Charge Codes 45037 - Moderate Complexity PHYSICIAN CERTIFICATION: I certify the specified therapy services for Sreekanth Walker SR are required, authorized, and reviewed every 30 days.
--- NOTE | 2023-11-21 10:08 | HMH.OTEV ---
OT Inpatient Evaluation Rehab OT IP Evaluation Start: 11/21/23 07:57 Freq: ONCE Status: Active Protocol: Document 11/21/23 09:50 ANNELISE (Rec: 11/21/23 10:08 ANNELISE [id number]) Rehab OT IP Assessment Subjective History Really nice patient who is legally blind presents to hospital with weakness/ shortness of breath. Patient reportedly found down at home by family. Patient had O2 saturation high 60s on room air upon initial evaluation. Patient O2 saturation increased above 90% on 4 L nasal cannula. Patient given 80 mg IV Lasix in emergency room. Within 3 hours, patient urine output 3600 mL. Patient states breathing improved dramatically after IV Lasix bolus in emergency room . Admits to worsening SOB, SANDS, orthopnea since this a.m. States he has been sleeping Upright in a chair for several days because it is more comfortable. Denies chest pain. Family states patient has been noncompliant with home Lasix for unknown reasons. Denies current chest pain, palpitations, fevers, chills, known sick contacts, or abdominal pain. States he has been suffering from lower back pain for several months. Patient lives at home with family. Patient required max A for all ADLs except for self feeding. Patient used a RW to ambulate and transfers. Recieved HH services prior. Family wishes for placement for patient in order to improve independence with ADLs and fx'l mobility. Subjective Yeah. Instructed Patient on proper hand and foot placement to complete bed mobility from supine->sit @ EOB->stand with usage of RW requiring Max A x2 . Patient stood <:30 secs with needing Max A x2 from EOB-> supine. Left Patient sitting upright in bed with needs met at end of session. Objective Patient Orientation Person,Place,Name,Age Right Upper Extremity Gross ROM WFL Left Upper Extremity Gross ROM WFL Bed Mobility bed mobility - supine/sit Assist Level Maximum x 2 (75% assist) Transfer Training Sit/Stand Transfer Assist Level Maximum x 2 (75% assist) Rehab OT IP prob,goals,plan Problems Date of Evaluation: 11/21/23 OT IP Problems Bed Mobility,Transfers,Balance ,Self care,Safety Rehab Potential Rehab Potential Good Equipment Needs Assistive Devices Rolling / Wheeled Walker Plan OT intervention Plan Bed Mobility,Transfers,Balance ,Self care,Safety,Therapeutic Exercise OT Plan Frequency Daily Duration LOS Discharge Goals Bed Mobility Ability Assistance x1 Sit to Stand Chair Transfer Ability Maximum x 1 (75% assist) Chair Transfer Ability Maximum x 1 (75% assist) Discharge Plan OT Discharge Plan Recommend placement at this time. Continue skilled OT IP services while here at [facility]. Eval Complexity Eval Charge Codes 59352 - Low Complexity PHYSICIAN CERTIFICATION: I certify the specified therapy services for Sreekanth Walker SR are required, authorized, and reviewed every 30 days.
--- NOTE | 2023-11-21 10:45 | SW/DCPLANNER ---
Addendum entered by Abigail Camak 11/21/23 15:49: [facility]/ [facility] stated that she could accept this patient SNF level of care on Saturday11/23/23. Addendum entered by Abigail Camak 11/21/23 14:06: [facility] is onsite to evaluate patient at this time. Addendum entered by Abigail Camak 11/21/23 11:09: Lina w/ [facility] stated no male beds at this time. [facility]/ [facility] is currently reviewing patient information. Original Note: I spoke w/ patient and his daughters regarding plans once medically stable for discharge. PT/OT evaluated patient and recommended SNF level of care at time of discharge. Patient is agreeable to placement at this time and prefers [facility] or [facility]. I will follow up both facilities this AM and fax patient information. Discharge date is unknown at this time.
[2023-11-21] MEDS: DAPAGLIFLOZIN PROPANEDIOL 10 MG TABLET PO (11:17)
[2023-11-21] MEDS: WARFARIN 2MG TABLET 4 MG PO (11:18)
--- NOTE | 2023-11-21 13:00 | P.CONCA_ITS ---
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 He has history of atrial fibrillation on Coumadin, cor pulmonale, lung cancer status post recent radiation, hypertension, AAA repair, Parkinson's disease, he is legally blind. Patient's family is bedside providing majority of the history. He typically requires quite a bit of assistance with his ADLs. Was developing worsening weakness and shortness of breath over the past several days with orthopnea. He collapsed out of a chair and was unresponsive. EMS called and he had O2 in the high 60s. Came to the emergency room received Lasix 80 mg IV and had 3600 mL out. He was admitted to the hospital overnight for heart failure exacerbation and has continued to diurese and is feeling much better today. He still has some mild lower extremity edema and crackles on exam. Family states he typically takes Lasix 20 mg daily at home and never titrates the dose on an as-needed basis. Has never tried SGLT2. [facility] Disclaimer: The information contained in this section may have been updated after the patient was seen, as this information can be updated by other users. Medical History Aneurysm Urinary retention Hypertension Hypothyroidism Parkinson disease Atrial fibrillation Surgical History S/P AAA repair Family History Mother Family history of hyperlipidemia Family history of hypertension Social History Smoking Status: Former smoker tobacco type: cigarettes alcohol intake: never current occupational status: retired Travel in the last 8 weeks: None household members: spouse caffeine: Yes Review of Systems Constitutional Constitutional: Denies fatigue and Denies weakness Eyes Eyes: Denies loss of vision ENT Ears, Nose, Mouth, and Throat: Denies hearing loss and Denies vertigo *Cardiovascular Cardiovascular: Denies chest pain, Reports dyspnea and Denies syncope *Respiratory Respiratory: Denies cough and Reports dyspnea *Gastrointestinal Gastrointestinal: Denies change in stool character, Denies nausea and Denies vomiting *Genitourinary Genitourinary: Denies difficulty urinating *Musculoskeletal Musculoskeletal: Denies muscle weakness Integumentary/Breasts Skin/Breast: Denies changing lesions *Neurologic Neurologic: Denies loss of vision, Denies syncope, Denies vertigo and Denies weakness Endocrine Endocrine: Denies fatigue Exam Data for Last 24 hours Vital signs and Labs for Last 24 Hours: Temp Pulse Resp BP Pulse Ox O2 Del Method O2 Flow Rate 98.4 F 89 21 86/59 L 96 Nasal Cannula 1 11/21/23 12:00 11/21/23 12:00 11/21/23 12:00 11/21/23 12:00 11/21/23 12:00 11/21/23 12:00 11/21/23 12:00 Laboratory Results - last 24 hr 11/20/23 18:23: WBC 7.6, RBC 4.00 L, Hgb 12.9 L, Hct 40.1 L, MCV 100.3 H, MCH 32.3 H, MCHC 32.2, RDW 15.7, Plt Count 198, MPV 8.3, Neut % (Auto) 83.3 H, Lymph % (Auto) 8.8 L, [place] % (Auto) 6.9, Eos % (Auto) 0.6, Baso % (Auto) 0.4, Neut # (Auto) 6.4, Lymph # (Auto) 0.7, [place] # (Auto) 0.5, Eos # (Auto) 0.0, Baso # (Auto) 0.0, Sodium 140, Potassium 3.1 L D, Chloride 103, Carbon Dioxide 32 H, Anion Gap 8.1, BUN 20, Creatinine 0.80, Estimated Creat Clear 52, Estimated GFR 92, Est GFR ( Amer) 112, Glucose 89 D, Calcium 9.2, Phosphorus 3.0, Magnesium 2.1 11/20/23 21:28: Troponin I 0.03 11/21/23 03:20: Troponin I 0.02 11/21/23 05:25: WBC 6.9, RBC 4.05 L, Hgb 13.1 L, Hct 41.2 L, MCV 101.6 H, MCH 32.3 H, MCHC 31.8, RDW 15.8, Plt Count 169, MPV 8.7, Neut % (Auto) 79.3, Lymph % (Auto) 11.7, [place] % (Auto) 7.2, Eos % (Auto) 0.8, Baso % (Auto) 1.0, Neut # (Auto) 5.5, Lymph # (Auto) 0.8, [place] # (Auto) 0.5, Eos # (Auto) 0.1, Baso # (Auto) 0.1, PT 20.2 H, INR 1.92 H, Sodium 139, Potassium 3.2 L, Chloride 102, Carbon Dioxide 31 H, Anion Gap 9.2, BUN 21 H, Creatinine 0.70, Estimated Creat Clear 53, Estimated GFR 108, Est GFR ( Amer) 130, Glucose 87, Calcium 9.4, Magnesium 2.0, C-Reactive Protein 4.8 H, Triglycerides 79, Cholesterol 134 L, LDL Cholesterol Direct 77.66 L, VLDL Cholesterol 16, HDL Cholesterol 39 L, Cholesterol/HDL Ratio 3.4, Procalcitonin 0.047 I & O for Last 24 hours: Intake & Output 11/18/23 11/19/23 11/20/23 11/21/23 23:59 23:59 23:59 23:59 Intake Total 456 / 456 Output Total 3120 / 4220 1750 / 1750 Balance -3120 / -4120 -1294 / -1294 Weight 146 lb 146 lb 9.718 oz Meds Home Medications and Allergies Home Medications Medication Instructions Recorded Confirmed Type atropine 1 % eye drops 1 drp Eye-Right DAILY 09/12/23 11/20/23 History ezetimibe 10 mg tablet 10 mg PO DAILY 09/12/23 11/20/23 History furosemide 20 mg tablet 20 mg PO DAILY 09/12/23 11/20/23 History levothyroxine 137 mcg tablet 137 mcg PO DAILY 09/12/23 11/20/23 History metoprolol succinate 100 mg 100 mg PO BID 09/12/23 11/20/23 History tablet,extended release 24 hr omeprazole 40 mg capsule,delayed 40 mg PO DAILY 09/12/23 11/20/23 History release prednisolone acetate 1 % eye 1 drp Eye-Right DAILY 09/12/23 11/20/23 History drops,suspension ropinirole 0.25 mg tablet 0.25 mg PO BID 09/12/23 11/20/23 History tamsulosin 0.4 mg capsule 0.4 mg PO HS 09/12/23 11/20/23 History valsartan 160 mg tablet 160 mg PO DAILY 09/12/23 11/20/23 History warfarin 4 mg tablet 2 mg PO MOFR 09/12/23 11/20/23 History warfarin 4 mg tablet 4 mg PO SUTUWETHSA 09/12/23 11/20/23 History potassium chloride 20 mEq 20 meq PO BID 09/24/23 11/20/23 History tablet,extended release(part/cryst) hydrochlorothiazide 25 mg tablet 25 mg PO DAILY 09/25/23 11/20/23 History New Prescriptions to Start Prescriptions: Allergies Allergy/AdvReac Type Severity Reaction Status Date / Time Iodinated Contrast Media Allergy Mild Verified 11/20/23 08:54 Penicillins Allergy Unknown Verified 11/20/23 08:54 Assessment and Plan *Assessment and plan (1) Cor pulmonale: Status: Acute Category: Medical Code(s): I27.81 - Cor pulmonale (chronic) (2) Atrial fibrillation: Status: Acute Qualifiers: Atrial fibrillation type: longstanding persistent Qualified Code(s): I48.11 - Longstanding persistent atrial fibrillation Category: Medical Code(s): I48.91 - Unspecified atrial fibrillation (3) CHF exacerbation: Status: Acute Qualifiers: Heart failure type: unspecified Qualified Code(s): I50.9 - Heart failure, unspecified Category: Medical Code(s): I50.9 - Heart failure, unspecified (4) Parkinson disease: Status: Acute Qualifiers: Dyskinesia presence: unspecified whether dyskinesia Fluctuating manifestations: unspecified whether manifestations fluctuate Qualified Code(s): G20.A1 - Parkinson's disease without dyskinesia, without mention of fluctuations Category: Medical Code(s): G20 - Parkinson's disease (5) Lung cancer: Status: Acute Category: Medical Code(s): C34.90 - Malignant neoplasm of unspecified part of unspecified bronchus or lung Plan Cor pulmonale with acute volume overload -Known diagnosis, echo here September 2023 shows severe RA dilation, severe RV dilation, severe TR, preserved EF -Patient only takes Lasix 20 at home and never titrates according to weight, presented here with 5 to 6 L of volume overload -Continue diuresing down to dry weight, counseled family on checking weights and for signs of edema at home -Will try addition of Farxiga Paroxysmal atrial fibrillation -Known diagnosis, asymptomatic and rate controlled -Continue metoprolol 100 twice daily and Coumadin History of AAA repair -Continue BP control Lung cancer -Details unclear, followed by oncology in [place], finished radiation approximately 1 month ago Parkinson's disease -Complicates all aspects of care, family helps with ADLs Legally blind -Family provides assistance 11/20 CV summary: Patient is diuresing well but still has lower extremity edema and crackles. Continue diuresis for another 1 to 2 days. Considering rehab at discharge
--- NOTE | 2023-11-21 15:37 | P.PN_ITS ---
Subjective *Date: 11/21/23 *Time: 15:45 Interval history: Patient breathing better and more awake after diuresing over 4 L in past 24 hours. Patient's caregiver and daughter present during time evaluation by Dr. Grider. Medical Exam Vital signs and Labs for Last 24 Hours: Vital Signs Temp Pulse Pulse Resp BP BP Pulse Ox 11/21/23 14:52 11/21/23 12:54 11/21/23 12:00 90 11/21/23 12:00 98.4 F 11/21/23 12:00 89 21 86/59 L 96 11/21/23 10:53 11/21/23 10:00 87 22 90/58 L 99 11/21/23 09:40 11/21/23 08:29 80 11/21/23 08:00 88 20 143/105 H 95 11/21/23 08:00 98.0 F 11/21/23 07:40 93 H 95 11/21/23 07:17 95 11/21/23 06:56 11/21/23 06:00 89 18 139/97 H 97 11/21/23 04:58 11/21/23 04:00 97.9 F 11/21/23 04:00 83 11/21/23 04:00 93 H 16 141/106 H 94 L 11/21/23 03:00 11/21/23 02:00 80 20 126/92 H 95 11/21/23 01:00 11/21/23 00:00 95 H 11/21/23 00:00 97.9 F 11/21/23 00:00 79 18 124/88 95 11/21/23 00:00 88 22 95 11/20/23 23:00 11/20/23 22:00 83 21 118/75 96 11/20/23 21:00 11/20/23 20:52 98 11/20/23 20:00 97 H 11/20/23 20:00 97.7 F 11/20/23 20:00 98 H 20 114/66 99 11/20/23 18:56 11/20/23 18:02 95 H 18 135/92 H 99 11/20/23 17:02 98.7 F 106 H 20 133/96 H 11/20/23 17:00 11/20/23 16:55 97.7 F 11/20/23 16:50 91 H 99 11/20/23 16:00 103 H 24 144/102 H 94 L O2 Del Method O2 Flow Rate 11/21/23 14:52 Nasal Cannula 1 11/21/23 12:54 Nasal Cannula 1 11/21/23 12:00 11/21/23 12:00 11/21/23 12:00 Nasal Cannula 1 11/21/23 10:53 Nasal Cannula 2 11/21/23 10:00 Nasal Cannula 2 11/21/23 09:40 Nasal Cannula 2 11/21/23 08:29 11/21/23 08:00 Nasal Cannula 2 11/21/23 08:00 11/21/23 07:40 Nasal Cannula 2 11/21/23 07:17 Nasal Cannula 2 11/21/23 06:56 Nasal Cannula 2 11/21/23 06:00 Nasal Cannula 2 11/21/23 04:58 Nasal Cannula 2 11/21/23 04:00 11/21/23 04:00 11/21/23 04:00 Nasal Cannula 2 11/21/23 03:00 Nasal Cannula 2 11/21/23 02:00 Nasal Cannula 2 11/21/23 01:00 Nasal Cannula 2 11/21/23 00:00 11/21/23 00:00 11/21/23 00:00 Nasal Cannula 2 11/21/23 00:00 Nasal Cannula 2 11/20/23 23:00 Nasal Cannula 2 11/20/23 22:00 Nasal Cannula 2 11/20/23 21:00 Nasal Cannula 2 11/20/23 20:52 Nasal Cannula 2 11/20/23 20:00 11/20/23 20:00 11/20/23 20:00 Nasal Cannula 2 11/20/23 18:56 Nasal Cannula 3 11/20/23 18:02 Nasal Cannula 3 11/20/23 17:02 11/20/23 17:00 Nasal Cannula 3 11/20/23 16:55 11/20/23 16:50 Nasal Cannula 4 11/20/23 16:00 Intake and Output 11/20/23 11/21/23 11/21/23 23:59 07:59 15:59 Intake Total 100 / 846 746 / 846 Output Total 1100 / 1750 650 / 1750 Balance -1000 / -904 96 / -904 Intake: Intake, Oral Amount 100 / 846 746 / 846 Output: Output, Urine Amount 650 / 650 Output, Urine Amount (Catheter) 1100 / 1100 [place] 1100 / 1100 Other: Number of Unmeasured Voids 0 0 Number of Bowel Movements 1 Weight 66.224 kg 66.5 kg 66.5 kg Patient Weight 11/21/23 23:59 Weight 66.5 kg Laboratory Results - last 24 hr 11/20/23 18:23: WBC 7.6, RBC 4.00 L, Hgb 12.9 L, Hct 40.1 L, MCV 100.3 H, MCH 32.3 H, MCHC 32.2, RDW 15.7, Plt Count 198, MPV 8.3, Neut % (Auto) 83.3 H, Lymph % (Auto) 8.8 L, [place] % (Auto) 6.9, Eos % (Auto) 0.6, Baso % (Auto) 0.4, Neut # (Auto) 6.4, Lymph # (Auto) 0.7, [place] # (Auto) 0.5, Eos # (Auto) 0.0, Baso # (Auto) 0.0, Sodium 140, Potassium 3.1 L D, Chloride 103, Carbon Dioxide 32 H, Anion Gap 8.1, BUN 20, Creatinine 0.80, Estimated Creat Clear 52, Estimated GFR 92, Est GFR ( Amer) 112, Glucose 89 D, Calcium 9.2, Phosphorus 3.0, Magnesium 2.1 11/20/23 21:28: Troponin I 0.03 11/21/23 03:20: Troponin I 0.02 11/21/23 05:25: WBC 6.9, RBC 4.05 L, Hgb 13.1 L, Hct 41.2 L, MCV 101.6 H, MCH 32.3 H, MCHC 31.8, RDW 15.8, Plt Count 169, MPV 8.7, Neut % (Auto) 79.3, Lymph % (Auto) 11.7, [place] % (Auto) 7.2, Eos % (Auto) 0.8, Baso % (Auto) 1.0, Neut # (Auto) 5.5, Lymph # (Auto) 0.8, [place] # (Auto) 0.5, Eos # (Auto) 0.1, Baso # (Auto) 0.1, PT 20.2 H, INR 1.92 H, Sodium 139, Potassium 3.2 L, Chloride 102, Carbon Dioxide 31 H, Anion Gap 9.2, BUN 21 H, Creatinine 0.70, Estimated Creat Clear 53, Estimated GFR 108, Est GFR ( Amer) 130, Glucose 87, Calcium 9.4, Magnesium 2.0, C-Reactive Protein 4.8 H, Triglycerides 79, Cholesterol 134 L, LDL Cholesterol Direct 77.66 L, VLDL Cholesterol 16, HDL Cholesterol 39 L, Cholesterol/HDL Ratio 3.4, Procalcitonin 0.047 I & O for Labs for Last 24 Hours: Intake & Output 11/18/23 11/19/23 11/20/23 11/21/23 23:59 23:59 23:59 23:59 Intake Total 846 / 846 Output Total 3120 / 4220 1750 / 1750 Balance -3120 / -4120 -904 / -904 Weight 66.224 kg 66.5 kg Head: Present normocephalic and normal inspection ENT: Present normal exam and mucous membranes moist Neck: Present normal inspection and full ROM Respiratory: Present distant breath sounds and diminished air movement Cardiac: Present Reg Rate and Rhythm and Regular Rhythm GI: Present soft and normal bowel sounds Extremities: Present normal inspection and normal capillary refill Comment:: Much improved bilateral pitting edema versus yesterday Skin: Present intact and dry Assessment and Plan *Assessment and plan (1) Cor pulmonale: Status: Acute Category: Medical Code(s): I27.81 - Cor pulmonale (chronic) (2) Heart failure: Status: Acute Category: Medical Code(s): I50.9 - Heart failure, unspecified (3) CHF exacerbation: Status: Acute Category: Medical Code(s): I50.9 - Heart failure, unspecified (4) Lung cancer: Status: Acute Category: Medical Code(s): C34.90 - Malignant neoplasm of unspecified part of unspecified bronchus or lung Plan CHF exacerbation: -11/20 improving with IV Lasix. Patient diuresed over 4 L in past day. Continue current therapy. Echocardiogram scheduled for today ? Fluid restriction 1.5 L/day, scheduled IV Lasix, daily weights, strict I's and O's, consult cardiology, Lasix 40 mg IV every 12, correct electrolytes as needed. Atrial fibrillation: ? Chronic. Continue patient's home medications warfarin. PPx: Heparin FEN 1500 mL/day fluid restriction, cardiac diet CODE STATUS: Full Disposition: ? Likely tomorrow if cardiology consult agrees.
--- NOTE | 2023-11-21 15:44 | PC.NURSE ---
Pt has had several visitors in room throughout the shift. pt lung sounds upon reassessment are clear throughout but slightly diminished in leroy bases. bowel sounds are active in all quads. nad noted. pt is a/o x 4. pt has been up to the chair since approx 1300.
--- NOTE | 2023-11-21 19:02 | CA_ITS ---
APPROVED REPORT EXAM: Limited 2D Echocardiogram Import/Export Administrator: Beulah Busby CRT Ht: 6 ft 0 in Wt: 146lbs BSA: 1.86 BP: 148/102 mmHg Indications: afib chronic, aaa repair, blind, chf M-Mode Dimensions RVDd 2.82 cm (0.9-2.6) LA Diam 4.41 cm (1.9-4.0) LVDd 4.45 cm (3.5-5.7) LVDs 2.76 cm (3.5-5.7) IVSd 1.88 cm (0.6-1.1) PWd 0.63 cm (0.6-1.1) EF (Teich) 68.40% FS 38.00% EDV (Teich) 90.10 mL ESV (Teich) 28.50 mL Other Information Study Quality: Fair Conclusion This is a limited TTE to evaluate for biventricular systolic function. Limited windows were obtained. The left ventricle is normal in size. There is increased LV wall thickness. There is normal LV systolic function. No regional wall motion abnormalities are noted. LVEF is 55%. The right ventricle is moderately dilated with moderate reduction in RV function. The left atrium is normal in size. The right atrium is severely dilated. Electronically signed by : Mary Alaniz MD 11/22/2023 20:34:10
[2023-11-21] MEDS: TAMSULOSIN 0.4MG CAPSULE 0.4 MG PO (21:17)
[2023-11-22] VITALS: BP 136/78; PULSE 104; PULSE 106; RESP 14; TEMP 36.8; O2SAT 95; O2SAT 96
[2023-11-22 04:00] VITALS: BP 140/88; PULSE 88; PULSE 90; RESP 16; TEMP 36.7; O2SAT 94; BMI 19.5
--- NOTE | 2023-11-22 05:52 | PC.NURSE ---
Addendum entered by Guera Guy RN 11/22/23 06:23: Patient is alert and oriented, and was able to answer questions upon awaking at this time. Original Note: Patient was alert to himself, staff, and his family (daughters had visited at the beginning of this shift), but was slightly confused as to where he was at and was trying to go home. Patient was reoriented and requested a bath afterwards, which he received. Patient has rested comfortably throughout the entire night and occasionally talked in his sleep. Patient's tremoring has been mild this shift. He has been on room air for most of the night (removed from 1 L NC) and tolerates it very well, with oxygen sats remaining high 90s to 100. Patient is afib on telemetry. Upon auscultation, rhonchi was heard in patient's lungs; he has been having a productive, wet cough intermittently throughout the night. Patient's swelling and pitting in his lower extremities have noticeably decreased since 11/20/23. His bowel sounds were active, but he has not had a bowel movement this shift. Patient's coleman is intact; I emptied a total of 1,225 mL of urine this shift. Patient remains on a 1500 mL restriction and did not surpass the total; he only drank 50 mL of ice water to take his pills this shift. Patient has not had any complaints throughout the night. He continues to sleep at this time. Patient's bed alarm is on and call light is within reach.
[2023-11-22 06:19] LABS: MANUAL DIFFERENTIAL MANUAL DIFFERENTIAL (MANUAL DIFF)
[2023-11-22] MEDS: LEVOTHYROXINE 137MCG (0.137MG) TAB 137 MCG PO (06:23)
[2023-11-22 06:26] LABS: INR 1.71 (0.9-1.1); Prothrombin Time 18.2 seconds (10.1-12.5)
[2023-11-22 06:27] LABS: Anion Gap 8.1 mEq/L (5-15); Blood Urea Nitrogen 29 mg/dl (9-20); Calcium 9.5 mg/dl (8.4-10.2); Carbon Dioxide 30 mmol/L (22.0-30.0); Chloride 102 mmol/L (98-107); Creatinine Clearance Estimated 52 mL/min (50-200); Estimated Glomerular Filt Rate 108 ml/min (>60); GFR (African American) 130 ML/MIN (>60); Glucose 102 mg/dl (74-100); Magnesium 2.1 mg/dl (1.6-2.3); Potassium 3.1 mmoL/L (3.5-5.1); Sodium 137 mmol/L (136-145)
[2023-11-22 06:34] LABS: Basophils # 0.1 K/mm3 (0-0.2); Basophils % 0.7 % (0.1-2.0); Eosinophils % 0.6 % (0.1-12.0); Hematocrit 41.1 % (42.0-52.0); Hemoglobin 13.4 g/dL (14.1-18.0); Lymphocytes # 0.6 K/mm3 (0.7-4.5); Lymphocytes % 7.6 % (10-50); Mean Corpuscular HGB Conc 32.5 g/dL (31.8-35.4); Mean Corpuscular Hemoglobin 32.3 pg (27.0-31.2); Mean Corpuscular Volume 99.4 fl (80-94); Mean Platelet Volume 8.2 fl (7.4-10.4); Monocytes # 0.4 K/mm3 (0.1-1.0); Monocytes % 5.1 % (1.7-9.3); Neutrophils # 6.7 K/mm3 (1.8-7.8); Platelet Count 184 K/mm3 (142-424); Red Blood Count 4.14 M/mm3 (4.60-6.20); Red Cell Distribution Width 15.5 % (11.5-17.5); White Blood Count 7.8 K/mm3 (4.8-10.8)
--- NOTE | 2023-11-22 07:52 | EXP.CARD.PN ---
Subjective Subjective Date: 11/22/23 Time: 07:53 Interval history: Diuresed 6.6L since admission. Pt is more alert today and reports breathing much better. Still some mild crackles on exam which sound upper airway. Trace LE Edema. Vitals stable. Exam Data for Last 24 hours Vital signs and Labs for Last 24 Hours: Temp Pulse Resp BP Pulse Ox O2 Del Method O2 Flow Rate 98.1 F 90 16 140/88 94 L Room Air 1 11/22/23 04:00 11/22/23 04:00 11/22/23 04:00 11/22/23 04:00 11/22/23 04:00 11/22/23 06:41 11/21/23 22:57 Laboratory Results - last 24 hr 11/21/23 05:25: WBC 6.9, RBC 4.05 L, Hgb 13.1 L, Hct 41.2 L, MCV 101.6 H, MCH 32.3 H, MCHC 31.8, RDW 15.8, Plt Count 169, MPV 8.7, Neut % (Auto) 79.3, Lymph % (Auto) 11.7, [place] % (Auto) 7.2, Eos % (Auto) 0.8, Baso % (Auto) 1.0, Neut # (Auto) 5.5, Lymph # (Auto) 0.8, [place] # (Auto) 0.5, Eos # (Auto) 0.1, Baso # (Auto) 0.1, PT 20.2 H, INR 1.92 H, Sodium 139, Potassium 3.2 L, Chloride 102, Carbon Dioxide 31 H, Anion Gap 9.2, BUN 21 H, Creatinine 0.70, Estimated Creat Clear 53, Estimated GFR 108, Est GFR ( Amer) 130, Glucose 87, Calcium 9.4, Magnesium 2.0, C-Reactive Protein 4.8 H, Procalcitonin 0.047 11/22/23 05:27: WBC 7.8, RBC 4.14 L, Hgb 13.4 L, Hct 41.1 L, MCV 99.4 H, MCH 32.3 H, MCHC 32.5, RDW 15.5, Plt Count 184, MPV 8.2, Neut % (Auto) 86.0 H, Lymph % (Auto) 7.6 L, [place] % (Auto) 5.1, Eos % (Auto) 0.6, Baso % (Auto) 0.7, Neut # (Auto) 6.7, Lymph # (Auto) 0.6 L, [place] # (Auto) 0.4, Eos # (Auto) 0.0, Baso # (Auto) 0.1, PT 18.2 H, INR 1.71 H, Sodium 137, Potassium 3.1 L, Chloride 102, Carbon Dioxide 30, Anion Gap 8.1, BUN 29 H D, Creatinine 0.70, Estimated Creat Clear 52, Estimated GFR 108, Est GFR ( Amer) 130, Glucose 102 H, Calcium 9.5, Magnesium 2.1 I & O for Last 24 hours: Intake & Output 11/19/23 11/20/23 11/21/23 11/22/23 23:59 23:59 23:59 23:59 Intake Total 1116 / 1166 50 / 50 Output Total 3120 / 4220 3200 / 4425 1475 / 1475 Balance -3120 / -4120 -2084 / -3259 -1425 / -1425 Weight 146 lb 146 lb 9.718 oz 144 lb 3.2 oz Intake & Output 11/18/23 11/19/23 11/20/23 11/21/23 23:59 23:59 23:59 23:59 Intake Total 456 / 456 Output Total 3120 / 4220 1750 / 1750 Balance -3120 / -4120 -1294 / -1294 Weight 146 lb 146 lb 9.718 oz Progress Note: A&P Assessment and plan (1) Cor pulmonale: Status: Acute (2) Heart failure: Status: Acute (3) CHF exacerbation: Status: Acute (4) Lung cancer: Status: Acute Assessment and Plan Assessment and Plan for All Diagnoses:: Cor pulmonale with acute volume overload -Known diagnosis, echo here September 2023 shows severe RA dilation, severe RV dilation, severe TR, preserved EF -Patient only takes Lasix 20 at home and never titrates according to weight, presented here with 5 to 6 L of volume overload -Continue diuresing down to dry weight, counseled family on checking weights and for signs of edema at home -Will try addition of Farxiga 11/21: appears to be diuresed to dry weight. I recommend Farxiga at discharge and close monitoring of volume status with Lasix titration outpatient (family educated yesterday). Paroxysmal atrial fibrillation -Known diagnosis, asymptomatic and rate controlled -Continue metoprolol 100 twice daily and Coumadin History of AAA repair -Continue BP control Lung cancer -Details unclear, followed by oncology in [place], finished radiation approximately 1 month ago Parkinson's disease -Complicates all aspects of care, family helps with ADLs Legally blind -Family provides assistance 11/21: Appears clinically stable from CV standpoint. Add Farixga at discharge and educational material on CHF/vol management for family. He needs f/u with his Cardiolgist Dr. Luna in [place] 1-2 weeks post discharge. Please advise if we can be of further assistance prior to discharge, thank you.
[2023-11-22 08:00] VITALS: BP 148/95; PULSE 89; PULSE 90; RESP 16; TEMP 37.2; O2SAT 96
[2023-11-22] MEDS: PANTOPRAZOLE 40MG TABLET 40 MG PO (08:28)
[2023-11-22] MEDS: FUROSEMIDE 40 MG TABLET PO (08:28)
[2023-11-22] MEDS: DAPAGLIFLOZIN PROPANEDIOL 10 MG TABLET PO (08:28)
[2023-11-22] MEDS: ROPINIROLE HCL 0.25 MG TABLET PO ×2 (08:28→20:40)
[2023-11-22] MEDS: METOPROLOL SUCCINATE XL 100MG TABLET 100 MG PO ×2 (08:29→20:40)
[2023-11-22] MEDS: IRBESARTAN 150MG TAB 150 MG PO (08:29)
[2023-11-22 10:09] LABS: Lymphocytes % 16 % (10-50); Monocytes % 2 % (2-9); Neutrophils % 82 % (42-76); Platelet Estimate Normal; RBC Morphology Normal; Total Cells Counted 100
[2023-11-22] MEDS: WARFARIN 2MG TABLET 2 MG PO (10:47)
[2023-11-22 12:00] VITALS: BP 121/89; PULSE 100; PULSE 98; RESP 16; TEMP 36.9; O2SAT 99
[2023-11-22 16:00] VITALS: BP 104/77; PULSE 80; RESP 18; TEMP 37.1; O2SAT 95
[2023-11-22] MEDS: ATROPINE 1% OP (16:17)
[2023-11-22] MEDS: OPTH OP (16:17)
--- NOTE | 2023-11-22 16:31 | P.PN_ITS ---
Subjective *Date: 11/22/23 *Time: 16:35 Interval history: Patient doing well today from breathing perspective. Family states patient seems slightly weaker versus yesterday evaluation. Medical Exam Vital signs and Labs for Last 24 Hours: Vital Signs Temp Pulse Pulse Resp BP Pulse Ox O2 Del Method 11/22/23 16:00 98.7 F 80 18 104/77 L 95 Room Air 11/22/23 14:53 Room Air 11/22/23 13:05 Room Air 11/22/23 12:00 100 H 11/22/23 12:00 98.4 F 98 H 16 121/89 99 Room Air 11/22/23 11:05 Room Air 11/22/23 09:03 Room Air 11/22/23 08:10 Room Air 11/22/23 08:00 90 11/22/23 08:00 98.9 F 89 16 148/95 H 96 Room Air 11/22/23 06:41 Room Air 11/22/23 05:00 Room Air 11/22/23 04:00 88 11/22/23 04:00 98.1 F 90 16 140/88 94 L Room Air 11/22/23 03:00 Room Air 11/22/23 01:00 Room Air 11/22/23 00:00 96 Room Air 11/22/23 00:00 104 H 11/22/23 00:00 98.2 F 106 H 14 136/78 95 Room Air 11/21/23 22:57 Nasal Cannula 11/21/23 21:00 Nasal Cannula 11/21/23 20:00 112 H 100 Nasal Cannula 11/21/23 20:00 124 H 11/21/23 20:00 98.4 F 104 H 22 105/80 L 99 Nasal Cannula 11/21/23 19:00 Nasal Cannula 11/21/23 17:32 Nasal Cannula O2 Flow Rate 11/22/23 16:00 11/22/23 14:53 11/22/23 13:05 11/22/23 12:00 11/22/23 12:00 11/22/23 11:05 11/22/23 09:03 11/22/23 08:10 11/22/23 08:00 11/22/23 08:00 11/22/23 06:41 11/22/23 05:00 11/22/23 04:00 11/22/23 04:00 11/22/23 03:00 11/22/23 01:00 11/22/23 00:00 11/22/23 00:00 11/22/23 00:00 11/21/23 22:57 1 11/21/23 21:00 1 11/21/23 20:00 1 11/21/23 20:00 11/21/23 20:00 1 11/21/23 19:00 1 11/21/23 17:32 1 Intake and Output 11/22/23 11/22/23 11/22/23 07:59 15:59 23:59 Intake Total 50 / 190 140 / 190 Output Total 1475 / 1800 325 / 1800 Balance -1425 / -1610 -185 / -1610 Intake: Intake, Oral Amount 50 / 190 140 / 190 Output: Output, Urine Amount 250 / 250 Output, Urine Amount (Catheter) 1225 / 1550 325 / 1550 Cheney 1225 / 1550 325 / 1550 Other: Number of Unmeasured Voids 0 0 Weight 65.408 kg Patient Weight 11/22/23 23:59 Weight 65.408 kg Laboratory Results - last 24 hr 11/22/23 05:27: WBC 7.8, RBC 4.14 L, Hgb 13.4 L, Hct 41.1 L, MCV 99.4 H, MCH 32.3 H, MCHC 32.5, RDW 15.5, Plt Count 184, MPV 8.2, Neut % (Auto) 86.0 H, Lymph % (Auto) 7.6 L, [place] % (Auto) 5.1, Eos % (Auto) 0.6, Baso % (Auto) 0.7, Neut # (Auto) 6.7, Lymph # (Auto) 0.6 L, [place] # (Auto) 0.4, Eos # (Auto) 0.0, Baso # (Auto) 0.1, Total Counted 100, Neutrophils % (Manual) 82 H, Lymphocytes % (Manual) 16, Monocytes % (Manual) 2, Platelet Estimate Normal, RBC Morphology Normal, PT 18.2 H, INR 1.71 H, Sodium 137, Potassium 3.1 L, Chloride 102, Carbon Dioxide 30, Anion Gap 8.1, BUN 29 H D, Creatinine 0.70, Estimated Creat Clear 52, Estimated GFR 108, Est GFR ( Amer) 130, Glucose 102 H, Calcium 9.5, Magnesium 2.1 I & O for Labs for Last 24 Hours: Intake & Output 11/19/23 11/20/23 11/21/23 11/22/23 23:59 23:59 23:59 23:59 Intake Total 1116 / 1166 190 / 190 Output Total 3120 / 4220 3200 / 4425 1800 / 1800 Balance -3120 / -4120 -2084 / -3259 -1610 / -1610 Weight 66.224 kg 66.5 kg 65.408 kg Head: Present normocephalic ENT: Present normal exam Neck: Present normal inspection and full ROM Respiratory: Present diminished air movement Cardiac: Present Irregularly Regular GI: Present soft and normal bowel sounds Rectal (male): Present deferred (male): Present deferred Extremities: Present normal inspection Skin: Present intact and warm Assessment and Plan *Assessment and plan (1) Cor pulmonale: Status: Acute Category: Medical Code(s): I27.81 - Cor pulmonale (chronic) (2) Heart failure: Status: Acute Category: Medical Code(s): I50.9 - Heart failure, unspecified (3) CHF exacerbation: Status: Acute Category: Medical Code(s): I50.9 - Heart failure, unspecified (4) Lung cancer: Status: Acute Category: Medical Code(s): C34.90 - Malignant neoplasm of unspecified part of unspecified bronchus or lung Plan CHF exacerbation: ?11/21 transition to p.o. Lasix today given excellent diuresis over the past 3 days. -11/20 improving with IV Lasix. Patient diuresed over 4 L in past day. Continue current therapy. Echocardiogram scheduled for today ? Fluid restriction 1.5 L/day, scheduled IV Lasix, daily weights, strict I's and O's, consult cardiology, Lasix 40 mg IV every 12, correct might be secondary Generalized weakness: ? Correct electrolytes as needed. Might be secondary to UTI. Repeat UA today. Atrial fibrillation: ? Chronic. Continue patient's home medications warfarin. PPx: Heparin FEN 1500 mL/day fluid restriction, cardiac diet CODE STATUS: Full Disposition: ? Patient qualified for short-term rehab, so will likely be discharged to short- term rehab 11/23/2023.
--- NOTE | 2023-11-22 17:52 | PC.NURSE ---
Patient confused to place and time. Cheney removed per md request, 325 of urine noted. Purwick placed but patient has not voided. Patient states he has tried but does not need to void. Hospitalist aware, no orders for in and out cath as patient has been diuresed over 6L. VS stable and patient remained on room air. 190 ml intake noted at this time.
--- NOTE | 2023-11-22 18:47 | XR_ITS ---
PROCEDURE INFORMATION: Exam: XR Chest Exam date and time: 11/22/2023 7:19 PM Age: 82 years old Clinical indication: Shortness of breath; Additional info: Evaluate chf exacerbation progression and pna TECHNIQUE: Imaging protocol: Radiologic exam of the chest. Views: 1 view. COMPARISON: CR XR CHEST PORTABLE 11/20/2023 8:08 AM FINDINGS: Lungs: There are decreasing parenchymal opacities with improving aeration of the lungs. Pleural spaces: No large effusion or pneumothorax. Heart/Mediastinum: Stable cardiac and mediastinal contours. Vasculature: There are calcifications of the aortic arch. Bones/joints: No evidence of acute osseous abnormalities within the visualized portions of the thoracic spine and ribs. Osseous structures appear appropriate for patient age. IMPRESSION: There are decreasing parenchymal opacities with improving aeration of the lungs.
[2023-11-22 19:13] LABS: C-Reactive Protein 27.6 mg/L (0-4)
[2023-11-22 19:24] LABS: Procalcitonin 0.047 ng/mL (0.0-2.0)
[2023-11-22 20:00] VITALS: BP 127/82; PULSE 70; PULSE 80; RESP 18; TEMP 36.9; O2SAT 97
[2023-11-22 20:09] LABS: Adenovirus,PCR Not Detected (NotDetected); Bordetella Pertussis Not Detected (NotDetected); Chlamydophila Pneumoniae, PCR Not Detected (NotDetected); Coronavirus 19, PCR Not Detected (NotDetected); Coronavirus 229E Not Detected (NotDetected); Coronavirus NL63 Not Detected (NotDetected); Coronavirus OC43 Not Detected (NotDetected); Coronovirus HKU1,PCR Not Detected (NotDetected); Human Metapneumovirus Not Detected (NotDetected); Influenza A, PCR Not Detected (NotDetected); Influenza AH1, 2009 Not Detected (NotDetected); Influenza AH1, PCR Not Detected (NotDetected); Influenza AH3,PCR Not Detected (NotDetected); Influenza B, PCR Not Detected (NotDetected); Mycoplasma Pneumoniae, PCR Not Detected (NotDetected); Parainfluenza 1, PCR Not Detected (NotDetected); Parainfluenza 2, PCR Not Detected (NotDetected); Parainfluenza 3, PCR Not Detected (NotDetected); Parainfluenza 4, PCR Not Detected (NotDetected); Respiratory Syncytial Virus Not Detected (NotDetected); Rhinovirus/Enterovirus Not Detected (NotDetected)
[2023-11-22] MEDS: TAMSULOSIN 0.4MG CAPSULE 0.4 MG PO (20:40)
[2023-11-22 22:44] LABS: Microscopic, Urine URINE MICROSCOPIC (MICROSCOPIC)
[2023-11-22 22:51] LABS: Blood, Urine 2+ (Negative); Glucose,Urine (UA) 2+ (Negative); Ketones,Urine Negative (Negative); Leukocyte Esterase,Urine Negative (Negative); Nitrate,Urine Negative (Negative); Protein,Urine TRACE (Negative); Specific Gravity, Urine 1.025 (1.005-1.030)
[2023-11-22 23:07] LABS: Appearance,Urine Slightly Cloudy (Clear); Bilirubin,Urine 1+ (Negative); Color,Urine Dark Yellow (Yellow)
[2023-11-22 23:21] LABS: Bacteria,Urine Trace /lpf
[2023-11-23] VITALS: BP 124/88; PULSE 88; RESP 16; TEMP 37; O2SAT 98
[2023-11-23 04:00] VITALS: BP 124/85; PULSE 79; RESP 22; TEMP 36.8; O2SAT 97; BMI 19.1
[2023-11-23] MEDS: LEVOTHYROXINE 137MCG (0.137MG) TAB 137 MCG PO (06:16)
[2023-11-23 07:54] LABS: MANUAL DIFFERENTIAL MANUAL DIFFERENTIAL (MANUAL DIFF)
[2023-11-23 07:56] LABS: Basophils # 0.1 K/mm3 (0-0.2); Eosinophils # 0.1 K/mm3 (0.0-0.4); Eosinophils % 1.1 % (0.1-12.0); Hematocrit 42.6 % (42.0-52.0); Hemoglobin 13.7 g/dL (14.1-18.0); Lymphocytes # 0.7 K/mm3 (0.7-4.5); Mean Corpuscular HGB Conc 32.2 g/dL (31.8-35.4); Mean Corpuscular Volume 102.5 fl (80-94); Mean Platelet Volume 8.5 fl (7.4-10.4); Monocytes # 0.4 K/mm3 (0.1-1.0); Monocytes % 6.5 % (1.7-9.3); Neutrophils # 4.9 K/mm3 (1.8-7.8); Neutrophils % 80.4 % (37.0-80.0); Platelet Count 147 K/mm3 (142-424); Red Blood Count 4.15 M/mm3 (4.60-6.20); Red Cell Distribution Width 15.4 % (11.5-17.5)
[2023-11-23 08:00] VITALS: BP 114/83; PULSE 80; PULSE 88; RESP 17; TEMP 37; O2SAT 94
[2023-11-23 08:20] LABS: INR 1.61 (0.9-1.1); Prothrombin Time 17.2 seconds (10.1-12.5)
[2023-11-23 08:23] LABS: Anion Gap 9.1 mEq/L (5-15); Blood Urea Nitrogen 35 mg/dl (9-20); Calcium 9.5 mg/dl (8.4-10.2); Carbon Dioxide 29 mmol/L (22.0-30.0); Chloride 103 mmol/L (98-107); Creatinine Clearance Estimated 51 mL/min (50-200); Estimated Glomerular Filt Rate 129 ml/min (>60); GFR (African American) 156 ML/MIN (>60); Glucose 86 mg/dl (74-100); Magnesium 2.2 mg/dl (1.6-2.3); Potassium 3.1 mmoL/L (3.5-5.1); Sodium 138 mmol/L (136-145)
[2023-11-23 08:30] LABS: Eosinophils % 1 % (0-3); Lymphocytes % 10 % (10-50); Monocytes % 4 % (2-9); Neutrophils % 84 % (42-76); Platelet Estimate Normal; RBC Morphology Normal; Total Cells Counted 100
[2023-11-23] MEDS: FUROSEMIDE 40 MG TABLET PO (09:37)
[2023-11-23] MEDS: OPTH OP (09:37)
[2023-11-23] MEDS: ATROPINE 1% OP (09:37)
[2023-11-23] MEDS: PANTOPRAZOLE 40MG TABLET 40 MG PO (09:37)
[2023-11-23] MEDS: ROPINIROLE HCL 0.25 MG TABLET PO ×2 (09:37→20:45)
[2023-11-23] MEDS: DAPAGLIFLOZIN PROPANEDIOL 10 MG TABLET PO (09:37)
[2023-11-23] MEDS: POTASSIUM CHLORIDE 20MEQ TAB 40 MEQ PO (09:37)
[2023-11-23] MEDS: METOPROLOL SUCCINATE XL 100MG TABLET 100 MG PO ×2 (09:37→20:44)
[2023-11-23] MEDS: IRBESARTAN 150MG TAB 150 MG PO (09:37)
[2023-11-23] MEDS: WARFARIN 2MG TABLET 4 MG PO (11:43)
[2023-11-23 12:00] VITALS: BP 99/63; PULSE 83; RESP 18; TEMP 37; O2SAT 98
--- NOTE | 2023-11-23 13:49 | P.DS_ITS ---
General Admission date:: 11/20/23 Discharge date: 11/23/23 HPI HPI HPI: Really nice patient who is legally blind presents to hospital with weakness/shortness of breath. Patient reportedly found down at home by family. Patient had O2 saturation high 60s on room air upon initial evaluation. Patient O2 saturation increased above 90% on 4 L nasal cannula. Patient given 80 mg IV Lasix in emergency room. Within 3 hours, patient urine output 3600 mL. Patient states breathing improved dramatically after IV Lasix bolus in emergency room. Admits to worsening SOB, SANDS, orthopnea since this a.m. States he has been sleeping Upright in a chair for several days because it is more comfortable. Denies chest pain. Family states patient has been noncompliant with home Lasix for unknown reasons. Denies current chest pain, palpitations, fevers, chills, known sick contacts, or abdominal pain. States he has been suffering from lower back pain for several months. Hospital Course Hospital Course Hospital Course: The patient was admitted to the telemetry unit with cardiology consultation. Imaging, labs and inflammatory markers were assessed and trended. Accurate I's and O's were acquired. He was started on IV loop diuretic therapy with effective diuresing. His IV loop diuretic therapy was transitioned to p.o. with good tolerance. Patient identified improvement and reported improved shortness of air. On day of discharge his ex- Padma Vides and daughter Kimberly Núñez were in attendance. I was accompanied by his nurse Marielos. He typically lives with his ex- who provides most of his care. He will occasionally spend the day and nights with his daughter Kimberly. 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 Family reports that he is no longer requiring treatments for lung cancer at this time, if more chemo/radiation is required it will be after any rehab experience. With his identified improvement he requested to be discharged and is amendable to rehab care. He typically walks with a rolling walker but in the hospital he is required 2 person assist. We have discussed the importance of routine weights, sodium and fluid restriction with ACC guided therapy for his identified heart failure with preserved ejection fraction. His limited inpatient echo identified an LVEF 55%. An echo in September identified a similar ejection fraction with the right ventricle that was moderately to severely dilated and hypokinetic. His RVSP was 50 mmHg. I spent 35 minutes in [id number] time with the patient, family at bedside and nursing staff concerning the discharge process. We discussed the admitting diagnoses and hospital course. We discussed identified improvement and the patient's desire to be discharged/transition his care to [facility] for rehab. We reviewed inpatient studies and imaging. The patient voiced understanding on the importance of follow-up with his primary care provider, cardiology and specialist(s). The patient plans to be compliant with the medication regimen prescribed and follow-up appointments. His care will be transitioned to [facility] for rehab. Exam Data for Last 24 hours Vital signs and Labs for Last 24 Hours: Temp Pulse Resp BP Pulse Ox O2 Del Method O2 Flow Rate 98.6 F 83 18 99/63 L 98 Room Air 1 11/23/23 12:00 11/23/23 12:00 11/23/23 12:00 11/23/23 12:00 11/23/23 12:00 11/23/23 12:00 11/21/23 22:57 Laboratory Results - last 24 hr 11/22/23 05:27: C-Reactive Protein 27.6 H D, Procalcitonin 0.047 11/22/23 19:31: Chlamy pneumoniae PCR Not detected, Adenovirus (PCR) Not detected, B. pertussis DNA (PCR) Not detected, Coronavirus OC43 (PCR) Not detected, Coronavirus HKU1 (PCR) Not detected, Coronavirus 229E (PCR) Not detected, SARS-CoV-2 (PCR) Not detected, Coronavirus NL63 (PCR) Not detected, Human Metapneumovir PCR Not detected, Influenza A (H1) PCR Not detected, Influ A (H1N1/09) PCR Not detected, Influenza A (H3) PCR Not detected, Influenza Type A (PCR) Not detected, Influenza Type B (PCR) Not detected, M. pneumoniae (PCR) Not detected, Parainfluenza 1 (PCR) Not detected, Parainfluenza 2 (PCR) Not detected, Parainfluenza 3 (PCR) Not detected, Parainfluenza 4 (PCR) Not detected, RSV (PCR) Not detected, Entero/Rhino (PCR) Not detected 11/22/23 22:39: Urine Color Dark yellow, Urine Appearance Slightly cloudy, Urine pH 6.0, Ur Specific [place] 1.025, Urine Protein Trace, Urine Glucose (UA) 2+, Urine Ketones Negative, Urine Blood 2+, Urine Nitrate Negative, Urine Bilirubin 1+ A, Urine Urobilinogen 4.0, Ur Leukocyte Esterase Negative, Urine RBC 10-20, Urine WBC None, Ur Squamous Epith Cells 3-5, Urine Bacteria Trace 11/23/23 07:10: WBC 6.0, RBC 4.15 L, Hgb 13.7 L, Hct 42.6, MCV 102.5 H, MCH 33.0 H, MCHC 32.2, RDW 15.4, Plt Count 147, MPV 8.5, Neut % (Auto) 80.4 H, Lymph % (Auto) 11.0, [place] % (Auto) 6.5, Eos % (Auto) 1.1, Baso % (Auto) 1.0, Neut # ( Auto) 4.9, Lymph # (Auto) 0.7, [place] # (Auto) 0.4, Eos # (Auto) 0.1, Baso # (Auto) 0.1, Total Counted 100, Neutrophils % (Manual) 84 H, Lymphocytes % (Manual) 10, Monocytes % (Manual) 4, Eosinophils % (Manual) 1, Basophils % (Manual) 1.0, Platelet Estimate Normal, RBC Morphology Normal, PT 17.2 H, INR 1.61 H, Sodium 138, Potassium 3.1 L, Chloride 103, Carbon Dioxide 29, Anion Gap 9.1, BUN 35 H, Creatinine 0.60 L, Estimated Creat Clear 51, Estimated GFR 129, E st GFR ( Amer) 156, Glucose 86, Calcium 9.5, Magnesium 2.2 I & O for Last 24 hours: Intake & Output 11/20/23 11/21/23 11/22/23 11/23/23 23:59 23:59 23:59 23:59 Intake Total 1116 / 1166 250 / 595 885 / 885 Output Total 3120 / 4220 3200 / 4425 1800 / 1825 Balance -3120 / -4120 -2084 / -3259 -1550 / -1230 860 / 860 Weight 66.224 kg 66.5 kg 65.408 kg 63.957 kg Constitutional Constitutional: no acute distress, thin, chronically ill appearing and cooperative *Routine HEENT Exam Head: Present normocephalic ENT: Present mucous membranes moist Comments: Clouded cornea *Routine Neck Exam Neck: Present trachea midline; Absent JVD or lymphadenopathy *Routine Respiratory Exam Respiratory: Present rhonchi, normal respiratory effort and symmetric chest movement *Routine Cardiovascular Exam Cardiovascular: Present RRR and murmur *Routine Abdominal Exam Abdominal: Present soft; Absent tenderness *Routine Extremities Exam Extremities: Absent edema *Routine Skin Exam Skin: Absent rash *Routine Neurological Exam Neurological: Present alert, oriented X3 and moving all extremities Routine Psychiatric Exam Psychiatric: Present cooperative Results Data Completed and Pending Labs on day of discharge: Labs from last 24 hours 11/23/23 11/22/23 11/22/23 07:10 22:39 19:31 WBC 6.0 RBC 4.15 L Hgb 13.7 L Hct 42.6 MCV 102.5 H MCH 33.0 H MCHC 32.2 RDW 15.4 Plt Count 147 MPV 8.5 Neut % (Auto) 80.4 H Lymph % (Auto) 11.0 [place] % (Auto) 6.5 Eos % (Auto) 1.1 Baso % (Auto) 1.0 Neut # (Auto) 4.9 Lymph # (Auto) 0.7 [place] # (Auto) 0.4 Eos # (Auto) 0.1 Baso # (Auto) 0.1 Total Counted 100 Neutrophils % (Manual) 84 H Lymphocytes % (Manual) 10 Monocytes % (Manual) 4 Eosinophils % (Manual) 1 Basophils % (Manual) 1.0 Platelet Estimate Normal RBC Morphology Normal PT 17.2 H INR 1.61 H Sodium 138 Potassium 3.1 L Chloride 103 Carbon Dioxide 29 Anion Gap 9.1 BUN 35 H Creatinine 0.60 L Estimated Creat Clear 51 Estimated GFR 129 Est GFR ( Amer) 156 Glucose 86 Calcium 9.5 Magnesium 2.2 C-Reactive Protein Procalcitonin Urine Color Dark yellow Urine Appearance Slightly cloudy Urine pH 6.0 Ur Specific [place] 1.025 Urine Protein Trace Urine Glucose (UA) 2+ Urine Ketones Negative Urine Blood 2+ Urine Nitrate Negative Urine Bilirubin 1+ A Urine Urobilinogen 4.0 Ur Leukocyte Esterase Negative Urine RBC 10-20 Urine WBC None Ur Squamous Epith Cells 3-5 Urine Bacteria Trace Chlamy pneumoniae PCR Not detected Adenovirus (PCR) Not detected B. pertussis DNA (PCR) Not detected Coronavirus OC43 (PCR) Not detected Coronavirus HKU1 (PCR) Not detected Coronavirus 229E (PCR) Not detected SARS-CoV-2 (PCR) Not detected Coronavirus NL63 (PCR) Not detected Human Metapneumovir PCR Not detected Influenza A (H1) PCR Not detected Influ A (H1N1/) PCR Not detected Influenza A (H3) PCR Not detected Influenza Type A (PCR) Not detected Influenza Type B (PCR) Not detected M. pneumoniae (PCR) Not detected Parainfluenza 1 (PCR) Not detected Parainfluenza 2 (PCR) Not detected Parainfluenza 3 (PCR) Not detected Parainfluenza 4 (PCR) Not detected RSV (PCR) Not detected Entero/Rhino (PCR) Not detected 11/22/23 05:27 WBC RBC Hgb Hct MCV MCH MCHC RDW Plt Count MPV Neut % (Auto) Lymph % (Auto) [place] % (Auto) Eos % (Auto) Baso % (Auto) Neut # (Auto) Lymph # (Auto) [place] # (Auto) Eos # (Auto) Baso # (Auto) Total Counted Neutrophils % (Manual) Lymphocytes % (Manual) Monocytes % (Manual) Eosinophils % (Manual) Basophils % (Manual) Platelet Estimate RBC Morphology PT INR Sodium Potassium Chloride Carbon Dioxide Anion Gap BUN Creatinine Estimated Creat Clear Estimated GFR Est GFR ( Amer) Glucose Calcium Magnesium C-Reactive Protein 27.6 H D Procalcitonin 0.047 Urine Color Urine Appearance Urine pH Ur Specific [place] Urine Protein Urine Glucose (UA) Urine Ketones Urine Blood Urine Nitrate Urine Bilirubin Urine Urobilinogen Ur Leukocyte Esterase Urine RBC Urine WBC Ur Squamous Epith Cells Urine Bacteria Chlamy pneumoniae PCR Adenovirus (PCR) B. pertussis DNA (PCR) Coronavirus OC43 (PCR) Coronavirus HKU1 (PCR) Coronavirus 229E (PCR) SARS-CoV-2 (PCR) Coronavirus NL63 (PCR) Human Metapneumovir PCR Influenza A (H1) PCR Influ A (H1N1/) PCR Influenza A (H3) PCR Influenza Type A (PCR) Influenza Type B (PCR) M. pneumoniae (PCR) Parainfluenza 1 (PCR) Parainfluenza 2 (PCR) Parainfluenza 3 (PCR) Parainfluenza 4 (PCR) RSV (PCR) Entero/Rhino (PCR) DS: Diagnosis Discharge Diagnosis (1) Cor pulmonale: Status: Acute Code(s): I27.81 - Cor pulmonale (chronic) (2) Heart failure: Status: Acute Code(s): I50.9 - Heart failure, unspecified (3) CHF exacerbation: Status: Acute Code(s): I50.9 - Heart failure, unspecified (4) Lung cancer: Status: Acute Code(s): C34.90 - Malignant neoplasm of unspecified part of unspecified bronchus or lung Meds Home Medications and Allergies Home Medications Medication Instructions Recorded Confirmed Type atropine 1 % eye drops 1 drp Eye-Right DAILY 09/12/23 11/20/23 History ezetimibe 10 mg tablet 10 mg PO DAILY 09/12/23 11/20/23 History levothyroxine 137 mcg tablet 137 mcg PO DAILY 09/12/23 11/20/23 History metoprolol succinate 100 mg 100 mg PO BID 09/12/23 11/20/23 History tablet,extended release 24 hr omeprazole 40 mg capsule,delayed 40 mg PO DAILY 09/12/23 11/20/23 History release prednisolone acetate 1 % eye 1 drp Eye-Right DAILY 09/12/23 11/20/23 History drops,suspension ropinirole 0.25 mg tablet 0.25 mg PO BID 09/12/23 11/20/23 History tamsulosin 0.4 mg capsule 0.4 mg PO HS 09/12/23 11/20/23 History valsartan 160 mg tablet 160 mg PO DAILY 09/12/23 11/20/23 History warfarin 4 mg tablet 2 mg PO MOFR 09/12/23 11/20/23 History warfarin 4 mg tablet 4 mg PO SUTUWETHSA 09/12/23 11/20/23 History potassium chloride 20 mEq 20 meq PO BID 09/24/23 11/20/23 History tablet,extended release(part/cryst) dapagliflozin propanediol 10 mg 10 mg PO DAILY #30 tabs 11/23/23 Rx tablet (Farxiga) furosemide 40 mg tablet 40 mg PO DAILY #30 tabs 11/23/23 Rx New Prescriptions to Start Prescriptions: dapagliflozin propanediol [Farxiga] Emeric,Franck furosemide Emeric,Franck Allergies Allergy/AdvReac Type Severity Reaction Status Date / Time Iodinated Contrast Media Allergy Mild Verified 11/20/23 08:54 Penicillins Allergy Unknown Verified 11/20/23 08:54 Discharge Plan Disposition Patient Disposition: Xfer SNF Condition: Serious Discharge Order Discharge Orders: Discharge Order (Routine); Ordered 11/23/23 Ordered By: Franck Zheng Follow up Plan Follow up with: Rene Umanzor MD [Primary Care Provider] - 1 week Kerwin Alaniz MD [Staff Physician] - 1 month Prescriptions/Medication Reconciliation: New dapagliflozin propanediol [Farxiga] 10 mg Tablet 10 mg PO DAILY Qty: 30 0RF furosemide 40 mg Tablet 40 mg PO DAILY Qty: 30 0RF Continued levothyroxine 137 mcg tablet 137 mcg PO DAILY Patient Comments: TAKE 1 TABLET BY MOUTH ONCE DAILY metoprolol succinate 100 mg tablet extended release 24 hr 100 mg PO BID Patient Comments: TAKE 1 TABLET BY MOUTH TWICE DAILY omeprazole 40 mg capsule,delayed release(DR/EC) 40 mg PO DAILY Patient Comments: TAKE 1 CAPSULE BY MOUTH ONCE DAILY warfarin 4 mg tablet 4 mg PO SUTUWETHSA Patient Comments: TAKE 1/2 (ONE-HALF) TABLET BY MOUTH ON SAT AND SATURDAY (2MG) AND 1 TABLET ON SUN,,SAT, AND SAT (4MG) warfarin 4 mg tablet 2 mg PO MOFR Patient Comments: TAKE 1/2 (ONE-HALF) TABLET BY MOUTH ON SAT,SAT,SATURDAY (2MG) AND 1 TABLET ON SUN,,TH AND SAT (4MG) prednisolone acetate 1 % drops,suspension 1 drp Eye-Right DAILY Patient Comments: INSTILL 1 DROP INTO RIGHT EYE ONCE DAILY tamsulosin 0.4 mg capsule 0.4 mg PO HS Patient Comments: TAKE 1 CAPSULE BY MOUTH ONCE DAILY AT BEDTIME ropinirole 0.25 mg tablet 0.25 mg PO BID atropine 1 % drops 1 drp Eye-Right DAILY Patient Comments: INSTILL 1 DROP INTO RIGHT EYE ONCE DAILY valsartan 160 mg tablet 160 mg PO DAILY Patient Comments: TAKE 1 TABLET BY MOUTH ONCE DAILY ezetimibe 10 mg tablet 10 mg PO DAILY Patient Comments: TAKE 1 TABLET BY MOUTH ONCE DAILY potassium chloride 20 mEq tablet,ER particles/crystals 20 meq PO BID Patient Comments: TAKE 1 BY MOUTH TWICE DAILY Discontinued furosemide 20 mg tablet 20 mg PO DAILY hydrochlorothiazide 25 mg tablet 25 mg PO DAILY Patient Comments: TAKE 1 TABLET BY MOUTH ONCE DAILY IN THE MORNING Problem Reconciliation Problems Reviewed?: Yes Patient Discharge Instructions ACTIVITY: Up with assistance DIET: low salt diet and cardiac Patient Instructions: DI for Heart Failure, DI for Respiratory Failure, DI for Heart Failure Exacerbations Providers Primary Care Provider: Rene Umanzor Admit Provider: Sukhdeep Grider Attending Provider: Sukhdeep Grider
[2023-11-23 16:00] VITALS: BP 115/82; PULSE 80; PULSE 82; RESP 19; TEMP 36.9; O2SAT 94
--- NOTE | 2023-11-23 17:45 | PC.NURSE ---
VS stable, patient remained on room air. Lung sounds diminished. Patient encouraged to use incentive spirometer and able to demonstrate to nurse how to use. Patient confused to place, time, situation.
[2023-11-23 20:00] VITALS: BP 149/96; PULSE 88; PULSE 90; PULSE 94; RESP 20; TEMP 36.6; O2SAT 96; O2SAT 97
[2023-11-23] MEDS: TAMSULOSIN 0.4MG CAPSULE 0.4 MG PO (20:44)
[2023-11-24] VITALS: BP 129/80; PULSE 90; PULSE 96; RESP 25; TEMP 36.6; O2SAT 99
[2023-11-24 04:00] VITALS: BP 141/78; PULSE 87; PULSE 90; RESP 25; TEMP 36.5; O2SAT 90; BMI 19.9
[2023-11-24 07:17] LABS: MANUAL DIFFERENTIAL MANUAL DIFFERENTIAL (MANUAL DIFF)
[2023-11-24 07:48] LABS: Anion Gap 7.5 mEq/L (5-15); Blood Urea Nitrogen 29 mg/dl (9-20); Calcium 9.2 mg/dl (8.4-10.2); Carbon Dioxide 30 mmol/L (22.0-30.0); Chloride 103 mmol/L (98-107); Creatinine Clearance Estimated 53 mL/min (50-200); Estimated Glomerular Filt Rate 129 ml/min (>60); GFR (African American) 156 ML/MIN (>60); Glucose 89 mg/dl (74-100); Magnesium 2.1 mg/dl (1.6-2.3); Potassium 3.5 mmoL/L (3.5-5.1); Sodium 137 mmol/L (136-145)
[2023-11-24 08:00] VITALS: BP 105/56; PULSE 75; PULSE 80; RESP 18; TEMP 36.8; O2SAT 94
[2023-11-24 08:05] LABS: Basophils % 0.6 % (0.1-2.0); Eosinophils # 0.1 K/mm3 (0.0-0.4); Eosinophils % 1.2 % (0.1-12.0); Hematocrit 41.7 % (42.0-52.0); Hemoglobin 13.3 g/dL (14.1-18.0); Lymphocytes # 0.6 K/mm3 (0.7-4.5); Lymphocytes % 8.3 % (10-50); Mean Corpuscular HGB Conc 31.9 g/dL (31.8-35.4); Mean Corpuscular Hemoglobin 32.1 pg (27.0-31.2); Mean Corpuscular Volume 100.9 fl (80-94); Mean Platelet Volume 8.3 fl (7.4-10.4); Monocytes # 0.5 K/mm3 (0.1-1.0); Monocytes % 6.7 % (1.7-9.3); Neutrophils # 5.8 K/mm3 (1.8-7.8); Neutrophils % 83.2 % (37.0-80.0); Platelet Count 177 K/mm3 (142-424); Red Blood Count 4.14 M/mm3 (4.60-6.20); Red Cell Distribution Width 15.4 % (11.5-17.5); White Blood Count 6.9 K/mm3 (4.8-10.8)
[2023-11-24] MEDS: PANTOPRAZOLE 40MG TABLET 40 MG PO (08:19)
[2023-11-24] MEDS: IRBESARTAN 150MG TAB 150 MG PO (08:19)
[2023-11-24] MEDS: FUROSEMIDE 40 MG TABLET PO (08:20)
[2023-11-24] MEDS: DAPAGLIFLOZIN PROPANEDIOL 10 MG TABLET PO (08:20)
[2023-11-24] MEDS: ROPINIROLE HCL 0.25 MG TABLET PO (08:20)
[2023-11-24] MEDS: METOPROLOL SUCCINATE XL 100MG TABLET 100 MG PO (08:20)
[2023-11-24] MEDS: LEVOTHYROXINE 137MCG (0.137MG) TAB 137 MCG PO (08:20)
[2023-11-24 09:09] LABS: Eosinophils % 1 % (0-3); Lymphocytes % 13 % (10-50); Macrocytosis 1+; Monocytes % 7 % (2-9); Neutrophils % 79 % (42-76); Total Cells Counted 100
[2023-11-24 09:10] LABS: Platelet Estimate Normal
== END 2023-11-24 10:43 | DRG 291 ==
LOC: ER 13:38 → 2ND 13:58
PROVIDERS: Admitting Provider Internal Medicine; Emergency Provider Student in an Organized Health Care Education/Training Program; PCP Family Medicine; Visit Provider Internal Medicine
DX: I50.33 Acute on chronic diastolic (congestive) heart failure (principal); C34.90 Malignant neoplasm of unspecified part of unspecified bronchus or lung; I48.11 Longstanding persistent atrial fibrillation; H54.8 Legal blindness, as defined in USA; I27.81 Cor pulmonale (chronic); G20.A1 Parkinson's disease without dyskinesia, without mention of fluctuations; Z87.891 Personal history of nicotine dependence; I11.0 Hypertensive heart disease with heart failure; Z79.01 Long term (current) use of anticoagulants; Z79.899 Other long term (current) drug therapy
CPT/HCPCS: 36415; 51702; 70450; 71045; 80048; 80053; 80061; 81001; 82803; 83605; 83735; 83880; 84100; 84145; 84484; 85007; 85014; 85018; 85025; 85048; 85049; 85610; 86140; 87581; 87632; 87635; 87798; 93005; 93308; 94761; 97162; 97165; 97530; 99291; J1940; J7620